=== PATIENT | male | born 1970 | race Caucasian/White ===

== ENCOUNTER 2016-09-02 09:01 | Outpatient (RCR) | payer OTHER | END 2016-09-03 | LOC: M PT 09:01 | PROVIDERS: ATTEND Internal Medicine | DX: Z51.89 Encounter for other specified aftercare (principal); M25.561 Pain in right knee; M25.562 Pain in left knee; M25.511 Pain in right shoulder; M25.512 Pain in left shoulder ==

== ENCOUNTER 2016-09-25 10:00 | Outpatient (RCR) | payer OTHER | END 2016-10-04 | LOC: M PT 10:00 | PROVIDERS: ATTEND Internal Medicine | DX: Z51.89 Encounter for other specified aftercare (principal); M25.561 Pain in right knee; M25.562 Pain in left knee; M25.511 Pain in right shoulder; M25.512 Pain in left shoulder ==

== ENCOUNTER 2017-04-10 10:58 | Inpatient (IN) | payer OTHER ==
[~2017-04-10] VITALS: Ht 177.8 cm; Wt 116.0 kg
[2017-04-10] MEDS ORDERED: GABA-282 PO (11:14)
[2017-04-10] MEDS ORDERED: TRAZ50TA11 PO (11:14)
[2017-04-10] MEDS ORDERED: FLUT1SPR2 (11:14)
[2017-04-10] MEDS ORDERED: LORA10TA2 PO (11:14)
[2017-04-10] MEDS ORDERED: MINI2CAP PO (11:14)
[2017-04-10 14:52] LABS: MEAN CORPUSCULAR HEMOGLOBIN 30.8 pg (27.0-33.0); MEAN CORPUSCULAR HGB CONC 33.9 g/dl (32.0-36.5); RED CELL DISTRIBUTION WIDTH 14.2 % (11.5-14.5); WHITE BLOOD COUNT 8.6 10^3/uL (4.0-10.0)
[2017-04-10 15:02] LABS: METHADONE URINE NEGATIVE (NEGATIVE)
[2017-04-10 15:10] LABS: ALBUMIN 3.4 GM/DL (3.2-5.2); ALBUMIN/GLOBULIN RATIO 0.87 (1.00-1.93); ALKALINE PHOSPHATASE 63 U/L (45-117); ALT/SGPT 66 U/L (12-78); ANION GAP 5 MEQ/L (8-16); AST/SGOT 26 U/L (15-37); BILIRUBIN,DIRECT 0.2 MG/DL (0.0-0.2); BILIRUBIN,TOTAL 0.5 MG/DL (0.2-1.0); BLOOD UREA NITROGEN 10 MG/DL (7-18); CALCIUM LEVEL 8.9 MG/DL (8.5-10.1); CARBON DIOXIDE LEVEL 29 MEQ/L (21-32); CHLORIDE LEVEL 108 MEQ/L (98-107); GLOMERULAR FILTRATION RATE > 60.0 (>60); GLUCOSE, FASTING 109 MG/DL (70-105); POTASSIUM SERUM 4.1 MEQ/L (3.5-5.1); SODIUM LEVEL 142 MEQ/L (136-145); TOTAL PROTEIN 7.3 GM/DL (6.4-8.2)
[2017-04-10] MEDS ORDERED: FISH1000 PO (17:53)
[2017-04-10] MEDS ORDERED: CHRO400T PO (17:53)
[2017-04-10] MEDS ORDERED: VITMTA PO (17:53)
[2017-04-10 20:19] VITALS: BP 148/88
[2017-04-10] MEDS ORDERED: MAALOX 30 ML SUSP *UDC PO PRN (21:30)
[2017-04-10] MEDS ORDERED: traZODone 50 MG TAB PO PRN (21:30)
[2017-04-10] MEDS ORDERED: MOM 30ML SUSPENSION UDC PO PRN (21:30)
[2017-04-10] MEDS ORDERED: LORATADINE 10 MG TAB PO PRN (21:30)
[2017-04-10] MEDS ORDERED: FLUTICASONE PROP 0.05% NASAL SPRAY 16 GM (FLONASE) PRN (21:30)
[2017-04-10] MEDS: GABAPENTIN 300 MG CAP PO SCH (22:11)
[2017-04-10] MEDS: ACETAMINOPHEN TAB 650MG DOSE (2X325MG) PO PRN (22:12)
[2017-04-11 06:28] VITALS: BP 134/83
--- NOTE | 2017-04-11 08:24 | ECGEPIP ---
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
[2017-04-11] MEDS: MULTIVITAMINS/MINERALS THERAP 1 TAB PO SCH (08:49)
[2017-04-11] MEDS: OMEGA-3 1050MG CAPSULE PO SCH (08:49)
[2017-04-11] MEDS: GABAPENTIN 300 MG CAP PO SCH ×3 (08:49→21:16)
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
[2017-04-11] MEDS: ACETAMINOPHEN TAB 650MG DOSE (2X325MG) PO PRN (15:34)
[2017-04-11 18:00] VITALS: BP 137/79
[2017-04-11] MEDS: PRAZOSIN 1 MG CAP PO SCH (21:17)
[2017-04-12 06:58] VITALS: BP 115/61
[2017-04-12] MEDS: OMEGA-3 1050MG CAPSULE PO SCH (08:24)
[2017-04-12] MEDS: MULTIVITAMINS/MINERALS THERAP 1 TAB PO SCH (08:24)
[2017-04-12] MEDS: GABAPENTIN 300 MG CAP PO SCH ×3 (08:24→20:24)
[2017-04-12] MEDS ORDERED: INFLUENZA QUADRIVALENT PF VACCINE 0.5ML SYRINGE (90686) IM ONE (09:00)
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
[2017-04-12] MEDS: PRAZOSIN 1 MG CAP PO SCH (20:24)
[2017-04-13 06:39] VITALS: BP 148/81
[2017-04-13] MEDS: MULTIVITAMINS/MINERALS THERAP 1 TAB PO SCH (08:19)
[2017-04-13] MEDS: GABAPENTIN 300 MG CAP PO SCH ×3 (08:19→20:59)
[2017-04-13] MEDS: OMEGA-3 1050MG CAPSULE PO SCH (08:19)
--- NOTE | 2017-04-13 14:10 | MHIPNPDOC ---
[facility] Progress Note Progress Note DATE OF SERVICE: 04/13/17 HISTORY: Patient is a 46-year-old male, with history of depressive disorder, anxiety disorder. Patient was admitted after having worsening symptoms of depression and increased anxiety at the point that he thought he was having a panic attack as he had palpitations and increased heart rate. Endorsed worsening depressed mood, anhedonia, low energy, and intrusive thoughts of hurting a it security engineer . Patient reported doing better, no depressed mood today, no ideas of self harm or harm to others. No side effects of medications. VITAL SIGNS: See below. NEW TEST RESULTS: CURRENT MEDICATIONS: See below. MENTAL STATUS EXAMINATION: General appearance: Patient is a 46 years old male that is obese and looks older than stated age, casually dressed with fair grooming and hygiene. Speech: . Fluent and coherent Thought processes: . Linear and goal directed Thought content: . No suicidal or homicidal ideas. No delusions elicited. No perceptual disturbances Abstract reasoning and computation: . Abstract thought processes Description of associations: . No abnormalities Description of abnormal or psychotic thoughts: . No psychosis Judgment: . Fair Insight: . Fair Orientation: . Oriented 3 Recent and remote memory: . Intact Attention span and concentration: . Average Fund of knowledge: . Average Mood: "Better." Affect: . Full range DIAGNOSES: 1. Depressive disorder n.o.s, PTSD MANAGEMENT PLAN: Continue current medications Discharge plan for earlier next week, patient will need intensive psychotherapy as outpatient. Continue supportive therapy and milieu therapy TIME SPENT: 25 minutes. Vital Signs Vital Signs Date Time Temp Pulse Resp B/P (MAP) Pulse Ox O2 Delivery O2 Flow Rate FiO2 04/13/17 06:39 97.8 95 18 148/81 (103) 04/11/17 06:28 Room Air 04/10/17 19:59 97 Current Medications Current Medications Acetaminophen (Tylenol Tab) 650 mg Q6HP PRN PO HEADACHE or DISCOMFORT Last administered on 04/11/17t 15:34; Start 04/10/17 at 21:30; Stop 05/10/17 at 21:29 Al Hydrox/Mg Hydrox/Simethicone (Mylanta) 30 ml Q4HP PRN PO HEARTBURN/ INDIGESTION; Start 04/10/17 at 21:30; Stop 05/10/17 at 21:29 Fish Oil ([place]-3 (1050mg)) 1 ea DAILY PO Last administered on 04/13/17 08:19 ; Start 04/11/17 at 09:00; Stop 05/11/17 at 08:59 Fluticasone Propionate (Flonase 0.05% Nasal [place]) 2 spray DAILY PRN NA allergies; Start 04/10/17 at 21:30; Stop 05/10/17 at 21:29 Gabapentin (Neurontin) 300 mg TID PO Last administered on 04/13/17 08:19; Start 04/10/17 at 21:00; Stop 05/10/17 at 20:59 Home Med (Med Rec Complete!) ASDIRECTED XX ; Start 04/10/17 at 18:00; Stop 04/10/17 at 18:00; Status DC Loratadine (Claritin) 10 mg DAILYPRN PRN PO allergies Last administered on 04/12 20:24; Start 04/10/17 at 21:30; Stop 05/10/17 at 21:29 Magnesium Hydroxide (Milk Of Magnesia) 30 ml DAILYPRN PRN PO CONSTIPATION; Start 04/10/17 at 21:30; Stop 05/10/17 at 21:29 Multivitamins (Theragram-M) 1 tab DAILY PO Last administered on 04/13/17 08:19 ; Start 04/11/17 at 09:00; Stop 05/11/17 at 08:59 Prazosin HCl (Minipress) 2 mg QHS PO Last administered on 04/12/17 20:24; Start 04/11/17 at 21:00; Stop 05/11/17 at 20:59 Trazodone HCl (Desyrel) 50 mg QHSP PRN PO INSOMNIA Last administered on 21:16; Start 04/10/17 at 21:30; Stop 05/10/17 at 21:29 Allergies Coded Allergies: No Known Allergies (Unverified , 04/10/17) JAHAIRA PIRES MD Apr 13, 2017 14:10
[2017-04-13 18:00] VITALS: BP 133/72
[2017-04-13 21:00] VITALS: BP 138/92
[2017-04-13] MEDS: PRAZOSIN 1 MG CAP PO SCH (21:00)
[2017-04-13] MEDS: ACETAMINOPHEN TAB 650MG DOSE (2X325MG) PO PRN (22:45)
[2017-04-14 07:07] VITALS: BP 153/82
[2017-04-14] MEDS: OMEGA-3 1050MG CAPSULE PO SCH (08:13)
[2017-04-14] MEDS: GABAPENTIN 300 MG CAP PO SCH (08:13)
[2017-04-14] MEDS: MULTIVITAMINS/MINERALS THERAP 1 TAB PO SCH (08:13)
[2017-04-14] MEDS: ACETAMINOPHEN TAB 650MG DOSE (2X325MG) PO PRN (08:15)
[2017-04-14] MEDS ORDERED: GABA-282 PO (09:02)
[2017-04-14] MEDS ORDERED: CLAR1TAB2 PO (09:02)
[2017-04-14] MEDS ORDERED: TRAZO50TA PO (09:02)
[2017-04-14] MEDS ORDERED: MINI1CAP PO (09:02)
--- NOTE | 2017-04-14 09:20 | MHDSPDOC ---
[facility] Discharge Summary Discharge Summary DATE OF ADMISSION: Apr 10, 2017 at 17:12 DATE OF DISCHARGE: 04/14/17 AT 11:00 DISCHARGE DIAGNOSES: 1. .DEPRESSIVE DISORDER N.O.S 2. .PTSD REASON FOR ADMISSION: WORSENING SYMPTOMS OF DEPRESSION, ANXIETY , IDEAS TO HARM A [employer] Patient is a 46-year-old male, with history of depressive disorder, anxiety disorder reported Medical history CEREBRAL palsy and obesity. Patient was admitted after having worsening symptoms of depression and increased anxiety at the point that he thought he was having a panic attack as he had palpitations and increased heart rate. Endorsed worsening depressed mood, anhedonia, low energy, and intrusive thoughts of hurting a security auditor that works or used to work at [employer] in [facility]. Patient doesn't know the name , address of the security auditor, he had a dispute with him in July 2015 before her daughter in the hospital suffering from leukemia. Patient denies any ideas of self-harm, denies any intentions or homicidal ideas towards this person that he doesn't know how to locate .Patient has been in treatment at [facility] having medication management and weekly psychotherapy. He denies history of self-harm behaviors reported drinking once or twice a most 1 drink, denied any substance use. No history of manic/hypomanic symptoms, no symptoms of psychosis.Patient lives with his girlfriend and his 16 year old son. CONSULTANTS INVOLVED: NONE TREATMENT AND PROGRESS ON THE UNIT : . Patient is a 46-year-old male, with history of depressive disorder, anxiety disorder. Patient was admitted after having worsening symptoms of depression and increased anxiety at the point that he thought he was having a panic attack as he had palpitations and increased heart rate. Endorsed worsening depressed mood, anhedonia, low energy, and intrusive thoughts of hurting a security auditor . Patient was re-started on home medications and he refused to be started on antidepressant medication as he had side effects to multiple ones before. Patient was participating in groups/supportive therapy . He reported doing better, no depressed mood , no ideas of self harm or harm to others. No side effects of medications. Patient will continue weekly psychotherapy and medication management at [facility]. HOSPITAL COURSE: Patient is a 46-year-old male, with history of depressive disorder, anxiety disorder reported Medical history CEREBRAL palsy and obesity. Patient was admitted after having worsening symptoms of depression and increased anxiety at the point that he thought he was having a panic attack as he had palpitations and increased heart rate. Endorsed worsening depressed mood, anhedonia, low energy, and intrusive thoughts of hurting a security auditor that works or used to work at [facility] [employer] [facility] in [facility]. Patient doesn't know the name , address of the security auditor, he had a dispute with him in July 2015 before her daughter in the hospital suffering from leukemia. Patient denies any ideas of self-harm, denies any intentions or homicidal ideas towards this person that he doesn't know how to locate .Patient has been in treatment at [facility] and will continue outpatient treatment there. Patient has obesity , and found to have elevated hemoglobin A1C in initial labs: 6.7. Patient is now considered diabetic and will need follow up in primary health clinics. DISCHARGE ASSESSMENT: Patient with improvement of depressive symptoms, no ideas of self harm or harm to others, will be discharged and have follow up as outpatient. MENTAL STATUS EXAMINATION ON DISCHARGE: General appearance: Patient is a 46 years old male that is obese and looks older than stated age, casually dressed with fair grooming and hygiene. Speech: . Fluent and coherent Thought processes: . Linear and goal directed Thought content: . No suicidal or homicidal ideas. No delusions elicited. No perceptual disturbances Abstract reasoning and computation: . Abstract thought processes Description of associations: . No abnormalities Description of abnormal or psychotic thoughts: . No psychosis Judgment: . Fair Insight: . Fair Orientation: . Oriented 3 Recent and remote memory: . Intact Attention span and concentration: . Average Fund of knowledge: . Average Mood: "Better." Affect: . Full range MEDICATIONS ON DISCHARGE: Acetaminophen (Tylenol Tab) 650 mg Q6HP PRN PO HEADACHE or DISCOMFORT Al Hydrox/Mg Hydrox/Simethicone (Mylanta) 30 ml Q4HP PRN PO HEARTBURN/ INDIGESTION; Fish Oil (Bellaire-3 (1050mg)) 1 ea DAILY PO Fluticasone Propionate (Flonase 0.05% Nasal Halsey) 2 spray DAILY PRN NA allergies Gabapentin (Neurontin) 300 mg TID PO Loratadine (Claritin) 10 mg DAILYPRN PRN PO Magnesium Hydroxide (Milk Of Magnesia) 30 ml DAILYPRN PRN PO CONSTIPATION; Multivitamins (Theragram-M) 1 tab DAILY PO Prazosin HCl (Minipress) 2 mg QHS PO FOR NIGHTMARES Trazodone HCl (Desyrel) 50 mg QHSP PRN PO INSOMNIA PLAN/FOLLOWUP ARRANGEMENTS: . [facility] The amount of time spent in the coordination of care for this patient was approximately 30 minutes. Vital Signs/I&Os Vital Signs Date Time Temp Pulse Resp B/P (MAP) Pulse Ox O2 Delivery O2 Flow Rate FiO2 04/14/17 07:07 97.0 95 18 153/82 (105) Room Air 04/10/17 19:59 97 Medications Scheduled Chromium Picolinate (Chromium Picolinate) 400 Mcg Tab, 400 MCG PO BID, (Reported ) Fish Oil (Fish Oil) 1,000 Mg Cap, 1,000 MG PO DAILY, (Reported) Gabapentin (Gabapentin) 300 Mg Cap, 300 MG PO TID, (Reported) Gabapentin (Gabapentin) 300 Mg Cap, 300 MG PO TID for ANXIETY, #40 Multivitamins *[facility] STOCKED* (Thera M Plus *[facility] STOCKED*) 1 Tab Tab, 1 TAB PO DAILY, (Reported) Prazosin HCl (Minipress) 2 Mg Cap, 2 MG PO QHS, (Reported) Prazosin HCl (Minipress) 1 Mg Cap, 2 MG PO QHS for NIGHTMARES, #14 Trazodone HCl (Trazodone HCl) 50 Mg Tab, 50 MG PO QHS, (Reported) Scheduled PRN Fluticasone Propionate (Fluticasone Propionate 0.05%) 120 Halsey/16 Gm Naspr, 2 SPRAYS NA DAILY PRN for ALLEGIES, (Reported) Loratadine (Loratadine) 10 Mg Tab, 10 MG PO DAILY PRN for ALLERGIES, (Reported) Loratadine (Claritin) 10 Mg Tab, 10 MG PO DAILYPRN PRN for allergies, #14 Trazodone HCl (Trazodone HCl) 50 Mg Tab, 50 MG PO QHSP PRN for INSOMNIA, #14 Allergies Coded Allergies: No Known Allergies (Unverified , 04/10/17) JAHAIRA PIRES MD Apr 14, 2017 09:03
== END 2017-04-14 11:30 | disposition home or self-care (01) | DRG 754 ==
LOC: M ED 10:58 → M ED INP 17:12 → M PSY 20:12
PROVIDERS: ADMIT Psychiatry & Neurology Psychiatry; ATTEND Psychiatry & Neurology Psychiatry
DX: F32.9 Major depressive disorder, single episode, unspecified (principal); E66.9 Obesity, unspecified; Z68.37 Body mass index [BMI] 37.0-37.9, adult; F43.10 Post-traumatic stress disorder, unspecified; G80.9 Cerebral palsy, unspecified; Z79.899 Other long term (current) drug therapy; G47.00 Insomnia, unspecified; R51 Headache; J30.9 Allergic rhinitis, unspecified; F41.9 Anxiety disorder, unspecified

== ENCOUNTER 2020-03-26 21:10 | Emergency (ER) | payer MEDICARE, OTHER ==
[~2020-03-26] VITALS: Ht 177.8 cm; Wt 120.7 kg
[~2020-03-26 21:10] MED LIST: CHRO400T PO; CLAR1TAB2 PO; FISH1000 PO; FLUT1SPR2; GABA-843 PO; LORA-243 PO; MINI1CAP PO; MINI2CAP PO; TRAZ-252 PO; TRAZ1TAB10 PO; VITMTA PO
[2020-03-26] MEDS ORDERED: OMEP-218 PO (21:24)
[2020-03-26] MEDS ORDERED: ATOR1TAB19 PO (21:24)
[2020-03-26] MEDS ORDERED: BUPR75TA5 PO (21:24)
[2020-03-26] MEDS ORDERED: METF500T13 PO (21:24)
--- NOTE | 2020-03-26 22:08 | REPVR ---
PROCEDURE INFORMATION: Exam: XR Right Foot Complete Exam date and time: 03/26/2020 9:57 PM Age: 49 years old Clinical indication: Pain; Foot; Right; Patient HX: Stubbed 5th toe yesterday; Additional info: Right lateral foot injury/pain TECHNIQUE: Imaging protocol: XR Right foot. Views: 3 or more views. COMPARISON: No relevant prior studies available. FINDINGS: Bones/joints: Normal. No fractures. Soft tissues: Mild soft tissue swelling of the distal foot. IMPRESSION: 1. Mild soft tissue swelling of the distal foot. 2. Otherwise negative right foot. No fractures . Electronically signed by: Thomas Sparrow On 03/26/2020 22:07:23 PM
[2020-03-26 22:29] VITALS: BP 141/75
[2020-05-17] MEDS ORDERED: DULE200A INH (12:24)
[2020-05-17] MEDS ORDERED: FISH1000 PO (12:24)
[2020-05-17] MEDS ORDERED: FLUTISP (12:24)
== END 2020-03-26 22:31 | disposition home or self-care (01) ==
LOC: M ED 21:10
DX: S90.31XA Contusion of right foot, initial encounter (principal); W22.09XA Striking against other stationary object, initial encounter; Y92.019 Unspecified place in single-family (private) house as the place of occurrence of the external cause; Y99.9 Unspecified external cause status; J45.909 Unspecified asthma, uncomplicated; E11.9 Type 2 diabetes mellitus without complications; K21.9 Gastro-esophageal reflux disease without esophagitis; F43.10 Post-traumatic stress disorder, unspecified; Z79.84 Long term (current) use of oral hypoglycemic drugs; Z79.899 Other long term (current) drug therapy

== ENCOUNTER → 2020-05-18 | Outpatient (CLI) | payer MEDICARE ==
[~2020-05-18] MED LIST changes: +ATOR1TAB19 PO; +BUPR75TA5 PO; +DULE200A INH; +FLUTISP; +METF500T13 PO; +OMEP-218 PO
== END ==
LOC: M LABSMTC 12:28
PROVIDERS: ATTEND Anesthesiology
DX: Z01.812 Encounter for preprocedural laboratory examination (principal); Z20.828 Contact with and (suspected) exposure to other viral communicable diseases

== ENCOUNTER → 2020-05-23 | Day surgery (SDC) | payer MEDICARE ==
[~2020-05-23] VITALS: Ht 177.8 cm; Wt 120.2 kg
[~2020-05-23] MED LIST changes: +LIDOCAINE 2% 100MG/5ML SDV (FOR ANES.) As Ordered ONE; +NS 1,000 ML IV ONE; +propofoL 200 MG/20 ML VIAL As Ordered ONE
[2020-05-23 07:34] VITALS: BP 136/94
== END | disposition home or self-care (01) ==
LOC: M OPP 07:11
PROVIDERS: ATTEND Internal Medicine Gastroenterology
DX: K62.5 Hemorrhage of anus and rectum (principal); Z80.0 Family history of malignant neoplasm of digestive organs; Z53.8 Procedure and treatment not carried out for other reasons

== ENCOUNTER 2020-06-22 20:56 | Emergency (ER) | payer MEDICARE ==
[~2020-06-22] VITALS: Ht 175.3 cm; Wt 121.9 kg
[~2020-06-22 20:56] MED LIST changes: -LIDOCAINE 2% 100MG/5ML SDV (FOR ANES.) As Ordered ONE; -NS 1,000 ML IV ONE; -propofoL 200 MG/20 ML VIAL As Ordered ONE
--- NOTE | 2020-06-22 22:20 | REPVR ---
PROCEDURE INFORMATION: Exam: XR Left Toe(s) Exam date and time: 06/22/20 (9:23pm) Age: 49 years old Clinical indication: Struck foot on a ladder TECHNIQUE: Imaging protocol: XR Left toes Views: Minimum 2 views COMPARISON: No relevant prior studies available FINDINGS: Bones/joints: Unremarkable. No acute fracture nor dislocation. Soft tissues: Unremarkable. IMPRESSION: No acute findings. The left toes appear intact. Electronically signed by: An Leiva On 06/22/2020 22:20:46 PM
[2020-06-22 22:44] VITALS: BP 137/82
== END 2020-06-22 23:00 | disposition home or self-care (01) ==
LOC: M ED 20:56
DX: S90.122A Contusion of left lesser toe(s) without damage to nail, initial encounter (principal); W22.8XXA Striking against or struck by other objects, initial encounter; E11.9 Type 2 diabetes mellitus without complications; J45.909 Unspecified asthma, uncomplicated; R56.9 Unspecified convulsions; Z79.899 Other long term (current) drug therapy; Z79.84 Long term (current) use of oral hypoglycemic drugs; Z88.8 Allergy status to other drugs, medicaments and biological substances

== ENCOUNTER → 2020-07-16 | Outpatient (CLI) | payer MEDICARE | LOC: M LABSMTC 09:34 | PROVIDERS: ATTEND Anesthesiology | DX: Z01.812 Encounter for preprocedural laboratory examination (principal); Z20.822 Contact with and (suspected) exposure to COVID-19 ==

== ENCOUNTER 2020-07-21 07:08 | Day surgery (SDC) | payer MEDICARE ==
[~2020-07-21] VITALS: Ht 177.8 cm; Wt 118.8 kg
[~2020-07-21 07:08] MED LIST changes: +GABA-282 PO; -GABA-843 PO; +NS 1,000 ML IV ONE
--- OUTSIDE RECORDS SUMMARY | 2020-07-21 07:11 | CCD | Continuity of Care Document ---
Author Author Subhash SALAS RPA-C Organization Unknown Address [address], [address] [place] [address] Phone [phone] Care Team Providers Care Mat Packer Name Role Phone Abner Deal AUTM [phone] Problems Active Problems Provider Date Allergic asthma without status asthmaticus TOÑA DietrichC Onset: 04/12/2020 Social History Type Date Description Comments Sex Unknown ETOH Use Denies alcohol use Tobacco Use Start: Unknown Non Smoker Allergies, Adverse Reactions, Alerts Active Allergies Reaction Severity Comments Date Dilantin 04/12/2020 Medications Active Medications SIG Qnty Indications Ordering Provide r Date Miralax 17GM/Scoop Powder use as instructed by doctor for bowel prep 510gm Z12.11 Nolan Lomax MD 06/22/2020 Miralax 17GM/Scoop Powder Take 17 grams by mouth twice daily. 1020gm K59.00 Nolan Lomax MD 04/12/[address] 1 by mouth every day Unknown Atorvastatin Calcium 10mg Tablets 1 by mouth every day Unknown Gabapentin 300mg Capsules Daily-can take 1 more prn for headache Unknown Loratadine 10mg Capsules 1 by mouth every day Unknown Chromium Picolinate 1000mcg Tablets Daily Unknown Vitamin D 50mcg (1999 Ut) Tablets Daily Unknown Beverly 3-6-9 Complex Capsules Daily Unknown Metformin HCL 500mg Tablets 1 by mouth twice a day Unknown Dulera 100-5mcg/Act Aerosol 2 puff twice a day Unknown Azelastine HCL (Nasal) 0.1% Soluti on 1 spray intranasal twice a day prn Unknown Ventolin HFA 108(90Base) mcg/Act A erosol 2 puffs qid/prn Unknown Mucinex 600mg Tablets ER 12HR 2 by mouth prn Unknown History Medications Nulytely With Flavor Packs 420gm Solution Rec take per doctor's instructions for bowel prep. 4000ml K62.5 Nolan Lomax MD 04/12/2020 - 06/20/[address] take 4 tabs by mouth prior to procedure per instructions. 4tabs K62.5 Nolan Lomax MD 04/12/2020 - 06/20/2020 Immunizations Description No Information Available Vital Signs Date Vital Result Comment 06/22/2020 8:34am BP Systolic 112 mmHg BP Diastolic 82 mmHg Height 69.5 inches 5'9.50" Weight 267.00 lb BMI (Body Mass Index) 38.9 kg/m2 [place] Body Weight 160 lb Weight 121.111 kg BSA (Body Surface Area) 2.35 m2 04/12/2020 9:44am BP Systolic 132 mmHg BP Diastolic 72 mmHg Heart Rate 82 /min Height 69.5 inches 5'9.50" Weight 264.00 lb BMI (Body Mass Index) 38.4 kg/m2 [place] Body Weight 160 lb Weight 119.750 kg BSA (Body Surface Area) 2.34 m2 Results Description No Information Available Procedures Description No Information Available Medical Devices Description No Information Available Encounters Description No Information Available Assessments Date Code Description Provider 06/22/2020 Z12.11 Encounter for screening for oracio gnant neoplasm of colon Tabby Storey MYRNA SalasC 06/22/2020 Z80.0 Family history of malignant neop lasm of digestive organs [facility]by Storey [facility] 06/22/2020 K59.00 Constipation, unspecified Meliss a [place] Mayra [facility] 04/12/2020 K62.5 Hemorrhage of anus and rectum Me lizandro [place] TOÑA SalasC 04/12/2020 K59.00 Constipation, unspecified Meliss a [place] TOÑA SalasC 04/12/2020 Z80.0 Family history of malignant neop lasm of digestive organs ISHMAEL Baptiste Plan of Treatment 06/22/2020 - ISHMAEL Baptiste* Z12.11 Encounter for screening for malignant neoplasm of colon * Z80.0 Family history of malignant neoplasm of digestive organs * K59.00 Constipation, unspecified * * New Medication:* Miralax 17 GM/Scoop * New Orders:* Colonoscopy, Ordered: 06/22/20 * Comments:* Will arrange for colonoscopy. Reviewed risks and benefits of the procedure, as well as other options, with the patient. Bowel prep procedure was discussed with patient, as well as risks and side effects associated with the bowel prep. Patient verbalized understanding of all of the above and is in agreement to proceed. Patient will seek medical attention for any acute changes. Will monitor. * Follow up:* As scheduled, sooner if needed. Functional Status Description No Information Available Mental Status Description No Information Available Referrals Description No Information Available
--- OUTSIDE RECORDS SUMMARY | 2020-07-21 07:11 | CCD | Continuity of Care Document ---
Author Author Subhash DEAL [facility] Organization Unknown Address [address] [place] [address] Phone [phone] Problems Active Problems Provider Date Epilepsy Onset: 04/15/2001 Allergic rhinitis Onset: 04/15/2001 Gastroesophageal reflux disease Susan Castellano [facility] Onset : 12/27/2003 Hyperlipidemia Abner Deal RPA Onset: 05/11/2007 Low back pain Abner Deal RPA Onset: 11/18/2013 Cerebral palsy Abner Deal RPA Onset: 10/02/2015 Moderate recurrent major depression Abner Deal RPA O nset: 11/13/2015 Anxiety state Abner Deal RPA Onset: 11/13/2015 Panic disorder with agoraphobia Abner Deal RPA Onset : 11/13/2015 Migraine without aura, not refractory Abner Deal RPA Onset: 01/03/2016 Osteoarthritis of multiple joints Abner Deal RPA Ons et: 04/02/2016 Polyarthropathy Abner Deal RPA Onset: 04/02/2016 Erectile dysfunction due to general medical condition Abner Deal RPA Onset: 04/03/2016 Elevated liver enzymes level Abner Deal RPA Onset: 1 Type 2 diabetes mellitus Abner Deal RPA Onset: 04/14 Note: New onset 04/10/17 [facility] Nocturia Abner Deal RPA Onset: 10/13/2017 Vitamin D deficiency Abner Deal RPA Onset: 8 Asthma without status asthmaticus Abner Deal RPA Ons et: 03/15/2019 Social History Type Date Description Comments Sex Unknown Tobacco Use Start: Unknown Never Smoked Cigarettes ETOH Use Denies alcohol use Recreational Drug Use Never Used Drugs Tobacco Use Start: Unknown Patient has never smoked Allergies, Adverse Reactions, Alerts Active Allergies Reaction Severity Comments Date Dilantin 04/15/2001 Xerontin 04/15/2001 Escitalopram ED, fatigue, burning lips Skelaxin Elevated b/p 10/16/2015 Medications Active Medications SIG Qnty Indications Ordering Provide r Date Azithromycin 250mg Tablets 2 by mouth stat followed by 1 by mouth every day x 4 days 6tabs Savage Grey D.O., [facility] 06/07/2020 Diclofenac Sodium 1% Gel apply topically four times a day to right knee 100gm [facility].O., [facility] 06/07/2020 Vitamin D 2000Unit Tablets 1 by mouth every day 90tabs Ag Grey D.O., [facility] Lancets 30G 30G Misc use with glucose meter daily and as needed dx. e11.9 200units Ag olivier D.O., [facility] 12/27/2019 Glucose Meter Test Strips Advanced Strips check blood glucose level once a day and as needed. e11.9 200uni ts Ag Grey D.O., [facility] 12/27/2019 Metformin HCL 500mg Tablets take one tablet by mouth twice a day 60tabs Shefali Green, [facility] 09/27/2019 Atorvastatin Calcium 10mg Tablets Take One Tablet By Mouth Every Day 90tabs Ag Grey D.O., [facility] 06/11/[address] Take One Capsule By Mouth Every Morning 30caps Ag Grey D.O., [facility] 03/15/2019 Ventolin HFA 108(90Base) mcg/Act A erosol Inhale Two Puffs By Mouth Every 4 To 6 Hours as Needed 18units Ag Grey D.O., [facility] 04/01/2018 Gabapentin 300mg Capsules take one capsule by mouth three times a day 90caps Ag Grey D.O. , [facility] 03/05/2017 Dulera 100-5mcg/Act Aerosol Inhale 2 Puffs By Mouth Two Times A Day 13units Ag Grey D.O., [facility] 10/11/2016 Loratadine 10mg Tablets Take One Tablet By Mouth Every Day 30tabs Ag Grey D.O., [facility] Flonase Allergy Relief 50mcg/Act Suspension 2 sprays each nostril once a day 19.8ml Ag Grey D.O., [facility] 11/08/2015 Fish Oil 1000mg Capsules 1 by mouth daily Unknown Chromium Picolinate 400mcg Tablets one tablet two times a day Unknown 0 History Medications Azithromycin 250mg Tablets 2 by mouth stat followed by 1 by mouth every day x 4 days 6tabs Savage Grey D.O., [facility] 04/04/2020 - 04/14/2020 Guaifenesin 100mg/5ML Solution give 10ml by mouth as needed 4 times a day 400ml Ag Grey D.O., [facility] 04/04/2020 - 04/14/2020 Invokana 100mg Tablets 1 by mouth every day 30tabs Ag Grey D.O., [facility] - 01/19/2020 Medications Administered in Office Medication SIG Qnty Indications Ordering Provider Date Injection (SC)/(Im) Injection Abner Deal, MYRNA 03/30/2020 Injection (SC)/(Im) Injection Abner Deal, RPA 06/10/2019 Injection Subcutaneous Or Intramuscular Injection [facility] 04/13 Immunizations CPT Code Status Date Vaccine Lot # [id number] Given 03/30/2020 Influenza Virus Vaccine, Quadrivalent, Slit Virus, Im Use 3Y & Up [id number] Given 06/10/2019 Pneumococcal Immunization S0 [id number] 23801 Given 06/10/2019 Influenza Virus Vaccine, Quadrivalent, Slit Virus, Im Use 3Y & Up [id number] [id number] Given 03/23/2012 Pneumococcal Immunization [id number] [id number] Given 03/23/2012 Influenza Virus Vac. Split Virus Individuals 3 Years And Above [id number] Given 04/13/2008 Influenza Virus Vac. Split Virus Individuals 3 Years And Above [id number] Given Unknown Influenza Virus Vaccine, Quadrivalent, Slit Virus, Im Use 3Y & Up Vital Signs Date Vital Result Comment 06/07/2020 3:07pm BP Systolic 110 mmHg BP Diastolic 86 mmHg Body Temperature 96.4 F Heart Rate 103 /min Respiratory Rate 16 /min Height 70 inches 5'10" Weight 267.00 lb [place] Body Weight 166 lb BMI (Body Mass Index) 38.3 kg/m2 O2 % BldC Oximetry 97 % 04/04/2020 3:20pm Body Temperature 97.6 F Heart Rate 86 /min Respiratory Rate 16 /min Height 70 inches 5'10" [place] Body Weight 166 lb O2 % BldC Oximetry 96 % Results Test Acquired Date Facility Test Result H/L Range Note CBC With Differential/Platelet 01/12/2020 [facility] N E WBC 9.3 x10E3/uL 3.4-10.8 RBC 5.38 x10E6/uL 4.14-5.80 Hemoglobin 16.2 g/dL 13.0-17.7 Hematocrit 49.3 % 37.5-51.0 MCV 92 fL 79-97 MCH 30.1 pg 26.6-33.0 MCHC 32.9 g/dL 31.5-35.7 RDW 13.1 % 11.6-15.4 Platelets 480 x10E3/uL High 150-450 Neutrophils 54 % Not Estab. Lymphs 30 % Not Estab. Monocytes 8 % Not Estab. Eos 7 % Not Estab. Basos 1 % Not Estab. Immature Cells TNP Neutrophils (Absolute) 5.0 x10E3/uL 1.4-7.0 Lymphs (Absolute) 2.8 x10E3/uL 0.7-3.1 Monocytes(Absolute) 0.8 x10E3/uL 0.1-0.9 Eos (Absolute) 0.6 x10E3/uL High 0.0-0.4 Baso (Absolute) 0.1 x10E3/uL 0.0-0.2 Immature Granulocytes 0 % Not Estab. Immature Grans (Abs) 0.0 x10E3/uL 0.0-0.1 NRBC TNP Hematology Comments: TNP Hemoglobin A1c 12/27/2019 [facility] [place] Hemoglobin A1c 7.3 % High 4.8-5.6 1 1 Prediabetes: 5.7 - 6.4 Diabetes: >6.4 Glycemic control for adults with diabetes: <7.0 Procedures Date Code Description Status 03/30/2020 64652 Injection (SC)/(Im) Completed Medical Devices Description No Information Available Encounters Type Date Location Provider Dx Diagnosis Office Visit 06/07/2020 3:00p [place] [facility] Abner Deal, RP A M25.561 Pain in right knee J01.90 Acute sinusitis, unspecified M54.5 Low back pain Office Visit 04/04/2020 4:00p [place] [facility] Abner Deal, RP A J01.90 Acute sinusitis, unspecified Office Visit 03/30/2020 9:30a [facility] Abner Deal, RP A Z00.01 Encounter for general adult medical exam w abnormal findings E11.9 Type 2 diabetes mellitus wit hout complications E78.5 Hyperlipidemia, unspecified J45.909 Unspecified asthma, uncompli cated G43.009 Migraine w/o aura, not intra ctable, w/o status migrainosus M13.0 Polyarthritis, unspecified G80.9 Cerebral palsy, unspecified J30.9 Allergic rhinitis, unspecifi ed F40.01 Agoraphobia with panic disor day F41.9 Anxiety disorder, unspecifie d F33.1 Major depressive disorder, r ecurrent, moderate M54.9 Dorsalgia, unspecified Office Visit 01/19/2020 2:40p [facility] Abner Deal, RP A E11.9 Type 2 diabetes mellitus without complications Office Visit 01/12/2020 1:00p [place] [facility] Dina Freed PA R19.5 Other fecal abnormalities Office Visit 12/27/2019 9:00a [facility] Abner Deal, RP A E11.9 Type 2 diabetes mellitus without complications J45.909 Unspecified asthma, uncompli cated G43.009 Migraine w/o aura, not intra ctable, w/o status migrainosus M13.0 Polyarthritis, unspecified G80.9 Cerebral palsy, unspecified J30.9 Allergic rhinitis, unspecifi ed F40.01 Agoraphobia with panic disor day F41.9 Anxiety disorder, unspecifie d F33.1 Major depressive disorder, r ecurrent, moderate M54.9 Dorsalgia, unspecified Assessments Date Code Description Provider 06/07/2020 M25.561 Pain in right knee Quan Deal, RPA 06/07/2020 J01.90 Acute sinusitis, unspecified Dimitriosn Abner herman, RPA 06/07/2020 M54.5 Low back pain Abner Deal, RPA 04/04/2020 J01.90 Acute sinusitis, unspecified Pasquale Rashid burciaga M.D. 04/04/2020 J01.90 Acute sinusitis, unspecified Abner Loya, RPA 03/30/2020 Z00.01 Encounter for genera l adult medical examination with abnormal findings gA Grey D.O., [facility] 03/30/2020 Z00.01 Encounter for genera l adult medical examination with abnormal findings Abner Deal, RPA 03/30/2020 E11.9 Type 2 diabetes mellitus without complications Ag Grey D.O., [facility] 03/30/2020 E11.9 Type 2 diabetes mellitus without complications Abner Deal, RPA 03/30/2020 E78.5 Hyperlipidemia, unspecified Kaleigh Mckeon.Makenna., [facility] 03/30/2020 E78.5 Hyperlipidemia, unspecified Abner Spencer, RPA 03/30/2020 J45.909 Unspecified asthma, uncomplicate d Ag Grey D.O., [facility] 03/30/2020 J45.909 Unspecified asthma, uncomplicate d Abner Deal, [facility] 03/30/2020 G43.009 Migraine without aura, not intra ctable, without status migra Abner Deal, RPA 03/30/2020 M13.0 Polyarthritis, unspecified Hinma Abner joya, RPA 03/30/2020 G80.9 Cerebral palsy, unspecified Abner Spencer, RPA 03/30/2020 J30.9 Allergic rhinitis, unspecified H Abner zambrano, RPA 03/30/2020 F40.01 Agoraphobia with panic disorder Abner Deal, RPA 03/30/2020 F41.9 Anxiety disorder, unspecified Abner Arita, RPA 03/30/2020 F33.1 Major depressive disorder, recur rent, moderate Abner Deal, RPA 03/30/2020 Z23 Encounter for immunization Elida Grey D.O., [facility] 03/30/2020 M54.9 Dorsalgia, unspecified Tomás Deal, RPA 01/19/2020 E11.9 Type 2 diabetes mellitus without complications Abner Deal, RPA 01/12/2020 R19.5 Hematochezia Rafita Freed, PA 12/27/2019 E11.9 Type 2 diabetes mellitus without complications Abner Deal, RPA 12/27/2019 J45.909 Unspecified asthma, uncomplicate d Abner Deal, RPA 12/27/2019 G43.009 Migraine without aura, not intra ctable, without status migra Abner Deal, RPA 12/27/2019 M13.0 Polyarthritis, unspecified Himaya nAbner, RPA 12/27/2019 G80.9 Cerebral palsy, unspecified Abner Spencer, RPA 12/27/2019 J30.9 Allergic rhinitis, unspecified H juan manuelAbner, RPA 12/27/2019 F40.01 Agoraphobia with panic disorder Abner Deal, RPA 12/27/2019 F41.9 Anxiety disorder, unspecified Hi Abner ernst, RPA 12/27/2019 F33.1 Major depressive disorder, recur rent, moderate Abner Deal, RPA 12/27/2019 M54.9 Dorsalgia, unspecified Tomás Deal, RPA Plan of Treatment No Information Available Functional Status Description No Information Available Mental Status Description No Information Available Referrals Refer to Reason for Referral Status Appt Date Nolan Lomax M.D. eval and treat for BRBPR x 2 days, hematest in office neg. previous colonoscopy 2008 for same issue was negative Sent 04/12/2020 [address] [id number] [phone]
--- OUTSIDE RECORDS SUMMARY | 2020-07-21 07:11 | CCD | Continuity of Care Document ---
Author Author Subhash DEAL [facility] Organization Unknown Address [address] [facility] [address] [place] [address] Phone [phone] Problems Active Problems Provider Date Epilepsy Onset: 04/15/2001 Allergic rhinitis Onset: 04/15/2001 Gastroesophageal reflux disease Susan Castellano [facility] Onset : 12/27/2003 Hyperlipidemia Abner [...] x 4 days 6tabs Savage Grey D.O., [facility] 06/07/2020 Diclofenac Sodium 1% Gel apply topically four times a day to right knee 100gm [facility] 06/07/2020 Vitamin D 2000Unit Tablets 1 by mouth every day 90tabs [facility] Lancets 30G 30G Misc use with glucose meter daily and as needed dx. e11.9 200units Ag olivier [facility].O., [facility] 12/27/2019 Glucose Meter Test Strips Advanced Strips check blood glucose level once a day and as needed. e11.9 200uni ts Ag [facility]., [facility] 12/27/2019 Metformin HCL 500mg Tablets take one tablet by mouth twice a day 60tabs Shefali Green, [facility] 09/27/2019 Atorvastatin Calcium 10mg Tablets Take One Tablet By Mouth Every Day 90tabs [facility] 06/11/[address] Take One Capsule By Mouth Every Morning 30caps Ag Grey D.O., [facility] 03/15/2019 Ventolin HFA 108(90Base) mcg/Act A erosol Inhale Two Puffs By Mouth Every 4 To 6 Hours as Needed 18units [facility] 04/01/2018 Gabapentin 300mg Capsules take one capsule by mouth three times a day 90caps Ag Grey D.O. , [facility] 03/05/2017 Dulera 100-5mcg/Act Aerosol Inhale 2 Puffs By Mouth Two Times A Day 13units Ag Grey D.O., [facility] 10/11/2016 Loratadine 10mg Tablets Take One Tablet By Mouth Every Day 30tabs Ag Grey D.O., [facility] Flonase Allergy Relief 50mcg/Act Suspension 2 sprays each nostril once a day 19.8ml [facility] 11/08/2015 Fish Oil 1000mg Capsules 1 by mouth daily Unknown Chromium Picolinate 400mcg Tablets one tablet two times a day Unknown 0 History Medications Azithromycin 250mg Tablets 2 by mouth stat followed by 1 by mouth every day x 4 days 6tabs Savage Grey D.O., [facility] 04/04/2020 - 04/14/2020 Guaifenesin 100mg/5ML Solution give 10ml by mouth as needed 4 times a day 400ml Ag Grey D.O., [facility] 04/04/2020 - 04/14/2020 Invokana 100mg Tablets 1 by mouth every day 30tabs Ag Grey D.O., [facility] - 01/19/2020 Medications Administered in Office Medication SIG Qnty Indications Ordering Provider Date Injection (SC)/(Im) Injection Abner Deal, MYRNA 03/30/2020 Injection (SC)/(Im) Injection Abner Deal, RPA 06/10/2019 Injection Subcutaneous Or Intramuscular [facility] Immunizations CPT Code Status Date Vaccine Lot # [id number] Given 03/30/2020 Influenza Virus Vaccine, Quadrivalent, Slit Virus, Im Use 3Y & Up [id number] 60183 Given 06/10/2019 Pneumococcal Immunization [id number] 07211 Given 06/10/2019 Influenza Virus Vaccine, Quadrivalent, Slit Virus, Im Use 3Y & Up [id number] 79949 Given 03/23/2012 Pneumococcal Immunization [id number] 43501 Given 03/23/2012 Influenza Virus Vac. Split Virus Individuals 3 Years And Above [id number] Given 04/13/2008 Influenza Virus Vac. Split Virus Individuals 3 Years And Above [id number] Given Unknown Influenza Virus Vaccine, Quadrivalent, Slit Virus, Im Use 3Y & Up Vital Signs Date Vital Result Comment 06/07/2020 3:07pm BP Systolic 110 mmHg BP Diastolic 86 mmHg Body Temperature 96.4 F Heart Rate 103 /min Respiratory Rate 16 /min Height 70 inches 5'10" Weight 267.00 lb [place] Body Weight 166 lb BMI (Body Mass Index) 38.3 kg/m2 O2 % BldC Oximetry 97 % 04/04/2020 3:20pm Body Temperature 97.6 F Heart Rate 86 /min Respiratory Rate 16 /min Height 70 inches 5'10" [place] Body Weight 166 lb O2 % BldC [...] <7.0 Procedures Date Code Description Status 03/30/2020 90248 Injection (SC)/(Im) Completed Medical Devices Description No Information Available Encounters Type Date Location Provider Dx Diagnosis Office Visit 06/07/2020 3:00p [place] [facility] Abner Deal, RP A M25.561 Pain in right knee J01.90 Acute sinusitis, unspecified M54.5 Low back pain Office Visit 04/04/2020 4:00p [place] [facility] Abner Deal, RP A J01.90 Acute sinusitis, unspecified Office Visit 03/30/2020 9:30a [facility] [place] Abner Deal, RP A Z00.01 Encounter for [...] M54.9 Dorsalgia, unspecified Office Visit 01/19/2020 2:40p [facility] Abner Deal, RP A E11.9 Type 2 diabetes mellitus without complications Office Visit 01/12/2020 1:00p [place] [facility] Dina Freed PA R19.5 Other fecal abnormalities Office Visit 12/27/2019 9:00a [facility] Abner Deal, RP A E11.9 Type 2 [...] l adult medical examination with abnormal findings Ag Grey D.O., [facility] 03/30/2020 Z00.01 Encounter for genera l adult medical examination with abnormal findings Abner Deal, RPA 03/30/2020 E11.9 Type 2 diabetes mellitus without complications Ag Grey D.O., [facility] 03/30/2020 E11.9 Type 2 diabetes mellitus without complications Abner Deal, RPA 03/30/2020 E78.5 Hyperlipidemia, unspecified Kaleigh Mckeon.Makenna., [facility] 03/30/2020 E78.5 Hyperlipidemia, unspecified Abner Spencer, RPA 03/30/2020 J45.909 Unspecified asthma, uncomplicate d Ag Grey D.O., [facility] 03/30/2020 J45.909 Unspecified asthma, uncomplicate d Abner Deal, [facility] 03/30/2020 G43.009 Migraine without aura, not intra [...] same issue was negative Sent 04/12/2020 [address] [id number] [phone]
--- OUTSIDE RECORDS SUMMARY | 2020-07-21 07:12 | CCD ---
Author Author [facility] Organization [facility] Address Unknown Phone Unavailable Care Team Providers Care Claims Analyst Name Role Phone Barraclough, La Nena PA Unavailable Unavailable Barraclough, La Nena PA Unavailable Unavailable Barraclough, La Nena PA Unavailable Unavailable Barraclough, La Nena PA Unavailable Unavailable Barraclough, La Nena PA Unavailable Unavailable Barraclough, La Nena PA Unavailable Unavailable YONIS DENTON MD Unavailable [phone] YONIS DENTON MD Unavailable [phone] YONIS DENTON MD Unavailable [phone] YONIS DENTON MD Unavailable [phone] YONIS DENTON MD Unavailable [phone] YONIS DENTON MD Unavailable [phone] YONIS DENTON MD Unavailable [phone] YONIS DENTON MD Unavailable [phone] YONIS DENTON MD Unavailable [phone] YONIS DENTON MD Unavailable [phone] YONIS DENTON MD Unavailable [phone] YONIS DENTON MD Unavailable [phone] BLACK, YONIS CHRISTOPHER MD Unavailable [phone] BLACK, YONIS PITTER MD Unavailable [phone] BLACK, YONIS HARTLEY MD Unavailable [phone] BLACK, YONIS PITTER MD Unavailable [phone] BLACK, YONIS COOPEROPHER MD Unavailable [phone] BLACK, YONIS PITTER MD Unavailable [phone] BLACK, YONIS HARTLEY MD Unavailable [phone] BLACK, YONIS HARTLEY MD Unavailable [phone] BLACK, YONIS HARTLEY MD Unavailable [phone] BLACK, YONIS HARTLEY MD Unavailable [phone] BLACK, YONIS HARTLEY MD Unavailable [phone] BLACK, YONIS HARTLEY MD Unavailable [phone] BLACK, YONIS HARTLEY MD Unavailable [phone] BLACK, YONIS HARTLEY MD Unavailable [phone] BLACK, YONIS HARTLEY MD Unavailable [phone] BLACK, YONIS HARTLEY MD Unavailable [phone] BLACK, YONIS HARTLEY MD Unavailable [phone] BLACK, YONIS HARTLEY MD Unavailable [phone] BLACK, YONIS HARTLEY MD Unavailable [phone] BLACK, YONIS HARTLEY MD Unavailable [phone] BLACK, YONIS HARTLEY MD Unavailable [phone] BLACK, YONIS HARTLEY MD Unavailable [phone] BLACK, YONIS HARTLEY MD Unavailable [phone] BLACK, YONIS HARTLEY MD Unavailable [phone] BLACK, YONIS HARTLEY MD Unavailable [phone] BLACK, YONIS HARTLEY MD Unavailable [phone] BLACK, YONIS HARTLEY MD Unavailable [phone] BLACK, YONIS HARTLEY MD Unavailable [phone] BLACK, YONIS HARTLEY MD Unavailable [phone] BLACK, YONIS HARTLEY MD Unavailable [phone] BLACK, YONIS HARTLEY MD Unavailable ([phone] BLACK, YONIS HARTLEY MD Unavailable ([phone] BLACK, YONIS HARTLEY MD Unavailable [phone] BLACK, YONIS HARTLEY MD Unavailable [phone] BLACK, YONIS HARTLEY MD Unavailable [phone] BLACK, YONIS HARTLEY MD Unavailable ([phone] BLACK, YONIS HARTLEY MD Unavailable ([phone] Say, D Abner PA Unavailable Unavailable Say, D Abner PA Unavailable Unavailable Say, D Abner PA Unavailable Unavailable Say, D Abner PA Unavailable Unavailable Say, D Abner PA Unavailable Unavailable Say, D Abner PA Unavailable Unavailable Say, D Abner PA Unavailable Unavailable Say, D Abner PA Unavailable Unavailable Say, D Abner PA Unavailable Unavailable Say, D Abner PA Unavailable Unavailable Say, D Abner PA Unavailable Unavailable Say, D Abner PA Unavailable Unavailable Say, D Abner PA Unavailable Unavailable Say, D Abner PA Unavailable Unavailable Say, D Abner PA Unavailable Unavailable Say, D Abner PA Unavailable Unavailable Say, D Abner PA Unavailable Unavailable Say, D Abner PA Unavailable Unavailable Say, D Abner PA Unavailable Unavailable Say, D Abner PA Unavailable Unavailable Say, D Abner PA Unavailable Unavailable Say, D Abner PA Unavailable Unavailable Say, D Abner PA Unavailable Unavailable Say, D Abner PA Unavailable Unavailable Say, D Abner PA Unavailable Unavailable Say, D Abner PA Unavailable Unavailable Say, D Abner PA Unavailable Unavailable Say, D Abner PA Unavailable Unavailable Say, D Abner PA Unavailable Unavailable Say, D Abner PA Unavailable Unavailable Say, D Abner PA Unavailable Unavailable Say, D Abner PA Unavailable Unavailable Say, D Abner PA Unavailable Unavailable Say, D Abner PA Unavailable Unavailable Say, D Abner PA Unavailable Unavailable Say, D Abner PA Unavailable Unavailable Say, D Abner PA Unavailable Unavailable Say, D Abner PA Unavailable Unavailable Say, D Abner PA Unavailable Unavailable Say, D Abner PA Unavailable Unavailable Say, D Abner PA Unavailable Unavailable Say, D Abner PA Unavailable Unavailable Say, D Abner PA Unavailable Unavailable Say, D Abner PA Unavailable Unavailable Say, D Abner PA Unavailable Unavailable Say, D Abner PA Unavailable Unavailable Say, D Abner PA Unavailable Unavailable Say, D Abner PA Unavailable Unavailable Say, D Abner PA Unavailable Unavailable Say, D Abner PA Unavailable Unavailable Say, D Abner PA Unavailable Unavailable Say, D Abner PA Unavailable Unavailable Say, D Abner PA Unavailable Unavailable Say, D Abner PA Unavailable Unavailable Say, D Abner PA Unavailable Unavailable Say, D Abner PA Unavailable Unavailable Say, D Abner PA Unavailable Unavailable Say, D Abner PA Unavailable Unavailable Say, D Abner PA Unavailable Unavailable Say, D Abner PA Unavailable Unavailable Say, D Abner PA Unavailable Unavailable Say, D Abner PA Unavailable Unavailable Say, D Abner PA Unavailable Unavailable Say, D Abner PA Unavailable Unavailable Say, D Abner PA Unavailable Unavailable Say, D Abner PA Unavailable Unavailable Say, D Abner PA Unavailable Unavailable Say, D Abner PA Unavailable Unavailable Say, D Abner PA Unavailable Unavailable Say, D Abner PA Unavailable Unavailable Say, D Abner PA Unavailable Unavailable Say, D Abner PA Unavailable Unavailable Say, D Abner PA Unavailable Unavailable Say, D Abner PA Unavailable Unavailable Say, D Abner PA Unavailable Unavailable Say, D Abner PA Unavailable Unavailable Say, D Abner PA Unavailable Unavailable Say, D Abner PA Unavailable Unavailable Say, D Abner PA Unavailable Unavailable Say, D Abner PA Unavailable Unavailable Say, D Abner PA Unavailable Unavailable Say, D Abner PA Unavailable Unavailable Say, D Abner PA Unavailable Unavailable Say, D Abner PA Unavailable Unavailable Say, D Abner PA Unavailable Unavailable Say, D Abner PA Unavailable Unavailable Say, D Abner PA Unavailable Unavailable Say, D Abner PA Unavailable Unavailable Say, D Abner PA Unavailable Unavailable Say, D Abner PA Unavailable Unavailable Say, D Abner PA Unavailable Unavailable Say, D Abner PA Unavailable Unavailable Say, D Abner PA Unavailable Unavailable Say, D Abner PA Unavailable Unavailable Say, D Abner PA Unavailable Unavailable Say, D Abner PA Unavailable Unavailable Say, D Abner PA Unavailable Unavailable Say, D Abner PA Unavailable Unavailable Say, D Abner PA Unavailable Unavailable Say, D Abner PA Unavailable Unavailable Say, D Abner PA Unavailable Unavailable Say, D Abner PA Unavailable Unavailable Say, D Abner PA Unavailable Unavailable Say, D Abner PA Unavailable Unavailable Say, D Abner PA Unavailable Unavailable Say, D Abner PA Unavailable Unavailable Say, D Abner PA Unavailable Unavailable Say, D Abner PA Unavailable Unavailable Say, D Abner PA Unavailable Unavailable Say, D Abner PA Unavailable Unavailable Say, D Abner PA Unavailable Unavailable Say, D Abner PA Unavailable Unavailable Say, D Abner PA Unavailable Unavailable Say, D Abner PA Unavailable Unavailable Say, D Abner PA Unavailable Unavailable Say, D Abner PA Unavailable Unavailable Say, D Abner PA Unavailable Unavailable Say, D Abner PA Unavailable Unavailable Say, D Abner PA Unavailable Unavailable Say, D Abner PA Unavailable Unavailable Say, D Abner PA Unavailable Unavailable Say, D Abner PA Unavailable Unavailable Say, D Abner PA Unavailable Unavailable Say, D Abner PA Unavailable Unavailable Say, D Abner PA Unavailable Unavailable Say, D Abner PA Unavailable Unavailable Re-disclosure Warning The records that you are about to access may contain information from federally-assisted alcohol or drug abuse programs. If such information is present, then the following federally mandated warning applies: This information has been disclosed to you from records protected by federal confidentiality rules (42 CFR part 2). The federal rules prohibit you from making any further disclosure of this information unless further disclosure is expressly permitted by the written consent of the person to whom it pertains or as otherwise permitted by 42 CFR part 2. A general authorization for the release of medical or other information is NOT sufficient for this purpose. The Federal rules restrict any use of the information to criminally investigate or prosecute any alcohol or drug abuse patient.The records that you are about to access may contain highly sensitive health information, the redisclosure of which is protected by Article 27-F of the [facility] Public Health law. If you continue you may have access to information: Regarding HIV / AIDS; Provided by facilities licensed or operated by the [facility] Office of Mental Health; or Provided by the [facility] Office for People With Developmental Disabilities. If such information is present, then the following [facility] mandated warning applies: This information has been disclosed to you from confidential records which are protected by state law. State law prohibits you from making any further disclosure of this information without the specific written consent of the person to whom it pertains, or as otherwise permitted by law. Any unauthorized further disclosure in violation of state law may result in a fine or nursing home sentence or both. A general authorization for the release of medical or other information is NOT sufficient authorization for further disc losure. Allergies and Adverse Reactions Type Description Substance Reaction Status Data Source(s ) [facility] Encounter Providers Location Date Indications Data Source(s ) Outpatient Attender: Abner MENDOZA [facility] 08/2019 02:00:00 PM EST [facility] Outpatient Attender: Abner MENDOZA [facility] 04:00:00 PM EDT [facility] Outpatient Attender: Anber MENDOZA [facility] 09:30:00 AM EDT [facility] ([facility] Outpatient Attender: Abner MENDOZA [facility] 02:40:00 PM EDT [facility] ([facility] Outpatient Attender: La Nena [facility]OZA [facility] 01/12/2020 01:00:00 PM EDT [facility] ([facility] Outpatient Attender: Abner MEDNOZA [facility] 09:00:00 AM EDT [facility] ([facility] Outpatient Attender: Abner MENDOZA [facility] 10:20:00 AM EDT [facility] ([facility] Outpatient Attender: Abner MENDOZA [facility] 11:00:00 AM EDT [facility] ([facility] Emergency Attender: ODILIA DENTON MDConsultant: Daniele MENDOZA 07/23/2019 07:26:00 PM EST - 07/23/2019 09:42:00 PM EST [facility] Patient discharged. Outpatient Attender: Abner MENDOZA [facility] 11/2018 10:00:00 AM EST [facility] ([facility] Immunizations Vaccine Date Status Description Data Source(s) New in 2012. IIV4 03/30/2020 09:25:00 AM EDT completed [facility] ([facility] New in 2012. IIV4 06/10/2019 10:38:00 AM EST completed [facility] ([facility] pneumococcal polysaccharide PPV23 06/10/2019 10:38:00 AM EST comple julia [facility] ([facility] Medications Medication Brand Name Start Date Product Form Dose Route Admi nistrative Instructions Pharmacy Instructions Status Indications Reaction Description Data Source(s) POLYETHYLENE GLYCOL 3350 142 MG/ML Oral Solution [Miralax] M iralax 06/22/2020 12:00:00 AM EST active M [facility] ([facility], ) Azithromycin 250 MG Oral Tablet Azithromycin 06/07/2020 12:00:[address] ORAL active [facility] ([facility] Diclofenac Sodium 0.01 MG/MG Topical Gel Diclofenac Sodium 06/07/2020 12:00:00 AM EST active [facility] ([facility] POLYETHYLENE GLYCOL 3350 105 MG/ML / Pot assium Chloride 0.26050 MEQ/ML / Sodium Bicarbonate 0.017 MEQ/ML / Sodium Chloride 0.0479 MEQ/ML Oral Solution [NuLytely] Nulytely With Flavor Packs 04/12/2020 12:00:00 AM EDT completed [facility] ([facility], ) Bisacodyl 5 MG Delayed Release Oral Tablet [Dulcolax] Dulcol ax 04/12/2020 12:00:00 AM EDT ORAL completed [facility] ([facility], ) POLYETHYLENE GLYCOL 3350 142 MG/ML Oral Solution [Miralax] M iralax 04/12/2020 12:00:00 AM EDT ORAL active M [facility] ([facility], ) Guaifenesin 20 MG/ML Oral Solution Guaifenesin 04/04/2020 12:00:00 AM EDT ORAL completed [facility] ([facility] Azithromycin 250 MG Oral Tablet Azithromycin 04/04/2020 12:00:00 AM E DT ORAL completed [facility] ([facility] Injection (SC)/(Im) 03/30/2020 12:00:00 AM EDT completed [facility] ([facility] Medication administered onsite Cholecalciferol 2000 UNT Oral Tablet Vitamin D 03/30/2020 12:00:00 A M EDT ORAL active [facility] ([facility] canagliflozin 100 MG Oral Tablet [Invokana] Invokana 12/06 12:00:00 AM EDT ORAL completed [facility] ([facility] Glucose Meter Test Strips Advanced 12/27/2019 12:00:00 AM EDT active [facility] ([facility] Lancets 30G 12/27/2019 12:00:00 AM EDT active [facility] ([facility] Azithromycin 250 MG Oral Tablet Azithromycin 09/27/2019 12:00:00 AM E DT ORAL completed [facility] ([facility] Metformin hydrochloride 500 MG Oral Tablet Metformin HCL 09/27/2019 12:00:00 AM EDT ORAL active [facility] ([facility] 1,250 mcg (50,000 unit) 09/21/2019 12:00:00 AM EDT capsule 4 TAKE 1 CAPSULE BY MOUTH ONCE WEEKLY ON THE SAME DAY EACH WEEK TAKE 1 CAPSULE BY MOUTH ONCE WEEKLY ON THE SAME DAY EACH WEEK SOLD: 2019 [facility] 500 mg 09/21/2019 12:00:00 AM EDT tablet 30 TAKE ONE TABLET BY MOUTH EVERY DAY WITH EVENING MEAL TAKE ONE TABLET BY MOUTH EVERY DAY WITH EVENING MEAL S OLD: 2019 [facility] 300 mg 09/21/2019 12:00:00 AM EDT capsule 90 TAKE ONE CAPSULE BY MOUTH THREE TIMES A DAY TAKE ONE CAPSULE BY MOUTH THREE TIMES A DAY SOLD: 2019 [facility] 300 mg 08/14/2019 12:00:00 AM EST capsule 90 TAKE ONE CAPSULE BY MOUTH THREE TIMES A DAY TAKE ONE CAPSULE BY MOUTH THREE TIMES A DAY SOLD: 08/21/2019 [facility] 75 mg 08/09/2019 12:00:00 AM EST tablet 60 TAKE TWO TABLETS BY MOUTH EVERY DAY TAKE TWO TABLETS BY MOUTH EVERY DAY SOLD: 09/18/2019 [facility] 75 mg 08/09/2019 12:00:00 AM EST tablet 60 TAKE TWO TABLETS BY MOUTH EVERY DAY TAKE TWO TABLETS BY MOUTH EVERY DAY SOLD: 08/12/2019 [facility] 250 mg 07/24/2019 12:00:00 AM EST tablet 4 TAKE ONE TABLET BY MOUTH EVERY DAY FOR 4 DAYS TAKE ONE TABLET BY MOUTH EVERY DAY FOR 4 DAYS SOLD: 07/24/2019 [facility] 20 mg 07/24/2019 12:00:00 AM EST tablet 15 TAKE THREE TABLETS BY MOUTH EVERY DAY FOR 5 DAYS TAKE THREE TABLETS BY MOUTH EVERY DAY FOR 5 DAYS SOLD: 07/24/2019 [facility] 300 mg 07/19/2019 12:00:00 AM EST capsule 90 TAKE ONE CAPSULE BY MOUTH THREE TIMES A DAY TAKE ONE CAPSULE BY MOUTH THREE TIMES A DAY SOLD: 07/23/2019 [facility] 75 mg 07/18/2019 12:00:00 AM EST tablet 60 TAKE TWO TABLETS BY MOUTH EVERY MORNING TAKE TWO TABLETS BY MOUTH EVERY MORNING SOLD: 07/23/2019 [facility] 1,250 mcg (50,000 unit) 07/18/2019 12:00:00 AM EST capsule 4 TAKE 1 CAPSULE BY MOUTH ONCE WEEKLY ON THE SAME DAY EACH WEEK TAKE 1 CAPSULE BY MOUTH ONCE WEEKLY ON THE SAME DAY EACH WEEK SOLD: 07/23/2019 [facility] 1,250 mcg (50,000 unit) 07/18/2019 12:00:00 AM EST capsule 4 TAKE 1 CAPSULE BY MOUTH ONCE WEEKLY ON THE SAME DAY EACH WEEK TAKE 1 CAPSULE BY MOUTH ONCE WEEKLY ON THE SAME DAY EACH WEEK SOLD: 08/21/2019 [facility] 20 mg 07/15/2019 12:00:00 AM EST capsule,delayed release (DR/EC) 30 TAKE ONE CAPSULE BY MOUTH EVERY MORNING TAKE ONE CAPSULE BY MOUTH EVERY MORNING SOLD: 09/18/2019 [facility] 20 mg 07/15/2019 12:00:00 AM EST capsule,delayed release (DR/EC) 30 TAKE ONE CAPSULE BY MOUTH EVERY MORNING TAKE ONE CAPSULE BY MOUTH EVERY MORNING SOLD: 08/21/2019 [facility] 20 mg 07/15/2019 12:00:00 AM EST capsule,delayed release (DR/EC) 30 TAKE ONE CAPSULE BY MOUTH EVERY MORNING TAKE ONE CAPSULE BY MOUTH EVERY MORNING SOLD: 07/18/2019 [facility] 10 mg 06/20/2019 12:00:00 AM EST tablet 30 TAKE ONE TABLET BY MOUTH EVERY DAY TAKE ONE TABLET BY MOUTH EVERY DAY SOLD: 09/18/2019 [facility] 10 mg 06/20/2019 12:00:00 AM EST tablet 30 TAKE ONE TABLET BY MOUTH EVERY DAY TAKE ONE TABLET BY MOUTH EVERY DAY SOLD: 07/23/2019 [facility] 300 mg 06/20/2019 12:00:00 AM EST capsule 90 TAKE ONE CAPSULE BY MOUTH THREE TIMES A DAY TAKE ONE CAPSULE BY MOUTH THREE TIMES A DAY SOLD: 06/22/2019 [facility] 10 mg 06/20/2019 12:00:00 AM EST tablet 30 TAKE ONE TABLET BY MOUTH EVERY DAY TAKE ONE TABLET BY MOUTH EVERY DAY SOLD: 06/22/2019 [facility] 10 mg 06/20/2019 12:00:00 AM EST tablet 30 TAKE ONE TABLET BY MOUTH EVERY DAY TAKE ONE TABLET BY MOUTH EVERY DAY SOLD: 08/21/2019 [facility] 10 mg 06/13/2019 12:00:00 AM EST tablet 30 TAKE ONE TABLET BY MOUTH EVERY DAY TAKE ONE TABLET BY MOUTH EVERY DAY SOLD: 09/18/2019 [facility] 10 mg 06/13/2019 12:00:00 AM EST tablet 30 TAKE ONE TABLET BY MOUTH EVERY DAY TAKE ONE TABLET BY MOUTH EVERY DAY SOLD: 06/15/2019 [facility] 10 mg 06/13/2019 12:00:00 AM EST tablet 30 TAKE ONE TABLET BY MOUTH EVERY DAY TAKE ONE TABLET BY MOUTH EVERY DAY SOLD: 08/21/2019 [facility] 10 mg 06/13/2019 12:00:00 AM EST tablet 30 TAKE ONE TABLET BY MOUTH EVERY DAY TAKE ONE TABLET BY MOUTH EVERY DAY SOLD: 07/18/2019 [facility] atorvastatin 10 MG Oral Tablet Atorvastatin Calcium 06/11/2019 1 2:00:00 AM EST active [facility] ( [facility] Injection (SC)/(Im) 06/10/2019 12:00:00 AM EST completed [facility] ([facility] Medication administered onsite Azithromycin 250 MG Oral Tablet Azithromycin 06/10/2019 12:00:[address] ORAL completed [facility] ([facility] 250 mg 06/10/2019 12:00:00 AM EST tablet 6 TAKE TWO TABLETS BY MOUTH AT ONCE ON THE FIRST DAY THEN TAKE ONE DAILY THEREAFTER TAKE TWO TABLETS BY MOUTH AT ONCE ON THE FIRST DAY THEN TAKE ONE DAILY THEREAFTER SOLD: 06/11/2019 [facility] 100-5 mcg/actuation 06/08/2019 12:00:00 AM EST HFA aerosol i nhaler 13 INHALE 2 PUFFS BY MOUTH TWO TIMES A DAY INHALE 2 PUFFS BY MOUTH TWO TIMES A DAY SOLD: 06/11/2019 [facility] 300 mg 05/25/2019 12:00:00 AM EST capsule 90 TAKE ONE CAPSULE BY MOUTH THREE TIMES A DAY TAKE ONE CAPSULE BY MOUTH THREE TIMES A DAY SOLD: 05/26/2019 [facility] 1,250 mcg (50,000 unit) 05/21/2019 12:00:00 AM EST capsule 4 TAKE 1 CAPSULE BY MOUTH ONCE WEEKLY ON THE SAME DAY EACH WEEK TAKE 1 CAPSULE BY MOUTH ONCE WEEKLY ON THE SAME DAY EACH WEEK SOLD: 06/22/2019 [facility] 50,000 unit 05/21/2019 12:00:00 AM EST capsule 4 TAKE 1 CAPSULE BY MOUTH ONCE WEEKLY ON THE SAME DAY EACH WEEK TAKE 1 CAPSULE BY MOUTH ONCE WEEKLY ON T HE SAME DAY EACH WEEK SOLD: 05/26/2019 [facility] 75 mg 04/16/2019 12:00:00 AM EDT tablet 60 TAKE TWO TABLETS BY MOUTH EVERY MORNING TAKE TWO TABLETS BY MOUTH EVERY MORNING SOLD: 05/26/2019 [facility] 75 mg 03/22/2019 12:00:00 AM EDT tablet 60 TAKE TWO TABLETS BY MOUTH EVERY MORNING TAKE TWO TABLETS BY MOUTH EVERY MORNING SOLD: 06/22/2019 [facility] 500 mg 02/27/2019 12:00:00 AM EDT tablet 30 TAKE ONE TABLET BY MOUTH EVERY DAY WITH EVENING MEAL TAKE ONE TABLET BY MOUTH EVERY DAY WITH EVENING MEAL S OLD: 07/23/2019 [facility] 500 mg 02/27/2019 12:00:00 AM EDT tablet 30 TAKE ONE TABLET BY MOUTH EVERY DAY WITH EVENING MEAL TAKE ONE TABLET BY MOUTH EVERY DAY WITH EVENING MEAL S OLD: 08/21/2019 [facility] 500 mg 02/27/2019 12:00:00 AM EDT tablet 30 TAKE ONE TABLET BY MOUTH EVERY DAY WITH EVENING MEAL TAKE ONE TABLET BY MOUTH EVERY DAY WITH EVENING MEAL S OLD: 06/24/2019 [facility] 10 mg 11/27/2018 12:00:00 AM EDT tablet 30 TAKE ONE TABLET BY MOUTH EVERY DAY TAKE ONE TABLET BY MOUTH EVERY DAY SOLD: 05/26/2019 [facility] Insurance Providers Payer name Policy type / Coverage type Policy ID Covered libertarian ID Covered libertarian's relationship to toussaint Policy Toussaint Plan Information [facility] [id number] SP [id number] [facility] [id number] SP [id number] [facility] O [id number] S [id number] MEDICARE COMPLETE [id number] SP [id number] [employer] [place] [id number] SP [id number] [place] [id number] 18 [id number] NOY MEDICAID [id number] Avani [id number] UN COMMUNITY PLAN MCDO [id number] SP [id number] UNHC AMERICHOICE XIX -O [id number] 18 [id number] [facility] COMMUNITY PLAN [place] UNK SP UNK MEDICAID M [id number] Self [id number] MEDICAID M [id number] Fthr [id number] [facility] I [id number] Self [id number] [facility] MEDICARE COMPLETE G [id number] Self [id number] EXCELLUS I [id number] Self [id number] [place] [id number] 18 [id number] MEDICAID REF AMBULAT W [id number] S [id number] BLUE CHOICE OPTION O [id number] S [id number] MEDICAID W [id number] BLUE CROSS BLUE SHIELD-PHYSICIAN [id number] BLUE CROSS BLUE SHIELD-O/P [id number] Problems, Conditions, and Diagnoses Code Display Name Description Problem Type Effective Dates Data Source(s) 14152447 Allergic asthma without status asthmatic us Allergic asthma without status asthmaticus Problem 04/12/2020 12:00:00 AM EDT [facility] ([facility], ) 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 [facility] (current) use of oral hypoglycemic drugs Diagnosis 07/23/2019 07:26:00 PM EST [facility] E119 Type 2 diabetes mellitus without complic ations Type 2 diabetes mellitus without complications Diagnosis 07/23/2019 07:26:00 PM EST [facility] J209 Acute bronchitis, unspecified Acute bronchitis, unspec ified Diagnosis 07/23/2019 07:26:00 PM [facility] R05 Cough Cough Diagnosis 07/23/2019 07:26:00 PM [facility] Surgeries/Procedures Procedure Description Date Indications Data Source(s) Injection (SC)/(Im) 03/30/2020 12:00:00 AM EDT [facility] ([facility] Injection (SC)/(Im) 06/10/2019 12:00:00 AM EST [facility] ([facility] Results ID Date Data Source [id number] 07/16/2020 10:00:00 AM EST [facility] Name Value Range Interpretation Code Description Data Trudy rce(s) Supporting Document(s) SARS coronavirus 2 RNA Not Detected [facility] This lab was ordered by [facility] and reported by [facility]. ID Date Data Source [id number] 05/18/2020 01:00:00 PM EST [facility] Name Value Range Interpretation Code Description Data Trudy rce(s) Supporting Document(s) SARS coronavirus 2 RNA [facility] This lab was ordered by [facility] and reported by [facility]. ID Date Data Source [id number] 01/12/2020 02:09:00 PM EDT [facility] ([facility] Name Value Range Interpretation Code Description Data Trudy rce(s) Supporting Document(s) Leukocytes [#/volume] in Blood by Automated count 9.3 x10E3/uL 3.4-10 .8 [facility] ([facility] Erythrocytes [#/volume] in Blood by Automated count 5.38 x10E6/uL 4.1 4-5.80 [facility] ([facility] [facility] Hemoglobin [Mass/volume] in Blood 16.2 g/dL 13.0-17.7 [facility] ([facility] Erythrocyte mean corpuscular hemoglobin [Entitic mass] by Automated count 30.1 pg 26.6-33.0 [facility] ([facility] Hematocrit [Volume Fraction] of Blood by Automated count 49.3 % 3 7.5-51.0 [facility] ([facility] Erythrocyte mean corpuscular volume [Entitic volume] by Auto mated count 92 fL 79-97 [facility] ([facility] Erythrocyte distribution width [Ratio] by Automated count 13.1 % 11.6-15.4 [facility] ([facility] Erythrocyte mean corpuscular hemoglobin concentration [Mass/volume] by Automated count 32.9 g/dL 31.5-35.7 [facility] ([facility] Platelets [#/volume] in Blood by Automated count 480 x10E3/uL 150-450 Above high normal [facility] ([facility] Neutrophils 54 % [facility] Lymphs 30 % [facility] Monocytes/100 leukocytes in Blood by Automated count 8 % [facility] ([facility] Eosinophils/100 leukocytes in Blood by Automated count 7 % [facility] ([facility] Immature cells [#/volume] in Blood Laboratory test result [facility] ([facility] Basophils/100 leukocytes in Blood by Automated count 1 % [facility] ([facility] Neutrophils [#/volume] in Blood by Automated count 5.0 x10E3/uL 1.4-7 .0 [facility] ([facility] Lymphocytes [#/volume] in Blood 2.8 x10E3/uL 0.7-3.1 [facility] ([facility] Eosinophils [#/volume] in Blood by Automated count 0.6 x10E3/uL 0.0-0.4 Above high normal [facility] ([facility] Monocytes [#/volume] in Blood 0.8 x10E3/uL 0.1-0.9 [facility] ([facility] Immature granulocytes/100 leukocytes in Blood by Automated count 0 % [facility] ([facility] Basophils [#/volume] in Blood by Automated count 0.1 x10E3/uL 0.0-0.2 [facility] ([facility] Nucleated erythrocytes/100 leukocytes [Ratio] in Blood by Automated count Laboratory test result [facility] Morphology [Interpretation] in Blood Narrative Laboratory test result [facility] ([facility] Immature granulocytes [#/volume] in Blood by Automated count 0.0 x10E3/uL 0.0-0.1 [facility] ID Date Data Source [id number] 12/27/2019 09:38:00 AM EDT [facility] ([facility] Name Value Range Interpretation Code Description Data Trudy rce(s) Supporting Document(s) Hemoglobin A1c/Hemoglobin.total in Blood 7.3 % 4.8-5.6 Above high normal [facility] ([facility] <content>Prediabetes: 5.7 - 6.4</content >
<content>Diabetes: >6.4</content>
<content>Glycemic control for adults with diabetes: <7.0</content>
<content></content> ID Date Data Source [id number] 2019 10:50:00 AM EDT [facility] ([facility] Name Value Range Interpretation Code Description Data Trudy rce(s) Supporting Document(s) Hemoglobin A1c/Hemoglobin.total in Blood 6.9 % 4.8-5.6 Above high normal [facility] ([facility] <content>Prediabetes: 5.7 - 6.4</content >
<content>Diabetes: >6.4</content>
<content>Glycemic control for adults with diabetes: <7.0</content>
<content></content> ID Date Data Source [id number] 2019 10:50:00 AM EDT [facility] Name Value Range Interpretation Code Description Data Trudy rce(s) Supporting Document(s) Triglyceride [Mass/volume] in Serum or Plasma 74 mg/dL 0-149 [facility] ([facility] Cholesterol [Mass/volume] in Serum or Plasma 140 mg/dL 100-199 [facility] ([facility] Cholesterol in HDL [Mass/volume] in Serum or Plasma 39 mg/dL Below low normal [facility] ([facility] Cholesterol in VLDL [Mass/volume] in Serum or Plasma by calc ulation 15 mg/dL 5-40 [facility] ([facility] Cholesterol in LDL [Mass/volume] in Serum or Plasma by calcu lation 86 mg/dL 0-99 [facility] ([facility] Comment: Laboratory test result [facility] ([facility] ID Date Data Source [id number] 2019 10:50:00 AM EDT [facility] ([facility] Name Value Range Interpretation Code Description Data Trudy rce(s) Supporting Document(s) BUN 12 mg/dL 6-24 [facility] ([facility] Glucose [Mass/volume] in Serum or Plasma 183 mg/dL 65-99 Above high normal [facility] ([facility] Creatinine [Mass/volume] in Serum or Plasma 0.99 mg/dL 0.76-1.27 [facility] ([facility] eGFR If Africn Am 105 mL/min/1.73 ME [facility] ([facility] eGFR If NonAfricn Am 91 mL/min/1.73 [facility] ([facility] Urea nitrogen/Creatinine [Mass Ratio] in Serum or Plasma 12 9 -20 [facility] Sodium [Moles/volume] in Serum or Plasma 139 mmol/L 134-144 [facility] Potassium [Moles/volume] in Serum or Plasma 4.7 mmol/L 3.5-5.2 [facility] Chloride [Moles/volume] in Serum or Plasma 104 mmol/L 96-106 [facility] Carbon dioxide, total [Moles/volume] in Serum or Plasma 22 mmol/L 20 -29 [facility] Protein [Mass/volume] in Serum or Plasma 7.1 g/dL 6.0-8.5 [facility] ([facility] Calcium [Mass/volume] in Serum or Plasma 9.8 mg/dL 8.7-10.2 [facility] ([facility] Albumin/Globulin [Mass Ratio] in Serum or Plasma 1.4 1.2-2.2 [facility] ([facility] Albumin [Mass/volume] in Serum or Plasma 4.1 g/dL 4.0-5.0 [facility] Globulin [Mass/volume] in Serum by calculation 3.0 g/dL 1.5-4.5 [facility] Aspartate aminotransferase [Enzymatic activity/volume] in Serum or Plasma 38 IU/L 0-40 [facility] Alkaline phosphatase [Enzymatic activity/volume] in Serum or Plasma 63 IU/L 39-117 [facility] Bilirubin.total [Mass/volume] in Serum or Plasma 0.4 mg/dL 0.0-1.2 [facility] Alanine aminotransferase [Enzymatic activity/volume] in Seru m or Plasma 73 IU/L 0-44 Above high normal [facility] ID Date Data Source [id number] 07/27/2019 08:15:00 AM [facility] [address] [place] [address] PHONE: [phone] FAX: [phone] Name ..............: VINAY Mendez Acct Number ...........................: [id number] ROOM. ............: TR-1B MR Number ............................: [id number] Stay type.........: E/R Discharge Date...............:07/23/19 Admit Date .....: 07/23/19 Admit Phys .............................: BLACK CHRI Date of ..: 1970 Family Phys ...........................: SAY MIC Phone..............: [phone] Age.................................:48 Film# ...............:[id number] Sex.................................:M Unsigned transcriptions are preliminary reports and do not represent a medical or legal document [facility] [id number] COMPLETE:07/24/19 00:46 V[place] [id number] Please See Scanned Results. Name Value Range Interpretation Code Description Data Rtudy rce(s) Supporting Document(s) ID Date Data Source [id number] 07/26/2019 10:06:00 AM EST [facility] [address] [place] [address] PHONE: [phone] FAX: [phone] Name .................. : VINAY Mendez Acct Number.................. : [id number] ROOM. ................. : TR-1B MR Number ................... : [id number] Stay type ............. : E/R Discharge Date......... ... : 07/23/19 Admit Date .... ..... : 07/23/19 Admit Phys .................... : BLACK CHRI Date of ....... : 1970 Family Phys ................... : SAY ZION Phone .................. : [phone] Age ................................ : 48 Film# .................. .:[id number] Sex ................................. : M Unsigned transcriptions are preliminary reports and do not represent a medical or legal document CHEST 2 VIEWS [id number] COMPLETE:07/23/19 20:37 ROSALIA [id number] Reason(s) : Congestion CHEST X-RAY: 2-VIEWS COMPARISON: 11/02/18 FINDINGS: The cardiac and mediastinal silhouettes appear normal and the lungs are clear. The bones and soft tissues are normal. The upper abdomen is unremarkable. IMPRESSION: No acute disease identifiable. Electronically Reviewed and Signed By Cari Nassar MD , 07/26/19 10:06, KGIwona Transcribe Initials: DONNA , Transcribe Date: 07/24/19 08:04, Dictation Date: Copy for: TARAS MEYER via fax Copy for: EMERGENCY DEPT via modem Copy for: 710 MED REC DISCHARGED Page 1 of 1 Name Value Range Interpretation Code Description Data Trudy rce(s) Supporting Document(s) ID Date Data Source [id number] 07/23/2019 07:26:00 PM EST [facility] 1 OrderSheet [facility] Emergency Department [address] [place] [address] Phone #: ext- [phone] 07/23/2019 19:18 Patient: LOUIE MCLEAN Sex: M : 1970 Age: 48yWEIGHT:113.3 kg HEIGHT:70 inches BMI:35.8ALLERGIES: No Known Drug AllergyCHIEF COMPLAINT: cough, runny nose, sinus pain, "hurts all over"DIAGNOSIS: BronchitisLAB ORDERSOrder Description Priority Entered Acknowledged InitialedRapid Strep Screen STAT 19:41 07/23/2019 19:41 Calin Layton Lynnette Lynnette R.N. R.N.; Verbal order per; Mario Baires PAInfluenza Nasal A B STAT 19:41 07/23/2019 19:41 Calin Layton Lynnette Lynnette R.N. R.N.; Verbal order per; Mario Baires PADIAGNOSTIC STUDY ORDERSOrder Description Priority Entered Acknowledged InitialedChest 2 View STAT 19:49 07/23/2019 20:06 Kendall(Oxygen?(No)) Mario Kramer RN PA; Reason for Study: Congestion, CoughMEDICATION/IV/DRIP/FLUID ORDERSOrder Description Priority Entered Acknowledged InitialedDuoNeb 3 mL X2 19:49 07/23/2019 20:10 PeterDoses: 6 mL (3 mL Mario Kramer RNX2 Doses) PA;predniSONE PO 55 19:49 07/23/2019 Cancelled: Physician Order 20:08 Teresita MENDOZA PA;predniSONE PO 60 20:08 07/23/2019 20:10 Tiffanie Kramer RN PA;Azithromycin PO 21:36 07/23/2019 21:38 [id number] mg Mario Kramer RN 2 OrderSheet [facility] Emergency Department [address] [place] [address] Phone #: ext- [phone] 07/23/2019 19:18 Patient: LOUIE MCLEAN Sex: M : 1970 Age: 48y PA;GENERAL ORDERSOrder Description Priority Entered Acknowledged InitialedEKG 19:41 07/23/2019 19:41 Calin Layton Lynnette Lynnette R.N. R.NGayle; Verbal order per; Mario MENDOZA[Electronically signed by Mario Baires (21:40 07/23/2019)][Electronically signed by Kendall Kramer RN (21:42 07/23/2019)][Electronically locked by Kendall Kramer RN (21:42 07/23/2019)] Name Value Range Interpretation Code Description Data Trudy rce(s) Supporting Document(s) ID Date Data Source [id number] 07/23/2019 07:26:00 PM EST [facility] 1 Medication Reconciliation Report [facility] Emergency Department [address] [place] [address] Phone #: ext- [phone] 07/23/2019 19:18 Patient: LOUIE MCLEAN Sex: M : 1970 Age: 48yWeight: 113.3 kgHeight/Length: 70 in.BMI: 35.8ALLERGIES: No Known Drug AllergyThe patient's Home Medications are listed below:CONTINUE TAKING THE FOLLOWING MEDICATIONS: Dulera Inhalation (100-5 mcg/act), 2x a day Fish Oil Oral Gabapentin Oral 300 mg, daily Loratadine Allergy Relief Oral (10 mg) 1 tablet, daily metFORMIN HCl ER (MOD) Oral Statin-unsure which Wellbutrin SR Oral (150 mg) 1 tablet, dailyThe source(s) of the original Home Medication information:patientThe following Medications were given to the patient in the Emergency Department:Duoneb [Neb Tx] Neb TX 2 unit dose, administered: 07/23/2019 8:10:00 PMPrednisone [PO] PO 60 mg, administered: 07/23/2019 8:10:00 PMAzithromycin [PO] PO 500 mg, administered: 07/23/2019 9:38:00 PMThe following Medications were prescribed to the patient:azithromycin 250 mg tablet -- Take one tablet daily for 4 days, total duration is 5 days. Dispense 4tablet. Refills: 0. Substitution permitted. Note to Pharmacy - first dose given in the ED. 2 Medication Reconciliation Report [facility] Emergency Department [address] [place] [address] Phone #: ext- [phone] 07/23/2019 19:18 Patient: LOUIE MCLEAN Sex: M : 1970 Age: 48yPharmacy - [facility] [place] [id number]. .prednisone 20 mg tablet Take 3 tablet once a day for 5 days -- Dispense 15 tablet. Refills: 0.Substitution permitted. Note to Pharmacy - pt is 19 and weighs 90 kg.Pharmacy - [facility] [phone]. . -- KELLY Walker Name Value Range Interpretation Code Description Data Trudy rce(s) Supporting Document(s) ID Date Data Source [id number] 07/23/2019 07:26:00 PM [facility] 1 Medication Administration Record [facility] Emergency Department [address] [place] [address] Phone #: ext- [phone] 07/23/2019 19:18 Patient: LOUIE MCLEAN Sex: M : 1970 Age: 48yWeight: 113.3 kgHeight/Length: 70 inBMI: 35.8ALLERGIES: No Known Drug Allergy Date/Time Medication Administered Medication OrderedGiven DUONEB [NEB TX] DuoNeb 3 mL X2 Doses: 6 mL (320:10 07/23/2019 Dose: 2 unit dose Nebulizer Neb TX mL X2 Doses)Kendall Kramer RNGiven PREDNISONE [PO] predniSONE PO 60 mg20:10 07/23/2019 Dose: 60 mg Tablets Carmelita Kramer RNGiven AZITHROMYCIN [PO] Azithromycin PO 500 mg21:38 07/23/2019 Dose: 500 mg Tablets Carmelita Kramer RN Name Value Range Interpretation Code Description Data Trudy rce(s) Supporting Document(s) ID Date Data Source [id number] 07/23/2019 07:26:00 PM [facility] 1 General Instructions [facility] Emergency Department [address] [place] [address] Phone #: ext- [phone] 07/23/2019 19:18 Patient: LOUIE MCLEAN Sex: M : 1970 Age: 48yAcute bacterial bronchitis.INSTRUCTIONSYour Current Medications: Your current home medications have been reviewed.CONTINUE TAKING THE FOLLOWING MEDICATIONS:Dulera Inhalation : Aerosol 100-5 mcg/act, 2x a day.Fish Oil Oral.Gabapentin Oral : 300 mg daily.Loratadine Allergy Relief Oral : Tablet Disintegrating 10 mg, 1 tablet daily.metFORMIN HCl ER (MOD) Oral.Statin-unsure which*.Wellbutrin SR Oral : Tablet Extended Release 12 Hour 150 mg, 1 tablet daily.Prescription Medications:azithromycin 250 mg tablet -- Take one tablet daily for 4 days, total duration is 5 days. Dispense 4tablet. Refills: 0. Substitution permitted. Note to Pharmacy - first dose given in the ED.[facility] - [facility] [address] [place] [address] ; [place], [place] [phone]. .prednisone 20 mg tablet Take 3 tablet once a day for 5 days -- Dispense 15 tablet. Refills: 0.Substitution permitted. Note to Pharmacy - pt is 19 and weighs 90 kg.[facility] - [address] [place] [address] ; [place], [place] [phone]. .Follow-up:Follow up with your doctor in three days if not better. Reason for referral: evaluation and treatment.Summary of care provided to patient.Understanding of the discharge instructions verbalized by patient. ADDITIONAL INFORMATIONBronchitis, Antibiotic Treatment (Adult) 2 General Instructions [facility] Emergency Department [address] [place] [address] Phone #: ext- [phone] 07/23/2019 19:18 Patient: LOUIE MCLEAN Sex: M : 1970 Age: 48yBronchitis is an infection of the air passages (bronchial tubes) in your lungs. It often occurs when youhave a cold. This illness is contagious during the first few days and is spread through the air bycoughing and sneezing, or by direct contact (touching the sick person and then touching your owneyes, nose, or mouth).Symptoms of bronchitis include cough with mucus (phlegm) and low-grade fever. Bronchitis usuallylasts 7 to 14 days. Mild cases can be treated with simple home remedies. More severe infection istreated with an antibiotic.Home careFollow these guidelines when caring for yourself at home: If your symptoms are severe, rest at home for the first 2 to 3 days. When you go back to your usual activities, don't let yourself get too tired. Don't smoke. Also stay away from secondhand smoke. You may use edta-ejd-pkszaxb medicines to control fever or pain, unless another medicine 3 General Instructions [facility] Emergen[facility] y Department [address] [place] [address] Phone #: ext- [phone] 07/23/2019 19:18 Patient: LOUIE MCLEAN Sex: M : 1970 Age: 48y was prescribed. If you have chronic liver or kidney disease or have ever had a stomach ulcer or gastrointestinal bleeding, talk with your healthcare provider before using these medicines. Also talk to your provider if you are taking medicine to prevent blood clots. Aspirin should never be given to anyone younger than 18 who is ill with a viral infection or fever. It may cause severe liver or brain damage. Your appetite may be low, so a light diet is fine. Stay well hydrated by drinking 6 to 8 glasses of fluids per day. This includes water, soft drinks, sports drinks, juices, tea, or soup. Extra fluids will help loosen mucus in your nose and lungs. Kqes-tcx-uzgdxkz cough, cold, and sore-throat medicines will not shorten the length of the illness, but they may be helpful to reduce your symptoms. Don't use decongestants if you have high blood pressure. Finish all antibiotic medicine. Do this even if you are feeling better after only a few days.Follow-up careFollow up with your healthcare provider, or as advised. If you had an X-ray or ECG(electrocardiogram), a specialist will review it. You will be told of any new test results that may affectyour care.If you are age 65 or older, if you smoke, or if you have a chronic lung disease or condition that affectsyour immune system, ask your healthcare provider about getting a pneumococcal vaccine and ayearly flu shot (influenza vaccine).When to seek medical adviceCall your healthcare provider right away if any of these occur: Fever of 100.4F (38C) or higher, or as directed by your healthcare provider Coughing up more sputum Weakness, drowsiness, headache, facial pain, ear pain, or a stiff neckCall 911Call 911 if any of these occur. Coughing up blood Weakness, drowsiness, headache, or stiff neck that get worse Trouble breathing, wheezing, or pain with breathing 4 General Instructions [facility] Emergency Department [address] [place] [address] Phone #: ext- [phone] 07/23/2019 19:18 Patient: LOUIE MCLEAN Sex: M : 1970 Age: 48y [id number] [employer]. [address] [place] [address]. All rights reserved. This information is not intended as asubstitute for professional medical care. Always follow your healthcare professional's instructions. You have been given the following additional information: Bronchitis, Antibiotic Treatment (Adult)(Electronically signed by KELLY Walker 07/23/2019 21:40) Name Value Range Interpretation Code Description Data Trudy rce(s) Supporting Document(s) ID Date Data Source [id number] 07/23/2019 07:26:00 PM EST [facility] 1 Clinical Report - Nurses [facility] Emergency Department [address] [place] [address] Phone #: ext- [phone] 07/23/2019 19:18 Patient: LOUIE MCLEAN Sex: M : 1970 Age: 48yTRIAGEArrived by private vehicle. Historian: patient.Triage time: 19:19 07/23/2019. Acuity: LEVEL 3.Chief Complaint: COUGH.Alert. No acute distress.( "a few days ago"). The patient has had chest congestion, chills, a headache, sinus pain and difficultybreathing. The patient has had chest pain.Treatment STAVE CUTTER:None. --19:24 07/23/19 Alisia Layton R.N.19:19 07/23/19. BP: 128/92. HR: 88. RR: 16. O2 saturation: 98%. Temp: 97.2 F. Pain level now 07/16.--19:24 07/23/19 Alisia Layton R.N.( pt unable to confirm medications and reports his s.o. sets his pills out and that he does take metforminand a statin but is unsure which one or dosing. pt reports hx of bronchitis.). --19:25 07/23/19 Alisia Layton R.N.Weight: 113.3 kg. Height/Length: 70 inches. BMI: 35.8. --19:18 07/23/19 Alisia Layton R.N.MedicationsmetFORMIN HCl ER (MOD) Oral. --19:24 07/23/19 Alisia Layton R.N. Dulera Inhalation (Aerosol 100-5 mcg/act), 2x a day. Gabapentin Oral 300 mg, daily. Loratadine Allergy Relief Oral (Tablet Disintegrating 10 mg) 1 tablet, daily. Wellbutrin SR Oral (Tablet Extended Release 12 Hour 150 mg) 1 tablet, daily. --19:38 07/23/19 Alisia Layton R.N. Statin-unsure which. --19:38 07/23/19 Alisia Layton R.N. Fish Oil Oral. --19:39 07/23/19 Alisia Layton R.N.AllergiesNo Known Drug Allergy. --19:21 07/23/19 Alisia Layton R.N.Medication/allergy information source: the patient. --19:24 07/23/19 Alisia Layton R.N.ADDITIONAL SURGERIES:Appendectomy. --19:21 07/23/19 Alisia Layton R.N.The following entry was struck by Alisia Layton R.N., 19:39 07/23/19 Reason - duplicate 2 Clinical Report - Nurses [facility] Emergency Department [address] [place] [address] Phone #: ext- [phone] 07/23/2019 19:18 Patient: LOUIE MCLEAN Sex: M : 1970 Age: 48y Hernia Repair. --19:21 07/23/19 Alisia Layton R.N.. History PAST MEDICAL HX: Diabetes mellitus. Immunizations: up-to-date. SOCIAL HX: Never smoker. No alcohol use or drug use. The patient was offered HIV testing but declined and hepatitis C testing but declined. The patient has not traveled outside the [place] Infectious disease exposure: No infectious disease exposure. SELF HARM ASSESSMENT: [place] - SUICIDE SEVERITY RATING SCREEN: (low severity) the patient answered "no" to the question(s) " Have you wished you were or wished you could go to sleep and not wake up? ", " Have you actually had any thoughts of killing yourself? " and " Have you ever done anything, started to do anything, or prepared to do anything to end your life?". The patient answered "no" to the question " Was it within the past three months?". ABUSE ASSESSMENT: Abuse assessment. Abuse denied. No suspicion of abuse. No report of abuse. NUTRITIONAL RISK ASSESSMENT: The nutritional risk assessment revealed no deficiencies. FUNCTIONAL ASSESSMENT: Functional assessment: no impairments noted. LEARNING NEEDS ASSESSMENT: The learning needs assessment revealed no barriers. FALL RISK ASSESSMENT: Fall risk assessment completed. No risk factors identified. SKIN INTEGRITY ASSESSMENT: Skin integrity risk assessment completed. No skin integrity risk identified. --19:24 07/23/19 Alisia Layton R.N.PHYSICAL BIBHVNDCAI18:30 07/23/19. Ambulatory to room.GENERAL / NEURO / PSYCH: Alert. Oriented X 4. Appears in distress.HEENT: Pupils equal, round and reactive to light. Mucous membranes are pink.RESPIRATORY: Respirations not labored. Wheezes right lung base anteriorly and mid-lung anteriorly;left lung base anteriorly and mid-lung anteriorly.CVS: Normal sinus rhythm noted. Capillary refill less than 2 seconds.SKIN: Skin is warm and dry. Normal skin turgor. --20:13 07/23/19 Kendall Kramer RN.NURSING PROGRESS NOTESMonitoring of patient in place. Head of bed elevated. Reassurance given. Call light placed in reach.Bed placed in lowest position. Brakes of bed on. Patient ready for evaluation. --19:24 07/23/19 Alisia Layton R.N. ( pt reports he does not check his BS at home ever and does not know his last A1C). --19:39 07/23/19 Alisia Layton R.N. 3 Clinical Report - Nurses [facility] Emergency Department [address] [place] [address] Phone #: ext- [phone] 07/23/2019 19:18 Patient: LOUIE MCLEAN Sex: M : 1970 Age: 48y 19:36 07/23/19. Patient ID band checked for patient name and birthdate: patient confirmed. Flu swab obtained by RN via nasal swab. Labeled in the presence of the patient. Patient ID band checked for patient name: patient confirmed. Throat swab obtained by nurse; labeled in the presence of the patient. --19:41 07/23/19 Alisia Layton R.N. EKG time: (19:33 07/23/2019). EKG was performed by a nurse and shown to the ED physician. --19:41 07/23/19 Alisia Layton R.N. 20:10 07/23/2019 Duonekathe Neb TX Nebulizer 2 unit dose given. Given by the nurse. Allergies verified and confirmed 5 rights. Information reviewed with patient including reason for taking this medication. Verbalizes understanding. --20:10 07/23/19 Kendall Kramer RN 20:10 07/23/2019 Prednisone PO Tablets 60 mg given. Allergies verified and confirmed 5 rights. Information reviewed with patient including reason for taking this medication. Verbalizes understanding. --20:10 07/23/19 Kendall Kramer RN 21:38 07/23/2019 Azithromycin PO Tablets 500 mg given. Allergies verified and confirmed 5 rights. Information reviewed with patient including reason for taking this medication. Verbalizes understanding. --21:38 07/23/19 Kendall Kramer RN.DISPOSITION / DISCHARGE Condition at departure: improved and stable. Discharge instructions provided and reviewed with the patient. R eviewed medication(s). Prescription(s) sent electronically to pharmacy. Patient verbalized understanding. Written instructions provided in Bermudian. The patient was discharged by the physician assistant plant controller. He was discharged home. He left ambulatory and via private vehicle. Patient driving. --21:42 07/23/19 Kendall Kramer RN 21:41 07/23/19. BP: 133/91. MAP: 105. HR: 85. RR: 16. O2 saturation: 98%. Pain level now: 0/10. --21:42 07/23/19 Kendall Kramer RN.Locked/Released at 07/23/2019 21:42 by Kendall Kramer RN Name Value Range Interpretation Code Description Data Trudy rce(s) Supporting Document(s) ID Date Data Source [id number] 07/23/2019 07:26:00 PM EST [facility] 1 Clinical Report - Physicians/Mid Levels [facility] Emergency Department [address] [place] [address] Phone #: ext- [phone] 07/23/2019 19:18 [id number] Sex[facility] M : 1970 Age: 48y Time Seen: 19:40 07/23/2019. Arrived- By private vehicle. Historian- patient.HISTORY OF PRESENT ILLNESS Chief Complaint: COUGH and RUNNY NOSE, "HURTS ALL OVER" and SINUS PAIN. This started 3 days ago and is still present. It was abrupt in onset and has been constant. No fever, muscle aches, skin rash, nasal discharge or sore throat. No chills, chest pain, nausea, vomiting or diarrhea. No loss of appetite. He has had sputum production, a cough, chest discomfort, difficulty breathing and sinus drainage. He has had nasal congestion and a headache. No known contact with a sick individual. (The patient has had chest congestion, chills, a headache, sinus pain and difficulty breathing. The patient has had chest pain.). Similar symptoms previously. Patient has had similar symptoms several times. Recent medical care: Not recently seen/assessed.REVIEW OF SYSTEMSThe patient has had fatigue. No weight loss, photophobia, sinus pain, toothache or weakness. Nodizziness, palpitations, calf pain, abdominal pain or bloody stools. No urinary incontinence, joint pain,enlarged lymph nodes, tick bite or back pain.PAST HISTORYProblems:Diabetes Mellitus. Additional Surgeries: Appendectomy. Medications: Fish Oil Oral. Statin-unsure which. Dulera Inhalation (Aerosol 100-5 mcg/act), 2x a day. Gabapentin Oral 300 mg, daily. Loratadine Allergy Relief Oral (Tablet Disintegrating 10 mg) 1 tablet, daily. Wellbutrin SR Oral (Tablet Extended Release 12 Hour 150 mg) 1 tablet, daily. metFORMIN HCl ER (MOD) Oral. Allergies: No Known Drug Allergy.SOCIAL HISTORY 2 Clinical Report - Physicians/Mid Levels [facility] Emergency Department [address] [place] [address] Phone #: ext- [phone] 07/23/2019 19:18 Patient: LOUIE MCLEAN Sex: M : 1970 Age: 48y Never smoker. Not exposed to second-hand smoke at home. No alcohol use or drug use.PHYSICAL EXAMVital Signs: 07/23/2019 19:19 BP: 128/92. MAP: 104. HR: 88. RR: 16. O2 saturation: 98%. Temp: 97.2 F.Have been reviewed as abnormal. Hypertensive. Oxygen saturation normal.Appearance: Alert. No acute distress.Eyes: Pupils equal, round and reactive to light. Eyes normal inspection.ENT: Ears normal. Nose normal. Pharynx normal. Uvula midline.Neck: Normal inspection.CVS: Normal heart rate and rhythm. Heart sounds normal.Respiratory: No respiratory distress. Decreased breath sounds. Wheezing present.Abdomen: Soft and nontender.Back: Normal inspection.Skin: Skin warm and dry. Normal skin color. No rash. Normal skin turgor.Extremities: Extremities exhibit normal ROM. No lower extremity edema.Neuro: Oriented X 3.LABS, X-RAYS, AND EKGChest X-ray: No acute disease. Views: PA and lateral. The X-rays were independently viewed by me.Interpretation time: 21:33 07/23/2019.Laboratory Tests: Laboratory tests have been ordered, with results reviewed and considered in themedical decision making process. Chest 2 View: (DOMENIC: 07/23/2019 19:49) ( [facility] 07/23/2019 20:37) In Progress CHEST 2 VIEWS Reason(s): Congestion TRANSPORTATION: WC IV? O2? Oxygen?(No) Room: ED Rapid Strep Screen: (DOMENIC: 07/23/2019 20:00) ( UtgRcvd 07/23/2019 21:31) Final results Test Result Flag Units (Reference) RAPID STREP NEGATIVE (NORMAL: NEGAT RAPID STREP REENTER NEGATIVE (NORMAL: NEGAT { PROCEDURAL CONTROL VALID ){ KIT LOT # [id number] ){ KIT EXP DATE 07.06.2020 )The Strep A 2 assay utilizes isothermal nucleic acid amplification technology fothe qualitative detection of Group A Strep bacterial nucleic acid in throat swabspecimens.All negative test results no longer need to be confirmed with a culture. Follow-up testing requiring a culture is necessary if clinical symptoms persist, or inthe event of an acute rheumatic fever outbreak. A culture will need to beordered by the Qualified Medical Provider.Negative results do not preclude infection with Group A Strep and should not beused as the sole basis for treatment. Influenza Nasal A B: (DOMENIC: 07/23/2019 20:00) ( MsgRcvd 07/23/2019 21:19) Final results Test Result Flag Units (Reference) INFLUENZA A NEGATIVE (NORMAL: NEGAT INFLUENZA B NEGATIVE (NORMAL: NEGAT INFLUENZA A REENTER NEGATIVE (NORMAL: NEGAT INFLUENZA B REENTER NEGATIVE (NORMAL: NEGAT PROCEDURAL CONTROL VALID KIT LOT # _[id number] 07/23/19.BLD. KIT EXP DATE _04.29.2020 07/23/19.BLD.The Influenza A utilizing an isothermal nucleic acid amplification technology for thequalitative detection of influenza A and B viral RNA.Negative results do not preclude influenza virus infection and should not beused as the sole basis for diagnosis, treatment or other patient managementdecisions. 3 Clinical Report - Physicians/Mid Levels [facility] Emergency Department [address] [place] [address] Phone #: ext- [phone] 07/23/2019 19:18 Patient: LOUIE MCLEAN Sex: M : 1970 Age: 48y.PROGRESS AND PROCEDURESCourse of Care: 21:Jul 23 2019. Evaluation after observation; results of tests back. (Discussed risks,benefits, options and pt is agreeable with dx and tx plan.). Patient counseled in person regarding the patient's stable condition, test results, diagnosis and need for follow-up. Patient agrees with plan of care. :Jul 23 2019. Disposition: Discharged home in good and improved condition (21:33 Jul 23 2019).CLINICAL IMPRESSION Acute bacterial bronchitis.INSTRUCTIONS Your Current Medications: Your current home medications have been reviewed. CONTINUE TAKING THE FOLLOWING MEDICATIONS: Dulera Inhalation : Aerosol 100-5 mcg/act, 2x a day. Fish Oil Oral. Gabapentin Oral : 300 mg daily. Loratadine Allergy Relief Oral : Tablet Disintegrating 10 mg, 1 tablet daily. metFORMIN HCl ER (MOD) Oral. Statin-unsure which*. Wellbutrin SR Oral : Tablet Extended Release 12 Hour 150 mg, 1 tablet daily. Prescription Medications: azithromycin 250 mg tablet -- Take one tablet daily for 4 days, total duration is 5 days. Dispense 4 tablet. Refills: 0. Substitution permitted. Note to Pharmacy - first dose given in the ED. Pharmacy - [facility] [phone]. . prednisone 20 mg tablet Take 3 tablet once a day for 5 days -- Dispense 15 tablet. Refills: 0. Substitution permitted. Note to Pharmacy - pt is 19 and weighs 90 kg. Pharmacy - [facility] ; [place], [place] [phone]. . Follow-up: Follow up with your doctor in three days if not better. Reason for referral: evaluation and treatment. Summary of care provided to patient. 4 Clinical Report - Physicians/Mid Levels [facility] Emergency Department [address] [place] [address] Phone #: ext- [phone] 07/23/2019 19:18 Patient: LOUIE MCLEAN Sex: M : 1970 Age: 48y Understanding of the discharge instructions verbalized by patient.(Electronically signed by KELLY Walker 07/23/2019 21:40) Name Value Range Interpretation Code Description Data Trudy e(s) Supporting Document(s) ID Date Data Source [id number] 07/23/2019 08:00:00 PM EST [facility] ([facility] Name Value Range Interpretation Code Description Data [facility] Rapid Strep [facility] Laboratory test result [facility] ([facility] { PROCEDURAL CONTROL VALID ) { KIT LOT # [id number] ) { KIT EXP DATE 07.06.2020 ) The Strep A 2 assay utilizes isothermal nucleic acid amplification technology fo the qualitative detection of Group A Strep bacterial nucleic acid in throat swab specimens. All negative test results no longer need to be confirmed with a culture. Follow- up testing requiring a culture is necessary if clinical symptoms persist, or in the event of an acute rheumatic fever outbreak. A culture will need to be ordered by the Qualified Medical Provider. Negative results do not preclude infection with Group A Strep and should not be used as the sole basis for treatment. Rapid Strep Laboratory test result M FANNIE ([facility] ID Date Data Source [id number] 07/23/2019 08:00:00 PM EST [facility] ([facility] Name Value Range Interpretation Code Description Data [facility](s) Supporting Document(s) Influenza B Laboratory test result M EDENT ([facility] Influenza A Reenter Laboratory test result [facility] ([facility] Influenza A Laboratory test result M FANNIE ([facility] Influenza B [facility] Laboratory test result [facility] ([facility] <content>PROCEDURAL CONTROL VALID</con tent>
<content>KIT LOT # _[id number] 07/23/19.BLD.</content>
<content>KIT EXP DATE _04.29.2020 07/23/19.BLD.</content>
<content>The Influenza A & B assay is a rapid molecular in vitro diagnostic test</content>
<content>utilizing an isothermal nucleic acid amplification technology for the</content>
<content>qualitative detection of influenza A and B viral RNA.</content>
<content>Negative results do not preclude influenza virus infection and should not be</content>
<content>used as the sole basis for diagnosis, treatment or other patient management</content>
<content>decisions.</content>
<content></content> ID Date Data Source [id number] 07/23/2019 09:21:00 PM [facility] Name Value Range Interpretation Code Description Data Trudy rce(s) Supporting Document(s) RAPID STREP NEGATIVE NORMAL: NEGATIVE [facility] RAPID STREP REENTER NEGATIVE NORMAL: NEGATIVE [facility] { PROCEDURAL CONTROL VALID ){ KIT LOT # [id number] ){ KIT EXP DATE 07.06.2020 )The Strep A 2 assay utilizes isothermal nucleic acid amplification technology fothe qualitative detection of Group A Strep bacterial nucleic acid in throat swabspecimens.All negative test results no longer need to be confirmed with a culture. Follow-up testing requiring a culture is necessary if clinical symptoms persist, or inthe event of an acute rheumatic fever outbreak. A culture will need to beordered by the Qualified Medical Provider.Negative results do not preclude infection with Group A Strep and should not beused as the sole basis for treatment. ID Date Data Source [id number] 07/23/2019 09:19:00 PM [facility] Name Value Range Interpretation Code Description Data Trudy rce(s) Supporting Document(s) Influenza virus A Ag [Presence] in Nasopharynx by Immunoassa y NEGATIVE NORMAL: NEGATIVE [facility] Influenza virus B Ag [Presence] in Nasopharynx by Immunoassa y NEGATIVE NORMAL: NEGATIVE [facility] NEGATIVENEGATIVE PROCEDURAL CO NTROL VALID KIT LOT # _[id number] 07/23/19.BLD. KIT EXP DATE _04.29.2020 07/23/19.BLD.The Influenza A & B assay is a rapid molecular in vitro diagnostic testutilizing an isothermal nucleic acid amplification technology for thequalitative detection of influenza A and B viral RNA.Negative results do not preclude influenza virus infection and should not beused as the sole basis for diagnosis, treatment or other patient managementdecisions. ID Date Data Source [id number] 06/10/2019 11:34:00 AM EST [facility] ([facility] Name Value Range Interpretation Code Description Data Trudy rce(s) Supporting Document(s) Hemoglobin A1c/Hemoglobin.total in Blood 6.3 % 4.8-5.6 Above high normal [facility] ([facility] <content>Prediabetes: 5.7 - 6.4</content >
<content>Diabetes: >6.4</content>
<content>Glycemic control for adults with diabetes: <7.0</content>
<content></content> ID Date Data Source [id number] 06/10/2019 11:34:00 AM EST [facility] Name Value Range Interpretation Code Description Data Trudy rce(s) Supporting Document(s) Cholesterol [Mass/volume] in Serum or Plasma 210 mg/dL 100 -199 Above high normal [facility] ([facility] ) Cholesterol in HDL [Mass/volume] in Serum or Plasma 42 mg/dL [facility] ([facility] Triglyceride [Mass/volume] in Serum or Plasma 105 mg/dL 0-149 [facility] ([facility] Cholesterol in LDL [Mass/volume] in Serum or Plasma by calcu lation 147 mg/dL 0-99 Above high normal [facility] Comment: TNP [facility] Cholesterol in VLDL [Mass/volume] in Serum or Plasma by calc ulation 21 mg/dL 5-40 [facility] ID Date Data Source [id number] 06/10/2019 11:34:00 AM EST [facility] Name Value Range Interpretation Code Description Data Trudy rce(s) Supporting Document(s) Glucose [Mass/volume] in Serum or Plasma 136 mg/dL 65-99 Above high normal [facility] ([facility] Creatinine [Mass/volume] in Serum or Plasma 1.00 mg/dL 0.76-1.27 [facility] ([facility] BUN 12 mg/dL 6-24 [facility] eGFR If NonAfricn Am 90 mL/min/1.73 [facility] ([facility] eGFR If Africn Am 104 mL/min/1.73 ME DENT ([facility] Urea nitrogen/Creatinine [Mass Ratio] in Serum or Plasma 12 9 -20 [facility] ([facility] Potassium [Moles/volume] in Serum or Plasma 4.7 mmol/L 3.5-5.2 [facility] ([facility] Sodium [Moles/volume] in Serum or Plasma 141 mmol/L 134-144 [facility] ([facility] Chloride [Moles/volume] in Serum or Plasma 103 mmol/L 96-106 [facility] ([facility] Calcium [Mass/volume] in Serum or Plasma 9.7 mg/dL 8.7-10.2 [facility] ([facility] Carbon dioxide, total [Moles/volume] in Serum or Plasma 20 mmol/L 20 -29 [facility] ([facility] Protein [Mass/volume] in Serum or Plasma 7.7 g/dL 6.0-8.5 [facility] ([facility] Albumin [Mass/volume] in Serum or Plasma 4.4 g/dL 3.5-5.5 [facility] ([facility] Albumin/Globulin [Mass Ratio] in Serum or Plasma 1.3 1.2-2.2 [facility] ([facility] Globulin [Mass/volume] in Serum by calculation 3.3 g/dL 1.5-4.5 [facility] ([facility] Alkaline phosphatase [Enzymatic activity/volume] in Serum or Plasma 62 IU/L 39-117 [facility] Bilirubin.total [Mass/volume] in Serum or Plasma 0.5 mg/dL 0.0-1.2 [facility] ([facility] Aspartate aminotransferase [Enzymatic activity/volume] in Serum or Plasma 40 IU/L 0-40 [facility] ([facility] Alanine aminotransferase [Enzymatic activity/volume] in Seru m or Plasma 80 IU/L 0-44 Above high normal [facility] ([facility] Procedure Vital Signs ID Date Data Source UNK Name Value Range Interpretation Code Description Data Source(s) Body surface area Derived from formula 2.35 m2 2.35 m2 [facility] Body weight 121.111 kg 121.111 kg [facility] ([facility]) [place] body weight 160 [lb_av] 160 [lb_av] [facility] ([facility]) Body mass index (BMI) [Ratio] 38.9 kg/m2 38.9 k g/m2 [facility] ([facility]) Body weight 267.00 [lb_av] 267.00 [lb_av] [facility] ([facility]) Body height 69.5 [in_i] 69.5 [in_i] [facility] ([facility]) 5'9.50" Diastolic blood pressure 82 mm[Hg] 82 mm[Hg] [facility] ([facility]) Systolic blood pressure 112 mm[Hg] 112 mm[Hg] M [facility] Oxygen saturation in Arterial blood by Pulse oximetry 97 % 97 % [facility] ([facility] Body mass index (BMI) [Ratio] 38.3 kg/m2 38.3 k g/m2 [facility] ([facility] [place] body weight 166 [lb_av] 166 [lb_av] [facility] ([facility] Body weight 267.00 [lb_av] 267.00 [lb_av] [facility] ([facility] Body height 70 [in_i] 70 [in_i] [facility] ([facility] 5'10" Respiratory rate 16 /min 16 /min [facility] ( [facility] Heart rate 103 /min 103 /min [facility] ([facility] Body temperature 96.4 [degF] 96.4 [degF] [facility] ([facility] Diastolic blood pressure 86 mm[Hg] 86 mm[Hg] [facility] ([facility] Systolic blood pressure 110 mm[Hg] 110 mm[Hg] M [facility] ([facility] Body surface area Derived from formula 2.34 m2 2.34 m2 [facility] Body weight 119.750 kg 119.750 kg [facility] ([facility]) [place] body weight 160 [lb_av] 160 [lb_av] [facility] ([facility]) Body mass index (BMI) [Ratio] 38.4 kg/m2 38.4 k g/m2 [facility] ([facility]) Body weight 264.00 [lb_av] 264.00 [lb_av] [facility] ([facility]) Body height 69.5 [in_i] 69.5 [in_i] [facility] ([facility]) 5'9.50" Heart rate 82 /min 82 /min [facility] ([facility]) Diastolic blood pressure 72 mm[Hg] 72 mm[Hg] [facility] ([facility]) Systolic blood pressure 132 mm[Hg] 132 mm[Hg] M [facility]) Oxygen saturation in Arterial blood by Pulse oximetry 96 % 96 % [facility] [place] body weight 166 [lb_av] 166 [lb_av] [facility] ([facility] Body height 70 [in_i] 70 [in_i] [facility] ([facility] 5'10" Respiratory rate 16 /min 16 /min [facility] ( [facility] Heart rate 86 /min 86 /min [facility] ([facility] Body temperature 97.6 [degF] 97.6 [degF] [facility] ([facility] Oxygen saturation in Arterial blood by Pulse oximetry 97 % 97 % [facility] ([facility] Body mass index (BMI) [Ratio] 37.6 kg/m2 37.6 k g/m2 [facility] ([facility] [place] body weight 166 [lb_av] 166 [lb_av] [facility] ([facility] Body weight 262.00 [lb_av] 262.00 [lb_av] [facility] ([facility] Body height 70 [in_i] 70 [in_i] [facility] ([facility] 5'10" Respiratory rate 16 /min 16 /min [facility] ( [facility] Heart rate 93 /min 93 /min [facility] ([facility] Body temperature 97.2 [degF] 97.2 [degF] [facility] ([facility] Diastolic blood pressure 78 mm[Hg] 78 mm[Hg] [facility] ([facility] Systolic blood pressure 102 mm[Hg] 102 mm[Hg] M [facility] ([facility] Oxygen saturation in Arterial blood by Pulse oximetry 97 % 97 % [facility] ([facility] Body mass index (BMI) [Ratio] 37.0 kg/m2 37.0 k g/m2 [facility] ([facility] [place] body weight 166 [lb_av] 166 [lb_av] [facility] ([facility] Body weight 258.00 [lb_av] 258.00 [lb_av] [facility] ([facility] Body height 70 [in_i] 70 [in_i] [facility] ([facility] 5'10" Respiratory rate 16 /min 16 /min [facility] ( [facility] Heart rate 97 /min 97 /min [facility] ([facility] Body temperature 97.7 [degF] 97.7 [degF] [facility] ([facility] Diastolic blood pressure 88 mm[Hg] 88 mm[Hg] [facility] ([facility] Systolic blood pressure 118 mm[Hg] 118 mm[Hg] M [facility] ([facility] Oxygen saturation in Arterial blood by Pulse oximetry 98 % 98 % [facility] ([facility] Body mass index (BMI) [Ratio] 37.3 kg/m2 37.3 k g/m2 [facility] ([facility] Body weight 260.00 [lb_av] 260.00 [lb_av] [facility] ([facility] Body height 70 [in_i] 70 [in_i] [facility] ([facility] 5'10" Respiratory rate 18 /min 18 /min [facility] ( [facility] Heart rate 98 /min 98 /min [facility] ([facility] Body temperature 97.5 [degF] 97.5 [degF] [facility] ([facility] Diastolic blood pressure 76 mm[Hg] 76 mm[Hg] [facility] ([facility] Systolic blood pressure 124 mm[Hg] 124 mm[Hg] M [facility] ([facility] Oxygen saturation in Arterial blood by Pulse oximetry 97 % 97 % [facility] ([facility] Body mass index (BMI) [Ratio] 37.3 kg/m2 37.3 k g/m2 [facility] ([facility] Body weight 260.00 [lb_av] 260.00 [lb_av] [facility] ([facility] Body height 70 [in_i] 70 [in_i] [facility] ([facility] 5'10" Respiratory rate 16 /min 16 /min [facility] ( [facility] Heart rate 93 /min 93 /min [facility] ([facility] Body temperature 98.9 [degF] 98.9 [degF] [facility] ([facility] Diastolic blood pressure 72 mm[Hg] 72 mm[Hg] [facility] ([facility] Systolic blood pressure 112 mm[Hg] 112 mm[Hg] M [facility] ([facility] Oxygen saturation in Arterial blood by Pulse oximetry 98 % 98 % [facility] ([facility] Body mass index (BMI) [Ratio] 37.3 kg/m2 37.3 k g/m2 [facility] ([facility] Body weight 260.00 [lb_av] 260.00 [lb_av] [facility] T ([facility] Body height 70 [in_i] 70 [in_i] [facility] ([facility] 5'10" Respiratory rate 16 /min 16 /min [facility] ( [facility] Heart rate 81 /min 81 /min [facility] ([facility] Body temperature 99.3 [degF] 99.3 [degF] [facility] ([facility] Diastolic blood pressure 86 mm[Hg] 86 mm[Hg] [facility] ([facility] Systolic blood pressure 116 mm[Hg] 116 mm[Hg] M [facility] ([facility] Oxygen saturation in Arterial blood by Pulse oximetry 97 % 97 % [facility] ([facility] Body height 70 [in_i] 70 [in_i] [facility] ([facility] [facility] 5'10" Respiratory rate 16 /min 16 /min MEDENT ( [facility] Heart rate 80 /min 80 /min [facility] ([facility] Body temperature 98.5 [degF] 98.5 [degF] MEDENT ([facility] Diastolic blood pressure 80 mm[Hg] 80 mm[Hg] MEDENT ([facility] Systolic blood pressure 110 mm[Hg] 110 mm[Hg] M EDENT ([facility] Oxygen saturation in Arterial blood by Pulse oximetry 96 % 96 % MEDENT ([facility] Body mass index (BMI) [Ratio] 37.2 kg/m2 37.2 k g/m2 MEDENT ([facility] Body weight 259.00 [lb_av] 259.00 [lb_av] MEDEN T ([facility] Body height 70 [in_i] 70 [in_i] [facility] ([facility] 5'10" Respiratory rate 16 /min 16 /min MEDENT ( [facility] Heart rate 90 /min 90 /min MEDENT ([facility] Body temperature 98.1 [degF] 98.1 [degF] SAADENT ([facility] Diastolic blood pressure 84 mm[Hg] 84 mm[Hg] JERAD ([facility] Systolic blood pressure 120 mm[Hg] 120 mm[Hg] Tomás GRECO ([facility]
[2020-07-21] MEDS ORDERED: propofoL 200 MG/20 ML VIAL As Ordered ONE (08:50)
[2020-07-21] MEDS ORDERED: LIDOCAINE 2% 100MG/5ML SDV (FOR ANES.) As Ordered ONE (08:50)
[2020-07-21 09:00] VITALS: BP 111/87
--- NOTE | 2020-07-21 09:00 | ROOR ---
Patient Name: Subhash Farrell Procedure Date: 07/21/2020 8:14 AM Date of : 1970 Age: 49 Room: [facility] Gender: Male Note Status: Finalized Procedure: Colonoscopy Indications: Screening for colon cancer: Family history of colorectal cancer in distant relative(s), High risk colon cancer surveillance: Personal history of colonic polyps Providers: Mihir Nguyen MD Referring MD: KELLY PLAZA Requesting Provider: Medicines: Monitored Anesthesia Care Complications: No immediate complications. Procedure: Pre-Anesthesia Assessment: - Prior to the procedure, a History and Physical was performed, and patient medications and allergies were reviewed. The patient is competent. The risks and benefits of the procedure and the sedation options and risks were discussed with the patient. All questions were answered and informed consent was obtained. Patient identification and proposed procedure were verified by the physician, the nurse and the anesthesiologist in the procedure room. Mental Status Examination: alert and oriented. Airway Examination: normal oropharyngeal airway and neck mobility. Respiratory Examination: clear to auscultation. CV Examination: normal. Prophylactic Antibiotics: The patient does not require prophylactic antibiotics. Prior Anticoagulants: The patient has taken no previous anticoagulant or antiplatelet agents. ASA Grade Assessment: II - A patient with mild systemic disease. After reviewing the risks and benefits, the patient was deemed in satisfactory condition to undergo the procedure. The anesthesia plan was to use monitored anesthesia care (MAC). Immediately prior to administration of medications, the patient was re-assessed for adequacy to receive sedatives. The heart rate, respiratory rate, oxygen saturations, blood pressure, adequacy of pulmonary ventilation, and response to care were monitored throughout the procedure. The physical status of the patient was re-assessed after the procedure. The Colonoscope was introduced through the anus and advanced to the terminal ileum, with identification of the appendiceal orifice and IC valve. The colonoscopy was performed without difficulty. The patient tolerated the procedure well. The quality of the bowel preparation was adequate to identify polyps 6 mm and larger in size and fair. The terminal ileum, ileocecal valve, appendiceal orifice, and rectum were photographed. Scope insertion time was 3 minutes. Scope withdrawal time was 9 minutes. The total duration of the procedure was 15 minutes. Findings: The perianal and digital rectal examinations were normal. The terminal ileum appeared normal. Six sessile polyps were found in the sigmoid colon, transverse colon and ascending colon. The polyps were 4 to 8 mm in size. These polyps were removed with a cold snare. Resection and retrieval were complete. Verification of patient identification for the specimen was done by the physician and nurse using the patient's name, date and medical record number. Estimated blood loss was minimal. A few small-mouthed diverticula were found in the sigmoid colon. Non-bleeding external and internal hemorrhoids were found during retroflexion. The hemorrhoids were medium-sized. Impression: - Preparation of the colon was fair. - The examined portion of the ileum was normal. - Six 4 to 8 mm polyps in the sigmoid colon, in the transverse colon and in the ascending colon, removed with a cold snare. Resected and retrieved. - Diverticulosis in the sigmoid colon. - Non-bleeding external and internal hemorrhoids. Recommendation: - Patient has a contact number available for emergencies. The signs and symptoms of potential delayed complications were discussed with the patient. Return to normal activities tomorrow. Written discharge instructions were provided to the patient. - High fiber diet. - Continue present medications. - Await pathology results. - Repeat colonoscopy in 3 years for surveillance based on pathology results. - Telephone GI clinic for pathology results in 2 weeks. - Return to primary care physician. Procedure Code(s): --- Professional --- 41275, Colonoscopy, flexible; with removal of tumor(s), polyp(s), or other lesion(s) by snare technique Diagnosis Code(s): --- Professional --- Z12.11, Encounter for screening for malignant neoplasm of colon Z80.0, Family history of malignant neoplasm of digestive organs Z86.010, Personal history of colonic polyps K64.8, Other hemorrhoids K63.5, Polyp of colon K57.30, Diverticulosis of large intestine without perforation or abscess without bleeding CPT copyright 2019 [employer]. All rights reserved. The codes documented in this report are preliminary and upon gauntlet pairer review may be revised to meet current compliance requirements. Mihir Nguyen MD Mihir Nguyen MD 07/21/2020 9:00:16 AM Electronically signed by Mihir Nguyen MD Number of Addenda: 0 Note Initiated On: 07/21/2020 8:14 AM Estimated Blood Loss: Estimated blood loss was minimal.
== END 2020-07-21 09:18 | disposition home or self-care (01) ==
LOC: M OPP 07:08
PROVIDERS: ATTEND Internal Medicine Gastroenterology
DX: Z12.11 Encounter for screening for malignant neoplasm of colon (principal); Z86.010 Personal history of colon polyps; Z80.0 Family history of malignant neoplasm of digestive organs; K63.5 Polyp of colon; K57.30 Diverticulosis of large intestine without perforation or abscess without bleeding; K64.8 Other hemorrhoids; E78.5 Hyperlipidemia, unspecified; E11.9 Type 2 diabetes mellitus without complications; R12 Heartburn; K21.9 Gastro-esophageal reflux disease without esophagitis; G80.9 Cerebral palsy, unspecified; M41.9 Scoliosis, unspecified; F41.9 Anxiety disorder, unspecified; F32.9 Major depressive disorder, single episode, unspecified; G43.909 Migraine, unspecified, not intractable, without status migrainosus; J45.909 Unspecified asthma, uncomplicated; G47.30 Sleep apnea, unspecified; Z88.8 Allergy status to other drugs, medicaments and biological substances; Z79.84 Long term (current) use of oral hypoglycemic drugs; Z79.899 Other long term (current) drug therapy; Z83.3 Family history of diabetes mellitus; Z83.6 Family history of other diseases of the respiratory system; Z80.6 Family history of leukemia; Z82.49 Family history of ischemic heart disease and other diseases of the circulatory system

== ENCOUNTER 2021-03-25 08:16 | Emergency (ER) | payer MEDICARE ==
[~2021-03-25] VITALS: Ht 177.8 cm; Wt 109.5 kg
[~2021-03-25 08:16] MED LIST changes: -NS 1,000 ML IV ONE; +OMEP-173 PO; -OMEP-218 PO
[2021-03-25 11:06] VITALS: BP 145/92
[2021-05-23] MEDS ORDERED: RISP-68 (10:14)
== END 2021-03-25 11:10 | disposition home or self-care (01) ==
LOC: M ED 08:16
DX: R07.9 Chest pain, unspecified (principal); E11.9 Type 2 diabetes mellitus without complications; F41.9 Anxiety disorder, unspecified; F32.9 Major depressive disorder, single episode, unspecified; Z79.4 Long term (current) use of insulin; Z88.8 Allergy status to other drugs, medicaments and biological substances

== ENCOUNTER → 2021-04-06 | Outpatient (CLI) | payer MEDICARE, MEDICAID ==
[~2021-04-06] MED LIST changes: -OMEP-173 PO; +OMEP-218 PO
== END ==
LOC: M LABSMTC 11:05
PROVIDERS: ATTEND Pediatrics
DX: Z20.828 Contact with and (suspected) exposure to other viral communicable diseases (principal); Z11.52 Encounter for screening for COVID-19

== ENCOUNTER 2021-05-23 10:06 | Emergency (ER) | payer MEDICARE, MEDICAID ==
[~2021-05-23] VITALS: Ht 177.8 cm; Wt 113.5 kg
[2021-05-23] MEDS ORDERED: [UNRECOGNIZED DRUG - CODE] (10:14)
[2021-05-23] MEDS ORDERED: DULO1CAP5 (10:14)
--- OUTSIDE RECORDS SUMMARY | 2021-05-23 10:15 | CCD ---
Author Author Subhash Sousa Organization [facility] Address Unknown Phone Unavailable Care Team Providers Care Companion Caregiver Name Role Phone Alina Sousa PCP Unavailable Allergies, Adverse Reactions, Alerts Allergy Substance Code C odeSystem Reaction Severity Critic ality Status Start Date Xerontin unspecified Moderate Active Escitalopram unspecified Moderate Active Dilantin unspecified Moderate Active Medications Medication Medication Code Medication CodeSystem Start Date Stop Date Route Dose Status Fill Instructions Cymbalta [id number] RxNo 2021-01-05 2021-02-08 oral 60 mg capsule,delayed release(DR/EC) completed for 30 day(s) Rexulti [id number] Rx[facility] 2018-12-04 2019-01-03 oral 0.5 mg tablet completed for 30 day(s) [facility] [id number] [facility] 2017-04-04 2017-04-23 oral 2 mg capsule completed for 30 day(s) bupropion HCl [id number] [facility] 2017-10-08 2018-03-24 or al 75 mg tablet completed for 30 day(s) bupropion HCl [id number] [facility] 2019-08-06 2019-12-27 or al 75 mg tablet completed for 30 day(s) Prozac [id number] [facility] 2016-06-08 2016-06-21 oral 10 mg capsule completed for 30 day(s) olanzapine [id number] [facility] 2016-06-21 2016-07-21 oral 2.5 mg tablet completed for 30 day(s) clonidine HCl [id number] [facility] 2017-05-21 2017-06-20 or al 0.1 mg tablet completed for 30 day(s) Lamictal [id number] [facility] 2016-06-08 2016-07-08 oral 25 mg 1 tablet once a day completed Take 1 tablet by mouth once a day for 30 day(s) buspirone 512171 [facility] 2017-09-30 2017-10-08 oral 5 mg tablet completed for 30 day(s) [facility]il[facility] [id number] [facility] 2018-03-24 2018-04-23 oral 5 mg tablet completed for 30 day(s) [facility] 788696 [facility] 2019-01-28 2019-06-15 or al 75 mg tablet completed for 30 day(s) clonidine HCl 857441 [facility] 2017-09-30 2017-11-25 or al 0.2 mg tablet completed bupropion HCl [id number] Rx [facility] 2018-03-24 2018-05-21 or al 75 mg tablet completed for 30 day(s) [facility]ropion [facility] 807747 [facility] 2020-01-17 2020-04-19 or al 75 mg tablet completed for 30 day(s) [facility]oloft 197166 [facility] 2019-11-25 2019-12-25 oral 25 mg tablet completed for 30 day(s) bupropion HCl 099494 [facility] 2017-05-21 2017-08-28 or al 100 mg tablet completed for 30 day(s) Abilify 018554 [facility] 2017-12-23 2018-02-03 oral 2 mg tablet completed for 30 day(s) bupropion HCl 607613 [facility] 2018-10-01 2018-11-30 or al 75 mg tablet completed for 30 day(s) bupropion HCl [id number] Rx or 2020-04-19 2020-06-18 or al 75 mg tablet completed for 30 day(s) bupropion HCl 143561 [facility] 2019-06-25 2019-07-19 or al 75 mg tablet completed for 30 day(s) Seroquel 084646 [facility] 2017-04-04 2017-04-08 oral 50 mg tablet completed for 30 day(s) [facility]i 0305010 [facility] 2019-01-28 2019-05-09 oral 0.5 mg tablet completed for 30 day(s) bupropion HCl [id number] Rx or 2018-05-21 2018-09-28 or al 75 mg tablet completed for 30 day(s) [facility] 0589263 [facility] 2019-09-30 2019-10-28 oral 0.25 mg tablet completed for 30 day(s) Wellbutrin SR 762038 [facility] 2017-08-28 2017-09-04 or al 150 mg tablet extended release 12 hr completed Rexulti 3626239 [facility] 2019-10-28 2019-12-27 oral 0.5 mg tablet completed for 60 day(s) Effexor XR 734495 [facility] 2017-02-04 2017-02-04 oral 37.5 mg capsule,extended release 24hr completed venlafaxine 429591 [facility] 2017-02-04 2017-03-04 oral 37.5 mg tablet completed bupropion HCl 736207 [facility] 2017-04-23 2017-05-21 or al 75 mg tablet completed for 30 day(s) clonidine HCl 950505 [facility] 2017-07-16 2017-09-30 or al 0.1 mg tablet completed bupropion HCl 455625 [facility] 2017-09-04 2017-10-08 or al 75 mg tablet completed for 30 day(s) trazodone 558466 [facility] 2017-04-08 2017-04-23 oral 50 mg tablet completed for 30 day(s) Cymbalta 654439 [facility] 2021-02-08 2021-04-09 oral 20 mg capsule,delayed release(DR/EC) active for 30 day(s) venlafaxine 626598 [facility] 2017-02-04 2017-04-04 oral 75 mg 1 tablet at bedtime completed Take 1 tablet by mouth at bedtime for 30 day(s) Minipress 275620 [facility] 2017-03-11 2017-04-04 oral 1 mg capsule completed for 30 day(s) Cymbalta 240275 [facility] 2021-02-08 2021-04-09 oral 60 mg capsule,delayed release(DR/EC) active for 30 day(s) Remeron 753363 [facility] 2017-11-04 2017-12-23 oral 15 mg tablet completed Cymbalta 093223 [facility] 2021-01-17 2021-02-08 oral 20 mg capsule,delayed release(DR/EC) completed for 30 day(s) Abilify 135212 [facility] 2018-02-03 2018-03-24 oral 5 mg tablet completed Problems Problem Name Code CodeSy stem Alternate Code Alternate CodeSystem Start Date End Date Status Narrative Alcohol dependence, uncomplicated 7 [id number] SNOMED-CT 2016-01-31 Completed Recurrent depressive disorder, current episode severe without psychotic symptoms [id number] SNOMED-CT 2016-01-31 Active Generalized anxiety disorder [id number] SNOMED-CT 2016-01-31 Active Adjustment disorder with mixed anxiety and depressed mood [id number] SNOMED-CT 2016-03-02 Completed Relevant diagnostic tests/laboratory data Narrative No Information Procedures Procedure Name Code Code System Target Site Date of Procedure Status Service Delivery Location Device Cod e Device Name Device UID Psychotherapy, 45 minutes with patient [id number] SNOMED-CT () 2016-01-31 completed [facility] [address] [place], [place], [id number] [id number] Psychotherapy, 45 minutes with patient [id number] SNOMED-CT () 2016-02-07 completed [address] [place], [place], [id number] [id number] Psychotherapy, 45 minutes with patient [id number] SNOMED-CT () 2016-02-21 completed [facility] [address] [place], [place], [id number] [id number] Psychotherapy, 45 minutes with patient [id number] SNOMED-CT () 2016-02-28 completed [facility] [address] [place], [place], [id number] [id number] Psychotherapy, 45 minutes with patient [id number] SNOMED-CT () 2016-03-06 completed [address] [place], [place], [id number] [id number] Psychotherapy, 45 minutes with patient [id number] SNOMED-CT () 2016-03-21 completed [facility] [address] [place], [place], [id number] [id number] Psychotherapy, 45 minutes with patient [id number] SNOMED-CT () 2021-01-01 completed [facility] [address] [place], [place], [id number] [id number] Psychotherapy, 45 minutes with patient [id number] SNOMED-CT () 2021-01-17 completed [facility] [address] [place], [place], [id number] [id number] Psychotherapy, 45 minutes with patient [id number] SNOMED-CT () 2021-02-07 completed [facility] [address] [place], [place], 258520339 [id number] Psychotherapy, 45 minutes with patient [id number] SNOMED-CT () 2021-02-21 completed [facility] [address] [place], [place], 40[address] [id number] Psychotherapy, 45 minutes with patient [id number] SNOMED-CT () 2020-10-02 completed [facility] [address] [place], [place], [id number] Psychotherapy, 45 minutes with patient [id number] SNOMED-CT () 2020-10-16 completed [facility] [address] [place], [place], 074276984 [id number] Psychotherapy, 45 minutes with patient [id number] SNOMED-CT () 2020-11-02 completed [facility] [address] [place], [place], 934944065 [id number] Psychotherapy, 45 minutes with patient [id number] SNOMED-CT () 2020-11-29 completed [facility] [address] [place], [place], 783197565 [id number] Psychotherapy, 45 minutes with patient [id number] SNOMED-CT () 2020-12-13 completed [facility] [address] [place], [place], [id number] Psychotherapy, 45 minutes with patient [id number] SNOMED-CT () 2020-12-27 completed [facility] [address] [place], [place], 078[address]36[address] [id number] Psychotherapy, 45 minutes with patient [id number] SNOMED-CT () 2019-12-21 completed [facility] [address] [place], [place], 8980[address] [id number] Psychotherapy, 45 minutes with patient [id number] SNOMED-CT () 2020-02-16 completed [facility] [address] [place], [place], [id number] [id number] Psychotherapy, 45 minutes with patient [id number] SNOMED-CT () 2020-03-08 completed [facility] [address] [place], [place], 971662732 [id number] Psychotherapy, 45 minutes with patient [id number] SNOMED-CT () 2020-04-05 completed [facility] [address] [place], [place], 882402521 [id number] Psychotherapy, 45 minutes with patient [id number] SNOMED-CT () 2020-06-05 completed [facility] [address] [place], [place], 448585697 [id number] Psychotherapy, 45 minutes with patient [id number] SNOMED-CT () 2020-09-07 completed [facility] [address] [place], [place], 101130405 [id number] Psychotherapy, 45 minutes with patient [id number] SNOMED-CT () 2019-07-22 completed [facility] [address] [place], [place], 584263375 [id number] Psychotherapy, 45 minutes with patient [id number] SNOMED-CT () 2019-08-05 completed [facility] [address] [place], [place], 979581453 [id number] Psychotherapy, 45 minutes with patient [id number] SNOMED-CT () 2019-08-19 completed [facility] [address] [place], [place], 317401417 [id number] Psychotherapy, 45 minutes with patient [id number] SNOMED-CT () 2019-09-16 completed [facility] [address] [place], [place], 606130241 [id number] Psychotherapy, 45 minutes with patient [id number] SNOMED-CT () 2019-09-30 completed [facility] [address] [place], [place], [id number] [id number] Psychotherapy, 45 minutes with patient [id number] SNOMED-CT () 2019-11-12 completed [facility] [address] [place], [place], [id number] Psychotherapy, 45 minutes with patient [id number] SNOMED-CT () 2019-04-01 completed [facility] [address] [place], [place], 789685615 [id number] Psychotherapy, 45 minutes with patient [id number] SNOMED-CT () 2019-04-16 completed [facility] [address] [place], [place], 094087477 [id number] Psychotherapy, 45 minutes with patient [id number] SNOMED-CT () 2019-04-22 completed [facility] [address] [place], [place], 135231187 [id number] Psychotherapy, 45 minutes with patient [id number] SNOMED-CT () 2019-05-20 completed [facility] [address] [place], [place], [id number] [id number] Psychotherapy, 45 minutes with patient [id number] SNOMED-CT () 2019-06-02 completed [facility] [address] [place], [place], [id number] [id number] Psychotherapy, 45 minutes with patient [id number] SNOMED-CT () 2019-07-01 completed [facility] [address] [place], [place], 737724272 [id number] Psychotherapy, 45 minutes with patient [id number] SNOMED-CT () 2019-02-11 completed [facility] [address] [place], [place], 029566724 [id number] Psychotherapy, 45 minutes with patient [id number] SNOMED-CT () 2019-02-18 completed [facility] [address] [place], [place], 487772580 [id number] Psychotherapy, 45 minutes with patient [id number] SNOMED-CT () 2019-02-25 completed [facility] [address] [place], [place], 062907825 [id number] Psychotherapy, 45 minutes with patient [id number] SNOMED-CT () 2019-03-04 completed [facility] [address] [place], [place], 794539554 [id number] Psychotherapy, 45 minutes with patient [id number] SNOMED-CT () 2019-03-11 completed [facility] [address] [place], [place], 397325148 [id number] Psychotherapy, 45 minutes with patient [id number] SNOMED-CT () 2019-03-25 completed [facility] [address] [place], [place], 554684272 [id number] Psychotherapy, 45 minutes with patient [id number] SNOMED-CT () 2018-12-08 completed [facility] [address] [place], [place], 414484099 [id number] Psychotherapy, 45 minutes with patient [id number] SNOMED-CT () 2018-12-15 completed [facility] [address] [place], [place], 283604480 [id number] Psychotherapy, 45 minutes with patient [id number] SNOMED-CT () 2018-12-24 completed [facility] [address] [place], [place], 234411027 [id number] Psychotherapy, 45 minutes with patient [id number] SNOMED-CT () 2019-01-14 completed [facility] [address] [place], [place], 091551449 [id number] Psychotherapy, 45 minutes with patient [id number] SNOMED-CT () 2019-01-21 completed [facility] [address] [place], [place], 852943899 [id number] Psychotherapy, 45 minutes with patient [id number] SNOMED-CT () 2019-01-28 completed [facility] [address] [place], [place], 710812106 [id number] Psychotherapy, 45 minutes with patient [id number] SNOMED-CT () 2018-10-01 completed [facility] [address] [place], [place], 388479583 [id number] Psychotherapy, 45 minutes with patient [id number] SNOMED-CT () 2018-10-16 completed [facility] [address] [place], [place], 552756041 [id number] Psychotherapy, 45 minutes with patient [id number] SNOMED-CT () 2018-10-22 completed [facility] [address] [place], [place], 053049351 [id number] Psychotherapy, 45 minutes with patient [id number] SNOMED-CT () 2018-11-26 completed [facility] [address] [place], [place], 761685860 [id number] Psychotherapy, 45 minutes with patient [id number] SNOMED-CT () 2018-11-19 completed [facility] [address] [place], [place], 253922212 [id number] Psychotherapy, 45 minutes with patient [id number] SNOMED-CT () 2018-12-03 completed [facility] [address] [place], [place], 641929914 [id number] Psychotherapy, 45 minutes with patient [id number] SNOMED-CT () 2018-06-16 completed [facility] [address] [place], [place], 595266212 [id number] Psychotherapy, 45 minutes with patient [id number] SNOMED-CT () 2018-06-25 completed [facility] [address] [place], [place], [id number] Psychotherapy, 45 minutes with patient [id number] SNOMED-CT () 2018-07-10 completed [facility] [address] [place], [place], [id number] Psychotherapy, 45 minutes with patient [id number] SNOMED-CT () 2018-07-23 completed [facility] [address] [place], [place], 398259827 [id number] Psychotherapy, 45 minutes with patient [id number] SNOMED-CT () 2018-07-30 completed [facility] [address] [place], [place], 913435498 [id number] Psychotherapy, 45 minutes with patient [id number] SNOMED-CT () 2018-08-20 completed [facility] [address] [place], [place], [id number] [id number] Psychotherapy, 45 minutes with patient [id number] SNOMED-CT () 2018-01-16 completed [facility] [address] [place], [place], 827939888 [id number] Psychotherapy, 45 minutes with patient [id number] SNOMED-CT () 2018-02-13 completed [facility] [address] [place], [place], 712680470 [id number] Psychotherapy, 45 minutes with patient [id number] SNOMED-CT () 2018-03-13 completed [facility] [address] [place], [place], 741869517 [id number] Psychotherapy, 45 minutes with patient [id number] SNOMED-CT () 2018-03-24 completed [facility] [address] [place], [place], 871683990 [id number] Psychotherapy, 45 minutes with patient [id number] SNOMED-CT () 2018-04-17 completed [facility] [address] [place], [place], 650762498 [id number] Psychotherapy, 45 minutes with patient [id number] SNOMED-CT () 2018-05-13 completed [facility] [address] [place], [place], 298088384 [id number] Psychotherapy, 45 minutes with patient [id number] SNOMED-CT () 2017-09-15 completed [facility] [address] [place], [place], 706818448 [id number] Psychotherapy, 45 minutes with patient [id number] SNOMED-CT () 2017-11-28 completed [facility] [address] [place], [place], 849872476 [id number] Psychotherapy, 45 minutes with patient [id number] SNOMED-CT () 2017-12-02 completed [facility] [address] [place], [place], 036060431 [id number] Psychotherapy, 45 minutes with patient [id number] SNOMED-CT () 2017-12-08 completed [facility] [address] [place], [place], 055771792 [id number] Psychotherapy, 45 minutes with patient [id number] SNOMED-CT () 2017-12-15 completed [facility] [address] [place], [place], 285915306 [id number] Psychotherapy, 45 minutes with patient [id number] SNOMED-CT () 2017-12-24 completed [facility] [address] [place], [place], 934677085 [id number] Psychotherapy, 45 minutes with patient [id number] SNOMED-CT () 2017-06-16 completed [facility] [address] [place], [place], 965386024 [id number] Psychotherapy, 45 minutes with patient [id number] SNOMED-CT () 2017-07-17 completed [facility] [address] [place], [place], 350827638 [id number] Psychotherapy, 45 minutes with patient [id number] SNOMED-CT () 2017-07-21 completed [facility] [address] [place], [place], 942224540 [id number] Psychotherapy, 45 minutes with patient [id number] SNOMED-CT () 2017-07-28 completed [facility] [address] [place], [place], 555491576 [id number] Psychotherapy, 45 minutes with patient [id number] SNOMED-CT () 2017-08-26 completed [facility] [address] [place], [place], 868686850 [id number] Psychotherapy, 45 minutes with patient [id number] SNOMED-CT () 2017-09-04 completed [facility] [address] [place], [place], 939478076 [id number] Psychotherapy, 45 minutes with patient [id number] SNOMED-CT () 2017-05-02 completed [facility] [address] [place], [place], 370316922 [id number] Psychotherapy, 45 minutes with patient [id number] SNOMED-CT () 2017-05-14 completed [facility] [address] [place], [place], 636740751 [id number] Psychotherapy, 45 minutes with patient [id number] SNOMED-CT () 2017-05-20 completed [facility] [address] [place], [place], 706571604 [id number] Psychotherapy, 45 minutes with patient [id number] SNOMED-CT () 2017-05-30 completed [facility] [address] [place], [place], 168855920 [id number] Psychotherapy, 45 minutes with patient [id number] SNOMED-CT () 2017-06-02 completed [facility] [address] [place], [place], [id number] Psychotherapy, 45 minutes with patient [id number] SNOMED-CT () 2017-06-09 completed [facility] [address] [place], [place], 729559989 [id number] Psychotherapy, 45 minutes with patient [id number] SNOMED-CT () 2017-01-08 completed [facility] [address] [place], [place], 220479684 [id number] Psychotherapy, 45 minutes with patient [id number] SNOMED-CT () 2017-01-27 completed [facility] [address] [place], [place], 289633591 [id number] Psychotherapy, 45 minutes with patient [id number] SNOMED-CT () 2017-02-21 completed [facility] [address] [place], [place], 034969280 [id number] Psychotherapy, 45 minutes with patient [id number] SNOMED-CT () 2017-03-11 completed [facility] [address] [place], [place], 375143224 [id number] Psychotherapy, 45 minutes with patient [id number] SNOMED-CT () 2017-03-27 completed [facility] [address] [place], [place], 264928405 [id number] Psychotherapy, 45 minutes with patient [id number] SNOMED-CT () 2017-04-18 completed [facility] [address] [place], [place], 857858362 [id number] Psychotherapy, 45 minutes with patient [id number] SNOMED-CT () 2016-07-29 completed [facility] [address] [place], [place], 725779244 [id number] Psychotherapy, 45 minutes with patient [id number] SNOMED-CT () 2016-08-05 completed [facility] [address] [place], [place], 392262984 [id number] Psychotherapy, 45 minutes with patient [id number] SNOMED-CT () 2016-08-13 completed [facility] [address] [place], [place], 154757151 [id number] Psychotherapy, 45 minutes with patient [id number] SNOMED-CT () 2016-08-26 completed [facility] [address] [place], [place], 764321400 [id number] Psychotherapy, 45 minutes with patient [id number] SNOMED-CT () 2016-09-03 completed [facility] [address] [place], [place], 843706033 [id number] Psychotherapy, 45 minutes with patient [id number] SNOMED-CT () 2016-10-07 completed [facility] [address] [place], [place], [id number] [id number] Psychotherapy, 45 minutes with patient [id number] SNOMED-CT () 2016-05-21 completed [facility] [address] [place], [place], 083137658 [id number] Psychotherapy, 45 minutes with patient [id number] SNOMED-CT () 2016-05-28 completed [facility] [address] [place], [place], 259787025 [id number] Psychotherapy, 45 minutes with patient [id number] SNOMED-CT () 2016-06-18 completed [facility] [address] [place], [place], 056205568 [id number] Psychotherapy, 45 minutes with patient [id number] SNOMED-CT () 2016-06-25 completed [facility] [address] [place], [place], 267776832 [id number] Psychotherapy, 45 minutes with patient [id number] SNOMED-CT () 2016-07-02 completed [facility] [address] [place], [place], 482313438 [id number] Psychotherapy, 45 minutes with patient [id number] SNOMED-CT () 2016-07-22 completed [facility] [address] [place], [place], 734372651 [id number] Psychotherapy, 45 minutes with patient [id number] SNOMED-CT () 2016-04-04 completed [facility] [address] [place], [place], 495574052 [id number] Psychotherapy, 45 minutes with patient [id number] SNOMED-CT () 2016-04-12 completed [address] [place], [place], 064435007 [id number] Psychotherapy, 45 minutes with patient [id number] SNOMED-CT () 2016-04-17 completed [facility] [address] [place], [place], 815364818 [id number] Psychotherapy, 45 minutes with patient [id number] SNOMED-CT () 2016-04-22 completed [facility] [address] [place], [place], 310823941 [id number] Psychotherapy, 45 minutes with patient [id number] SNOMED-CT () 2016-04-30 completed [address] [place], [place], 012221157 [id number] Psychotherapy, 45 minutes with patient [id number] SNOMED-CT () 2016-05-14 completed [facility] [address] [place], [place], [id number] Initial Psychiatric Evaluation [id number] SNOMED-CT () 2016-03-02 completed [facility] [address] [place], [place], [id number] [id number] Psychotherapy - Family&Client 1 hr 1 [id number] SNOMED-CT () 2018-01-30 completed [facility] [address] [place], [place], 549559906 [id number] Health Monitoring / Risk Reduction Counseling - [facility] [id number] SNOMED-CT () 2016-02-28 completed [facility] [address] [place], [place], 677907203 [phone] Est. Patient - E&M Intermediate [id number] SNOMED-CT () 2016-10-01 completed [facility] [address] [place], [place], [id number] [id number] Est. Patient - E&M Intermediate [id number] SNOMED-CT () 2017-02-04 completed [facility] [address] [place], [place], [id number] [id number] Est. Patient - E&M Intermediate [id number] SNOMED-CT () 2017-05-21 completed [facility] [address] [place], [place], [id number] [phone] Est. Patient - E&M Intermediate [id number] SNOMED-CT () 2017-06-[address], [id number] [id number] Est. Patient - E&M Intermediate [id number] SNOMED-CT () 2017-07-[address], [id number] [id number] Est. Patient - E&M Intermediate [id number] SNOMED-CT () 2017-08-[address], [id number] Est. Patient - E&M Intermediate [id number] SNOMED-CT () 2018-10-[address], [id number] [id number] Est. Patient - E&M Intermediate [id number] SNOMED-CT () 2019-06-[address], [id number] [id number] Est. Patient - E&M Intermediate [id number] SNOMED-CT () 2019-08-[address], [id number] [id number] Est. Patient - E&M Intermediate [id number] SNOMED-CT () 2019-09-[address], [id number] [id number] Est. Patient - E&M Intermediate [id number] SNOMED-CT () 2020-01-[address], [id number] [phone] Est. Patient - E&M Intermediate [id number] SNOMED-CT () 2018-02-[address], [id number] [phone] Est. Patient - E&M Intermediate [id number] SNOMED-CT () 2018-02-[address], [id number] [id number] Est. Patient - E&M Intermediate [id number] SNOMED-CT () 2018-03-[address], [id number] [id number] Est. Patient - E&M Intermediate [id number] SNOMED-CT () 2018-04-[address], [id number] [id number] Est. Patient - E&M Intermediate [id number] SNOMED-CT () 2018-05-[address], [id number] [id number] Est. Patient - E&M Intermediate [id number] SNOMED-CT () 2018-07-[address], [id number] [id number] Est. Patient - E&M Intermediate [id number] SNOMED-CT () 2017-09-[address], [id number] [id number] Est. Patient - E&M Intermediate [id number] SNOMED-CT () 2017-10-[address], [id number] [id number] Est. Patient - E&M Intermediate [id number] SNOMED-CT () 2017-11-[address], 580207784 [phone] Est. Patient - E&M Intermediate [id number] SNOMED-CT () 2017-11-[address], [id number] [phone] Est. Patient - E&M Intermediate [id number] SNOMED-CT () 2017-12-[address], [id number] [id number] Est. Patient - E&M Intermediate [id number] SNOMED-CT () 2018-01-[address], 377796945 [phone] Est. Patient - E&M Brief [id number] SNOMED-CT () 2016-04-[address], [id number] [phone] Est. Patient - E&M Brief [id number] SNOMED-CT () 2016-06-[address], 687865074 [phone] Est. Patient - E&M Brief [id number] SNOMED-CT () 2016-08-[address], [id number] [phone] Est. Patient - E&M Brief [id number] SNOMED-CT () 2018-06-[address], [id number] [id number] Est. Patient - E&M Brief [id number] SNOMED-CT () 2018-12-[address], [id number] [id number] Est. Patient - E&M Brief [id number] SNOMED-CT () 2018-12-[address], [id number] [phone] Est. Patient - E&M Brief [id number] SNOMED-CT () 2019-12-[address], [id number] [id number] Est. Patient - E&M Brief [id number] SNOMED-CT () 2019-12-[address], [id number] [phone] Est. Patient - E&M Brief [id number] SNOMED-CT () 2020-02-[address], [id number] [phone] Est. Patient - E&M Brief [id number] SNOMED-CT () 2020-04-[address], [id number] [id number] Est. Patient - E&M Brief [id number] SNOMED-CT () 2020-05-[address], [id number] Est. Patient - E&M Brief [id number] SNOMED-CT () 2019-01-[address], [id number] Est. Patient - E&M Brief [id number] SNOMED-CT () 2019-03-[address], [id number] Est. Patient - E&M Brief [id number] SNOMED-CT () 2019-04-[address], [id number] Est. Patient - E&M Brief [id number] SNOMED-CT () 2019-05-[address], [id number] Est. Patient - E&M Brief [id number] SNOMED-CT () 2019-10-[address], [id number] Est. Patient - E&M Brief [id number] SNOMED-CT () 2019-11-[address], [id number] Est. Patient - E&M Expanded [id number] SNOMED-CT () 2017-03-[address], [id number] Est. Patient - E&M Expanded [id number] SNOMED-CT () 2017-03-[address], [id number] Est. Patient - E&M Expanded [id number] SNOMED-CT () 2017-04-[address], [id number] Est. Patient - E&M Expanded [id number] SNOMED-CT () 2017-04-[address], [id number] Est. Patient - E&M Expanded [id number] SNOMED-CT () 2017-10-[address], [id number] Est. Patient - E&M Expanded [id number] SNOMED-CT () 2020-09-[address], [id number] Est. Patient - E&M Expanded [id number] SNOMED-CT () 2020-12-[address], [id number] Est. Patient - E&M Expanded [id number] SNOMED-CT () 2021-01-[address], [id number] Est. Patient - E&M Expanded [id number] SNOMED-CT () 2021-02-[address], [id number] Individual Psychotherapy [id number] SNOMED-CT () 2016-02-[address], [id number] Individual Psychotherapy [id number] SNOMED-CT () 2016-05-[address], [id number] Individual Psychotherapy [id number] SNOMED-CT () 2016-06-[address], [id number] Individual Psychotherapy [id number] SNOMED-CT () 2016-12-[address], [id number] Individual Psychotherapy [id number] SNOMED-CT () 2016-12-[address], [id number] Individual Psychotherapy [id number] SNOMED-CT () 2017-01-[address], [id number] Individual Psychotherapy [id number] SNOMED-CT () 2020-11-[address], [id number] Individual Psychotherapy [id number] SNOMED-CT () 2020-01-[address], [id number] Individual Psychotherapy [id number] SNOMED-CT () 2020-02-[address], [id number] Individual Psychotherapy [id number] SNOMED-CT () 2020-04-[address], [id number] [phone] Individual Psychotherapy [id number] SNOMED-CT () 2020-07-[address], [id number] Individual Psychotherapy [id number] SNOMED-CT () 2020-08-[address], [id number] Individual Psychotherapy [id number] SNOMED-CT () 2020-09-[address], [id number] Individual Psychotherapy [id number] SNOMED-CT () 2018-11-[address], [id number] Individual Psychotherapy [id number] SNOMED-CT () 2018-12-[address], [id number] Individual Psychotherapy [id number] SNOMED-CT () 2019-10-[address], [id number] Individual Psychotherapy [id number] SNOMED-CT () 2019-10-[address], [id number] Individual Psychotherapy [id number] SNOMED-CT () 2019-12-[address], [id number] Individual Psychotherapy [id number] SNOMED-CT () 2020-01-[address], [id number] Individual Psychotherapy [id number] SNOMED-CT () 2018-04-[address], [id number] Individual Psychotherapy [id number] SNOMED-CT () 2018-04-[address], [id number] Individual Psychotherapy [id number] SNOMED-CT () 2018-04-[address], [id number] [id number] Individual Psychotherapy [id number] SNOMED-CT () 2018-05-[address], [id number] [phone] Individual Psychotherapy [id number] SNOMED-CT () 2018-05-[address], [id number] Individual Psychotherapy [id number] SNOMED-CT () 2018-10-[address], [id number] Individual Psychotherapy [id number] SNOMED-CT () 2017-02-[address], [id number] [id number] Individual Psychotherapy [id number] SNOMED-CT () 2017-08-[address], [id number] [phone] Individual Psychotherapy [id number] SNOMED-CT () 2017-09-[address], [id number] Individual Psychotherapy [id number] SNOMED-CT () 2017-10-[address], [id number] [id number] Individual Psychotherapy [id number] SNOMED-CT () 2017-10-[address], [id number] Individual Psychotherapy [id number] SNOMED-CT () 2017-11-[address], [id number] [phone] Individual Psychotherapy [id number] SNOMED-CT () 2016-01-[address], [id number] Individual Psychotherapy [id number] SNOMED-CT () 2016-02-[address], [id number] Individual Psychotherapy [id number] SNOMED-CT () 2016-02-[address], [id number] [phone] Individual Psychotherapy [id number] SNOMED-CT () 2016-02-[address], [id number] Individual Psychotherapy [id number] SNOMED-CT () 2016-03-[address], [id number] Individual Psychotherapy [id number] SNOMED-CT () 2016-03-[address], [id number] Individual Psychotherapy [id number] SNOMED-CT () 2021-01-[address], [id number] Individual Psychotherapy [id number] SNOMED-CT () 2021-01-[address], [id number] Individual Psychotherapy [id number] SNOMED-CT () 2021-02-[address], [id number] Individual Psychotherapy [id number] SNOMED-CT () 2021-02-[address], [id number] Individual Psychotherapy [id number] SNOMED-CT () 2020-10-[address], [id number] [id number] Individual Psychotherapy [id number] SNOMED-CT () 2020-10-[address], [id number] [id number] Individual Psychotherapy [id number] SNOMED-CT () 2020-11-[address], [id number] Individual Psychotherapy [id number] SNOMED-CT () 2020-11-[address], [id number] Individual Psychotherapy [id number] SNOMED-CT () 2020-12-[address], [id number] Individual Psychotherapy [id number] SNOMED-CT () 2020-12-[address], [id number] Individual Psychotherapy [id number] SNOMED-CT () 2019-12-[address], [id number] Individual Psychotherapy [id number] SNOMED-CT () 2020-02-[address], [id number] Individual Psychotherapy [id number] SNOMED-CT () 2020-03-[address], [id number] Individual Psychotherapy [id number] SNOMED-CT () 2020-04-[address], [id number] Individual Psychotherapy [id number] SNOMED-CT () 2020-06-[address], [id number] Individual Psychotherapy [id number] SNOMED-CT () 2020-09-[address], [id number] Individual Psychotherapy [id number] SNOMED-CT () 2019-07-[address], [id number] Individual Psychotherapy [id number] SNOMED-CT () 2019-08-[address], [id number] Individual Psychotherapy [id number] SNOMED-CT () 2019-08-[address], [id number] Individual Psychotherapy [id number] SNOMED-CT () 2019-09-[address], [id number] Individual Psychotherapy [id number] SNOMED-CT () 2019-09-[address], [id number] Individual Psychotherapy [id number] SNOMED-CT () 2019-11-[address], [id number] [id number] Individual Psychotherapy 39984172 SNOMED-CT () 2019-04-[address], [id number] Individual Psychotherapy [id number] SNOMED-CT () 2019-04-[address], [id number] Individual Psychotherapy [id number] SNOMED-CT () 2019-04-[address], [id number] [phone] Individual Psychotherapy [id number] SNOMED-CT () 2019-05-[address], [id number] [phone] Individual Psychotherapy [id number] SNOMED-CT () 2019-06-[address], [id number] Individual Psychotherapy [id number] SNOMED-CT () 2019-07-[address], [id number] Individual Psychotherapy [id number] SNOMED-CT () 2019-02-[address], [id number] Individual Psychotherapy [id number] SNOMED-CT () 2019-02-[address], [id number] [id number] Individual Psychotherapy [id number] SNOMED-CT () 2019-02-[address], [id number] Individual Psychotherapy [id number] SNOMED-CT () 2019-03-[address], [id number] Individual Psychotherapy [id number] SNOMED-CT () 2019-03-[address], [id number] Individual Psychotherapy [id number] SNOMED-CT () 2019-03-[address], [id number] Individual Psychotherapy [id number] SNOMED-CT () 2018-12-[address], [id number] Individual Psychotherapy [id number] SNOMED-CT () 2018-12-[address], [id number] Individual Psychotherapy [id number] SNOMED-CT () 2018-12-[address], [id number] Individual Psychotherapy [id number] SNOMED-CT () 2019-01-[address], [id number] Individual Psychotherapy [id number] SNOMED-CT () 2019-01-[address], [id number] Individual Psychotherapy [id number] SNOMED-CT () 2019-01-[address], [id number] Individual Psychotherapy [id number] SNOMED-CT () 2018-10-[address], [id number] [id number] Individual Psychotherapy [id number] SNOMED-CT () 2018-10-[address], [id number] Individual Psychotherapy [id number] SNOMED-CT () 2018-10-[address], [id number] [id number] Individual Psychotherapy [id number] SNOMED-CT () 2018-11-[address], [id number] [phone] Individual Psychotherapy [id number] SNOMED-CT () 2018-11-[address], [id number] Individual Psychotherapy [id number] SNOMED-CT () 2018-12-[address], [id number] Individual Psychotherapy [id number] SNOMED-CT () 2018-06-[address], [id number] Individual Psychotherapy [id number] SNOMED-CT () 2018-06-[address], [id number] Individual Psychotherapy [id number] SNOMED-CT () 2018-07-[address], [id number] Individual Psychotherapy 53294161 SNOMED-CT () 2018-07-[address], [id number] Individual Psychotherapy [id number] SNOMED-CT () 2018-07-[address], [id number] Individual Psychotherapy [id number] SNOMED-CT () 2018-08-[address], [id number] Individual Psychotherapy [id number] SNOMED-CT () 2018-01-[address], [id number] Individual Psychotherapy 94138421 SNOMED-CT () 2018-02-[address], [id number] Individual Psychotherapy [id number] SNOMED-CT () 2018-03-[address], [id number] [id number] Individual Psychotherapy [id number] SNOMED-CT () 2018-03-[address], [id number] Individual Psychotherapy [id number] SNOMED-CT () 2018-04-[address], [id number] [id number] Individual Psychotherapy [id number] SNOMED-CT () 2018-05-[address], [id number] Individual Psychotherapy [id number] SNOMED-CT () 2017-09-[address], [id number] Individual Psychotherapy [id number] SNOMED-CT () 2017-11-[address], [id number] Individual Psychotherapy [id number] SNOMED-CT () 2017-12-[address], [id number] [id number] Individual Psychotherapy [id number] SNOMED-CT () 2017-12-[address], [id number] Individual Psychotherapy 55675935 SNOMED-CT () 2017-12-[address], [id number] Individual Psychotherapy [id number] SNOMED-CT () 2017-12-[address], [id number] Individual Psychotherapy [id number] SNOMED-CT () 2017-06-[address], [id number] Individual Psychotherapy [id number] SNOMED-CT () 2017-07-[address], [id number] Individual Psychotherapy [id number] SNOMED-CT () 2017-07-[address], [id number] Individual Psychotherapy [id number] SNOMED-CT () 2017-07-[address], [id number] Individual Psychotherapy [id number] SNOMED-CT () 2017-08-[address], [id number] Individual Psychotherapy [id number] SNOMED-CT () 2017-09-[address], [id number] Individual Psychotherapy [id number] SNOMED-CT () 2017-05-[address], [id number] Individual Psychotherapy 99808991 SNOMED-CT () 2017-05-[address], [id number] [id number] Individual Psychotherapy [id number] SNOMED-CT () 2017-05-[address], [id number] Individual Psychotherapy [id number] SNOMED-CT () 2017-05-[address], [id number] Individual Psychotherapy [id number] SNOMED-CT () 2017-06-[address], [id number] Individual Psychotherapy [id number] SNOMED-CT () 2017-06-[address], [id number] Individual Psychotherapy [id number] SNOMED-CT () 2017-01-[address], [id number] Individual Psychotherapy 13453674 SNOMED-CT () 2017-01-[address], [id number] Individual Psychotherapy [id number] SNOMED-CT () 2017-02-[address], [id number] Individual Psychotherapy [id number] SNOMED-CT () 2017-03-[address], [id number] Individual Psychotherapy [id number] SNOMED-CT () 2017-03-[address], [id number] Individual Psychotherapy [id number] SNOMED-CT () 2017-04-[address], [id number] Individual Psychotherapy [id number] SNOMED-CT () 2016-07-[address], [id number] Individual Psychotherapy [id number] SNOMED-CT () 2016-08-[address], [id number] Individual Psychotherapy 65077134 SNOMED-CT () 2016-08-[address], [id number] Individual Psychotherapy [id number] SNOMED-CT () 2016-08-[address], [id number] Individual Psychotherapy 97367371 SNOMED-CT () 2016-09-[address], [id number] Individual Psychotherapy [id number] SNOMED-CT () 2016-10-[address], [id number] Individual Psychotherapy [id number] SNOMED-CT () 2016-05-[address], [id number] Individual Psychotherapy [id number] SNOMED-CT () 2016-05-[address], [id number] Individual Psychotherapy [id number] SNOMED-CT () 2016-06-[address], [id number] Individual Psychotherapy [id number] SNOMED-CT () 2016-06-[address], [id number] Individual Psychotherapy [id number] SNOMED-CT () 2016-07-[address], [id number] Individual Psychotherapy [id number] SNOMED-CT () 2016-07-[address], [id number] Individual Psychotherapy [id number] SNOMED-CT () 2016-04-[address], [id number] [id number] Individual Psychotherapy [id number] SNOMED-CT () 2016-04-[address], [id number] Individual Psychotherapy [id number] SNOMED-CT () 2016-04-[address], [id number] Individual Psychotherapy [id number] SNOMED-CT () 2016-04-[address], [id number] Individual Psychotherapy 63544998 SNOMED-CT () 2016-04-[address], [id number] Individual Psychotherapy [id number] SNOMED-CT () 2016-05-[address], [id number] Psychiatric Diagnostic Evaluation without medical serv ices [id number] SNOMED-CT () 2016-01-[address], [id number] Psychiatric Diagnostic Evaluation without medical serv ices [id number] SNOMED-CT () 2016-01-[address], [id number] SNOMED-CT () 2020-12-[address], [id number] SNOMED-CT () 2020-10-[address], [id number] SNOMED-CT () 2020-09-[address], [id number] SNOMED-CT () 2020-11-[address], [id number] SNOMED-CT () 2020-09-[address], [id number] SNOMED-CT () 2020-07-[address], [id number] SNOMED-CT () 2020-12-[address], [id number] SNOMED-CT () 2020-11-[address], [id number] SNOMED-CT () 2020-08-[address], [id number] SNOMED-CT () 2020-11-[address], [id number] SNOMED-CT () 2020-10-[address], [id number] SNOMED-CT () 2016-07-[address], [id number] Encounters/Encounter Diagnoses Encounter Name Encounter Code Diagnosis Code Diagnosis Name Diagnosis CodeSystem Date of Diagnosis Service Delivery L ocation Pyschotherapy 30 Minute with Patient [id number] Recurrent depressive disorder, current e pisode severe without psychotic symptoms SNOMED-CT 2021-02-21 [facility] [address] [place] [address], [id number] Vital Signs Code CodeSystem Vitals Date Value 8462-4 [facility] Blood Press ure-Diastolic 2019-09-16 130 mm[HG] 35694-8 [facility] Weight 2019-09-16 259 [lb_av] 8302-2 [facility] Height 2019-09-16 70.5 [in_i] 8480-6 [facility] Blood Press ure-Systolic 2019-09-16 90 mm[HG] 8867-4 [facility] Heart Rate 2019-09-16 75 /min 20229-7 [facility] BMI 2019-09-16 36.63 (lb/in2) Social History Element Description Description Start Date End Date Code CodeSystem AdditionalInfo SexAssignedAtBirth Male 1970 M AdministrativeGender Hospital Discharge Instructions * Reason For Referral Medical Equipment * FDA Assessments * Goals Section Goals Planned DateTime Subhash's mood will be stable. 2016-02 Subhash will increase health awareness and make healthy lifestyle choices. 2017-08-19
--- OUTSIDE RECORDS SUMMARY | 2021-05-23 10:15 | CCD | Continuity of Care Document ---
Author Author Subhash DEAL [facility] Organization Unknown Address [address] [facility] [address] [place] [address] Phone [phone] Problems Active Problems Provider Date Epilepsy Onset: 04/15/2001 Allergic rhinitis Onset: 04/15/2001 Gastroesophageal reflux disease Susan Castellano, [facility] Onset : 12/27/2003 Hyperlipidemia Abner Deal RPA [...] smoked Allergies, Adverse Reactions, Alerts Active Allergies Criticality Reaction | Severity Comments Date Dilantin Unable to assess criticality 04/15/2001 Xerontin Unable to assess criticality 04/15/2001 Escitalopram Unable to assess criticality ED, fatigue, burning lips 10/16/2015 Skelaxin Unable to assess criticality Elevated b/p 10/16/2015 Medications Active Medications SIG Qnty Indications Ordering Provide r Date Omeprazole 40mg Capsules DR take one capsule by mouth every morning 30caps Ag Grey D.O., FAAFP 11/08/[address] Dulox[address] HCL 30mg Caps DR Part 1 by mouth every day 30caps Ag Grey D.O., FAAFP 11/2020 Moderna Covid-19 Vaccine 100mcg/0.5ML Suspension 09/01/20 & 09/29/20 Ag Grey D.O., FAAFP 10/02/2020 Diclofenac Sodium 1% Gel apply topically four times a day to right knee 100gm Ag Grey D.O., FAAFP 06/07/2020 Vitamin D 2000Unit Tablets 1 by mouth every day 90tabs Ag Grey D.O., FAAFP Lancets 30G 30G Misc use with glucose meter daily and as needed dx. e11.9 200units Ag olivier D.O., FAAFP 12/27/2019 Glucose Meter Test Strips Advanced Strips check blood glucose level four times a day and as needed. e11.9 360units Ag Grey D.O., FAAFP 12/27/2019 Metformin HCL 500mg Tablets take one tablet by mouth qd (change 03/01/21 due to weight loss) 30tabs Ag Grey D.O., FAAFP 09/27/2019 Atorvastatin Calcium 10mg Tablets Take One Tablet By Mouth Every Day 90tabs Ag Grey D.O., FAAFP 06/11/2019 Gabapentin 300mg Capsules Take One Capsule By Mouth Three Times A Day 90caps Ag Grey D.O. , FAAFP 03/05/2017 Flonase Allergy Relief 50mcg/Act Suspension 2 sprays each nostril once a day 19.8ml Ag Grey D.O., [facility] 11/08/2015 Fish Oil 1000mg Capsules 1 by mouth daily Unknown Chromium Picolinate 400mcg Tablets one tablet two times a day Unknown 00000 0 History Medications Azithromycin 250mg Tablets 2 by mouth stat followed by 1 by mouth every day x 4 days 6tabs Savage Grey D.O., [facility] 10/19/2020 - 10/28/2020 Medications Administered in Office Medication SIG Qnty Indications Ordering Provider Date Injection (SC)/(Im) Injection Abner Deal, RPA 03/30/2020 Injection (SC)/(Im) Injection Abner Deal, RPA 06/10/2019 Injection Subcutaneous Or Intramuscular Injection Susan Castellano FNP- 04/13 Immunizations CPT Code Status Date Vaccine Lot # [id number] Given 03/30/2020 Influenza Virus Vaccine, Quadrivalent, Slit Virus, Im Use 3Y & Up [id number] Given 06/10/2019 Pneumococcal Immunization S0 [id number] 51372 Given 06/10/2019 Influenza Virus Vaccine, Quadrivalent, Slit Virus, Im Use 3Y & Up [id number] 65818 Given 03/23/2012 Pneumococcal Immunization [id number] Given 03/23/2012 Influenza Virus Vac. Split Virus Individuals 3 Years And Above [id number] Given 04/13/2008 Influenza Virus Vac. Split Virus Individuals 3 Years And Above [id number] Given Unknown Influenza Virus Vaccine, Quadrivalent, Slit Virus, Im Use 3Y & Up Vital Signs Date Vital Result Comment 03/01/2021 9:15am BP Systolic 106 mmHg BP Diastolic 86 mmHg Body Temperature 97.2 F Heart Rate 90 /min Respiratory Rate 16 /min Height 70 inches 5'10" Weight 243.00 lb Silver [place] Body Weight 166 lb BMI (Body Mass Index) 34.9 kg/m2 O2 % BldC Oximetry 98 % 01/09/2021 9:14am BP Systolic 122 mmHg BP Diastolic 90 mmHg Body Temperature 97.4 F Heart Rate 82 /min Respiratory Rate 16 /min Height 70 inches 5'10" Weight 251.00 lb [place] Body Weight 166 lb BMI (Body Mass Index) 36.0 kg/m2 O2 % BldC Oximetry 96 % Results Test Acquired Date Facility Test Result H/L Range Note Hemoglobin A1c 01/09/2021 [facility] [place] Hemoglobin A1c 6.5 % High 4.8-5.6 1 CBC With Differential/Platelet 10/02/2020 [facility] [place] WBC 9.0 x10E3/uL 3.4-10.8 RBC 5.39 x10E6/uL 4.14-5.80 Hemoglobin 16.4 g/dL 13.0-17.7 Hematocrit 48.6 % 37.5-51.0 MCV 90 fL 79-97 MCH 30.4 pg 26.6-33.0 MCHC 33.7 g/dL 31.5-35.7 RDW 13.0 % 11.6-15.4 Platelets 414 x10E3/uL 150-450 Neutrophils 56 % Not Estab. Lymphs 26 % Not Estab. Monocytes 9 % Not Estab. Eos 8 % Not Estab. Basos 1 % Not Estab. Immature Cells TNP Neutrophils (Absolute) 5.0 x10E3/uL 1.4-7.0 Lymphs (Absolute) 2.4 x10E3/uL 0.7-3.1 Monocytes(Absolute) 0.8 x10E3/uL 0.1-0.9 Eos (Absolute) 0.7 x10E3/uL High 0.0-0.4 Baso (Absolute) 0.1 x10E3/uL 0.0-0.2 Immature Granulocytes 0 % Not Estab. Immature Grans (Abs) 0.0 x10E3/uL 0.0-0.1 NRBC TNP Hematology Comments: TNP Metabolic Panel (14), Comprehensive 10/02/2020 [facility] [place] Glucose 98 mg/dL 65-99 BUN 13 mg/dL 6-24 Creatinine 0.83 mg/dL 0.76-1.27 eGFR If NonAfricn Am 104 mL/min/1.73 >59 eGFR If Africn Am 120 mL/min/1.73 >59 BUN/Creatinine Ratio 16 9-20 Sodium 138 mmol/L 134-144 Potassium 4.2 mmol/L 3.5-5.2 Chloride 104 mmol/L 96-106 Carbon Dioxide, Total 21 mmol/L 20-29 Calcium 9.6 mg/dL 8.7-10.2 Protein, Total 7.3 g/dL 6.0-8.5 Albumin 4.2 g/dL 4.0-5.0 Globulin, Total 3.1 g/dL 1.5-4.5 A/G Ratio 1.4 1.2-2.2 Bilirubin, Total 0.5 mg/dL 0.0-1.2 Alkaline Phosphatase 58 IU/L 39-117 Ast (Sgot) 51 IU/L High 0-40 Alt (SGPT) 91 IU/L High 0-44 Lipid Panel 10/02/2020 [facility] [place] Cholesterol, Total 155 mg/dL 100-199 Triglycerides 99 mg/dL 0-149 HDL Cholesterol 35 mg/dL Low >39 VLDL Cholesterol Miguel 18 mg/dL 5-40 LDL Chol Calc (Nih) 102 mg/dL High 0-99 Comment: TNP Laboratory test finding 10/02/2020 [facility] [place] TSH 1.250 uIU/mL 0.450-4.500 Hemoglobin A1c 10/02/2020 [facility] Hemoglobin A1c 7.1 % High 4.8-5.6 2 1 Prediabetes: 5.7 - 6.4 Diabetes: >6.4 Glycemic control for adults with diabetes: <7.0 2 Prediabetes: 5.7 - 6.4 Diabetes: >6.4 Glycemic control for adults with diabetes: <7.0 Procedures Date Code Description Status 03/01/2021 16470 Office/Outpatient Established Lo w MDM 20-29 Min Completed 01/09/2021 57316 Office/Outpatient Established Mo d MDM 30-39 Min Completed 11/22/2020 94686 Office/Outpatient Established Lo w MDM 20-29 Min Completed 11/08/2020 14834 Office/Outpatient Established Lo w MDM 20-29 Min Completed 10/19/2020 63325 Office/Outpatient Established Lo w MDM 20-29 Min Completed 10/02/2020 00035 Office/Outpatient Established Lo w MDM 20-29 Min Completed Medical Devices Description No Information Available Encounters Type Date Location Provider Dx Diagnosis Office Visit 03/01/2021 9:15a [facility] Abner Deal, [place] A E11.9 Type 2 diabetes mellitus without complications Office Visit 01/09/2021 9:00a [facility] Abner Deal, RP A E11.9 Type 2 diabetes mellitus without complications E78.5 Hyperlipidemia, unspecified J45.909 Unspecified asthma, uncompli cated Office Visit 11/22/2020 2:20p [facility] Abner Deal, RP A K21.9 Gastro-esophageal reflux disease without esophagitis F33.1 Major depressive disorder, r ecurrent, moderate Office Visit 11/08/2020 2:40p [facility] Abner Deal, RP A K21.9 Gastro-esophageal reflux disease without esophagitis F33.1 Major depressive disorder, r ecurrent, moderate Office Visit 10/19/2020 4:00p [facility] Abner Deal, RP A J01.90 Acute sinusitis, unspecified Office Visit 10/02/2020 11:00a [facility] Abner Deal, RP A E11.9 Type 2 diabetes mellitus without complications E78.5 Hyperlipidemia, unspecified Assessments Date Code Description Provider 03/01/2021 E11.9 Type 2 diabetes mellitus without complications Abner Deal, RPA 01/09/2021 E11.9 Type 2 diabetes mellitus without complications Abner Deal, RPA 01/09/2021 E78.5 Hyperlipidemia, unspecified Abner Spencer, RPA 01/09/2021 J45.909 Unspecified asthma, uncomplicate d Abner Deal, RPA 11/22/2020 K21.9 Gastro-esophageal reflux disease without esophagitis Abner Deal, RPA 11/22/2020 F33.1 Major depressive disorder, recur rent, moderate Abner Deal, RPA 11/08/2020 K21.9 Gastro-esophageal reflux disease without esophagitis Abner Deal, RPA 11/08/2020 F33.1 Major depressive disorder, recur rent, moderate Abner Deal, RPA 10/19/2020 J01.90 Acute sinusitis, unspecified Abner Loya, RPA 10/02/2020 E11.9 Type 2 diabetes mellitus without complications Abner Deal, RPA 10/02/2020 E78.5 Hyperlipidemia, unspecified Abner Spencer, RPA Plan of Treatment No Information Available Functional Status Description No Information Available Mental Status Description No Information Available Referrals Description No Information Available
--- OUTSIDE RECORDS SUMMARY | 2021-05-23 10:15 | CCD ---
Author Author Subhash Sousa Organization [facility] Address Unknown Phone Unavailable Care Team Providers Care [employer]stile Collector Name Role Phone Alina Sousa PCP Unavailable Allergies, Adverse Reactions, Alerts Allergy Substance Code C odeSystem Reaction Severity Critic ality Status Start Date Escitalopram unspecified Moderate Active Xerontin unspecified Moderate Active Dilantin unspecified Moderate Active Medications Medication Medication Code Medication CodeSystem Start Date Stop Date Route Dose Status Fill Instructions buspirone [id number] [facility] 2017-09-30 2017-10-08 oral 5 mg tablet completed for 30 day(s) Minipress [id number] [facility] 2017-03-11 2017-04-04 oral 1 mg capsule completed for 30 day(s) bupropion HCl [id number] [facility] 2019-01-28 2019-06-15 or al 75 mg tablet completed for 30 day(s) Rexulti [id number] [facility] 2019-10-28 2019-12-27 oral 0.5 mg tablet completed for 60 day(s) Cymbalta [id number] [facility] 2021-02-08 2021-04-09 oral 60 mg capsule,delayed release(DR/EC) active for 30 day(s) bupropion HCl [id number] [facility] 2018-03-24 2018-05-21 or al 75 mg tablet completed for 30 day(s) [id number] 2017-04-04 oral 75 mg 1 tablet at bedtime completed Take 1 tablet by mouth at bedtime for 30 day(s) Rexulti [id number] [facility] 2019-01-28 2019-05-09 oral 0.5 mg tablet completed for 30 day(s) clonidine HCl [id number] [facility] 2017-05-21 2017-06-20 or al 0.1 mg tablet completed for 30 day(s) Cymbalta [id number] [facility] 2021-02-08 2021-04-09 oral 20 mg capsule,delayed release(DR/EC) active for 30 day(s) bupropion HCl [id number] [facility] 2017-05-21 2017-08-28 or al 100 mg tablet completed for 30 day(s) bupropion HCl [id number] Rx or 2017-09-04 2017-10-08 or al 75 mg tablet completed for 30 day(s) [id number] 2016-06-21 2016-07-21 oral 2.5 mg tablet completed for 30 day(s) [facility] [id number] [facility] 2017-12-23 2018-02-03 oral 2 mg tablet completed for 30 day(s) bupropion HCl [id number] [facility] 2017-10-08 2018-03-24 or al 75 mg tablet completed for 30 day(s) bupropion HCl [id number] [facility] 2020-04-19 2020-06-18 or al 75 mg tablet completed for 30 day(s) [facility] [id number] [facility] 2017-04-04 2017-04-23 oral 2 mg capsule completed for 30 day(s) bupropion HCl [id number] [facility] 2017-04-23 2017-05-21 or al 75 mg tablet completed for 30 day(s) [facility] 994182 [facility] 2017-04-08 2017-04-23 oral 50 mg tablet completed for 30 day(s) bupropion HCl 854820 [facility] 2019-08-06 2019-12-27 or al 75 mg tablet completed for 30 day(s) [facility] [id number] [facility] 2018-02-03 2018-03-24 oral 5 mg tablet completed Prozac [id number] [facility] 2016-06-08 2016-06-21 oral 10 mg capsule completed for 30 day(s) [facility] [id number] [facility] 2021-01-05 2021-02-08 oral 60 mg capsule,delayed release(DR/EC) completed for 30 day(s) Zoloft [id number] [facility] 2019-11-25 2019-12-25 oral 25 mg tablet completed for 30 day(s) Rexulti [id number] [facility] 2019-09-30 2019-10-28 oral 0.25 mg tablet completed for 30 day(s) bupropion HCl 163859 [facility] 2018-05-21 2018-09-28 or al 75 mg tablet completed for 30 day(s) clonidine HCl 442020 [facility] 2017-09-30 2017-11-25 or al 0.2 mg tablet completed Cymbalta [id number] [facility] 2021-01-17 2021-02-08 oral 20 mg capsule,delayed release(DR/EC) completed for 30 day(s) Wellbutrin SR 777940 [facility] 2017-08-28 2017-09-04 or al 150 mg tablet extended release 12 hr completed Rexulti [id number] [facility] 2018-12-04 2019-01-03 oral 0.5 mg tablet completed for 30 day(s) Abilify 671715 [facility] 2018-03-24 2018-04-23 oral 5 mg tablet completed for 30 day(s) Seroquel [id number] [facility] 2017-04-04 2017-04-08 oral 50 mg tablet completed for 30 day(s) Lamictal 959893 [facility] 2016-06-08 2016-07-08 oral 25 mg 1 tablet once a day completed Take 1 tablet by mouth once a day for 30 day(s) venlafaxine 766771 [facility] 2017-02-04 2017-03-04 oral 37.5 mg tablet completed bupropion HCl 851110 [facility] 2019-06-25 2019-07-19 or al 75 mg tablet completed for 30 day(s) clonidine HCl 423217 [facility] 2017-07-16 2017-09-30 or al 0.1 mg tablet completed bupropion HCl 422510 [facility] 2020-01-17 2020-04-19 or al 75 mg tablet completed for 30 day(s) bupropion HCl 569515 [facility] 2018-10-01 2018-11-30 or al 75 mg tablet completed for 30 day(s) Effexor XR 077529 [facility] 2017-02-04 2017-02-04 oral 37.5 mg capsule,extended release 24hr completed Remeron [id number] [facility] 2017-11-04 2017-12-23 oral 15 mg tablet completed Problems Problem Name Code CodeSy stem Alternate Code Alternate CodeSystem Start Date End Date Status Narrative Adjustment disorder with mixed anxiety and depressed mood [id number] SNOMED-CT 2016-03-02 Completed Generalized anxiety disorder [id number] SNOMED-CT 2016-01-31 Active Alcohol dependence, uncomplicated 7 [id number] SNOMED-CT 2016-01-31 Completed Recurrent depressive disorder, current episode severe without psychotic symptoms [id number] SNOMED-CT 2016-01-31 Active Relevant diagnostic tests/laboratory data Narrative No Information Procedures Procedure Name Code Code System Target Site Date of Procedure Status Service Delivery Location Device Cod e Device Name Device UID Psychotherapy, 45 minutes with patient [id number] SNOMED-CT () 2016-01-31 completed [facility] [address], [place], [id number] [id number] Psychotherapy, 45 minutes with patient [id number] SNOMED-CT () 2016-02-07 completed [facility] [address], [place], [id number] [phone] Psychotherapy, 45 minutes with patient [id number] SNOMED-CT () 2016-02-21 completed [facility] [address], [place], [id number] [id number] Psychotherapy, 45 minutes with patient [id number] SNOMED-CT () 2016-02-28 completed [facility] [address], [place], [id number] [id number] Psychotherapy, 45 minutes with patient [id number] SNOMED-CT () 2016-03-06 completed [address], [place], [id number] [id number] Psychotherapy, 45 minutes with patient [id number] SNOMED-CT () 2016-03-21 completed [facility] [address], [place], [id number] [id number] Psychotherapy, 45 minutes with patient [id number] SNOMED-CT () 2021-01-01 completed [facility] [address], [place], [id number] [id number] Psychotherapy, 45 minutes with patient [id number] SNOMED-CT () 2021-01-17 completed [address], [place], [id number] [id number] Psychotherapy, 45 minutes with patient [id number] SNOMED-CT () 2021-02-07 completed [facility] [address], [place], [id number] [id number] Psychotherapy, 45 minutes with patient [id number] SNOMED-CT () 2021-02-21 completed [facility] [address], [place], [id number] [id number] Psychotherapy, 45 minutes with patient [id number] SNOMED-CT () 2021-03-05 completed [facility] [address], [place], [id number] [phone] Psychotherapy, 45 minutes with patient [id number] SNOMED-CT () 2020-10-02 completed [facility] [address], [place], 771507076 [id number] Psychotherapy, 45 minutes with patient [id number] SNOMED-CT () 2020-10-16 completed [facility] [address], [place], [id number] [id number] Psychotherapy, 45 minutes with patient [id number] SNOMED-CT () 2020-11-02 completed [facility] [address], [place], [id number] [phone] Psychotherapy, 45 minutes with patient [id number] SNOMED-CT () 2020-11-29 completed [facility] [address], [place], [id number] [id number] Psychotherapy, 45 minutes with patient [id number] SNOMED-CT () 2020-12-13 completed [facility] [address], [place], [id number] [phone] Psychotherapy, 45 minutes with patient [id number] SNOMED-CT () 2020-12-27 completed [facility] [address], [place], [id number] Psychotherapy, 45 minutes with patient [id number] SNOMED-CT () 2019-12-21 completed [facility] [address], [place], [id number] [id number] Psychotherapy, 45 minutes with patient [id number] SNOMED-CT () 2020-02-16 completed [facility] [address], [place], [id number] [id number] Psychotherapy, 45 minutes with patient [id number] SNOMED-CT () 2020-03-08 completed [facility] [address], [place], [id number] [id number] Psychotherapy, 45 minutes with patient [id number] SNOMED-CT () 2020-04-05 completed [facility] [address], [place], [id number] Psychotherapy, 45 minutes with patient [id number] SNOMED-CT () 2020-06-05 completed [facility] [address], [place], 551856940 [id number] Psychotherapy, 45 minutes with patient [id number] SNOMED-CT () 2020-09-07 completed [facility] [address], [place], [id number] [id number] Psychotherapy, 45 minutes with patient [id number] SNOMED-CT () 2019-07-22 completed [facility] [address], [place], [id number] Psychotherapy, 45 minutes with patient [id number] SNOMED-CT () 2019-08-05 completed [facility] [address], [place], 293403075 [id number] Psychotherapy, 45 minutes with patient [id number] SNOMED-CT () 2019-08-19 completed [facility] [address], [place], 844710061 [id number] Psychotherapy, 45 minutes with patient [id number] SNOMED-CT () 2019-09-16 completed [facility] [address], [place], [id number] [id number] Psychotherapy, 45 minutes with patient [id number] SNOMED-CT () 2019-09-30 completed [facility] [address], [place], 463796068 [id number] Psychotherapy, 45 minutes with patient [id number] SNOMED-CT () 2019-11-12 completed [facility] [address], [place], 973673912 [id number] Psychotherapy, 45 minutes with patient [id number] SNOMED-CT () 2019-04-01 completed [facility] [address], [place], [id number] [id number] Psychotherapy, 45 minutes with patient [id number] SNOMED-CT () 2019-04-16 completed [facility] [address], [place], [id number] [phone] Psychotherapy, 45 minutes with patient [id number] SNOMED-CT () 2019-04-22 completed [facility] [address], [place], [id number] [id number] Psychotherapy, 45 minutes with patient [id number] SNOMED-CT () 2019-05-20 completed [facility] [address], [place], 607117234 [id number] Psychotherapy, 45 minutes with patient [id number] SNOMED-CT () 2019-06-02 completed [facility] [address], [place], [id number] [phone] Psychotherapy, 45 minutes with patient [id number] SNOMED-CT () 2019-07-01 completed [facility] [address], [place], [id number] [id number] Psychotherapy, 45 minutes with patient [id number] SNOMED-CT () 2019-02-11 completed [facility] [address], [place], 262185076 [id number] Psychotherapy, 45 minutes with patient [id number] SNOMED-CT () 2019-02-18 completed [facility] [address], [place], 691791498 [id number] Psychotherapy, 45 minutes with patient [id number] SNOMED-CT () 2019-02-25 completed [facility] [address], [place], [id number] [id number] Psychotherapy, 45 minutes with patient [id number] SNOMED-CT () 2019-03-04 completed [facility] [address], [place], 807017945 [id number] Psychotherapy, 45 minutes with patient [id number] SNOMED-CT () 2019-03-11 completed [facility] [address], [place], 845404534 [id number] Psychotherapy, 45 minutes with patient [id number] SNOMED-CT () 2019-03-25 completed [facility] [address], [place], [id number] [id number] Psychotherapy, 45 minutes with patient [id number] SNOMED-CT () 2018-12-08 completed [facility] [address], [place], 258186807 [id number] Psychotherapy, 45 minutes with patient [id number] SNOMED-CT () 2018-12-15 completed [facility] [address], [place], [id number] Psychotherapy, 45 minutes with patient [id number] SNOMED-CT () 2018-12-24 completed [facility] [address], [place], 784967424 [id number] Psychotherapy, 45 minutes with patient [id number] SNOMED-CT () 2019-01-14 completed [facility] [address], [place], 839760789 [id number] Psychotherapy, 45 minutes with patient [id number] SNOMED-CT () 2019-01-21 completed [facility] [address], [place], 922855044 [phone] Psychotherapy, 45 minutes with patient [id number] SNOMED-CT () 2019-01-28 completed [facility] [address], [place], 200808556 [id number] Psychotherapy, 45 minutes with patient [id number] SNOMED-CT () 2018-10-01 completed [facility] [address], [place], 277570752 [id number] Psychotherapy, 45 minutes with patient [id number] SNOMED-CT () 2018-10-16 completed [facility] [address], [place], [id number] [id number] Psychotherapy, 45 minutes with patient [id number] SNOMED-CT () 2018-10-22 completed [facility] [address], [place], [id number] [id number] Psychotherapy, 45 minutes with patient [id number] SNOMED-CT () 2018-11-26 completed [facility] [address], [place], 310270182 [id number] Psychotherapy, 45 minutes with patient [id number] SNOMED-CT () 2018-11-19 completed [facility] [address], [place], [id number] Psychotherapy, 45 minutes with patient [id number] SNOMED-CT () 2018-12-03 completed [facility] [address], [place], [id number] [id number] Psychotherapy, 45 minutes with patient [id number] SNOMED-CT () 2018-06-16 completed [facility] [address], [place], [id number] [id number] Psychotherapy, 45 minutes with patient [id number] SNOMED-CT () 2018-06-25 completed [facility] [address], [place], 658173272 [id number] Psychotherapy, 45 minutes with patient [id number] SNOMED-CT () 2018-07-10 completed [facility] [address], [place], [id number] Psychotherapy, 45 minutes with patient [id number] SNOMED-CT () 2018-07-23 completed [facility] [address], [place], [id number] Psychotherapy, 45 minutes with patient [id number] SNOMED-CT () 2018-07-30 completed [facility] [address], [place], 535643677 [id number] Psychotherapy, 45 minutes with patient [id number] SNOMED-CT () 2018-08-20 completed [facility] [address], [place], [id number] Psychotherapy, 45 minutes with patient [id number] SNOMED-CT () 2018-01-16 completed [facility] [address], [place], [id number] Psychotherapy, 45 minutes with patient [id number] SNOMED-CT () 2018-02-13 completed [facility] [address], [place], 955040276 [id number] Psychotherapy, 45 minutes with patient [id number] SNOMED-CT () 2018-03-13 completed [facility] [address], [place], 594571186 [id number] Psychotherapy, 45 minutes with patient [id number] SNOMED-CT () 2018-03-24 completed [facility] [address], [place], [id number] [id number] Psychotherapy, 45 minutes with patient [id number] SNOMED-CT () 2018-04-17 completed [facility] [address], [place], 706287570 [id number] Psychotherapy, 45 minutes with patient [id number] SNOMED-CT () 2018-05-13 completed [facility] [address], [place], [id number] Psychotherapy, 45 minutes with patient [id number] SNOMED-CT () 2017-09-15 completed [facility] [address], [place], 353491701 [id number] Psychotherapy, 45 minutes with patient [id number] SNOMED-CT () 2017-11-28 completed [facility] [address], [place], [id number] Psychotherapy, 45 minutes with patient [id number] SNOMED-CT () 2017-12-02 completed [facility] [address], [place], [id number] [id number] Psychotherapy, 45 minutes with patient [id number] SNOMED-CT () 2017-12-08 completed [facility] [address], [place], [id number] Psychotherapy, 45 minutes with patient [id number] SNOMED-CT () 2017-12-15 completed [facility] [address], [place], 599947114 [id number] Psychotherapy, 45 minutes with patient [id number] SNOMED-CT () 2017-12-24 completed [facility] [address], [place], 794379483 [id number] Psychotherapy, 45 minutes with patient [id number] SNOMED-CT () 2017-06-16 completed [facility] [address], [place], 318073116 [phone] Psychotherapy, 45 minutes with patient [id number] SNOMED-CT () 2017-07-17 completed [facility] [address], [place], 769463432 [id number] Psychotherapy, 45 minutes with patient [id number] SNOMED-CT () 2017-07-21 completed [facility] [address], [place], 771142825 [id number] Psychotherapy, 45 minutes with patient [id number] SNOMED-CT () 2017-07-28 completed [facility] [address], [place], [id number] Psychotherapy, 45 minutes with patient [id number] SNOMED-CT () 2017-08-26 completed [facility] [address], [place], 933072078 [id number] Psychotherapy, 45 minutes with patient [id number] SNOMED-CT () 2017-09-04 completed [facility] [address], [place], 457942931 [id number] Psychotherapy, 45 minutes with patient [id number] SNOMED-CT () 2017-05-02 completed [facility] [address], [place], [id number] [id number] Psychotherapy, 45 minutes with patient [id number] SNOMED-CT () 2017-05-14 completed [facility] [address], [place], [id number] [id number] Psychotherapy, 45 minutes with patient [id number] SNOMED-CT () 2017-05-20 completed [facility] [address], [place], 584481686 [id number] Psychotherapy, 45 minutes with patient [id number] SNOMED-CT () 2017-05-30 completed [facility] [address], [place], 128443804 [id number] Psychotherapy, 45 minutes with patient [id number] SNOMED-CT () 2017-06-02 completed [facility] [address], [place], [id number] Psychotherapy, 45 minutes with patient [id number] SNOMED-CT () 2017-06-09 completed [facility] [address], [place], [id number] Psychotherapy, 45 minutes with patient [id number] SNOMED-CT () 2017-01-08 completed [facility] [address], [place], 370079586 [id number] Psychotherapy, 45 minutes with patient [id number] SNOMED-CT () 2017-01-27 completed [facility] [address], [place], 544297609 [id number] Psychotherapy, 45 minutes with patient [id number] SNOMED-CT () 2017-02-21 completed [facility] [address], [place], 866525589 [id number] Psychotherapy, 45 minutes with patient [id number] SNOMED-CT () 2017-03-11 completed [facility] [address], [place], 454544555 [id number] Psychotherapy, 45 minutes with patient [id number] SNOMED-CT () 2017-03-27 completed [facility] [address], [place], [id number] Psychotherapy, 45 minutes with patient [id number] SNOMED-CT () 2017-04-18 completed [facility] [address], [place], 134596814 [id number] Psychotherapy, 45 minutes with patient [id number] SNOMED-CT () 2016-07-29 completed [facility] [address], [place], 648872814 [id number] Psychotherapy, 45 minutes with patient [id number] SNOMED-CT () 2016-08-05 completed [facility] [address], [place], 876365239 [id number] Psychotherapy, 45 minutes with patient [id number] SNOMED-CT () 2016-08-13 completed [facility] [address], [place], 775974232 [id number] Psychotherapy, 45 minutes with patient [id number] SNOMED-CT () 2016-08-26 completed [facility] [address], [place], 561017519 [id number] Psychotherapy, 45 minutes with patient [id number] SNOMED-CT () 2016-09-03 completed [facility] [address], [place], 107610174 [id number] Psychotherapy, 45 minutes with patient [id number] SNOMED-CT () 2016-10-07 completed [facility] [address], [place], 408638525 [id number] Psychotherapy, 45 minutes with patient [id number] SNOMED-CT () 2016-05-21 completed [facility] [address], [place], 596628437 [id number] Psychotherapy, 45 minutes with patient [id number] SNOMED-CT () 2016-05-28 completed [facility] [address], [place], 337201353 [id number] Psychotherapy, 45 minutes with patient [id number] SNOMED-CT () 2016-06-18 completed [facility] [address], [place], [id number] Psychotherapy, 45 minutes with patient [id number] SNOMED-CT () 2016-06-25 completed [facility] [address], [place], [id number] [id number] Psychotherapy, 45 minutes with patient [id number] SNOMED-CT () 2016-07-02 completed [facility] [address], [place], 840705808 [id number] Psychotherapy, 45 minutes with patient [id number] SNOMED-CT () 2016-07-22 completed [facility] [address], [place], 858907898 [id number] Psychotherapy, 45 minutes with patient [id number] SNOMED-CT () 2016-04-04 completed [facility] [address], [place], 786300218 [id number] Psychotherapy, 45 minutes with patient [id number] SNOMED-CT () 2016-04-12 completed [facility] [address], [place], 898957835 [id number] Psychotherapy, 45 minutes with patient [id number] SNOMED-CT () 2016-04-17 completed [facility] [address], [place], 750566323 [id number] Psychotherapy, 45 minutes with patient [id number] SNOMED-CT () 2016-04-22 completed [facility] [address], [place], 473986146 [id number] Psychotherapy, 45 minutes with patient [id number] SNOMED-CT () 2016-04-30 completed [address], [place], 026173085 [id number] Psychotherapy, 45 minutes with patient [id number] SNOMED-CT () 2016-05-14 completed [facility] [address], [place], [id number] [id number] Initial Psychiatric Evaluation [id number] SNOMED-CT () 2016-03-02 completed [facility] [address], [place], [id number] [phone] Psychotherapy - Family&Client 1 hr 1 [id number] SNOMED-CT () 2018-01-30 completed [facility] [address], [place], [id number] [phone] Health Monitoring / Risk Reduction Counseling - [facility] [id number] SNOMED-CT () 2016-02-28 completed [facility] [address], [place], [id number] [id number] Est. Patient - E&M Intermediate [id number] SNOMED-CT () 2016-10-01 completed [facility] [address], [place], [id number] [phone] Est. Patient - E&M Intermediate [id number] SNOMED-CT () 2017-02-04 completed [facility] [address], [place], [id number] [phone] Est. Patient - E&M Intermediate [id number] SNOMED-CT () 2017-05-[address], [id number] [phone] Est. Patient - E&M Intermediate [id number] SNOMED-CT () 2017-06-[address], [id number] [id number] Est. Patient - E&M Intermediate [id number] SNOMED-CT () 2017-07-[address], [id number] [phone] Est. Patient - E&M Intermediate [id number] SNOMED-CT () 2017-08-[address], [id number] [id number] Est. Patient - E&M Intermediate [id number] SNOMED-CT () 2018-10-[address], [id number] [id number] Est. Patient - E&M Intermediate [id number] SNOMED-CT () 2019-06-[address], [id number] [id number] Est. Patient - E&M Intermediate [id number] SNOMED-CT () 2019-08-[address], [id number] [phone] Est. Patient - E&M Intermediate [id number] SNOMED-CT () 2019-09-[address], [id number] [id number] Est. Patient - E&M Intermediate [id number] SNOMED-CT () 2020-01-[address], [id number] [id number] Est. Patient - E&M Intermediate [id number] SNOMED-CT () 2018-02-[address], [id number] [phone] Est. Patient - E&M Intermediate [id number] SNOMED-CT () 2018-02-[address], [id number] [phone] Est. Patient - E&M Intermediate [id number] SNOMED-CT () 2018-03-[address], [id number] [phone] Est. Patient - E&M Intermediate [id number] SNOMED-CT () 2018-04-[address], [id number] [phone] Est. Patient - E&M Intermediate [id number] SNOMED-CT () 2018-05-[address], [id number] [id number] Est. Patient - E&M Intermediate [id number] SNOMED-CT () 2018-07-[address], [id number] [id number] Est. Patient - E&M Intermediate [id number] SNOMED-CT () 2017-09-[address], [id number] [id number] Est. Patient - E&M Intermediate [id number] SNOMED-CT () 2017-10-[address], [id number] [phone] Est. Patient - E&M Intermediate [id number] SNOMED-CT () 2017-11-[address], 964257772 [phone] Est. Patient - E&M Intermediate [id number] SNOMED-CT () 2017-11-[address], [id number] [phone] Est. Patient - E&M Intermediate [id number] SNOMED-CT () 2017-12-[address], [id number] [phone] Est. Patient - E&M Intermediate [id number] SNOMED-CT () 2018-01-[address], [id number] [id number] Est. Patient - E&M Brief [id number] SNOMED-CT () 2016-04-[address], [id number] [phone] Est. Patient - E&M Brief [id number] SNOMED-CT () 2016-06-[address], [id number] [phone] Est. Patient - E&M Brief [id number] SNOMED-CT () 2016-08-[address], [id number] [phone] Est. Patient - E&M Brief [id number] SNOMED-CT () 2018-06-[address], [id number] [id number] Est. Patient - E&M Brief [id number] SNOMED-CT () 2018-12-[address], [id number] [phone] Est. Patient - E&M Brief [id number] SNOMED-CT () 2018-12-[address], [id number] [phone] Est. Patient - E&M Brief [id number] SNOMED-CT () 2019-12-[address], [id number] [id number] Est. Patient - E&M Brief [id number] SNOMED-CT () 2019-12-[address], [id number] [phone] Est. Patient - E&M Brief [id number] SNOMED-CT () 2020-02-[address], [id number] [id number] Est. Patient - E&M Brief [id number] SNOMED-CT () 2020-04-[address], [id number] [id number] Est. Patient - E&M Brief [id number] SNOMED-CT () 2020-05-[address], [id number] [phone] Est. Patient - E&M Brief [id number] SNOMED-CT () 2019-01-[address], [id number] [phone] Est. Patient - E&M Brief [id number] SNOMED-CT () 2019-03-[address], 776402988 [phone] Est. Patient - E&M Brief [id number] SNOMED-CT () 2019-04-16 completed [address], [id number] Est. Patient - E&M Brief [id number] SNOMED-CT () 2019-05-[address], [id number] Est. Patient - E&M Brief [id number] SNOMED-CT () 2019-10-[address], [id number] Est. Patient - E&M Brief [id number] SNOMED-CT () 2019-11-[address], [id number] Est. Patient - E&M Expanded [id number] SNOMED-CT () 2017-03-[address], [id number] [id number] Est. Patient - E&M Expanded [id number] SNOMED-CT () 2017-03-[address], [id number] Est. Patient - E&M Expanded [id number] SNOMED-CT () 2017-04-[address], [id number] Est. Patient - E&M Expanded [id number] SNOMED-CT () 2017-04-[address], [id number] Est. Patient - E&M Expanded [id number] SNOMED-CT () 2017-10-[address], [id number] Est. Patient - E&M Expanded [id number] SNOMED-CT () 2020-09-[address], [id number] Est. Patient - E&M Expanded [id number] SNOMED-CT () 2020-12-[address], [id number] Est. Patient - E&M Expanded [id number] SNOMED-CT () 2021-01-[address], [id number] [phone] Est. Patient - E&M Expanded [id number] SNOMED-CT () 2021-02-[address], [id number] [id number] Est. Patient - E&M Expanded [id number] SNOMED-CT () 2021-03-[address], [id number] Individual Psychotherapy [id number] SNOMED-CT () 2016-02-[address], [id number] [id number] Individual Psychotherapy [id number] SNOMED-CT () 2016-05-[address], [id number] Individual Psychotherapy [id number] SNOMED-CT () 2016-06-[address], 877986002 [id number] Individual Psychotherapy [id number] SNOMED-CT () 2016-12-[address], 882417413 [id number] Individual Psychotherapy [id number] SNOMED-CT () 2016-12-[address], [id number] [id number] Individual Psychotherapy [id number] SNOMED-CT () 2017-01-[address], [id number] Individual Psychotherapy [id number] SNOMED-CT () 2020-11-[address], [id number] [id number] Individual Psychotherapy [id number] SNOMED-CT () 2020-01-[address], [id number] [phone] Individual Psychotherapy [id number] SNOMED-CT () 2020-02-[address], [id number] [id number] Individual Psychotherapy [id number] SNOMED-CT () 2020-04-[address], 732941396 [id number] Individual Psychotherapy [id number] SNOMED-CT () 2020-07-[address], [id number] [phone] Individual Psychotherapy [id number] SNOMED-CT () 2020-08-[address], [id number] Individual Psychotherapy [id number] SNOMED-CT () 2020-09-[address], [id number] Individual Psychotherapy [id number] SNOMED-CT () 2018-11-[address], [id number] Individual Psychotherapy [id number] SNOMED-CT () 2018-12-[address], [id number] Individual Psychotherapy [id number] SNOMED-CT () 2019-10-[address], 328242324 [id number] Individual Psychotherapy [id number] SNOMED-CT () 2019-10-[address], 992571901 [id number] Individual Psychotherapy [id number] SNOMED-CT () 2019-12-[address], 253192896 [id number] Individual Psychotherapy [id number] SNOMED-CT () 2020-01-[address], 660169284 [id number] Individual Psychotherapy [id number] SNOMED-CT () 2018-04-[address], [id number] [id number] Individual Psychotherapy [id number] SNOMED-CT () 2018-04-[address], 439006711 [id number] Individual Psychotherapy [id number] SNOMED-CT () 2018-04-[address], [id number] Individual Psychotherapy [id number] SNOMED-CT () 2018-05-[address], [id number] Individual Psychotherapy [id number] SNOMED-CT () 2018-05-[address], [id number] [id number] Individual Psychotherapy [id number] SNOMED-CT () 2018-10-[address], 460778694 [id number] Individual Psychotherapy [id number] SNOMED-CT () 2017-02-[address], 650492209 [id number] Individual Psychotherapy [id number] SNOMED-CT () 2017-08-[address], [id number] Individual Psychotherapy [id number] SNOMED-CT () 2017-09-[address], 969093757 [id number] Individual Psychotherapy [id number] SNOMED-CT () 2017-10-[address], [id number] [id number] Individual Psychotherapy [id number] SNOMED-CT () 2017-10-[address], [id number] Individual Psychotherapy [id number] SNOMED-CT () 2017-11-[address], [id number] Individual Psychotherapy [id number] SNOMED-CT () 2016-01-[address], [id number] Individual Psychotherapy [id number] SNOMED-CT () 2016-02-[address], [id number] [id number] Individual Psychotherapy [id number] SNOMED-CT () 2016-02-[address], 416890342 [id number] Individual Psychotherapy [id number] SNOMED-CT () 2016-02-[address], 962284802 [id number] Individual Psychotherapy [id number] SNOMED-CT () 2016-03-[address], 968487638 [id number] Individual Psychotherapy [id number] SNOMED-CT () 2016-03-[address], 539282650 [id number] Individual Psychotherapy [id number] SNOMED-CT () 2021-01-[address], 895043867 [id number] Individual Psychotherapy [id number] SNOMED-CT () 2021-01-[address], 900255664 [phone] Individual Psychotherapy [id number] SNOMED-CT () 2021-02-[address], [id number] [phone] Individual Psychotherapy [id number] SNOMED-CT () 2021-02-[address], [id number] Individual Psychotherapy [id number] SNOMED-CT () 2021-03-[address], 589257464 [id number] Individual Psychotherapy [id number] SNOMED-CT () 2020-10-[address], [id number] [id number] Individual Psychotherapy [id number] SNOMED-CT () 2020-10-[address], [id number] [id number] Individual Psychotherapy [id number] SNOMED-CT () 2020-11-[address], [id number] Individual Psychotherapy [id number] SNOMED-CT () 2020-11-[address], [id number] [id number] Individual Psychotherapy [id number] SNOMED-CT () 2020-12-[address], 922924932 [id number] Individual Psychotherapy [id number] SNOMED-CT () 2020-12-[address], 522082073 [id number] Individual Psychotherapy [id number] SNOMED-CT () 2019-12-[address], 897086604 [id number] Individual Psychotherapy [id number] SNOMED-CT () 2020-02-[address], 495627705 [id number] Individual Psychotherapy [id number] SNOMED-CT () 2020-03-[address], 963380405 [id number] Individual Psychotherapy [id number] SNOMED-CT () 2020-04-[address], 586147370 [id number] Individual Psychotherapy [id number] SNOMED-CT () 2020-06-[address], [id number] Individual Psychotherapy [id number] SNOMED-CT () 2020-09-[address], [id number] [id number] Individual Psychotherapy [id number] SNOMED-CT () 2019-07-[address], [id number] Individual Psychotherapy [id number] SNOMED-CT () 2019-08-[address], [id number] Individual Psychotherapy [id number] SNOMED-CT () 2019-08-[address], 973934079 [id number] Individual Psychotherapy [id number] SNOMED-CT () 2019-09-[address], 377021742 [id number] Individual Psychotherapy [id number] SNOMED-CT () 2019-09-[address], [id number] [id number] Individual Psychotherapy [id number] SNOMED-CT () 2019-11-[address], [id number] Individual Psychotherapy [id number] SNOMED-CT () 2019-04-[address], 113534231 [id number] Individual Psychotherapy [id number] SNOMED-CT () 2019-04-[address], [id number] Individual Psychotherapy [id number] SNOMED-CT () 2019-04-[address], 055173704 [id number] Individual Psychotherapy [id number] SNOMED-CT () 2019-05-[address], 997921319 [id number] Individual Psychotherapy [id number] SNOMED-CT () 2019-06-[address], 097920942 [id number] Individual Psychotherapy [id number] SNOMED-CT () 2019-07-[address], 056757042 [id number] Individual Psychotherapy [id number] SNOMED-CT () 2019-02-[address], [id number] [id number] Individual Psychotherapy [id number] SNOMED-CT () 2019-02-[address], [id number] [id number] Individual Psychotherapy [id number] SNOMED-CT () 2019-02-[address], 436961770 [id number] Individual Psychotherapy [id number] SNOMED-CT () 2019-03-[address], [id number] [id number] Individual Psychotherapy [id number] SNOMED-CT () 2019-03-[address], 113796891 [id number] Individual Psychotherapy [id number] SNOMED-CT () 2019-03-[address], 823105286 [id number] Individual Psychotherapy [id number] SNOMED-CT () 2018-12-[address], [id number] [id number] Individual Psychotherapy [id number] SNOMED-CT () 2018-12-[address], 583526454 [id number] Individual Psychotherapy [id number] SNOMED-CT () 2018-12-[address], 166209665 [id number] Individual Psychotherapy [id number] SNOMED-CT () 2019-01-[address], 668288034 [id number] Individual Psychotherapy [id number] SNOMED-CT () 2019-01-[address], 588257032 [id number] Individual Psychotherapy [id number] SNOMED-CT () 2019-01-[address], 988262674 [id number] Individual Psychotherapy [id number] SNOMED-CT () 2018-10-[address], [id number] [id number] Individual Psychotherapy [id number] SNOMED-CT () 2018-10-[address], 238639926 [id number] Individual Psychotherapy [id number] SNOMED-CT () 2018-10-[address], [id number] [id number] Individual Psychotherapy [id number] SNOMED-CT () 2018-11-[address], 287889154 [id number] Individual Psychotherapy [id number] SNOMED-CT () 2018-11-[address], 470040090 [id number] Individual Psychotherapy [id number] SNOMED-CT () 2018-12-[address], [id number] Individual Psychotherapy [id number] SNOMED-CT () 2018-06-[address], 715088090 [id number] Individual Psychotherapy [id number] SNOMED-CT () 2018-06-[address], [id number] [id number] Individual Psychotherapy [id number] SNOMED-CT () 2018-07-[address], 351802086 [id number] Individual Psychotherapy [id number] SNOMED-CT () 2018-07-[address], 692179770 [id number] Individual Psychotherapy [id number] SNOMED-CT () 2018-07-[address], 893094788 [id number] Individual Psychotherapy [id number] SNOMED-CT () 2018-08-[address], [id number] [phone] Individual Psychotherapy [id number] SNOMED-CT () 2018-01-[address], 672250783 [id number] Individual Psychotherapy [id number] SNOMED-CT () 2018-02-[address], [id number] [id number] Individual Psychotherapy [id number] SNOMED-CT () 2018-03-[address], 197322119 [id number] Individual Psychotherapy [id number] SNOMED-CT () 2018-03-[address], 995883876 [id number] Individual Psychotherapy [id number] SNOMED-CT () 2018-04-[address], 864770903 [id number] Individual Psychotherapy [id number] SNOMED-CT () 2018-05-[address], 295628454 [phone] Individual Psychotherapy [id number] SNOMED-CT () 2017-09-[address], 801990658 [id number] Individual Psychotherapy [id number] SNOMED-CT () 2017-11-[address], 224207778 [id number] Individual Psychotherapy [id number] SNOMED-CT () 2017-12-[address], [id number] [id number] Individual Psychotherapy [id number] SNOMED-CT () 2017-12-[address], 815337259 [phone] Individual Psychotherapy [id number] SNOMED-CT () 2017-12-[address], 471708829 [phone] Individual Psychotherapy [id number] SNOMED-CT () 2017-12-[address], 473980103 [phone] Individual Psychotherapy [id number] SNOMED-CT () 2017-06-[address], 224062734 [id number] Individual Psychotherapy 92158395 SNOMED-CT () 2017-07-[address], 376366394 [id number] Individual Psychotherapy [id number] SNOMED-CT () 2017-07-[address], 463537255 [id number] Individual Psychotherapy 85771545 SNOMED-CT () 2017-07-[address], 644336340 [phone] Individual Psychotherapy 85485072 SNOMED-CT () 2017-08-[address], 922174603 [id number] Individual Psychotherapy [id number] SNOMED-CT () 2017-09-[address], 333533065 [id number] Individual Psychotherapy [id number] SNOMED-CT () 2017-05-[address], [id number] Individual Psychotherapy [id number] SNOMED-CT () 2017-05-[address], 901195245 [id number] Individual Psychotherapy [id number] SNOMED-CT () 2017-05-[address], 484153619 [id number] Individual Psychotherapy [id number] SNOMED-CT () 2017-05-[address], 132036635 [id number] Individual Psychotherapy [id number] SNOMED-CT () 2017-06-[address], 512210668 [id number] Individual Psychotherapy [id number] SNOMED-CT () 2017-06-[address], 798688757 [id number] Individual Psychotherapy [id number] SNOMED-CT () 2017-01-[address], 279394283 [id number] Individual Psychotherapy [id number] SNOMED-CT () 2017-01-[address], 482715685 [id number] Individual Psychotherapy [id number] SNOMED-CT () 2017-02-[address], 984969841 [id number] Individual Psychotherapy [id number] SNOMED-CT () 2017-03-[address], 398277685 [id number] Individual Psychotherapy [id number] SNOMED-CT () 2017-03-[address], 917491527 [id number] Individual Psychotherapy [id number] SNOMED-CT () 2017-04-[address], 178131564 [id number] Individual Psychotherapy [id number] SNOMED-CT () 2016-07-[address], 358607706 [id number] Individual Psychotherapy [id number] SNOMED-CT () 2016-08-[address], 001628860 [id number] Individual Psychotherapy [id number] SNOMED-CT () 2016-08-[address], 275701690 [id number] Individual Psychotherapy [id number] SNOMED-CT () 2016-08-[address], 517304685 [id number] Individual Psychotherapy [id number] SNOMED-CT () 2016-09-[address], 407058535 [id number] Individual Psychotherapy [id number] SNOMED-CT () 2016-10-[address], 670248885 [id number] Individual Psychotherapy [id number] SNOMED-CT () 2016-05-[address], 589014936 [id number] Individual Psychotherapy [id number] SNOMED-CT () 2016-05-[address], 239903296 [id number] Individual Psychotherapy [id number] SNOMED-CT () 2016-06-[address], 324298561 [id number] Individual Psychotherapy 52385305 SNOMED-CT () 2016-06-[address], 575638081 [id number] Individual Psychotherapy [id number] SNOMED-CT () 2016-07-[address], 043395963 [id number] Individual Psychotherapy [id number] SNOMED-CT () 2016-07-[address], 746514189 [id number] Individual Psychotherapy [id number] SNOMED-CT () 2016-04-[address], 020558553 [id number] Individual Psychotherapy [id number] SNOMED-CT () 2016-04-[address], 503935557 [id number] Individual Psychotherapy [id number] SNOMED-CT () 2016-04-[address], [id number] [id number] Individual Psychotherapy [id number] SNOMED-CT () 2016-04-[address], 229973158 [phone] Individual Psychotherapy [id number] SNOMED-CT () 2016-04-[address], 667189831 [id number] Individual Psychotherapy [id number] SNOMED-CT () 2016-05-14 completed [facility] [id number] [place], [place], [id number] [phone] Psychiatric Diagnostic Evaluation without medical serv ices [id number] SNOMED-CT () 2016-01-17 completed [facility] [address] [place], [id number] [id number] Psychiatric Diagnostic Evaluation without medical serv ices [id number] SNOMED-CT () 2016-01-[address], 546723741 [id number] SNOMED-CT () 2020-12-27 completed [facility] [address] [place], [address] [id number] SNOMED-CT () 2020-10-[address], 917067772 [id number] SNOMED-CT () 2020-09-[address], 506157813 [id number] SNOMED-CT () 2020-11-[address], 771407035 [id number] SNOMED-CT () 2020-09-[address], 369197596 [id number] SNOMED-CT () 2020-07-[address], 326352756 [id number] SNOMED-CT () 2020-12-[address], 559613112 [id number] SNOMED-CT () 2020-11-[address], 796251524 [id number] SNOMED-CT () 2020-08-[address], 734444953 [id number] SNOMED-CT () 2020-11-15 completed [facility] [address] [place], [id number] [id number] SNOMED-CT () 2020-10-[address], 465972120 [id number] SNOMED-CT () 2016-07-15 completed [facility] [address] [place] [address], [id number] Encounters/Encounter Diagnoses Encounter Name Encounter Code Diagnosis Code Diagnosis Name Diagnosis CodeSystem Date of Diagnosis Service Delivery L ocation Telehealth Medication Therapy- High Complexity [id number] Recurrent depressive disord er, current episode severe without psychotic symptoms SNOMED-CT 2021-03-22 [facility] [address] [place] [address], [id number] Vital Signs Code CodeSystem Vitals Date Value 8462-4 [facility] Blood Press ure-Diastolic 2019-09-16 130 mm[HG] 8480-6 [facility] ure-Systolic 2019-09-16 90 mm[HG] 8302-2 [facility] Height 2019-09-16 70.5 [in_i] 8867-4 [facility] Heart Rate 2019-09-16 75 /min 47800-3 [facility] BMI 2019-09-16 36.63 (lb/in2) 95804-8 [facility] Weight 2019-09-16 259 [lb_av] Social History Element Description Description Start Date End Date Code CodeSystem AdditionalInfo SexAssignedAtBirth Male 1970 M AdministrativeGender Hospital Discharge Instructions * Reason For Referral Medical Equipment * FDA Assessments * Goals Section Goals Planned DateTime Marcoss mood will be stable. 2016-02 Subhash will increase health awareness and make healthy lifestyle choices. 2017-08-19
--- OUTSIDE RECORDS SUMMARY | 2021-05-23 10:15 | CCD ---
Author Author Subhash Sousa Organization [facility] Address Unknown Phone Unavailable Care Team Providers Care Physical Therapy Instructor Name Role Phone Alina Sousa PCP Unavailable Allergies, Adverse Reactions, Alerts Allergy Substance Code C odeSystem Reaction Severity Critic ality Status Start Date Escitalopram unspecified Moderate Active Dilantin unspecified Moderate Active Xerontin unspecified Moderate Active Medications Medication Medication Code Medication CodeSystem Start Date Stop Date Route Dose Status Fill Instructions clonidine HCl [id number] Rx or 2017-07-16 2017-09-30 or al 0.1 mg tablet completed [facility] [id number] [facility] 2021-02-08 2021-04-09 oral 60 mg capsule,delayed release(DR/EC) active for 30 day(s) bupropion HCl [id number] Rx or 2018-10-01 2018-11-30 or al 75 mg tablet completed for 30 day(s) Rexulti [id number] RxNorm 2019-01-28 2019-05-09 oral 0.5 mg tablet completed for 30 day(s) Abielofy [id number] RxNorm 2018-03-24 2018-04-23 oral 5 mg tablet completed for 30 day(s) bupropion HCl [id number] RxN or 2017-09-04 2017-10-08 or al 75 mg tablet completed for 30 day(s) bupropion HCl [id number] RxN or 2017-10-08 2018-03-24 or al 75 mg tablet completed for 30 day(s) Cymbalta [id number] RxNorm 2021-02-08 2021-04-09 oral 20 mg capsule,delayed release(DR/EC) active for 30 day(s) clonidine HCl [id number] Rx or 2017-09-30 2017-11-25 or al 0.2 mg tablet completed bupropion HCl [id number] RxN or 2018-03-24 2018-05-21 or al 75 mg tablet completed for 30 day(s) bupropion HCl [id number] RxN or 2020-04-19 2020-06-18 or al 75 mg tablet completed for 30 day(s) [facility]ac [id number] [facility] 2016-06-08 2016-06-21 oral 10 mg capsule completed for 30 day(s) bupropion HCl [id number] Rx or 2019-08-06 2019-12-27 or al 75 mg tablet completed for 30 day(s) bupropion HCl [id number] Rx or 2017-05-21 2017-08-28 or al 100 mg tablet completed for 30 day(s) trazodone 215484 [facility] 2017-04-08 2017-04-23 oral 50 mg tablet completed for 30 day(s) Rexulti [id number] [facility] 2019-10-28 2019-12-27 oral 0.5 mg tablet completed for 60 day(s) Zoloft [id number] [facility] 2019-11-25 2019-12-25 oral 25 mg tablet completed for 30 day(s) Minipress 687099 [facility] 2017-03-11 2017-04-04 oral 1 mg capsule completed for 30 day(s) venlafaxine 099204 [facility] 2017-02-04 2017-04-04 oral 75 mg 1 tablet at bedtime completed Take 1 tablet by mouth at bedtime for 30 day(s) Wellbutrin SR [id number] Rx or 2017-08-28 2017-09-04 or al 150 mg tablet extended release 12 hr completed Cymbalta [id number] [facility] 2021-01-05 2021-02-08 oral 60 mg capsule,delayed release(DR/EC) completed for 30 day(s) Abilify [id number] RxNo 2017-12-23 2018-02-03 oral 2 mg tablet completed for 30 day(s) Minipress 415274 [facility] 2017-04-04 2017-04-23 oral 2 mg capsule completed for 30 day(s) Lamictal [id number] RxNo 2016-06-08 2016-07-08 oral 25 mg 1 tablet once a day completed Take 1 tablet by mouth once a day for 30 day(s) Cymbalta [id number] [facility] 2021-01-17 2021-02-08 oral 20 mg capsule,delayed release(DR/EC) completed for 30 day(s) Abilify 325105 [facility] 2018-02-03 2018-03-24 oral 5 mg tablet completed bupropion HCl [id number] [facility] 2017-04-23 2017-05-21 or al 75 mg tablet completed for 30 day(s) Effexor XR 275351 [facility] 2017-02-04 2017-02-04 oral 37.5 mg capsule,extended release 24hr completed Seroquel 761053 [facility] 2017-04-04 2017-04-08 oral 50 mg tablet completed for 30 day(s) olanzapine 671808 [facility] 2016-06-21 2016-07-21 oral 2.5 mg tablet completed for 30 day(s) venlafaxine 778412 [facility] 2017-02-04 2017-03-04 oral 37.5 mg tablet completed Rexulti [id number] [facility] 2018-12-04 2019-01-03 oral 0.5 mg tablet completed for 30 day(s) bupropion HCl 848354 [facility] 2019-06-25 2019-07-19 or al 75 mg tablet completed for 30 day(s) Rexulti 5481782 [facility] 2019-09-30 2019-10-28 oral 0.25 mg tablet completed for 30 day(s) bupropion HCl 824614 [facility] 2020-01-17 2020-04-19 or al 75 mg tablet completed for 30 day(s) bupropion HCl 239556 [facility] 2018-05-21 2018-09-28 or al 75 mg tablet completed for 30 day(s) bupropion HCl 974450 [facility] 2019-01-28 2019-06-15 or al 75 mg tablet completed for 30 day(s) Remeron 201360 [facility] 2017-11-04 2017-12-23 oral 15 mg tablet completed clonidine HCl [id number] [facility] 2017-05-21 2017-06-20 or al 0.1 mg tablet completed for 30 day(s) buspirone 160150 [facility] 2017-09-30 2017-10-08 oral 5 mg tablet completed for 30 day(s) Problems Problem Name Code CodeSy stem Alternate Code Alternate CodeSystem Start Date End Date Status Narrative Recurrent depressive disorder, current episode severe without psychotic symptoms [id number] SNOMED-CT 2016-01-31 Active Generalized anxiety disorder [id number] SNOMED-CT 2016-01-31 Active Adjustment disorder with mixed anxiety and depressed mood [id number] SNOMED-CT 2016-03-02 Completed Alcohol dependence, uncomplicated 7 [id number] SNOMED-CT 2016-01-31 Completed Relevant diagnostic tests/laboratory data Narrative No Information Procedures Procedure Name Code Code System Target Site Date of Procedure Status Service Delivery Location Device Cod e Device Name Device UID Psychotherapy, 45 minutes with patient [id number] SNOMED-CT () 2016-01-31 completed [facility] [address], [place], [id number] [id number] Psychotherapy, 45 minutes with patient [id number] SNOMED-CT () 2016-02-07 completed [facility] [address], [place], [id number] [id number] Psychotherapy, 45 minutes with patient [id number] SNOMED-CT () 2016-02-21 completed [facility] [address], [place], [id number] [phone] Psychotherapy, 45 minutes with patient [id number] SNOMED-CT () 2016-02-28 completed [facility] [address], [place], [id number] Psychotherapy, 45 minutes with patient [id number] SNOMED-CT () 2016-03-06 completed [address], [place], [id number] [phone] Psychotherapy, 45 minutes with patient [id number] SNOMED-CT () 2016-03-21 completed [facility] [address], [place], [id number] Psychotherapy, 45 minutes with patient [id number] SNOMED-CT () 2021-01-01 completed [facility] [address], [place], [id number] [id number] Psychotherapy, 45 minutes with patient [id number] SNOMED-CT () 2021-01-17 completed [address], [place], [id number] [id number] Psychotherapy, 45 minutes with patient [id number] SNOMED-CT () 2021-02-07 completed [facility] [address], [place], [id number] Psychotherapy, 45 minutes with patient [id number] SNOMED-CT () 2021-02-21 completed [facility] [address], [place], [id number] [phone] Psychotherapy, 45 minutes with patient [id number] SNOMED-CT () 2021-03-05 completed [facility] [address], [place], [id number] Psychotherapy, 45 minutes with patient [id number] SNOMED-CT () 2020-10-02 completed [facility] [address], [place], [id number] [id number] Psychotherapy, 45 minutes with patient [id number] SNOMED-CT () 2020-10-16 completed [facility] [address], [place], [id number] [phone] Psychotherapy, 45 minutes with patient [id number] SNOMED-CT () 2020-11-02 completed [facility] [address], [place], [id number] [id number] Psychotherapy, 45 minutes with patient [id number] SNOMED-CT () 2020-11-29 completed [facility] [address], [place], [id number] [id number] Psychotherapy, 45 minutes with patient [id number] SNOMED-CT () 2020-12-13 completed [facility] [address], [place], [id number] Psychotherapy, 45 minutes with patient [id number] SNOMED-CT () 2020-12-27 completed [facility] [address], [place], [id number] Psychotherapy, 45 minutes with patient [id number] SNOMED-CT () 2019-12-21 completed [facility] [address], [place], [id number] [id number] Psychotherapy, 45 minutes with patient [id number] SNOMED-CT () 2020-02-16 completed [facility] [address], [place], [id number] Psychotherapy, 45 minutes with patient [id number] SNOMED-CT () 2020-03-08 completed [facility] [address], [place], [id number] Psychotherapy, 45 minutes with patient [id number] SNOMED-CT () 2020-04-05 completed [facility] [address], [place], 426763653 [id number] Psychotherapy, 45 minutes with patient [id number] SNOMED-CT () 2020-06-05 completed [facility] [address], [place], [id number] Psychotherapy, 45 minutes with patient [id number] SNOMED-CT () 2020-09-07 completed [facility] [address], [place], [id number] Psychotherapy, 45 minutes with patient [id number] SNOMED-CT () 2019-07-22 completed [facility] [address], [place], 688773680 [phone] Psychotherapy, 45 minutes with patient [id number] SNOMED-CT () 2019-08-05 completed [facility] [address], [place], [id number] [id number] Psychotherapy, 45 minutes with patient [id number] SNOMED-CT () 2019-08-19 completed [facility] [address], [place], [id number] Psychotherapy, 45 minutes with patient [id number] SNOMED-CT () 2019-09-16 completed [facility] [address], [place], 573246001 [id number] Psychotherapy, 45 minutes with patient [id number] SNOMED-CT () 2019-09-30 completed [facility] [address], [place], [id number] [id number] Psychotherapy, 45 minutes with patient [id number] SNOMED-CT () 2019-11-12 completed [facility] [address], [place], [id number] Psychotherapy, 45 minutes with patient [id number] SNOMED-CT () 2019-04-01 completed [facility] [address], [place], [id number] [id number] Psychotherapy, 45 minutes with patient [id number] SNOMED-CT () 2019-04-16 completed [facility] [address], [place], [id number] Psychotherapy, 45 minutes with patient [id number] SNOMED-CT () 2019-04-22 completed [facility] [address], [place], [id number] Psychotherapy, 45 minutes with patient [id number] SNOMED-CT () 2019-05-20 completed [facility] [address], [place], [id number] Psychotherapy, 45 minutes with patient [id number] SNOMED-CT () 2019-06-02 completed [facility] [address], [place], 754875048 [id number] Psychotherapy, 45 minutes with patient [id number] SNOMED-CT () 2019-07-01 completed [facility] [address], [place], [id number] Psychotherapy, 45 minutes with patient [id number] SNOMED-CT () 2019-02-11 completed [facility] [address], [place], [id number] Psychotherapy, 45 minutes with patient [id number] SNOMED-CT () 2019-02-18 completed [facility] [address], [place], [id number] Psychotherapy, 45 minutes with patient [id number] SNOMED-CT () 2019-02-25 completed [facility] [address], [place], [id number] [id number] Psychotherapy, 45 minutes with patient [id number] SNOMED-CT () 2019-03-04 completed [facility] [address], [place], [id number] [id number] Psychotherapy, 45 minutes with patient [id number] SNOMED-CT () 2019-03-11 completed [facility] [address], [place], 088037513 [id number] Psychotherapy, 45 minutes with patient [id number] SNOMED-CT () 2019-03-25 completed [facility] [address], [place], 579534538 [id number] Psychotherapy, 45 minutes with patient [id number] SNOMED-CT () 2018-12-08 completed [facility] [address], [place], [id number] [id number] Psychotherapy, 45 minutes with patient [id number] SNOMED-CT () 2018-12-15 completed [facility] [address], [place], 770846892 [id number] Psychotherapy, 45 minutes with patient [id number] SNOMED-CT () 2018-12-24 completed [facility] [address], [place], 728199005 [id number] Psychotherapy, 45 minutes with patient [id number] SNOMED-CT () 2019-01-14 completed [facility] [address], [place], [id number] [id number] Psychotherapy, 45 minutes with patient [id number] SNOMED-CT () 2019-01-21 completed [facility] [address], [place], 727322631 [id number] Psychotherapy, 45 minutes with patient [id number] SNOMED-CT () 2019-01-28 completed [facility] [address], [place], 484414995 [id number] Psychotherapy, 45 minutes with patient [id number] SNOMED-CT () 2018-10-01 completed [facility] [address], [place], [id number] [id number] Psychotherapy, 45 minutes with patient [id number] SNOMED-CT () 2018-10-16 completed [facility] [address], [place], 814601385 [id number] Psychotherapy, 45 minutes with patient [id number] SNOMED-CT () 2018-10-22 completed [facility] [address], [place], 420738289 [id number] Psychotherapy, 45 minutes with patient [id number] SNOMED-CT () 2018-11-26 completed [facility] [address], [place], 853644480 [id number] Psychotherapy, 45 minutes with patient [id number] SNOMED-CT () 2018-11-19 completed [facility] [address], [place], [id number] Psychotherapy, 45 minutes with patient [id number] SNOMED-CT () 2018-12-03 completed [facility] [address], [place], 903663424 [id number] Psychotherapy, 45 minutes with patient [id number] SNOMED-CT () 2018-06-16 completed [facility] [address], [place], 541409934 [id number] Psychotherapy, 45 minutes with patient [id number] SNOMED-CT () 2018-06-25 completed [facility] [address], [place], 456156043 [id number] Psychotherapy, 45 minutes with patient [id number] SNOMED-CT () 2018-07-10 completed [facility] [address], [place], [id number] Psychotherapy, 45 minutes with patient [id number] SNOMED-CT () 2018-07-23 completed [facility] [address], [place], 839855118 [id number] Psychotherapy, 45 minutes with patient [id number] SNOMED-CT () 2018-07-30 completed [facility] [address], [place], 944563267 [id number] Psychotherapy, 45 minutes with patient [id number] SNOMED-CT () 2018-08-20 completed [facility] [address], [place], 530754696 [id number] Psychotherapy, 45 minutes with patient [id number] SNOMED-CT () 2018-01-16 completed [facility] [address], [place], 755215370 [id number] Psychotherapy, 45 minutes with patient [id number] SNOMED-CT () 2018-02-13 completed [facility] [address], [place], [id number] Psychotherapy, 45 minutes with patient [id number] SNOMED-CT () 2018-03-13 completed [facility] [address], [place], [id number] [id number] Psychotherapy, 45 minutes with patient [id number] SNOMED-CT () 2018-03-24 completed [facility] [address], [place], [id number] Psychotherapy, 45 minutes with patient [id number] SNOMED-CT () 2018-04-17 completed [facility] [address], [place], [id number] Psychotherapy, 45 minutes with patient [id number] SNOMED-CT () 2018-05-13 completed [facility] [address], [place], [id number] Psychotherapy, 45 minutes with patient [id number] SNOMED-CT () 2017-09-15 completed [facility] [address], [place], 633937190 [id number] Psychotherapy, 45 minutes with patient [id number] SNOMED-CT () 2017-11-28 completed [facility] [address], [place], [id number] Psychotherapy, 45 minutes with patient [id number] SNOMED-CT () 2017-12-02 completed [facility] [address], [place], [id number] [id number] Psychotherapy, 45 minutes with patient [id number] SNOMED-CT () 2017-12-08 completed [facility] [address], [place], 976366530 [id number] Psychotherapy, 45 minutes with patient [id number] SNOMED-CT () 2017-12-15 completed [facility] [address], [place], 935939753 [id number] Psychotherapy, 45 minutes with patient [id number] SNOMED-CT () 2017-12-24 completed [facility] [address], [place], 663390301 [id number] Psychotherapy, 45 minutes with patient [id number] SNOMED-CT () 2017-06-16 completed [facility] [address], [place], 240132137 [id number] Psychotherapy, 45 minutes with patient [id number] SNOMED-CT () 2017-07-17 completed [facility] [address], [place], [id number] [id number] Psychotherapy, 45 minutes with patient [id number] SNOMED-CT () 2017-07-21 completed [facility] [address], [place], 815379152 [id number] Psychotherapy, 45 minutes with patient [id number] SNOMED-CT () 2017-07-28 completed [facility] [address], [place], 593106847 [id number] Psychotherapy, 45 minutes with patient [id number] SNOMED-CT () 2017-08-26 completed [facility] [address], [place], 998155429 [id number] Psychotherapy, 45 minutes with patient [id number] SNOMED-CT () 2017-09-04 completed [facility] [address], [place], [id number] [id number] Psychotherapy, 45 minutes with patient [id number] SNOMED-CT () 2017-05-02 completed [facility] [address], [place], 185247750 [id number] Psychotherapy, 45 minutes with patient [id number] SNOMED-CT () 2017-05-14 completed [facility] [address], [place], 485530878 [id number] Psychotherapy, 45 minutes with patient [id number] SNOMED-CT () 2017-05-20 completed [facility] [address], [place], 385537713 [id number] Psychotherapy, 45 minutes with patient [id number] SNOMED-CT () 2017-05-30 completed [facility] [address], [place], 588636982 [id number] Psychotherapy, 45 minutes with patient [id number] SNOMED-CT () 2017-06-02 completed [facility] [address], [place], 406334179 [id number] Psychotherapy, 45 minutes with patient [id number] SNOMED-CT () 2017-06-09 completed [facility] [address], [place], 704190643 [id number] Psychotherapy, 45 minutes with patient [id number] SNOMED-CT () 2017-01-08 completed [facility] [address], [place], [id number] Psychotherapy, 45 minutes with patient [id number] SNOMED-CT () 2017-01-27 completed [facility] [address], [place], 152757558 [id number] Psychotherapy, 45 minutes with patient [id number] SNOMED-CT () 2017-02-21 completed [facility] [address], [place], [id number] [id number] Psychotherapy, 45 minutes with patient [id number] SNOMED-CT () 2017-03-11 completed [facility] [address], [place], [id number] Psychotherapy, 45 minutes with patient [id number] SNOMED-CT () 2017-03-27 completed [facility] [address], [place], 207776651 [id number] Psychotherapy, 45 minutes with patient [id number] SNOMED-CT () 2017-04-18 completed [facility] [address], [place], 740212548 [id number] Psychotherapy, 45 minutes with patient [id number] SNOMED-CT () 2016-07-29 completed [facility] [address], [place], [id number] [id number] Psychotherapy, 45 minutes with patient [id number] SNOMED-CT () 2016-08-05 completed [facility] [address], [place], 235014616 [id number] Psychotherapy, 45 minutes with patient [id number] SNOMED-CT () 2016-08-13 completed [facility] [address], [place], 644885875 [id number] Psychotherapy, 45 minutes with patient [id number] SNOMED-CT () 2016-08-26 completed [facility] [address], [place], 063862247 [id number] Psychotherapy, 45 minutes with patient [id number] SNOMED-CT () 2016-09-03 completed [facility] [address], [place], 966137836 [id number] Psychotherapy, 45 minutes with patient [id number] SNOMED-CT () 2016-10-07 completed [facility] [address], [place], 976746728 [id number] Psychotherapy, 45 minutes with patient [id number] SNOMED-CT () 2016-05-21 completed [facility] [address], [place], 649479882 [id number] Psychotherapy, 45 minutes with patient [id number] SNOMED-CT () 2016-05-28 completed [facility] [address], [place], 750231583 [id number] Psychotherapy, 45 minutes with patient [id number] SNOMED-CT () 2016-06-18 completed [facility] [address], [place], 435703057 [id number] Psychotherapy, 45 minutes with patient [id number] SNOMED-CT () 2016-06-25 completed [facility] [address], [place], 248997506 [id number] Psychotherapy, 45 minutes with patient [id number] SNOMED-CT () 2016-07-02 completed [facility] [address], [place], 208595632 [id number] Psychotherapy, 45 minutes with patient [id number] SNOMED-CT () 2016-07-22 completed [facility] [address], [place], 929366217 [id number] Psychotherapy, 45 minutes with patient [id number] SNOMED-CT () 2016-04-04 completed [facility] [address], [place], 682890520 [id number] Psychotherapy, 45 minutes with patient [id number] SNOMED-CT () 2016-04-12 completed [facility] [address], [place], 403107034 [id number] Psychotherapy, 45 minutes with patient [id number] SNOMED-CT () 2016-04-17 completed [facility] [address], [place], 076612838 [id number] Psychotherapy, 45 minutes with patient [id number] SNOMED-CT () 2016-04-22 completed [facility] [address], [place], 154441271 [id number] Psychotherapy, 45 minutes with patient [id number] SNOMED-CT () 2016-04-30 completed [address], [place], 934376043 [id number] Psychotherapy, 45 minutes with patient [id number] SNOMED-CT () 2016-05-14 completed [facility] [address], [place], [id number] [phone] Initial Psychiatric Evaluation [id number] SNOMED-CT () 2016-03-02 completed [facility] [address], [place], 448652925 [phone] Psychotherapy - Family&Client 1 hr 1 [id number] SNOMED-CT () 2018-01-30 completed [facility] [address] [place], [place], [id number] [phone] Health Monitoring / Risk Reduction Counseling - [facility] [id number] SNOMED-CT () 2016-02-28 completed [facility] [address], [place], 727792158 [id number] Est. Patient - E&M Intermediate [id number] SNOMED-CT () 2016-10-01 completed [facility] [address], [place], [id number] [phone] Est. Patient - E&M Intermediate [id number] SNOMED-CT () 2017-02-04 completed [facility] [address] [place], [place], [id number] [id number] Est. Patient - E&M Intermediate [id number] SNOMED-CT () 2017-05-[address] [facility], [id number] [phone] Est. Patient - E&M Intermediate [id number] SNOMED-CT () 2017-06-[address], [id number] [phone] Est. Patient - E&M Intermediate [id number] SNOMED-CT () 2017-07-[address], [id number] [phone] Est. Patient - E&M Intermediate [id number] SNOMED-CT () 2017-08-[address], [id number] [phone] Est. Patient - E&M Intermediate [id number] SNOMED-CT () 2018-10-[address], [id number] [phone] Est. Patient - E&M Intermediate [id number] SNOMED-CT () 2019-06-[address], [id number] [phone] Est. Patient - E&M Intermediate [id number] SNOMED-CT () 2019-08-[address], [id number] [phone] Est. Patient - E&M Intermediate [id number] SNOMED-CT () 2019-09-[address], [id number] [phone] Est. Patient - E&M Intermediate [id number] SNOMED-CT () 2020-01-[address], [id number] [phone] Est. Patient - E&M Intermediate [id number] SNOMED-CT () 2018-02-[address], [id number] [phone] Est. Patient - E&M Intermediate [id number] SNOMED-CT () 2018-02-[address], [id number] [phone] Est. Patient - E&M Intermediate [id number] SNOMED-CT () 2018-03-[address], [id number] [id number] Est. Patient - E&M Intermediate [id number] SNOMED-CT () 2018-04-[address], [id number] [phone] Est. Patient - E&M Intermediate [id number] SNOMED-CT () 2018-05-[address], [id number] [id number] Est. Patient - E&M Intermediate [id number] SNOMED-CT () 2018-07-[address], [id number] [phone] Est. Patient - E&M Intermediate [id number] SNOMED-CT () 2017-09-[address], [id number] [phone] Est. Patient - E&M Intermediate [id number] SNOMED-CT () 2017-10-[address], [id number] [id number] Est. Patient - E&M Intermediate [id number] SNOMED-CT () 2017-11-[address], [id number] [id number] Est. Patient - E&M Intermediate [id number] SNOMED-CT () 2017-11-[address], [phone] Est. Patient - E&M Intermediate [id number] SNOMED-CT () 2017-12-[address], [id number] [phone] Est. Patient - E&M Intermediate [id number] SNOMED-CT () 2018-01-[address], [id number] [phone] Est. Patient - E&M Brief [id number] SNOMED-CT () 2016-04-[address], [id number] [id number] Est. Patient - E&M Brief [id number] SNOMED-CT () 2016-06-[address], [id number] [phone] Est. Patient - E&M Brief [id number] SNOMED-CT () 2016-08-[address], [id number] [phone] Est. Patient - E&M Brief [id number] SNOMED-CT () 2018-06-[address], [id number] [phone] Est. Patient - E&M Brief [id number] SNOMED-CT () 2018-12-[address], [id number] [phone] Est. Patient - E&M Brief [id number] SNOMED-CT () 2018-12-[address], [id number] [phone] Est. Patient - E&M Brief [id number] SNOMED-CT () 2019-12-[address], [id number] [phone] Est. Patient - E&M Brief [id number] SNOMED-CT () 2019-12-23 completed [address] [address], [id number] Est. Patient - E&M Brief [id number] SNOMED-CT () 2020-02-[address], [id number] Est. Patient - E&M Brief [id number] SNOMED-CT () 2020-04-[address], [id number] Est. Patient - E&M Brief [id number] SNOMED-CT () 2020-05-[address], [id number] [id number] Est. Patient - E&M Brief [id number] SNOMED-CT () 2019-01-[address], [id number] Est. Patient - E&M Brief [id number] SNOMED-CT () 2019-03-[address], [id number] Est. Patient - E&M Brief [id number] SNOMED-CT () 2019-04-[address], [id number] Est. Patient - E&M Brief [id number] SNOMED-CT () 2019-05-[address], [id number] Est. Patient - E&M Brief [id number] SNOMED-CT () 2019-10-[address], [id number] Est. Patient - E&M Brief [id number] SNOMED-CT () 2019-11-[address], [id number] Est. Patient - E&M Expanded [id number] SNOMED-CT () 2017-03-[address], [id number] Est. Patient - E&M Expanded [id number] SNOMED-CT () 2017-03-[address], [id number] [id number] Est. Patient - E&M Expanded [id number] SNOMED-CT () 2017-04-[address], [id number] [id number] Est. Patient - E&M Expanded [id number] SNOMED-CT () 2017-04-[address], [id number] Est. Patient - E&M Expanded [id number] SNOMED-CT () 2017-10-[address], [id number] [id number] Est. Patient - E&M Expanded [id number] SNOMED-CT () 2020-09-[address], [id number] Est. Patient - E&M Expanded [id number] SNOMED-CT () 2020-12-[address], [id number] [id number] Est. Patient - E&M Expanded [id number] SNOMED-CT () 2021-01-[address], [id number] [phone] Est. Patient - E&M Expanded [id number] SNOMED-CT () 2021-02-[address], [id number] [id number] Individual Psychotherapy [id number] SNOMED-CT () 2016-02-[address], [id number] [id number] Individual Psychotherapy [id number] SNOMED-CT () 2016-05-[address], [id number] [id number] Individual Psychotherapy [id number] SNOMED-CT () 2016-06-[address], [id number] Individual Psychotherapy [id number] SNOMED-CT () 2016-12-[address], [id number] Individual Psychotherapy [id number] SNOMED-CT () 2016-12-[address], [id number] [id number] Individual Psychotherapy [id number] SNOMED-CT () 2017-01-[address], [id number] Individual Psychotherapy [id number] SNOMED-CT () 2020-11-[address], [id number] [id number] Individual Psychotherapy [id number] SNOMED-CT () 2020-01-[address], [id number] [id number] Individual Psychotherapy [id number] SNOMED-CT () 2020-02-[address], [id number] Individual Psychotherapy [id number] SNOMED-CT () 2020-04-[address], [id number] [id number] Individual Psychotherapy [id number] SNOMED-CT () 2020-07-[address], [id number] Individual Psychotherapy [id number] SNOMED-CT () 2020-08-[address], [id number] [id number] Individual Psychotherapy [id number] SNOMED-CT () 2020-09-[address], [id number] [id number] Individual Psychotherapy [id number] SNOMED-CT () 2018-11-[address], [id number] [phone] Individual Psychotherapy [id number] SNOMED-CT () 2018-12-[address], [id number] Individual Psychotherapy [id number] SNOMED-CT () 2019-10-[address], [id number] [id number] Individual Psychotherapy [id number] SNOMED-CT () 2019-10-[address], [id number] [id number] Individual Psychotherapy [id number] SNOMED-CT () 2019-12-[address], [id number] [id number] Individual Psychotherapy [id number] SNOMED-CT () 2020-01-[address], [id number] Individual Psychotherapy [id number] SNOMED-CT () 2018-04-[address], [id number] [phone] Individual Psychotherapy [id number] SNOMED-CT () 2018-04-[address], [id number] [id number] Individual Psychotherapy [id number] SNOMED-CT () 2018-04-[address], [id number] [id number] Individual Psychotherapy [id number] SNOMED-CT () 2018-05-[address], [id number] [phone] Individual Psychotherapy [id number] SNOMED-CT () 2018-05-[address], [id number] Individual Psychotherapy [id number] SNOMED-CT () 2018-10-[address], [id number] [id number] Individual Psychotherapy [id number] SNOMED-CT () 2017-02-[address], [id number] [id number] Individual Psychotherapy [id number] SNOMED-CT () 2017-08-[address], [id number] [phone] Individual Psychotherapy [id number] SNOMED-CT () 2017-09-[address], [id number] [id number] Individual Psychotherapy [id number] SNOMED-CT () 2017-10-[address], [id number] Individual Psychotherapy [id number] SNOMED-CT () 2017-10-[address], [id number] [id number] Individual Psychotherapy [id number] SNOMED-CT () 2017-11-[address], [id number] [phone] Individual Psychotherapy [id number] SNOMED-CT () 2016-01-[address], [id number] [id number] Individual Psychotherapy [id number] SNOMED-CT () 2016-02-[address], 535673658 [id number] Individual Psychotherapy [id number] SNOMED-CT () 2016-02-[address], [id number] Individual Psychotherapy [id number] SNOMED-CT () 2016-02-[address], [id number] [phone] Individual Psychotherapy [id number] SNOMED-CT () 2016-03-06 completed [address], [id number] Individual Psychotherapy [id number] SNOMED-CT () 2016-03-[address], [id number] [id number] Individual Psychotherapy [id number] SNOMED-CT () 2021-01-[address], [id number] [phone] Individual Psychotherapy [id number] SNOMED-CT () 2021-01-[address], [id number] [id number] Individual Psychotherapy [id number] SNOMED-CT () 2021-02-[address], [id number] [id number] Individual Psychotherapy [id number] SNOMED-CT () 2021-02-[address], [id number] [id number] Individual Psychotherapy [id number] SNOMED-CT () 2021-03-[address], [id number] [id number] Individual Psychotherapy [id number] SNOMED-CT () 2020-10-[address], [id number] [id number] Individual Psychotherapy [id number] SNOMED-CT () 2020-10-[address], [id number] [id number] Individual Psychotherapy [id number] SNOMED-CT () 2020-11-[address], [id number] [id number] Individual Psychotherapy [id number] SNOMED-CT () 2020-11-[address], [id number] Individual Psychotherapy [id number] SNOMED-CT () 2020-12-[address], [id number] [phone] Individual Psychotherapy [id number] SNOMED-CT () 2020-12-[address], [id number] [id number] Individual Psychotherapy [id number] SNOMED-CT () 2019-12-[address] [place], [id number] [phone] Individual Psychotherapy [id number] SNOMED-CT () 2020-02-[address], [id number] Individual Psychotherapy [id number] SNOMED-CT () 2020-03-[address], 827736389 [phone] Individual Psychotherapy [id number] SNOMED-CT () 2020-04-[address], [id number] [id number] Individual Psychotherapy [id number] SNOMED-CT () 2020-06-[address], [id number] [phone] Individual Psychotherapy [id number] SNOMED-CT () 2020-09-[address], [phone] Individual Psychotherapy [id number] SNOMED-CT () 2019-07-[address], [id number] [phone] Individual Psychotherapy [id number] SNOMED-CT () 2019-08-[address], [id number] [id number] Individual Psychotherapy [id number] SNOMED-CT () 2019-08-[address], [id number] Individual Psychotherapy [id number] SNOMED-CT () 2019-09-[address], [id number] [id number] Individual Psychotherapy [id number] SNOMED-CT () 2019-09-[address], [id number] [id number] Individual Psychotherapy [id number] SNOMED-CT () 2019-11-[address], [id number] Individual Psychotherapy [id number] SNOMED-CT () 2019-04-[address], [id number] [id number] Individual Psychotherapy [id number] SNOMED-CT () 2019-04-[address], [id number] [phone] Individual Psychotherapy [id number] SNOMED-CT () 2019-04-[address], [id number] [id number] Individual Psychotherapy [id number] SNOMED-CT () 2019-05-[address], [id number] [phone] Individual Psychotherapy [id number] SNOMED-CT () 2019-06-[address], [id number] [phone] Individual Psychotherapy [id number] SNOMED-CT () 2019-07-[address], [id number] [phone] Individual Psychotherapy [id number] SNOMED-CT () 2019-02-[address], [id number] Individual Psychotherapy [id number] SNOMED-CT () 2019-02-[address], [id number] [id number] Individual Psychotherapy [id number] SNOMED-CT () 2019-02-[address], [id number] [phone] Individual Psychotherapy [id number] SNOMED-CT () 2019-03-[address] completed [address], [id number] [id number] Individual Psychotherapy [id number] SNOMED-CT () 2019-03-[address], [id number] [id number] Individual Psychotherapy [id number] SNOMED-CT () 2019-03-[address], [id number] Individual Psychotherapy [id number] SNOMED-CT () 2018-12-[address], [id number] [id number] Individual Psychotherapy [id number] SNOMED-CT () 2018-12-[address], [id number] [id number] Individual Psychotherapy [id number] SNOMED-CT () 2018-12-[address], [id number] [phone] Individual Psychotherapy [id number] SNOMED-CT () 2019-01-[address], [id number] [id number] Individual Psychotherapy [id number] SNOMED-CT () 2019-01-[address], [id number] [id number] Individual Psychotherapy [id number] SNOMED-CT () 2019-01-[address], [id number] Individual Psychotherapy [id number] SNOMED-CT () 2018-10-[address], [id number] [id number] Individual Psychotherapy [id number] SNOMED-CT () 2018-10-[address], [id number] [id number] Individual Psychotherapy [id number] SNOMED-CT () 2018-10-[address], [id number] Individual Psychotherapy [id number] SNOMED-CT () 2018-11-[address], [id number] [id number] Individual Psychotherapy [id number] SNOMED-CT () 2018-11-[address], [id number] [id number] Individual Psychotherapy [id number] SNOMED-CT () 2018-12-[address] completed [address], [id number] [id number] Individual Psychotherapy [id number] SNOMED-CT () 2018-06-[address], [id number] Individual Psychotherapy [id number] SNOMED-CT () 2018-06-[address], [id number] Individual Psychotherapy [id number] SNOMED-CT () 2018-07-[address], 534791669 [id number] Individual Psychotherapy [id number] SNOMED-CT () 2018-07-[address], [id number] [id number] Individual Psychotherapy [id number] SNOMED-CT () 2018-07-[address], [id number] [id number] Individual Psychotherapy [id number] SNOMED-CT () 2018-08-[address], [id number] Individual Psychotherapy [id number] SNOMED-CT () 2018-01-[address], [phone] Individual Psychotherapy [id number] SNOMED-CT () 2018-02-[address], [id number] Individual Psychotherapy [id number] SNOMED-CT () 2018-03-[address], [id number] Individual Psychotherapy [id number] SNOMED-CT () 2018-03-[address], [id number] Individual Psychotherapy [id number] SNOMED-CT () 2018-04-[address], [id number] Individual Psychotherapy [id number] SNOMED-CT () 2018-05-[address], [id number] Individual Psychotherapy [id number] SNOMED-CT () 2017-09-[address], [id number] [id number] Individual Psychotherapy [id number] SNOMED-CT () 2017-11-[address], [id number] Individual Psychotherapy [id number] SNOMED-CT () 2017-12-[address], [id number] Individual Psychotherapy [id number] SNOMED-CT () 2017-12-[address], [id number] Individual Psychotherapy [id number] SNOMED-CT () 2017-12-[address], [id number] Individual Psychotherapy [id number] SNOMED-CT () 2017-12-[address], [id number] [id number] Individual Psychotherapy [id number] SNOMED-CT () 2017-06-[address], [id number] [id number] Individual Psychotherapy [id number] SNOMED-CT () 2017-07-[address], [id number] [id number] Individual Psychotherapy [id number] SNOMED-CT () 2017-07-[address], [id number] [phone] Individual Psychotherapy [id number] SNOMED-CT () 2017-07-[address], [id number] [phone] Individual Psychotherapy [id number] SNOMED-CT () 2017-08-[address], [id number] Individual Psychotherapy [id number] SNOMED-CT () 2017-09-[address], [id number] [id number] Individual Psychotherapy [id number] SNOMED-CT () 2017-05-[address], [id number] [id number] Individual Psychotherapy [id number] SNOMED-CT () 2017-05-[address], [id number] [phone] Individual Psychotherapy [id number] SNOMED-CT () 2017-05-[address], [id number] [phone] Individual Psychotherapy [id number] SNOMED-CT () 2017-05-[address], [id number] [id number] Individual Psychotherapy [id number] SNOMED-CT () 2017-06-[address], [id number] [id number] Individual Psychotherapy [id number] SNOMED-CT () 2017-06-[address], [id number] Individual Psychotherapy [id number] SNOMED-CT () 2017-01-[address], [id number] Individual Psychotherapy [id number] SNOMED-CT () 2017-01-[address], [id number] Individual Psychotherapy [id number] SNOMED-CT () 2017-02-[address], [id number] [id number] Individual Psychotherapy [id number] SNOMED-CT () 2017-03-[address], [id number] Individual Psychotherapy [id number] SNOMED-CT () 2017-03-[address], [id number] Individual Psychotherapy [id number] SNOMED-CT () 2017-04-[address], [id number] Individual Psychotherapy [id number] SNOMED-CT () 2016-07-[address], [id number] [id number] Individual Psychotherapy [id number] SNOMED-CT () 2016-08-[address], [id number] Individual Psychotherapy [id number] SNOMED-CT () 2016-08-[address], [id number] Individual Psychotherapy [id number] SNOMED-CT () 2016-08-[address], [id number] [id number] Individual Psychotherapy [id number] SNOMED-CT () 2016-09-[address], [id number] [id number] Individual Psychotherapy [id number] SNOMED-CT () 2016-10-[address], [id number] [id number] Individual Psychotherapy [id number] SNOMED-CT () 2016-05-[address], [id number] Individual Psychotherapy [id number] SNOMED-CT () 2016-05-[address], [id number] [id number] Individual Psychotherapy [id number] SNOMED-CT () 2016-06-[address], [id number] [id number] Individual Psychotherapy [id number] SNOMED-CT () 2016-06-[address], [id number] [id number] Individual Psychotherapy [id number] SNOMED-CT () 2016-07-[address], [id number] [id number] Individual Psychotherapy [id number] SNOMED-CT () 2016-07-[address], [id number] [id number] Individual Psychotherapy [id number] SNOMED-CT () 2016-04-[address], [id number] [id number] Individual Psychotherapy [id number] SNOMED-CT () 2016-04-[address], [id number] Individual Psychotherapy [id number] SNOMED-CT () 2016-04-[address], [id number] [id number] Individual Psychotherapy [id number] SNOMED-CT () 2016-04-[address], 405588063 [id number] Individual Psychotherapy [id number] SNOMED-CT () 2016-04-[address], 840811284 [id number] Individual Psychotherapy [id number] SNOMED-CT () 2016-05-[address], [id number] [id number] Psychiatric Diagnostic Evaluation without medical serv ices [id number] SNOMED-CT () 2016-01-[address], [id number] Psychiatric Diagnostic Evaluation without medical serv ices [id number] SNOMED-CT () 2016-01-[address], [id number] SNOMED-CT () 2020-12-[address], [id number] SNOMED-CT () 2020-10-[address], [id number] [id number] SNOMED-CT () 2020-09-[address], [id number] SNOMED-CT () 2020-11-[address], [id number] SNOMED-CT () 2020-09-[address], 483032226 [id number] SNOMED-CT () 2020-07-[address], [id number] SNOMED-CT () 2020-12-[address], [id number] SNOMED-CT () 2020-11-[address], [id number] [id number] SNOMED-CT () 2020-08-[address], [id number] SNOMED-CT () 2020-11-[address], [id number] SNOMED-CT () 2020-10-[address], [id number] [id number] SNOMED-CT () 2016-07-[address], [id number] [phone] Encounters/Encounter Diagnoses Encounter Name Encounter Code Diagnosis Code Diagnosis Name Diagnosis CodeSystem Date of Diagnosis Service Delivery L ocation Pyschotherapy [address] [place] with Patient [address] [id number] Recurrent depressive disorder, current e pisode severe without psychotic symptoms SNOMED-CT 2021-03-05 [facility] [address] [place], [place], [id number] Vital Signs Code CodeSystem Vitals Date Value 8480-6 [facility] Blood Press ure-Systolic 2019-09-16 90 mm[HG] 77084-5 [facility] BMI 2019-09-16 36.63 (lb/in2) 8462-4 [facility] Blood Press ure-Diastolic 2019-09-16 130 mm[HG] 8302-2 [facility] Height 2019-09-16 70.5 [in_i] 8867-4 [facility] Heart Rate 2019-09-16 75 /min 77007-4 [facility] Weight 2019-09-16 259 [lb_av] Social History Element Description Description Start Date End Date Code CodeSystem AdditionalInfo SexAssignedAtBirth Male 1970 M AdministrativeGender Hospital Discharge Instructions * Reason For Referral Medical Equipment * FDA Assessments * Goals Section Goals Planned DateTime Subhash's mood will be stable. 2016-02 Subhash will increase health awareness and make healthy lifestyle choices. 2017-08-19
--- OUTSIDE RECORDS SUMMARY | 2021-05-23 10:15 | CCD | Continuity of Care Document ---
Author Author Subhash [facility] Organization Unknown Address [address] [place] [address] Phone [phone] Problems Active Problems Provider Date Epilepsy Onset: 04/15/2001 Allergic rhinitis Onset: 04/15/2001 Gastroesophageal reflux disease Susan Castellano, [facility] Onset : 12/27/2003 Hyperlipidemia Abner Deal [...] once a day 19.8ml Ag Grey D.O., [facility] 11/08/2015 Fish Oil 1000mg Capsules 1 by mouth daily Unknown Chromium Picolinate 400mcg Tablets one tablet two times a day Unknown 00000 0 History Medications Azithromycin 250mg Tablets 2 by mouth stat followed by 1 by mouth every day x 4 days 6tabs Savage Grey D.O., [facility] 10/19/2020 - 10/28/2020 Medications Administered in Office Medication SIG Qnty Indications Ordering Provider Date Injection (SC)/(Im) Injection Abner Deal, RPA 03/30/2020 Injection (SC)/(Im) Injection Abner Deal, RPA 06/10/2019 Injection Subcutaneous Or Intramuscular Injection Susan Castellano FNP- 04/13 Immunizations CPT Code Status Date Vaccine Lot # [id number] Given 03/30/2020 Influenza Virus Vaccine, Quadrivalent, Slit Virus, Im Use 3Y & Up [id number] 89705 Given 06/10/2019 Pneumococcal Immunization S0 [id number] 79376 Given 06/10/2019 Influenza Virus Vaccine, Quadrivalent, Slit Virus, Im Use 3Y & Up [id number] 76895 Given 03/23/2012 Pneumococcal Immunization [id number] 26011 Given 03/23/2012 Influenza Virus Vac. Split Virus Individuals 3 Years And Above [id number] 99012 Given 04/13/2008 Influenza Virus Vac. Split Virus Individuals 3 Years And Above [id number] 51405 Given Unknown Influenza Virus Vaccine, Quadrivalent, Slit Virus, Im Use 3Y & Up Vital Signs Date Vital Result Comment 03/01/2021 9:15am BP Systolic 106 mmHg BP Diastolic 86 mmHg Body Temperature 97.2 F Heart Rate 90 /min Respiratory Rate 16 /min Height 70 inches 5'10" Weight 243.00 lb [place] Body Weight 166 lb BMI (Body Mass Index) 34.9 kg/m2 O2 % BldC Oximetry 98 % 01/09/2021 9:14am BP Systolic 122 mmHg BP Diastolic 90 mmHg Body Temperature 97.4 F Heart Rate 82 /min Respiratory Rate 16 /min Height 70 inches 5'10" Weight 251.00 lb [place] Body Weight 166 lb BMI (Body Mass [...] <7.0 Procedures Date Code Description Status 03/01/2021 75684 Office/Outpatient Established Lo w MDM 20-29 Min Completed 01/09/2021 77716 Office/Outpatient Established Mo d MDM 30-39 Min Completed 11/22/2020 39396 Office/Outpatient Established Lo w MDM 20-29 Min Completed 11/08/2020 02025 Office/Outpatient Established Lo w MDM 20-29 Min Completed 10/19/2020 63398 Office/Outpatient Established Lo w MDM 20-29 Min Completed 10/02/2020 75840 Office/Outpatient Established Lo w MDM 20-29 Min Completed Medical Devices Description No Information Available Encounters Type Date Location Provider Dx Diagnosis Office Visit 03/01/2021 9:15a [place] [facility] Abner Deal, [place] A E11.9 Type 2 diabetes mellitus without complications Office Visit 01/09/2021 9:00a [place] [facility] Abner Deal, RP A E11.9 Type 2 diabetes mellitus without complications E78.5 Hyperlipidemia, unspecified J45.909 Unspecified asthma, uncompli cated Office Visit 11/22/2020 2:20p [place] [facility] Abner Deal, RP A K21.9 Gastro-esophageal reflux disease without esophagitis F33.1 Major depressive disorder, r ecurrent, moderate Office Visit 11/08/2020 2:40p [place] [facility] Abner Deal, RP A K21.9 Gastro-esophageal reflux disease without esophagitis F33.1 Major depressive disorder, r ecurrent, moderate Office Visit 10/19/2020 4:00p [place] [facility] Abner Deal, RP A J01.90 Acute sinusitis, unspecified Office Visit 10/02/2020 11:00a [place] [facility] Abner Deal, RP A E11.9 Type [...]
--- OUTSIDE RECORDS SUMMARY | 2021-05-23 10:15 | CCD ---
Author Author Subhash Sousa Organization [facility] Address Unknown Phone Unavailable Care Team Providers Care Ec Teacher Name Role Phone Alina Sousa PCP Unavailable Allergies, Adverse Reactions, Alerts Allergy Substance Code C odeSystem Reaction Severity Critic ality Status Start Date Escitalopram unspecified Moderate Active Xerontin unspecified Moderate Active Dilantin unspecified Moderate Active Medications Medication Medication Code Medication CodeSystem Start Date Stop Date Route Dose Status Fill Instructions bupropion HCl 547741 Rx or 2020-01-17 2020-04-19 or al 75 mg tablet completed for 30 day(s) clonidine HCl [id number] Rx or 2017-05-21 2017-06-20 or al 0.1 mg tablet completed for 30 day(s) [facility] 2016-07-08 oral 25 mg 1 tablet once a day completed Take 1 tablet by mouth once a day for 30 day(s) bupropion HCl [id number] Rx or 2017-04-23 2017-05-21 or al 75 mg tablet completed for 30 day(s) Zoloft 320252 RxNorm 2019-11-25 2019-12-25 oral 25 mg tablet completed for 30 day(s) bupropion HCl [id number] Rx or 2019-08-06 2019-12-27 or al 75 mg tablet completed for 30 day(s) [facility] 707262 [facility] 2016-06-21 oral 10 mg capsule completed for 30 day(s) bupropion HCl [id number] Rx or 2018-05-21 2018-09-28 or al 75 mg tablet completed for 30 day(s) bupropion HCl [id number] Rx or 2018-03-24 2018-05-21 or al 75 mg tablet completed for 30 day(s) Minipress [id number] [facility] 2017-03-11 2017-04-04 oral 1 mg capsule completed for 30 day(s) bupropion HCl 267479 [facility] 2017-10-08 2018-03-24 or al 75 mg tablet completed for 30 day(s) buspirone 140222 [facility] 2017-09-30 2017-10-08 oral 5 mg tablet completed for 30 day(s) bupropion HCl 167039 [facility] 2018-10-01 2018-11-30 or al 75 mg tablet completed for 30 day(s) Remeron 633618 [facility] 2017-11-04 2017-12-23 oral 15 mg tablet completed bupropion HCl [id number] [facility] 2020-04-19 2020-06-18 or al 75 mg tablet completed for 30 day(s) Effexor XR 298780 [facility] 2017-02-04 2017-02-04 oral 37.5 mg capsule,extended release 24hr completed Cymbalta [id number] [facility] 2021-01-17 2021-02-08 oral 20 mg capsule,delayed release(DR/EC) completed for 30 day(s) Wellbutrin SR 779291 [facility] 2017-08-28 2017-09-04 or al 150 mg tablet extended release 12 hr completed clonidine HCl 381550 [facility] 2017-07-16 2017-09-30 or al 0.1 mg tablet completed Seroquel 644167 [facility] 2017-04-04 2017-04-08 oral 50 mg tablet completed for 30 day(s) Rexulti [id number] [facility] 2019-09-30 2019-10-28 oral 0.25 mg tablet completed for 30 day(s) bupropion HCl 170032 [facility] 2019-01-28 2019-06-15 or al 75 mg tablet completed for 30 day(s) Cymbalta 343859 [facility] 2021-02-08 2021-04-09 oral 60 mg capsule,delayed release(DR/EC) active for 30 day(s) Cymbalta 369728 [facility] 2021-01-05 2021-02-08 oral 60 mg capsule,delayed release(DR/EC) completed for 30 day(s) [facility] 2017-04[facility] 2017-04-23 oral 50 mg tablet completed for 30 day(s) Abilify 705561 RxNo 2018-03-24 2018-04-23 oral 5 mg tablet completed for 30 day(s) bupropion HCl 802680 RxN or 2017-05-21 2017-08-28 or al 100 mg tablet completed for 30 day(s) clonidine HCl 976511 RxN or 2017-09-30 2017-11-25 or al 0.2 mg tablet [facility]4029 [facility] 2018-[facility]-03 2018-03-24 oral 5 mg tablet completed bupropion HCl [id number] Rx or 2017-09-04 2017-10-08 or al 75 mg tablet completed for 30 day(s) [facility]ipress 418459 [facility] 2017-04-04 2017-04-23 oral 2 mg capsule completed for 30 day(s) Rexulti 8744706 [facility] 2019-01-28 2019-05-09 oral 0.5 mg tablet completed for 30 day(s) [facility] 290187 [facility] 2016-06-21 2016-07-21 oral 2.5 mg tablet completed for 30 day(s) [facility] 2019-07-19 or al 75 mg tablet completed for 30 day(s) Rexulti 2382298 [facility] 2019-10-28 2019-12-27 oral 0.5 mg tablet completed for 60 day(s) Cymbalta 247583 [facility] 2021-02-08 2021-04-09 oral 20 mg capsule,delayed release(DR/EC) active for 30 day(s) [facility]lafaxine 594934 [facility] 2017-02-04 2017-04-04 oral 75 mg 1 tablet at bedtime completed Take 1 tablet by mouth at bedtime for 30 day(s) Rexulti 4542655 [facility] 2018-12-04 2019-01-03 oral 0.5 mg tablet completed for 30 day(s) venlafaxine 227497 RxNo 2017-02-04 2017-03-04 oral 37.5 mg tablet completed Abiliy 493185 [facility] 2017-12-23 2018-02-03 oral 2 mg tablet completed for 30 day(s) Problems Problem Name Code CodeSy stem Alternate Code Alternate CodeSystem Start Date End Date Status Narrative Generalized anxiety disorder 92995667 SNOMED-CT 2016-01-31 Active Adjustment disorder with mixed anxiety and depressed mood [id number] SNOMED-CT 2016-03-02 Completed Alcohol dependence, uncomplicated 7 [id number] SNOMED-CT 2016-01-31 Completed Recurrent depressive disorder, current episode severe without psychotic symptoms [id number] SNOMED-CT 2016-01-31 Active Relevant diagnostic tests/laboratory data Narrative No Information Procedures Procedure Name Code Code System Target Site Date of Procedure Status Service Delivery Location Device Cod e Device Name Device UID Psychotherapy, 45 minutes with patient [id number] SNOMED-CT () 2016-01-31 completed [facility] [address], [place], [id number] [id number] Psychotherapy, 45 minutes with patient [id number] SNOMED-CT () 2016-02-07 completed [facility] [address], [place], [id number] [id number] Psychotherapy, 45 minutes with patient [id number] SNOMED-CT () 2016-02-21 completed [facility] [address], [place], [id number] [id number] Psychotherapy, 45 minutes with patient [id number] SNOMED-CT () 2016-02-28 completed [facility] [address], [place], [address]6523[address] [id number] Psychotherapy, 45 minutes with patient [id number] SNOMED-CT () 2016-03-06 completed [facility] [address], [place], [id number] [id number] Psychotherapy, 45 minutes with patient [id number] SNOMED-CT () 2016-03-21 completed [facility] [address], [place], [id number] [id number] Psychotherapy, 45 minutes with patient [id number] SNOMED-CT () 2021-04-09 completed [facility] [address], [place], [id number] [id number] Psychotherapy, 45 minutes with patient [id number] SNOMED-CT () 2021-04-16 completed [facility] [address], [place], [id number] [id number] Psychotherapy, 45 minutes with patient [id number] SNOMED-CT () 2021-01-01 completed [facility] [address], [place], [id number] [id number] Psychotherapy, 45 minutes with patient [id number] SNOMED-CT () 2021-01-17 completed [facility] [address], [place], [id number] [id number] Psychotherapy, 45 minutes with patient [id number] SNOMED-CT () 2021-02-07 completed [facility] [address], [place], [id number] [id number] Psychotherapy, 45 minutes with patient [id number] SNOMED-CT () 2021-02-21 completed [facility] [address], [place], 2418[address] [id number] Psychotherapy, 45 minutes with patient [id number] SNOMED-CT () 2021-03-05 completed [facility] [address], [place], [id number] [id number] Psychotherapy, 45 minutes with patient [id number] SNOMED-CT () 2021-04-05 completed [facility] [address], [place], [id number] [id number] Psychotherapy, 45 minutes with patient [id number] SNOMED-CT () 2020-10-02 completed [facility] [address], [place], [id number] [phone] Psychotherapy, 45 minutes with patient [id number] SNOMED-CT () 2020-10-16 completed [facility] [address], [place], 859151157 [id number] Psychotherapy, 45 minutes with patient [id number] SNOMED-CT () 2020-11-02 completed [facility] [address], [place], 083267[address] [id number] Psychotherapy, 45 minutes with patient [id number] SNOMED-CT () 2020-11-29 completed [facility] [address], [place], [id number] [id number] Psychotherapy, 45 minutes with patient [id number] SNOMED-CT () 2020-12-13 completed [facility] [address], [place], 296424645 [id number] Psychotherapy, 45 minutes with patient [id number] SNOMED-CT () 2020-12-27 completed [facility] [address], [place], 979059884 [id number] Psychotherapy, 45 minutes with patient [id number] SNOMED-CT () 2019-12-21 completed [facility] [address], [place], 696784995 [id number] Psychotherapy, 45 minutes with patient [id number] SNOMED-CT () 2020-02-16 completed [facility] [address], [place], 215833844 [id number] Psychotherapy, 45 minutes with patient [id number] SNOMED-CT () 2020-03-08 completed [facility] [address], [place], [id number] [id number] Psychotherapy, 45 minutes with patient [id number] SNOMED-CT () 2020-04-05 completed [facility] [address], [place], 436[address]0127 [id number] Psychotherapy, 45 minutes with patient [id number] SNOMED-CT () 2020-06-05 completed [facility] [address], [place], 395239164 [phone] Psychotherapy, 45 minutes with patient [id number] SNOMED-CT () 2020-09-07 completed [facility] [address], [place], 748524583 [id number] Psychotherapy, 45 minutes with patient [id number] SNOMED-CT () 2019-07-22 completed [facility] [address], [place], 280791770 [id number] Psychotherapy, 45 minutes with patient [id number] SNOMED-CT () 2019-08-05 completed [facility] [address], [place], [id number] [phone] Psychotherapy, 45 minutes with patient [id number] SNOMED-CT () 2019-08-19 completed [facility] [address], [place], [id number] [id number] Psychotherapy, 45 minutes with patient [id number] SNOMED-CT () 2019-09-16 completed [facility] [address], [place], 583518940 [phone] Psychotherapy, 45 minutes with patient [id number] SNOMED-CT () 2019-09-30 completed [facility] [address], [place], [id number] Psychotherapy, 45 minutes with patient [id number] SNOMED-CT () 2019-11-12 completed [facility] [address], [place], 397789864 [phone] Psychotherapy, 45 minutes with patient [id number] SNOMED-CT () 2019-04-01 completed [facility] [address], [place], [id number] [id number] Psychotherapy, 45 minutes with patient [id number] SNOMED-CT () 2019-04-16 completed [facility] [address], [place], 465204910 [id number] Psychotherapy, 45 minutes with patient [id number] SNOMED-CT () 2019-04-22 completed [facility] [address], [place], 426947046 [id number] Psychotherapy, 45 minutes with patient [id number] SNOMED-CT () 2019-05-20 completed [facility] [address], [place], [id number] [id number] Psychotherapy, 45 minutes with patient [id number] SNOMED-CT () 2019-06-02 completed [facility] [address], [place], [id number] Psychotherapy, 45 minutes with patient [id number] SNOMED-CT () 2019-07-01 completed [facility] [address], [place], 392240860 [id number] Psychotherapy, 45 minutes with patient [id number] SNOMED-CT () 2019-02-11 completed [facility] [address], [place], 522031617 [id number] Psychotherapy, 45 minutes with patient [id number] SNOMED-CT () 2019-02-18 completed [facility] [address], [place], [id number] [id number] Psychotherapy, 45 minutes with patient [id number] SNOMED-CT () 2019-02-25 completed [facility] [address], [place], 727930993 [id number] Psychotherapy, 45 minutes with patient [id number] SNOMED-CT () 2019-03-04 completed [facility] [address], [place], [id number] [id number] Psychotherapy, 45 minutes with patient [id number] SNOMED-CT () 2019-03-11 completed [facility] [address], [place], 268797327 [id number] Psychotherapy, 45 minutes with patient [id number] SNOMED-CT () 2019-03-25 completed [facility] [address], [place], [id number] [id number] Psychotherapy, 45 minutes with patient [id number] SNOMED-CT () 2018-12-08 completed [facility] [address], [place], 602078371 [id number] Psychotherapy, 45 minutes with patient [id number] SNOMED-CT () 2018-12-15 completed [facility] [address], [place], 603595268 [id number] Psychotherapy, 45 minutes with patient [id number] SNOMED-CT () 2018-12-24 completed [facility] [address], [place], 500411649 [id number] Psychotherapy, 45 minutes with patient [id number] SNOMED-CT () 2019-01-14 completed [facility] [address], [place], 450504189 [id number] Psychotherapy, 45 minutes with patient [id number] SNOMED-CT () 2019-01-21 completed [facility] [address], [place], [id number] [id number] Psychotherapy, 45 minutes with patient [id number] SNOMED-CT () 2019-01-28 completed [facility] [address], [place], 218395641 [id number] Psychotherapy, 45 minutes with patient [id number] SNOMED-CT () 2018-10-01 completed [facility] [address], [place], 568596840 [id number] Psychotherapy, 45 minutes with patient [id number] SNOMED-CT () 2018-10-16 completed [facility] [address], [place], 259935081 [id number] Psychotherapy, 45 minutes with patient [id number] SNOMED-CT () 2018-10-22 completed [facility] [address], [place], 506545281 [id number] Psychotherapy, 45 minutes with patient [id number] SNOMED-CT () 2018-11-26 completed [facility] [address], [place], [id number] Psychotherapy, 45 minutes with patient [id number] SNOMED-CT () 2018-11-19 completed [facility] [address], [place], [id number] [id number] Psychotherapy, 45 minutes with patient [id number] SNOMED-CT () 2018-12-03 completed [facility] [address], [place], 853212566 [id number] Psychotherapy, 45 minutes with patient [id number] SNOMED-CT () 2018-06-16 completed [facility] [address], [place], [id number] [id number] Psychotherapy, 45 minutes with patient [id number] SNOMED-CT () 2018-06-25 completed [facility] [address], [place], 412118913 [id number] Psychotherapy, 45 minutes with patient [id number] SNOMED-CT () 2018-07-10 completed [facility] [address], [place], 595278703 [id number] Psychotherapy, 45 minutes with patient [id number] SNOMED-CT () 2018-07-23 completed [facility] [address], [place], [id number] [id number] Psychotherapy, 45 minutes with patient [id number] SNOMED-CT () 2018-07-30 completed [facility] [address], [place], 384642602 [id number] Psychotherapy, 45 minutes with patient [id number] SNOMED-CT () 2018-08-20 completed [facility] [address], [place], [id number] [id number] Psychotherapy, 45 minutes with patient [id number] SNOMED-CT () 2018-01-16 completed [facility] [address], [place], 531698115 [id number] Psychotherapy, 45 minutes with patient [id number] SNOMED-CT () 2018-02-13 completed [facility] [address], [place], [id number] [id number] Psychotherapy, 45 minutes with patient [id number] SNOMED-CT () 2018-03-13 completed [facility] [address], [place], [id number] [id number] Psychotherapy, 45 minutes with patient [id number] SNOMED-CT () 2018-03-24 completed [facility] [address], [place], 753021776 [id number] Psychotherapy, 45 minutes with patient [id number] SNOMED-CT () 2018-04-17 completed [facility] [address], [place], 402426916 [id number] Psychotherapy, 45 minutes with patient [id number] SNOMED-CT () 2018-05-13 completed [facility] [address], [place], 036855240 [id number] Psychotherapy, 45 minutes with patient [id number] SNOMED-CT () 2017-09-15 completed [facility] [address], [place], [id number] Psychotherapy, 45 minutes with patient [id number] SNOMED-CT () 2017-11-28 completed [facility] [address], [place], 567815825 [id number] Psychotherapy, 45 minutes with patient [id number] SNOMED-CT () 2017-12-02 completed [facility] [address], [place], 518892566 [id number] Psychotherapy, 45 minutes with patient [id number] SNOMED-CT () 2017-12-08 completed [facility] [address], [place], 529323652 [id number] Psychotherapy, 45 minutes with patient [id number] SNOMED-CT () 2017-12-15 completed [facility] [address], [place], 896565862 [id number] Psychotherapy, 45 minutes with patient [id number] SNOMED-CT () 2017-12-24 completed [facility] [address], [place], 179992935 [id number] Psychotherapy, 45 minutes with patient [id number] SNOMED-CT () 2017-06-16 completed [facility] [address], [place], 288904057 [id number] Psychotherapy, 45 minutes with patient [id number] SNOMED-CT () 2017-07-17 completed [facility] [address], [place], 519155248 [id number] Psychotherapy, 45 minutes with patient [id number] SNOMED-CT () 2017-07-21 completed [facility] [address], [place], 663650304 [id number] Psychotherapy, 45 minutes with patient [id number] SNOMED-CT () 2017-07-28 completed [facility] [address], [place], [id number] Psychotherapy, 45 minutes with patient [id number] SNOMED-CT () 2017-08-26 completed [facility] [address], [place], 950652460 [id number] Psychotherapy, 45 minutes with patient [id number] SNOMED-CT () 2017-09-04 completed [facility] [address], [place], 909051331 [id number] Psychotherapy, 45 minutes with patient [id number] SNOMED-CT () 2017-05-02 completed [facility] [address], [place], 790205354 [id number] Psychotherapy, 45 minutes with patient [id number] SNOMED-CT () 2017-05-14 completed [facility] [address], [place], 929015986 [id number] Psychotherapy, 45 minutes with patient [id number] SNOMED-CT () 2017-05-20 completed [facility] [address], [place], 096144293 [id number] Psychotherapy, 45 minutes with patient [id number] SNOMED-CT () 2017-05-30 completed [facility] [address], [place], [id number] Psychotherapy, 45 minutes with patient [id number] SNOMED-CT () 2017-06-02 completed [facility] [address], [place], 256262274 [id number] Psychotherapy, 45 minutes with patient [id number] SNOMED-CT () 2017-06-09 completed [facility] [address], [place], [id number] [phone] Psychotherapy, 45 minutes with patient [id number] SNOMED-CT () 2017-01-08 completed [facility] [address], [place], 052947238 [id number] Psychotherapy, 45 minutes with patient [id number] SNOMED-CT () 2017-01-27 completed [facility] [address], [place], [id number] [phone] Psychotherapy, 45 minutes with patient [id number] SNOMED-CT () 2017-02-21 completed [facility] [address], [place], 684686593 [id number] Psychotherapy, 45 minutes with patient [id number] SNOMED-CT () 2017-03-11 completed [facility] [address], [place], 644095148 [id number] Psychotherapy, 45 minutes with patient [id number] SNOMED-CT () 2017-03-27 completed [facility] [address], [place], 161005703 [phone] Psychotherapy, 45 minutes with patient [id number] SNOMED-CT () 2017-04-18 completed [facility] [address], [place], 931092605 [phone] Psychotherapy, 45 minutes with patient [id number] SNOMED-CT () 2016-07-29 completed [facility] [address], [place], 094826137 [id number] Psychotherapy, 45 minutes with patient [id number] SNOMED-CT () 2016-08-05 completed [facility] [address], [place], 352296638 [id number] Psychotherapy, 45 minutes with patient [id number] SNOMED-CT () 2016-08-13 completed [facility] [address], [place], 248506768 [id number] Psychotherapy, 45 minutes with patient [id number] SNOMED-CT () 2016-08-26 completed [facility] [address], [place], 050939628 [id number] Psychotherapy, 45 minutes with patient [id number] SNOMED-CT () 2016-09-03 completed [facility] [address], [place], 587605952 [id number] Psychotherapy, 45 minutes with patient [id number] SNOMED-CT () 2016-10-07 completed [facility] [address], [place], 869962309 [id number] Psychotherapy, 45 minutes with patient [id number] SNOMED-CT () 2016-05-21 completed [facility] [address], [place], 461011123 [id number] Psychotherapy, 45 minutes with patient [id number] SNOMED-CT () 2016-05-28 completed [facility] [address], [place], 142788969 [id number] Psychotherapy, 45 minutes with patient [id number] SNOMED-CT () 2016-06-18 completed [facility] [address], [place], 967186766 [id number] Psychotherapy, 45 minutes with patient [id number] SNOMED-CT () 2016-06-25 completed [facility] [address], [place], 612876917 [id number] Psychotherapy, 45 minutes with patient [id number] SNOMED-CT () 2016-07-02 completed [facility] [address], [place], 567851788 [id number] Psychotherapy, 45 minutes with patient [id number] SNOMED-CT () 2016-07-22 completed [facility] [address], [place], 807840053 [id number] Psychotherapy, 45 minutes with patient [id number] SNOMED-CT () 2016-04-04 completed [facility] [address], [place], 287948183 [id number] Psychotherapy, 45 minutes with patient [id number] SNOMED-CT () 2016-04-12 completed [facility] [address], [place], 042285549 [id number] Psychotherapy, 45 minutes with patient [id number] SNOMED-CT () 2016-04-17 completed [facility] [address], [place], 858885394 [id number] Psychotherapy, 45 minutes with patient [id number] SNOMED-CT () 2016-04-22 [facility] [address], [place], 343635904 [phone] Psychotherapy, 45 minutes with patient [id number] SNOMED-CT () 2016-04-30 completed [facility] [address], [place], 510589006 [id number] Psychotherapy, 45 minutes with patient [id number] SNOMED-CT () 2016-05-14 completed [facility] [address], [place], [id number] [phone] Initial Psychiatric Evaluation [id number] SNOMED-CT () 2016-03-02 completed [facility] [address], [place], [id number] [id number] Psychotherapy - Family&Client 1 hr 1 [id number] SNOMED-CT () 2018-01-30 completed [facility] [address], [place], [id number] [phone] Health Monitoring / Risk Reduction Counseling - [facility] ediate [id number] SNOMED-CT () 2016-02-28 completed [facility] [address] [place], [place], [id number] [phone] Est. Patient - E&M Intermediate [id number] SNOMED-CT () 2016-10-[address], [id number] [id number] Est. Patient - E&M Intermediate [id number] SNOMED-CT () 2017-02-[address], [id number] [phone] Est. Patient - E&M Intermediate [id number] SNOMED-CT () 2017-05-[address], [id number] [id number] Est. Patient - E&M Intermediate [id number] SNOMED-CT () 2017-06-[address], [id number] [phone] Est. Patient - E&M Intermediate [id number] SNOMED-CT () 2017-07-[address], [id number] [id number] Est. Patient - E&M Intermediate [id number] SNOMED-CT () 2017-08-[address], [id number] [phone] Est. Patient - E&M Intermediate [id number] SNOMED-CT () 2018-10-[address], [id number] [id number] Est. Patient - E&M Intermediate [id number] SNOMED-CT () 2019-06-[address], [id number] [id number] Est. Patient - E&M Intermediate [id number] SNOMED-CT () 2019-08-[address], [id number] [phone] Est. Patient - E&M Intermediate [id number] SNOMED-CT () 2019-09-[address], [id number] [phone] Est. Patient - E&M Intermediate [id number] SNOMED-CT () 2020-01-[address], [id number] [phone] Est. Patient - E&M Intermediate [id number] SNOMED-CT () 2018-02-[address], [id number] [phone] Est. Patient - E&M Intermediate [id number] SNOMED-CT () 2018-02-[address], [id number] [id number] Est. Patient - E&M Intermediate [id number] SNOMED-CT () 2018-03-[address], [id number] [phone] Est. Patient - E&M Intermediate [id number] SNOMED-CT () 2018-04-[address], [id number] [phone] Est. Patient - E&M Intermediate [id number] SNOMED-CT () 2018-05-[address], [id number] [phone] Est. Patient - E&M Intermediate [id number] SNOMED-CT () 2018-07-[address], [id number] [phone] Est. Patient - E&M Intermediate [id number] SNOMED-CT () 2017-09-[address], [id number] [phone] Est. Patient - E&M Intermediate [id number] SNOMED-CT () 2017-10-[address], [id number] [phone] Est. Patient - E&M Intermediate [id number] SNOMED-CT () 2017-11-[address], [id number] [id number] Est. Patient - E&M Intermediate [id number] SNOMED-CT () 2017-11-[address], [id number] [phone] Est. Patient - E&M Intermediate [id number] SNOMED-CT () 2017-12-[address], [id number] [phone] Est. Patient - E&M Intermediate [id number] SNOMED-CT () 2018-01-[address], [id number] [id number] Est. Patient - E&M Brief [id number] SNOMED-CT () 2016-04-[address], [id number] [id number] Est. Patient - E&M Brief [id number] SNOMED-CT () 2016-06-[address], [id number] [phone] Est. Patient - E&M Brief [id number] SNOMED-CT () 2016-08-[address], [id number] [id number] Est. Patient - E&M Brief [id number] SNOMED-CT () 2018-06-[address], [id number] [id number] Est. Patient - E&M Brief [id number] SNOMED-CT () 2018-12-[address], [id number] [id number] Est. Patient - E&M Brief [id number] SNOMED-CT () 2018-12-[address], [id number] [phone] Est. Patient - E&M Brief [id number] SNOMED-CT () 2019-12-09 completed [address] [address], [id number] Est. Patient - E&M Brief [id number] SNOMED-CT () 2019-12-[address], [id number] Est. Patient - E&M Brief [id number] SNOMED-CT () 2020-02-[address], [id number] Est. Patient - E&M Brief [id number] SNOMED-CT () 2020-04-[address], [id number] Est. Patient - E&M Brief [id number] SNOMED-CT () 2020-05-[address], [id number] Est. Patient - E&M Brief [id number] SNOMED-CT () 2019-01-[address], [id number] Est. Patient - E&M Brief [id number] SNOMED-CT () 2019-03-[address], [id number] Est. Patient - E&M Brief [id number] SNOMED-CT () 2019-04-[address], [id number] Est. Patient - E&M Brief [id number] SNOMED-CT () 2019-05-[address], [id number] Est. Patient - E&M Brief [id number] SNOMED-CT () 2019-10-[address], [id number] Est. Patient - E&M Brief [id number] SNOMED-CT () 2019-11-[address], [id number] Est. Patient - E&M Expanded [id number] SNOMED-CT () 2017-03-[address], [id number] [phone] Est. Patient - E&M Expanded [id number] SNOMED-CT () 2017-03-[address], [id number] Est. Patient - E&M Expanded [id number] SNOMED-CT () 2017-04-[address], [id number] Est. Patient - E&M Expanded [id number] SNOMED-CT () 2017-04-[address], [id number] Est. Patient - E&M Expanded [id number] SNOMED-CT () 2017-10-[address], [id number] [id number] Est. Patient - E&M Expanded [id number] SNOMED-CT () 2020-09-[address], [id number] Est. Patient - E&M Expanded [id number] SNOMED-CT () 2020-12-[address], [id number] [id number] Est. Patient - E&M Expanded [id number] SNOMED-CT () 2021-01-[address], [id number] [phone] Est. Patient - E&M Expanded [id number] SNOMED-CT () 2021-02-[address], [id number] [id number] Est. Patient - E&M Expanded [id number] SNOMED-CT () 2021-03-[address], [id number] [id number] Est. Patient - E&M Expanded [id number] SNOMED-CT () 2021-04-[address], [id number] Individual Psychotherapy [id number] SNOMED-CT () 2016-02-[address], [id number] Individual Psychotherapy [id number] SNOMED-CT () 2016-05-[address], [id number] Individual Psychotherapy [id number] SNOMED-CT () 2016-06-[address], [id number] Individual Psychotherapy [id number] SNOMED-CT () 2016-12-[address], [id number] [phone] Individual Psychotherapy [id number] SNOMED-CT () 2016-12-[address], [id number] Individual Psychotherapy [id number] SNOMED-CT () 2017-01-[address], [id number] Individual Psychotherapy [id number] SNOMED-CT () 2020-11-[address], [id number] Individual Psychotherapy [id number] SNOMED-CT () 2020-01-[address], [id number] [phone] Individual Psychotherapy [id number] SNOMED-CT () 2020-02-[address], [id number] Individual Psychotherapy [id number] SNOMED-CT () 2020-04-[address], [id number] [id number] Individual Psychotherapy [id number] SNOMED-CT () 2020-07-[address], [id number] [id number] Individual Psychotherapy [id number] SNOMED-CT () 2020-08-[address], [id number] Individual Psychotherapy [id number] SNOMED-CT () 2020-09-[address], [id number] [phone] Individual Psychotherapy [id number] SNOMED-CT () 2018-11-[address], [id number] [id number] Individual Psychotherapy [id number] SNOMED-CT () 2018-12-[address], [id number] [phone] Individual Psychotherapy [id number] SNOMED-CT () 2019-10-[address], [id number] Individual Psychotherapy [id number] SNOMED-CT () 2019-10-[address], [id number] [phone] Individual Psychotherapy [id number] SNOMED-CT () 2019-12-[address], [id number] Individual Psychotherapy [id number] SNOMED-CT () 2020-01-[address], [id number] Individual Psychotherapy [id number] SNOMED-CT () 2018-04-[address], [id number] Individual Psychotherapy [id number] SNOMED-CT () 2018-04-[address], [id number] [phone] Individual Psychotherapy [id number] SNOMED-CT () 2018-04-[address], [id number] Individual Psychotherapy [id number] SNOMED-CT () 2018-05-[address], [id number] [id number] Individual Psychotherapy [id number] SNOMED-CT () 2018-05-[address], [id number] Individual Psychotherapy [id number] SNOMED-CT () 2018-10-[address], [id number] Individual Psychotherapy [id number] SNOMED-CT () 2017-02-[address], [id number] [phone] Individual Psychotherapy [id number] SNOMED-CT () 2017-08-[address], [id number] Individual Psychotherapy [id number] SNOMED-CT () 2017-09-[address], [id number] [phone] Individual Psychotherapy [id number] SNOMED-CT () 2017-10-[address], [id number] Individual Psychotherapy [id number] SNOMED-CT () 2017-10-[address], [id number] [phone] Individual Psychotherapy [id number] SNOMED-CT () 2017-11-[address], [id number] [phone] Individual Psychotherapy [id number] SNOMED-CT () 2016-01-[address], [id number] [id number] Individual Psychotherapy [id number] SNOMED-CT () 2016-02-[address], [id number] Individual Psychotherapy [id number] SNOMED-CT () 2016-02-[address], [id number] Individual Psychotherapy [id number] SNOMED-CT () 2016-02-[address], [id number] Individual Psychotherapy [id number] SNOMED-CT () 2016-03-[address], [id number] Individual Psychotherapy [id number] SNOMED-CT () 2016-03-[address], [id number] [id number] Individual Psychotherapy [id number] SNOMED-CT () 2021-04-[address], [id number] [id number] Individual Psychotherapy [id number] SNOMED-CT () 2021-04-[address], [id number] [id number] Individual Psychotherapy [id number] SNOMED-CT () 2021-01-[address], [id number] [id number] Individual Psychotherapy [id number] SNOMED-CT () 2021-01-[address], [id number] [phone] Individual Psychotherapy [id number] SNOMED-CT () 2021-02-[address], [id number] Individual Psychotherapy [id number] SNOMED-CT () 2021-02-[address], [id number] Individual Psychotherapy [id number] SNOMED-CT () 2021-03-[address], [id number] Individual Psychotherapy [id number] SNOMED-CT () 2021-04-[address], [phone] Individual Psychotherapy [id number] SNOMED-CT () 2020-10-[address], [id number] Individual Psychotherapy [id number] SNOMED-CT () 2020-10-[address], [id number] [phone] Individual Psychotherapy [id number] SNOMED-CT () 2020-11-[address], [id number] [phone] Individual Psychotherapy [id number] SNOMED-CT () 2020-11-[address], [id number] Individual Psychotherapy [id number] SNOMED-CT () 2020-12-[address], [id number] Individual Psychotherapy [id number] SNOMED-CT () 2020-12-[address], [id number] Individual Psychotherapy [id number] SNOMED-CT () 2019-12-[address], [id number] Individual Psychotherapy [id number] SNOMED-CT () 2020-02-[address], [id number] Individual Psychotherapy [id number] SNOMED-CT () 2020-03-[address], [id number] [phone] Individual Psychotherapy [id number] SNOMED-CT () 2020-04-[address], [id number] Individual Psychotherapy [id number] SNOMED-CT () 2020-06-[address] [place], [id number] [id number] Individual Psychotherapy [id number] SNOMED-CT () 2020-09-[address], [id number] Individual Psychotherapy [id number] SNOMED-CT () 2019-07-[address], [id number] Individual Psychotherapy [id number] SNOMED-CT () 2019-08-[address], [id number] Individual Psychotherapy [id number] SNOMED-CT () 2019-08-[address], [id number] Individual Psychotherapy [id number] SNOMED-CT () 2019-09-[address], [id number] [id number] Individual Psychotherapy [id number] SNOMED-CT () 2019-09-[address], [id number] [id number] Individual Psychotherapy [id number] SNOMED-CT () 2019-11-[address], [id number] Individual Psychotherapy [id number] SNOMED-CT () 2019-04-[address], [id number] Individual Psychotherapy [id number] SNOMED-CT () 2019-04-[address], [id number] Individual Psychotherapy [id number] SNOMED-CT () 2019-04-[address], [id number] Individual Psychotherapy [id number] SNOMED-CT () 2019-05-[address], [id number] Individual Psychotherapy [id number] SNOMED-CT () 2019-06-[address], [id number] [id number] Individual Psychotherapy [id number] SNOMED-CT () 2019-07-[address], [id number] Individual Psychotherapy [id number] SNOMED-CT () 2019-02-[address], [id number] Individual Psychotherapy [id number] SNOMED-CT () 2019-02-[address], [id number] Individual Psychotherapy [id number] SNOMED-CT () 2019-02-[address], [id number] Individual Psychotherapy [id number] SNOMED-CT () 2019-03-[address], [id number] Individual Psychotherapy [id number] SNOMED-CT () 2019-03-[address], [id number] [id number] Individual Psychotherapy [id number] SNOMED-CT () 2019-03-[address], [id number] [id number] Individual Psychotherapy [id number] SNOMED-CT () 2018-12-[address], [id number] Individual Psychotherapy [id number] SNOMED-CT () 2018-12-[address], [id number] Individual Psychotherapy [id number] SNOMED-CT () 2018-12-[address], [id number] Individual Psychotherapy [id number] SNOMED-CT () 2019-01-[address], [id number] Individual Psychotherapy [id number] SNOMED-CT () 2019-01-[address], [id number] [id number] Individual Psychotherapy [id number] SNOMED-CT () 2019-01-[address], [id number] Individual Psychotherapy [id number] SNOMED-CT () 2018-10-[address], [id number] Individual Psychotherapy [id number] SNOMED-CT () 2018-10-[address], [id number] [id number] Individual Psychotherapy [id number] SNOMED-CT () 2018-10-[address], [id number] Individual Psychotherapy [id number] SNOMED-CT () 2018-11-[address], [id number] Individual Psychotherapy [id number] SNOMED-CT () 2018-11-[address], [id number] [id number] Individual Psychotherapy [id number] SNOMED-CT () 2018-12-[address], [id number] [id number] Individual Psychotherapy [id number] SNOMED-CT () 2018-06-[address], [id number] [id number] Individual Psychotherapy [id number] SNOMED-CT () 2018-06-[address], [id number] Individual Psychotherapy [id number] SNOMED-CT () 2018-07-[address], [id number] Individual Psychotherapy [id number] SNOMED-CT () 2018-07-[address], [id number] Individual Psychotherapy [id number] SNOMED-CT () 2018-07-[address], [id number] [id number] Individual Psychotherapy [id number] SNOMED-CT () 2018-08-[address], [id number] Individual Psychotherapy [id number] SNOMED-CT () 2018-01-[address], [id number] Individual Psychotherapy [id number] SNOMED-CT () 2018-02-[address], [id number] Individual Psychotherapy [id number] SNOMED-CT () 2018-03-[address], [id number] [id number] Individual Psychotherapy [id number] SNOMED-CT () 2018-03-[address], [id number] Individual Psychotherapy [id number] SNOMED-CT () 2018-04-[address], [id number] Individual Psychotherapy [id number] SNOMED-CT () 2018-05-[address], [id number] Individual Psychotherapy [id number] SNOMED-CT () 2017-09-[address], [id number] Individual Psychotherapy [id number] SNOMED-CT () 2017-11-[address], [id number] Individual Psychotherapy [id number] SNOMED-CT () 2017-12-[address], [id number] [id number] Individual Psychotherapy [id number] SNOMED-CT () 2017-12-[address], [id number] Individual Psychotherapy [id number] SNOMED-CT () 2017-12-[address], [id number] Individual Psychotherapy [id number] SNOMED-CT () 2017-12-[address], [id number] Individual Psychotherapy [id number] SNOMED-CT () 2017-06-[address], [id number] Individual Psychotherapy [id number] SNOMED-CT () 2017-07-[address], [id number] [id number] Individual Psychotherapy [id number] SNOMED-CT () 2017-07-[address], [id number] Individual Psychotherapy [id number] SNOMED-CT () 2017-07-[address], [id number] Individual Psychotherapy [id number] SNOMED-CT () 2017-08-[address], [id number] Individual Psychotherapy [id number] SNOMED-CT () 2017-09-[address], [id number] Individual Psychotherapy [id number] SNOMED-CT () 2017-05-[address], [id number] Individual Psychotherapy [id number] SNOMED-CT () 2017-05-[address], [id number] Individual Psychotherapy [id number] SNOMED-CT () 2017-05-[address], [id number] Individual Psychotherapy [id number] SNOMED-CT () 2017-05-[address], [id number] Individual Psychotherapy [id number] SNOMED-CT () 2017-06-[address], [id number] Individual Psychotherapy [id number] SNOMED-CT () 2017-06-[address], [id number] [id number] Individual Psychotherapy [id number] SNOMED-CT () 2017-01-[address], [id number] Individual Psychotherapy [id number] SNOMED-CT () 2017-01-[address], [id number] Individual Psychotherapy [id number] SNOMED-CT () 2017-02-[address], [id number] [id number] Individual Psychotherapy [id number] SNOMED-CT () 2017-03-[address], [id number] Individual Psychotherapy [id number] SNOMED-CT () 2017-03-[address], [id number] Individual Psychotherapy [id number] SNOMED-CT () 2017-04-[address], [id number] Individual Psychotherapy [id number] SNOMED-CT () 2016-07-[address], [id number] Individual Psychotherapy [id number] SNOMED-CT () 2016-08-[address], [id number] Individual Psychotherapy [id number] SNOMED-CT () 2016-08-[address], [id number] [id number] Individual Psychotherapy [id number] SNOMED-CT () 2016-08-[address], [id number] Individual Psychotherapy [id number] SNOMED-CT () 2016-09-[address], [id number] Individual Psychotherapy [id number] SNOMED-CT () 2016-10-[address], [id number] Individual Psychotherapy 84805104 SNOMED-CT () 2016-05-[address], [id number] Individual Psychotherapy [id number] SNOMED-CT () 2016-05-[address], [id number] [phone] Individual Psychotherapy [id number] SNOMED-CT () 2016-06-[address], [id number] Individual Psychotherapy 51884154 SNOMED-CT () 2016-06-[address], [id number] Individual Psychotherapy [id number] SNOMED-CT () 2016-07-[address], [id number] Individual Psychotherapy [id number] SNOMED-CT () 2016-07-[address], [id number] Individual Psychotherapy [id number] SNOMED-CT () 2016-04-[address], [id number] Individual Psychotherapy [id number] SNOMED-CT () 2016-04-[address], [id number] Individual Psychotherapy [id number] SNOMED-CT () 2016-04-[address], [id number] Individual Psychotherapy [id number] SNOMED-CT () 2016-04-[address], [id number] [id number] Individual Psychotherapy [id number] SNOMED-CT () 2016-04-[address], [id number] [id number] Individual Psychotherapy [id number] SNOMED-CT () 2016-05-[address], [id number] [id number] Psychiatric Diagnostic Evaluation without medical serv ices [id number] SNOMED-CT () 2016-01-[address], [id number] [id number] Psychiatric Diagnostic Evaluation without medical serv ices [id number] SNOMED-CT () 2016-01-[address], [id number] SNOMED-CT () 2020-12-[address], [id number] SNOMED-CT () 2020-10-[address], [id number] SNOMED-CT () 2020-09-[address], [id number] SNOMED-CT () 2020-11-[address], [id number] SNOMED-CT () 2020-09-[address], [id number] SNOMED-CT () 2020-07-[address], [id number] SNOMED-CT () 2020-12-[address], [id number] SNOMED-CT () 2020-11-[address], [id number] SNOMED-CT () 2020-08-[address], [id number] SNOMED-CT () 2020-11-[address], [id number] SNOMED-CT () 2020-10-[address], [id number] SNOMED-CT () 2016-07-[address], [id number] Encounters/Encounter Diagnoses Encounter Name Encounter Code Diagnosis Code Diagnosis Name Diagnosis CodeSystem Date of Diagnosis Service Delivery ocation Telehealth Physchotherapy 30 Minutes with Patient 08725 [id number] Recurrent depressive disord er, current episode severe without psychotic symptoms SNOMED-CT 2021-04-16 [facility] [address] [place] [address], [id number] Vital Signs Code CodeSystem Vitals Date Value 16520-1 LOINC BMI 2019-09-16 36.63 (lb/in2) 8867-4 LOINC Heart Rate 2019-09-16 75 /min 8302-2 LOINC Height 2019-09-16 70.5 [in_i] 71749-5 LOINC Weight 2019-09-16 259 [lb_av] 8462-4 [employer] Blood Press ure-Diastolic 2019-09-16 130 mm[HG] 8480-6 [employer] Blood Press ure-Systolic 2019-09-16 90 mm[HG] Social History Element Description Description Start Date End Date Code CodeSystem AdditionalInfo SexAssignedAtBirth Male 1970 M AdministrativeGender Hospital Discharge Instructions * Reason For Referral Medical Equipment * FDA Assessments * Goals Section Goals Planned DateTime Subhash's mood will be stable. 2016-02 Subhash will increase health awareness and make healthy lifestyle choices. 2017-08-19
--- OUTSIDE RECORDS SUMMARY | 2021-05-23 10:16 | CCD ---
Author Author Subhash Sousa Organization [facility] Address Unknown Phone Unavailable Care Team Providers Care Movement Education Specialist Name Role Phone Alina Sousa PCP Unavailable Allergies, Adverse Reactions, Alerts Allergy Substance Code C odeSystem Reaction Severity Critic ality Status Start Date Xerontin unspecified Moderate Active Dilantin unspecified Moderate Active Escitalopram unspecified Moderate Active Medications Medication Medication Code Medication CodeSystem Start Date Stop Date Route Dose Status Fill Instructions [facility] [id number] [facility] [place] [facility] 2019-06-15 or al 75 mg tablet completed for 30 day(s) Abilify [id number] RxNorm 2017-12-23 2018-02-03 oral 2 mg tablet completed for 30 day(s) Cymbalta [id number] RxNorm 2021-01-05 2021-03-06 oral 60 mg capsule,delayed release(DR/EC) active for 30 day(s) clonidine HCl [id number] Rx or 2017-07-16 2017-09-30 or al 0.1 mg tablet completed Rexulti [id number] RxNorm 2018-12-04 2019-01-03 oral 0.5 mg tablet completed for 30 day(s) trazodone 592104 RxNorm 2017-04-08 2017-04-23 oral 50 mg tablet completed for 30 day(s) Effexor XR 164479 RxNorm 2017-02-04 2017-02-04 oral 37.5 mg capsule,extended release 24hr completed Minipress [id number] RxNorm 2017-03-11 2017-04-04 oral 1 mg capsule completed for 30 day(s) Rexulti [id number] RxNorm 2019-09-30 2019-10-28 oral 0.25 mg tablet completed for 30 day(s) Lamictal 042545 [facility] 2016-06-08 2016-07-08 oral 25 mg 1 tablet once a day completed Take 1 tablet by mouth once a day for 30 day(s) bupropion HCl [id number] [facility] 2020-04-19 2020-06-18 or al 75 mg tablet completed for 30 day(s) [facility] 782597 [facility] [place] 2019-08[facility]06 2019-12-27 or al 75 mg tablet completed for 30 day(s) Seroquel 522519 [facility] 2017-04-04 2017-04-08 oral 50 mg tablet completed for 30 day(s) Cymbalta 171134 [facility] 2021-01-17 2021-03-18 oral 20 mg capsule,delayed release(DR/EC) active for 30 day(s) clonidine HCl 767386 [facility] 2017-05-21 2017-06-20 or al 0.1 mg tablet completed for 30 day(s) bupropion HCl 739776 [facility] 2017-09-04 2017-10-08 or al 75 mg tablet completed for 30 day(s) bupropion HCl 848040 [facility] 2018-05-21 2018-09-28 or al 75 mg tablet completed for 30 day(s) Abilify 948374 [facility] 2018-03-24 2018-04-23 oral 5 mg tablet completed for 30 day(s) venlafaxine 741997 [facility] 2017-02-04 2017-03-04 oral 37.5 mg tablet completed venlafaxine 503617 [facility] 2017-02-04 2017-04-04 oral 75 mg 1 tablet at bedtime completed Take 1 tablet by mouth at bedtime for 30 day(s) bupropion HCl 731476 [facility] 2019-06-25 2019-07-19 or al 75 mg tablet completed for 30 day(s) Minipress 590532 [facility] 2017-04-04 2017-04-23 oral 2 mg capsule completed for 30 day(s) olanzapine 727137 [facility] 2016-06-21 2016-07-21 oral 2.5 mg tablet completed for 30 day(s) Abilify 768139 [facility] 2018-02-03 2018-03-24 oral 5 mg tablet completed bupropion HCl 971235 [facility] 2017-04-23 2017-05-21 or al 75 mg tablet completed for 30 day(s) Rexulti 2374969 RxNo 2019-10-28 2019-12-27 oral 0.5 mg tablet completed for 60 day(s) [facility] 2016-06-21 oral 10 mg capsule completed for 30 day(s) bupropion HCl 523076 Rx or 2017-10-08 2018-03-24 or al 75 mg tablet completed for 30 day(s) Remeron 534259 RxNo 2017-11-04 2017-12-23 oral 15 mg tablet completed bupropion HCl 854614 Rx or 2018-10-01 2018-11-30 or al 75 mg tablet completed for 30 day(s) bupropion HCl 470283 Rx or 2020-01-17 2020-04-19 or al 75 mg tablet completed for 30 day(s) [id number] [facility] 2019-01-28 2019-05-09 oral 0.5 mg tablet completed for 30 day(s) [facility] 576052 [facility] [place] 2017-05-21 2017-08-28 or al 100 mg tablet completed for 30 day(s) clonidine HCl [id number] Rx or 2017-09-30 2017-11-25 or al 0.2 mg tablet completed Wellbutrin SR [id number] Rx or 2017-08-28 2017-09-04 or al 150 mg tablet extended release 12 hr completed [facility] 751697 [facility] 2019-11-25 2019-12-25 oral 25 mg tablet completed for 30 day(s) bupropion HCl 566617 [facility] 2018-03-24 2018-05-21 or al 75 mg tablet completed for 30 day(s) buspirone 143239 RxNo 2017-09-30 2017-10-08 oral 5 mg tablet completed for 30 day(s) Problems Problem Name Code CodeSy stem Alternate Code Alternate CodeSystem Start Date End Date Status Narrative Alcohol dependence, uncomplicated 7 [id number] SNOMED-CT 2016-01-31 Completed Recurrent depressive disorder, current episode severe without psychotic symptoms [id number] SNOMED-CT 2016-01-31 Active Adjustment disorder with mixed anxiety and depressed mood [id number] SNOMED-CT 2016-03-02 Completed Generalized anxiety disorder [id number] SNOMED-CT 2016-01-31 Active Relevant diagnostic tests/laboratory data Narrative No Information Procedures Procedure Name Code Code System Target Site Date of Procedure Status Service Delivery Location Device Cod e Device Name Device UID Psychotherapy, 45 minutes with patient [id number] SNOMED-CT () 2016-01-31 completed [facility] [address], [place], [id number] Psychotherapy, 45 minutes with patient [id number] SNOMED-CT () 2016-02-07 completed [facility] [address], [place], [id number] [id number] Psychotherapy, 45 minutes with patient [id number] SNOMED-CT () 2016-02-21 completed [facility] [address], [place], [id number] Psychotherapy, 45 minutes with patient [id number] SNOMED-CT () 2016-02-28 completed [facility] [address], [place], [id number] Psychotherapy, 45 minutes with patient [id number] SNOMED-CT () 2016-03-06 completed [facility] [address], [place], [id number] Psychotherapy, 45 minutes with patient [id number] SNOMED-CT () 2016-03-21 completed [facility] [address], [place], [id number] Psychotherapy, 45 minutes with patient [id number] SNOMED-CT () 2021-01-01 completed [facility] [address], [place], [id number] Psychotherapy, 45 minutes with patient [id number] SNOMED-CT () 2021-01-17 completed [facility] [address], [place], [id number] [id number] Psychotherapy, 45 minutes with patient [id number] SNOMED-CT () 2021-02-07 completed [facility] [address], [place], [id number] Psychotherapy, 45 minutes with patient [id number] SNOMED-CT () 2020-10-02 completed [facility] [address], [place], [id number] [id number] Psychotherapy, 45 minutes with patient [id number] SNOMED-CT () 2020-10-16 completed [facility] [address], [place], [id number] Psychotherapy, 45 minutes with patient [id number] SNOMED-CT () 2020-11-02 completed [facility] [address], [place], [id number] [id number] Psychotherapy, 45 minutes with patient [id number] SNOMED-CT () 2020-11-29 completed [facility] [address], [place], [id number] Psychotherapy, 45 minutes with patient [id number] SNOMED-CT () 2020-12-13 completed [facility] [address], [place], [id number] Psychotherapy, 45 minutes with patient [id number] SNOMED-CT () 2020-12-27 completed [facility] [address], [place], [id number] Psychotherapy, 45 minutes with patient [id number] SNOMED-CT () 2019-12-21 completed [facility] [address], [place], [id number] Psychotherapy, 45 minutes with patient [id number] SNOMED-CT () 2020-02-16 completed [facility] [address], [place], [id number] [id number] Psychotherapy, 45 minutes with patient [id number] SNOMED-CT () 2020-03-08 completed [facility] [address], [place], [id number] [id number] Psychotherapy, 45 minutes with patient [id number] SNOMED-CT () 2020-04-05 completed [facility] [address], [place], [id number] [id number] Psychotherapy, 45 minutes with patient [id number] SNOMED-CT () 2020-06-05 completed [facility] [address], [place], [id number] Psychotherapy, 45 minutes with patient [id number] SNOMED-CT () 2020-09-07 completed [facility] [address], [place], [id number] Psychotherapy, 45 minutes with patient [id number] SNOMED-CT () 2019-07-22 completed [facility] [address], [place], [id number] Psychotherapy, 45 minutes with patient [id number] SNOMED-CT () 2019-08-05 completed [facility] [address], [place], [id number] [id number] Psychotherapy, 45 minutes with patient [id number] SNOMED-CT () 2019-08-19 completed [facility] [address], [place], [id number] Psychotherapy, 45 minutes with patient [id number] SNOMED-CT () 2019-09-16 completed [facility] [address], [place], [id number] Psychotherapy, 45 minutes with patient [id number] SNOMED-CT () 2019-09-30 completed [facility] [address], [place], 599012469 [id number] Psychotherapy, 45 minutes with patient [id number] SNOMED-CT () 2019-11-12 completed [facility] [address], [place], [id number] Psychotherapy, 45 minutes with patient [id number] SNOMED-CT () 2019-04-01 completed [facility] [address], [place], [id number] Psychotherapy, 45 minutes with patient [id number] SNOMED-CT () 2019-04-16 completed [facility] [address], [place], [id number] Psychotherapy, 45 minutes with patient [id number] SNOMED-CT () 2019-04-22 completed [facility] [address], [place], [id number] [id number] Psychotherapy, 45 minutes with patient [id number] SNOMED-CT () 2019-05-20 completed [facility] [address], [place], [id number] Psychotherapy, 45 minutes with patient [id number] SNOMED-CT () 2019-06-02 completed [facility] [address], [place], [id number] Psychotherapy, 45 minutes with patient [id number] SNOMED-CT () 2019-07-01 completed [facility] [address], [place], [id number] [id number] Psychotherapy, 45 minutes with patient [id number] SNOMED-CT () 2019-02-11 completed [facility] [address], [place], [id number] Psychotherapy, 45 minutes with patient [id number] SNOMED-CT () 2019-02-18 completed [facility] [address], [place], 664557379 [id number] Psychotherapy, 45 minutes with patient [id number] SNOMED-CT () 2019-02-25 completed [facility] [address], [place], 608164571 [id number] Psychotherapy, 45 minutes with patient [id number] SNOMED-CT () 2019-03-04 completed [facility] [address], [place], 895993763 [id number] Psychotherapy, 45 minutes with patient [id number] SNOMED-CT () 2019-03-11 completed [facility] [address], [place], 477391551 [id number] Psychotherapy, 45 minutes with patient [id number] SNOMED-CT () 2019-03-25 completed [facility] [address], [place], 773949086 [id number] Psychotherapy, 45 minutes with patient [id number] SNOMED-CT () 2018-12-08 completed [facility] [address], [place], [id number] Psychotherapy, 45 minutes with patient [id number] SNOMED-CT () 2018-12-15 completed [facility] [address], [place], 588648863 [id number] Psychotherapy, 45 minutes with patient [id number] SNOMED-CT () 2018-12-24 completed [facility] [address], [place], 514175909 [id number] Psychotherapy, 45 minutes with patient [id number] SNOMED-CT () 2019-01-14 completed [facility] [address], [place], 679745836 [id number] Psychotherapy, 45 minutes with patient [id number] SNOMED-CT () 2019-01-21 completed [facility] [address], [place], 949572980 [id number] Psychotherapy, 45 minutes with patient [id number] SNOMED-CT () 2019-01-28 completed [facility] [address], [place], 351200630 [id number] Psychotherapy, 45 minutes with patient [id number] SNOMED-CT () 2018-10-01 completed [facility] [address], [place], [id number] Psychotherapy, 45 minutes with patient [id number] SNOMED-CT () 2018-10-16 completed [facility] [address], [place], 962557176 [id number] Psychotherapy, 45 minutes with patient [id number] SNOMED-CT () 2018-10-22 completed [facility] [address], [place], 775052221 [id number] Psychotherapy, 45 minutes with patient [id number] SNOMED-CT () 2018-11-26 completed [facility] [address], [place], 291780136 [id number] Psychotherapy, 45 minutes with patient [id number] SNOMED-CT () 2018-11-19 completed [facility] [address], [place], [id number] [id number] Psychotherapy, 45 minutes with patient [id number] SNOMED-CT () 2018-12-03 completed [facility] [address], [place], [id number] Psychotherapy, 45 minutes with patient [id number] SNOMED-CT () 2018-06-16 completed [facility] [address], [place], [id number] Psychotherapy, 45 minutes with patient [id number] SNOMED-CT () 2018-06-25 completed [facility] [address], [place], [id number] Psychotherapy, 45 minutes with patient [id number] SNOMED-CT () 2018-07-10 completed [facility] [address], [place], [id number] [id number] Psychotherapy, 45 minutes with patient [id number] SNOMED-CT () 2018-07-23 completed [facility] [address], [place], 762420158 [id number] Psychotherapy, 45 minutes with patient [id number] SNOMED-CT () 2018-07-30 completed [facility] [address], [place], 230840072 [id number] Psychotherapy, 45 minutes with patient [id number] SNOMED-CT () 2018-08-20 completed [facility] [address], [place], [id number] [id number] Psychotherapy, 45 minutes with patient [id number] SNOMED-CT () 2018-01-16 completed [facility] [address], [place], 467375581 [id number] Psychotherapy, 45 minutes with patient [id number] SNOMED-CT () 2018-02-13 completed [facility] [address], [place], [id number] Psychotherapy, 45 minutes with patient [id number] SNOMED-CT () 2018-03-13 completed [facility] [address], [place], [id number] Psychotherapy, 45 minutes with patient [id number] SNOMED-CT () 2018-03-24 completed [facility] [address], [place], [id number] [id number] Psychotherapy, 45 minutes with patient [id number] SNOMED-CT () 2018-04-17 completed [facility] [address], [place], 073347284 [id number] Psychotherapy, 45 minutes with patient [id number] SNOMED-CT () 2018-05-13 completed [facility] [address], [place], [id number] Psychotherapy, 45 minutes with patient [id number] SNOMED-CT () 2017-09-15 completed [facility] [address], [place], [id number] Psychotherapy, 45 minutes with patient [id number] SNOMED-CT () 2017-11-28 completed [facility] [address], [place], 137831539 [id number] Psychotherapy, 45 minutes with patient [id number] SNOMED-CT () 2017-12-02 completed [facility] [address], [place], [id number] Psychotherapy, 45 minutes with patient [id number] SNOMED-CT () 2017-12-08 completed [facility] [address], [place], [id number] Psychotherapy, 45 minutes with patient [id number] SNOMED-CT () 2017-12-15 completed [facility] [address], [place], [id number] Psychotherapy, 45 minutes with patient [id number] SNOMED-CT () 2017-12-24 completed [facility] [address], [place], 868931262 [id number] Psychotherapy, 45 minutes with patient [id number] SNOMED-CT () 2017-06-16 completed [facility] [address], [place], [id number] Psychotherapy, 45 minutes with patient [id number] SNOMED-CT () 2017-07-17 completed [facility] [address], [place], [id number] [id number] Psychotherapy, 45 minutes with patient [id number] SNOMED-CT () 2017-07-21 completed [facility] [address], [place], [id number] [id number] Psychotherapy, 45 minutes with patient [id number] SNOMED-CT () 2017-07-28 completed [facility] [address], [place], 429595083 [id number] Psychotherapy, 45 minutes with patient [id number] SNOMED-CT () 2017-08-26 completed [facility] [address], [place], 770288916 [id number] Psychotherapy, 45 minutes with patient [id number] SNOMED-CT () 2017-09-04 completed [facility] [address], [place], [id number] [id number] Psychotherapy, 45 minutes with patient [id number] SNOMED-CT () 2017-05-02 completed [facility] [address], [place], [id number] [id number] Psychotherapy, 45 minutes with patient [id number] SNOMED-CT () 2017-05-14 completed [facility] [address], [place], [id number] [id number] Psychotherapy, 45 minutes with patient [id number] SNOMED-CT () 2017-05-20 completed [facility] [address], [place], [id number] Psychotherapy, 45 minutes with patient [id number] SNOMED-CT () 2017-05-30 completed [facility] [address], [place], [id number] Psychotherapy, 45 minutes with patient [id number] SNOMED-CT () 2017-06-02 completed [facility] [address], [place], [id number] Psychotherapy, 45 minutes with patient [id number] SNOMED-CT () 2017-06-09 completed [facility] [address], [place], [id number] [id number] Psychotherapy, 45 minutes with patient [id number] SNOMED-CT () 2017-01-08 completed [facility] [address], [place], 614143489 [id number] Psychotherapy, 45 minutes with patient [id number] SNOMED-CT () 2017-01-27 completed [facility] [address], [place], 950578270 [id number] Psychotherapy, 45 minutes with patient [id number] SNOMED-CT () 2017-02-21 completed [facility] [address], [place], [id number] Psychotherapy, 45 minutes with patient [id number] SNOMED-CT () 2017-03-11 completed [facility] [address], [place], [id number] Psychotherapy, 45 minutes with patient [id number] SNOMED-CT () 2017-03-27 completed [facility] [address], [place], [id number] [id number] Psychotherapy, 45 minutes with patient [id number] SNOMED-CT () 2017-04-18 completed [facility] [address], [place], 759011638 [id number] Psychotherapy, 45 minutes with patient [id number] SNOMED-CT () 2016-07-29 [facility] [address], [place], [id number] Psychotherapy, 45 minutes with patient [id number] SNOMED-CT () 2016-08-05 completed [facility] [address], [place], 839627765 [id number] Psychotherapy, 45 minutes with patient [id number] SNOMED-CT () 2016-08-13 completed [facility] [address], [place], [id number] [id number] Psychotherapy, 45 minutes with patient [id number] SNOMED-CT () 2016-08-26 completed [facility] [address], [place], 324013451 [id number] Psychotherapy, 45 minutes with patient [id number] SNOMED-CT () 2016-09-03 completed [facility] [address], [place], [id number] [id number] Psychotherapy, 45 minutes with patient [id number] SNOMED-CT () 2016-10-07 completed [facility] [address], [place], [id number] [id number] Psychotherapy, 45 minutes with patient [id number] SNOMED-CT () 2016-05-21 completed [facility] [address], [place], 467233157 [id number] Psychotherapy, 45 minutes with patient [id number] SNOMED-CT () 2016-05-28 completed [facility] [address], [place], 444661569 [id number] Psychotherapy, 45 minutes with patient [id number] SNOMED-CT () 2016-06-18 completed [facility] [address], [place], 624369954 [id number] Psychotherapy, 45 minutes with patient [id number] SNOMED-CT () 2016-06-25 completed [facility] [address], [place], 164167710 [id number] Psychotherapy, 45 minutes with patient [id number] SNOMED-CT () 2016-07-02 completed [facility] [address], [place], 480641212 [id number] Psychotherapy, 45 minutes with patient [id number] SNOMED-CT () 2016-07-22 completed [facility] [address], [place], 621303524 [id number] Psychotherapy, 45 minutes with patient [id number] SNOMED-CT () 2016-04-04 completed [facility] [address], [place], [id number] [id number] Psychotherapy, 45 minutes with patient [id number] SNOMED-CT () 2016-04-12 completed [facility] [address], [place], 978605397 [id number] Psychotherapy, 45 minutes with patient [id number] SNOMED-CT () 2016-04-17 completed [facility] [address], [place], 385662920 [id number] Psychotherapy, 45 minutes with patient [id number] SNOMED-CT () 2016-04-22 completed [facility] [address], [place], 526551643 [id number] Psychotherapy, 45 minutes with patient [id number] SNOMED-CT () 2016-04-30 completed [facility] [address] [place], [place], [id number] [id number] Psychotherapy, 45 minutes with patient [id number] SNOMED-CT () 2016-05-14 completed [facility] [address] [place], [place], [id number] [id number] Initial Psychiatric Evaluation [id number] SNOMED-CT () 2016-03-02 completed [facility] [address] [place], [place], 237760734 [id number] Psychotherapy - Family&Client 1 hr 1 [id number] SNOMED-CT () 2018-01-[address], [id number] [id number] Health Monitoring / Risk Reduction Counseling - [facility] [id number] SNOMED-CT () 2016-02-28 completed [facility] [address] [place], [place], [id number] [id number] Est. Patient - E&M Intermediate [id number] SNOMED-CT () 2016-10-01 completed [facility] [address] [place], [place], [id number] [id number] Est. Patient - E&M Intermediate [id number] SNOMED-CT () 2017-02-04 completed [facility] [address] [place], [place], 545266099 [phone] Est. Patient - E&M Intermediate [id number] SNOMED-CT () 2017-05-[address], [id number] [id number] Est. Patient - E&M Intermediate [id number] SNOMED-CT () 2017-06-18 completed [facility] [address] [place], [place], 385892362 [phone] Est. Patient - E&M Intermediate [id number] SNOMED-CT () 2017-07-16 completed [facility] [address] [place], [place], 705164883 [phone] Est. Patient - E&M Intermediate [id number] SNOMED-CT () 2017-08-[address], [id number] [id number] Est. Patient - E&M Intermediate [id number] SNOMED-CT () 2018-10-[address], [id number] [id number] Est. Patient - E&M Intermediate [id number] SNOMED-CT () 2019-06-[address], [id number] [id number] Est. Patient - E&M Intermediate [id number] SNOMED-CT () 2019-08-[address], [id number] [id number] Est. Patient - E&M Intermediate [id number] SNOMED-CT () 2019-09-[address], [id number] [id number] Est. Patient - E&M Intermediate [id number] SNOMED-CT () 2020-01-[address], [id number] [id number] Est. Patient - E&M Intermediate [id number] SNOMED-CT () 2018-02-[address], [id number] [id number] Est. Patient - E&M Intermediate [id number] SNOMED-CT () 2018-02-[address], [id number] [id number] Est. Patient - E&M Intermediate [id number] SNOMED-CT () 2018-03-[address], [id number] [id number] Est. Patient - E&M Intermediate [id number] SNOMED-CT () 2018-04-[address], [id number] [id number] Est. Patient - E&M Intermediate [id number] SNOMED-CT () 2018-05-[address], [id number] [id number] Est. Patient - E&M Intermediate [id number] SNOMED-CT () 2018-07-[address], [id number] [id number] Est. Patient - E&M Intermediate [id number] SNOMED-CT () 2017-09-[address], [id number] [phone] Est. Patient - E&M Intermediate [id number] SNOMED-CT () 2017-10-[address], [id number] [id number] Est. Patient - E&M Intermediate [id number] SNOMED-CT () 2017-11-[address], [id number] [id number] Est. Patient - E&M Intermediate [id number] SNOMED-CT () 2017-11-[address], [id number] Est. Patient - E&M Intermediate [id number] SNOMED-CT () 2017-12-[address], [id number] [phone] Est. Patient - E&M Intermediate [id number] SNOMED-CT () 2018-01-[address], [id number] [id number] Est. Patient - E&M Brief [id number] SNOMED-CT () 2016-04-[address], [id number] [phone] Est. Patient - E&M Brief [id number] SNOMED-CT () 2016-06-[address], [id number] [id number] Est. Patient - E&M Brief [id number] SNOMED-CT () 2016-08-[address], [id number] Est. Patient - E&M Brief [id number] SNOMED-CT () 2018-06-[address], [id number] [id number] Est. Patient - E&M Brief [id number] SNOMED-CT () 2018-12-[address], [id number] [id number] Est. Patient - E&M Brief [id number] SNOMED-CT () 2018-12-[address] [place], [id number] [phone] Est. Patient - E&M Brief [id number] SNOMED-CT () 2019-12-[address], [id number] [phone] Est. Patient - E&M Brief [id number] SNOMED-CT () 2019-12-[address], [id number] [id number] Est. Patient - E&M Brief [id number] SNOMED-CT () 2020-02-[address], [id number] [id number] Est. Patient - E&M Brief [id number] SNOMED-CT () 2020-04-[address], [id number] [id number] Est. Patient - E&M Brief [id number] SNOMED-CT () 2020-05-[address], [id number] [id number] Est. Patient - E&M Brief [id number] SNOMED-CT () 2019-01-[address], [id number] [id number] Est. Patient - E&M Brief [id number] SNOMED-CT () 2019-03-[address], [id number] [phone] Est. Patient - E&M Brief [id number] SNOMED-CT () 2019-04-[address], [id number] [id number] Est. Patient - E&M Brief [id number] SNOMED-CT () 2019-05-[address], [id number] [id number] Est. Patient - E&M Brief [id number] SNOMED-CT () 2019-10-[address], [id number] Est. Patient - E&M Brief [id number] SNOMED-CT () 2019-11-[address], [id number] [id number] Est. Patient - E&M Expanded [id number] SNOMED-CT () 2017-03-[address], [id number] [phone] Est. Patient - E&M Expanded [id number] SNOMED-CT () 2017-03-[address], [id number] Est. Patient - E&M Expanded [id number] SNOMED-CT () 2017-04-[address], [id number] Est. Patient - E&M Expanded [id number] SNOMED-CT () 2017-04-[address], [id number] Est. Patient - E&M Expanded [id number] SNOMED-CT () 2017-10-[address], [id number] Est. Patient - E&M Expanded [id number] SNOMED-CT () 2020-09-[address], [id number] Est. Patient - E&M Expanded [id number] SNOMED-CT () 2020-12-[address], [id number] Est. Patient - E&M Expanded [id number] SNOMED-CT () 2021-01-[address], [id number] Est. Patient - E&M Expanded [id number] SNOMED-CT () 2021-02-[address], [id number] Individual Psychotherapy [id number] SNOMED-CT () 2016-02-[address], [id number] Individual Psychotherapy [id number] SNOMED-CT () 2016-05-[address], [id number] Individual Psychotherapy [id number] SNOMED-CT () 2016-06-[address], [id number] Individual Psychotherapy [id number] SNOMED-CT () 2016-12-[address], [id number] Individual Psychotherapy [id number] SNOMED-CT () 2016-12-[address], [id number] Individual Psychotherapy [id number] SNOMED-CT () 2017-01-[address], [id number] Individual Psychotherapy [id number] SNOMED-CT () 2020-11-[address], [id number] Individual Psychotherapy [id number] SNOMED-CT () 2020-01-[address], [id number] Individual Psychotherapy [id number] SNOMED-CT () 2020-02-[address], [id number] Individual Psychotherapy [id number] SNOMED-CT () 2020-04-[address], [id number] Individual Psychotherapy [id number] SNOMED-CT () 2020-07-[address], [id number] Individual Psychotherapy [id number] SNOMED-CT () 2020-08-[address], [id number] Individual Psychotherapy [id number] SNOMED-CT () 2020-09-[address], [id number] Individual Psychotherapy [id number] SNOMED-CT () 2018-11-[address], [id number] Individual Psychotherapy [id number] SNOMED-CT () 2018-12-[address], [id number] Individual Psychotherapy [id number] SNOMED-CT () 2019-10-[address], [id number] Individual Psychotherapy [id number] SNOMED-CT () 2019-10-[address], [id number] Individual Psychotherapy [id number] SNOMED-CT () 2019-12-[address], [id number] Individual Psychotherapy [id number] SNOMED-CT () 2020-01-[address], [id number] Individual Psychotherapy [id number] SNOMED-CT () 2018-04-[address], [id number] Individual Psychotherapy [id number] SNOMED-CT () 2018-04-[address], [id number] Individual Psychotherapy [id number] SNOMED-CT () 2018-04-[address], [id number] Individual Psychotherapy [id number] SNOMED-CT () 2018-05-[address], [id number] Individual Psychotherapy [id number] SNOMED-CT () 2018-05-[address], [id number] Individual Psychotherapy [id number] SNOMED-CT () 2018-10-[address], [id number] Individual Psychotherapy [id number] SNOMED-CT () 2017-02-[address], [id number] Individual Psychotherapy [id number] SNOMED-CT () 2017-08-[address], [id number] Individual Psychotherapy [id number] SNOMED-CT () 2017-09-[address] [place], [id number] Individual Psychotherapy [id number] SNOMED-CT () 2017-10-[address], [id number] Individual Psychotherapy [id number] SNOMED-CT () 2017-10-[address], [id number] Individual Psychotherapy [id number] SNOMED-CT () 2017-11-[address], [id number] Individual Psychotherapy [id number] SNOMED-CT () 2016-01-[address], [id number] Individual Psychotherapy [id number] SNOMED-CT () 2016-02-[address], [id number] Individual Psychotherapy [id number] SNOMED-CT () 2016-02-[address], [id number] Individual Psychotherapy [id number] SNOMED-CT () 2016-02-[address], [id number] Individual Psychotherapy [id number] SNOMED-CT () 2016-03-[address], [id number] Individual Psychotherapy [id number] SNOMED-CT () 2016-03-[address], [id number] Individual Psychotherapy [id number] SNOMED-CT () 2021-01-[address], [id number] Individual Psychotherapy [id number] SNOMED-CT () 2021-01-[address], [id number] Individual Psychotherapy [id number] SNOMED-CT () 2021-02-[address], [id number] Individual Psychotherapy [id number] SNOMED-CT () 2020-10-[address], [id number] [phone] Individual Psychotherapy [id number] SNOMED-CT () 2020-10-[address], [id number] Individual Psychotherapy [id number] SNOMED-CT () 2020-11-[address], [id number] Individual Psychotherapy [id number] SNOMED-CT () 2020-11-[address], [id number] Individual Psychotherapy [id number] SNOMED-CT () 2020-12-[address], [id number] Individual Psychotherapy [id number] SNOMED-CT () 2020-12-[address], [id number] Individual Psychotherapy [id number] SNOMED-CT () 2019-12-[address], [id number] Individual Psychotherapy [id number] SNOMED-CT () 2020-02-[address], [id number] Individual Psychotherapy [id number] SNOMED-CT () 2020-03-[address], [id number] Individual Psychotherapy [id number] SNOMED-CT () 2020-04-[address], [id number] Individual Psychotherapy [id number] SNOMED-CT () 2020-06-[address], [id number] Individual Psychotherapy [id number] SNOMED-CT () 2020-09-[address], [id number] Individual Psychotherapy [id number] SNOMED-CT () 2019-07-[address], [id number] Individual Psychotherapy [id number] SNOMED-CT () 2019-08-[address], [id number] Individual Psychotherapy [id number] SNOMED-CT () 2019-08-[address], [id number] Individual Psychotherapy [id number] SNOMED-CT () 2019-09-[address], [id number] Individual Psychotherapy [id number] SNOMED-CT () 2019-09-[address], [id number] Individual Psychotherapy [id number] SNOMED-CT () 2019-11-[address], [id number] Individual Psychotherapy [id number] SNOMED-CT () 2019-04-[address], [id number] Individual Psychotherapy [id number] SNOMED-CT () 2019-04-[address], [id number] [id number] Individual Psychotherapy [id number] SNOMED-CT () 2019-04-[address], [id number] Individual Psychotherapy [id number] SNOMED-CT () 2019-05-[address], [id number] Individual Psychotherapy [id number] SNOMED-CT () 2019-06-[address], [id number] Individual Psychotherapy [id number] SNOMED-CT () 2019-07-[address], [id number] Individual Psychotherapy [id number] SNOMED-CT () 2019-02-[address], [id number] Individual Psychotherapy [id number] SNOMED-CT () 2019-02-[address], [id number] Individual Psychotherapy [id number] SNOMED-CT () 2019-02-[address], [id number] Individual Psychotherapy [id number] SNOMED-CT () 2019-03-[address], [id number] Individual Psychotherapy [id number] SNOMED-CT () 2019-03-[address], [id number] Individual Psychotherapy [id number] SNOMED-CT () 2019-03-[address], [id number] Individual Psychotherapy [id number] SNOMED-CT () 2018-12-[address], [id number] Individual Psychotherapy [id number] SNOMED-CT () 2018-12-[address], [id number] Individual Psychotherapy [id number] SNOMED-CT () 2018-12-[address], [id number] Individual Psychotherapy [id number] SNOMED-CT () 2019-01-[address], [id number] Individual Psychotherapy [id number] SNOMED-CT () 2019-01-[address], [id number] Individual Psychotherapy [id number] SNOMED-CT () 2019-01-[address], [id number] Individual Psychotherapy [id number] SNOMED-CT () 2018-10-[address], [id number] Individual Psychotherapy [id number] SNOMED-CT () 2018-10-[address], [id number] Individual Psychotherapy [id number] SNOMED-CT () 2018-10-[address], [id number] Individual Psychotherapy [id number] SNOMED-CT () 2018-11-[address], [id number] Individual Psychotherapy [id number] SNOMED-CT () 2018-11-[address], [id number] Individual Psychotherapy [id number] SNOMED-CT () 2018-12-[address], [id number] Individual Psychotherapy [id number] SNOMED-CT () 2018-06-[address], [id number] Individual Psychotherapy [id number] SNOMED-CT () 2018-06-[address], [id number] Individual Psychotherapy [id number] SNOMED-CT () 2018-07-[address], [id number] Individual Psychotherapy [id number] SNOMED-CT () 2018-07-[address], [id number] Individual Psychotherapy [id number] SNOMED-CT () 2018-07-[address], [id number] Individual Psychotherapy [id number] SNOMED-CT () 2018-08-[address], [id number] Individual Psychotherapy [id number] SNOMED-CT () 2018-01-[address], [id number] Individual Psychotherapy [id number] SNOMED-CT () 2018-02-[address], [id number] Individual Psychotherapy [id number] SNOMED-CT () 2018-03-[address], [id number] Individual Psychotherapy [id number] SNOMED-CT () 2018-03-[address], [id number] Individual Psychotherapy [id number] SNOMED-CT () 2018-04-[address], [id number] Individual Psychotherapy [id number] SNOMED-CT () 2018-05-[address], [id number] Individual Psychotherapy [id number] SNOMED-CT () 2017-09-[address], [id number] Individual Psychotherapy [id number] SNOMED-CT () 2017-11-[address], [id number] Individual Psychotherapy [id number] SNOMED-CT () 2017-12-[address], [id number] Individual Psychotherapy [id number] SNOMED-CT () 2017-12-[address], [id number] Individual Psychotherapy [id number] SNOMED-CT () 2017-12-[address], [id number] Individual Psychotherapy [id number] SNOMED-CT () 2017-12-[address], [id number] [id number] Individual Psychotherapy [id number] SNOMED-CT () 2017-06-[address], [id number] Individual Psychotherapy [id number] SNOMED-CT () 2017-07-[address], [id number] Individual Psychotherapy [id number] SNOMED-CT () 2017-07-[address], [id number] Individual Psychotherapy [id number] SNOMED-CT () 2017-07-[address], [id number] Individual Psychotherapy [id number] SNOMED-CT () 2017-08-[address], [id number] Individual Psychotherapy [id number] SNOMED-CT () 2017-09-[address], [id number] Individual Psychotherapy [id number] SNOMED-CT () 2017-05-[address], [id number] [id number] Individual Psychotherapy [id number] SNOMED-CT () 2017-05-[address], [id number] Individual Psychotherapy [id number] SNOMED-CT () 2017-05-[address], [id number] Individual Psychotherapy [id number] SNOMED-CT () 2017-05-[address], [id number] Individual Psychotherapy [id number] SNOMED-CT () 2017-06-[address], [id number] Individual Psychotherapy [id number] SNOMED-CT () 2017-06-[address], [id number] [id number] Individual Psychotherapy [id number] SNOMED-CT () 2017-01-[address], [id number] Individual Psychotherapy [id number] SNOMED-CT () 2017-01-[address], [id number] Individual Psychotherapy [id number] SNOMED-CT () 2017-02-[address], [id number] Individual Psychotherapy [id number] SNOMED-CT () 2017-03-[address], [id number] Individual Psychotherapy [id number] SNOMED-CT () 2017-03-[address], [id number] Individual Psychotherapy [id number] SNOMED-CT () 2017-04-[address], [id number] Individual Psychotherapy [id number] SNOMED-CT () 2016-07-[address], [id number] Individual Psychotherapy [id number] SNOMED-CT () 2016-08-[address], [id number] Individual Psychotherapy [id number] SNOMED-CT () 2016-08-[address], [id number] [id number] Individual Psychotherapy [id number] SNOMED-CT () 2016-08-[address], [id number] [id number] Individual Psychotherapy 39040694 SNOMED-CT () 2016-09-[address], 384307073 [id number] Individual Psychotherapy [id number] SNOMED-CT () 2016-10-[address], [id number] Individual Psychotherapy [id number] SNOMED-CT () 2016-05-[address], [id number] Individual Psychotherapy [id number] SNOMED-CT () 2016-05-[address], [id number] Individual Psychotherapy [id number] SNOMED-CT () 2016-06-[address], [id number] [id number] Individual Psychotherapy [id number] SNOMED-CT () 2016-06-[address], [id number] Individual Psychotherapy [id number] SNOMED-CT () 2016-07-[address], [id number] Individual Psychotherapy [id number] SNOMED-CT () 2016-07-[address], [id number] Individual Psychotherapy [id number] SNOMED-CT () 2016-04-[address], [id number] Individual Psychotherapy [id number] SNOMED-CT () 2016-04-[address], [id number] Individual Psychotherapy [id number] SNOMED-CT () 2016-04-[address], [id number] Individual Psychotherapy [id number] SNOMED-CT () 2016-04-[address], [id number] Individual Psychotherapy [id number] SNOMED-CT () 2016-04-[address], [id number] Individual Psychotherapy [id number] SNOMED-CT () 2016-05-[address], [id number] Psychiatric Diagnostic Evaluation without medical serv ices [id number] SNOMED-CT () 2016-01-[address], [id number] Psychiatric Diagnostic Evaluation without medical serv ices [id number] SNOMED-CT () 2016-01-[address], [id number] SNOMED-CT () 2020-12-[address], [id number] [id number] SNOMED-CT () 2020-10-[address], [id number] SNOMED-CT () 2020-09-[address], [id number] SNOMED-CT () 2020-11-[address], [id number] [id number] SNOMED-CT () 2020-09-[address], [id number] SNOMED-CT () 2020-07-[address], [id number] SNOMED-CT () 2020-12-[address], [id number] SNOMED-CT () 2020-11-[address], [id number] SNOMED-CT () 2020-08-[address], [id number] [id number] SNOMED-CT () 2020-11-[address], [id number] [id number] SNOMED-CT () 2020-10-[address], [id number] SNOMED-CT () 2016-07-[address], [id number] Encounters/Encounter Diagnoses Encounter Name Encounter Code Diagnosis Code Diagnosis Name Diagnosis CodeSystem Date of Diagnosis Service Delivery L ocation Medication Therapy- High Complexity [id number] Recurrent depressive disorder, current e pisode severe without psychotic symptoms SNOMED-CT 2021-02-08 [facility] [address] [place] [address], [id number] Vital Signs Code CodeSystem Vitals Date Value 8480-6 [facility] Blood Press ure-Systolic 2019-09-16 90 mm[HG] 8462-4 [facility] Blood Press ure-Diastolic 2019-09-16 130 mm[HG] 8867-4 [facility] Heart Rate 2019-09-16 75 /min 8302-2 [facility] Height 2019-09-16 70.5 [in_i] 36483-4 [facility] Weight 2019-09-16 259 [lb_av] 50623-4 [facility] BMI 2019-09-16 36.63 (lb/in2) Social History [...]
--- OUTSIDE RECORDS SUMMARY | 2021-05-23 10:17 | CCD ---
Author Author [facility] Organization [facility] Address Unknown Phone Unavailable Care Team Providers Care Insemination Worker Name Role Phone Say D Abner PA Unavailable Unavailable Say, D [...] D Abner PA Unavailable Unavailable Say, D Abenr PA Unavailable Unavailable Say, D Abner PA [...] is protected by Article 27-F of the [facility] Public Health law. If you continue you may have access to information: Regarding HIV / AIDS; Provided by facilities licensed or operated by the [facility] Office of Mental Health; or Provided by the [facility] Office for People With Developmental Disabilities. If such information is present, then the following [facility] mandated warning applies: This information has been [...] law may result in a fine or usp sentence or both. A general authorization for the release of medical or other information is NOT sufficient authorization for further disc losure. Encounters Encounter Providers Location Date Indications Data Source(s ) Telehealth Physchotherapy [facility] with [facility] 04/16/2021 12:00:00 AM EDT [facility] ([facility]) [facility] 03/22/2021 12:00:00 AM EDT [facility] ([facility]) Pyschotherapy 30 Minute with [facility] 03/05/2021 12:00:00 AM EDT [facility]) Outpatient Attender: Abner MENDOZA [facility] 09:15:00 AM EDT [facility] ([facility] Pyschotherapy [facility] Minute [facility] 02/21/2021 12:00:00 AM EDT [facility] ([facility]) [facility] 02/08/2021 12:00:00 AM EDT [facility] ([facility]) Telehealth Physchotherapy 30 Minutes with [facility] 01/17/2021 12:00:00 AM EDT [facility] ([facility]) Outpatient Attender: Abner MENDOZA [facility] 12/2020 09:00:00 AM EDT [facility] ([facility] Pyschotherapy 30 Minute with [facility] 01/01/2021 12:00:00 AM EDT [facility] ([facility]) Pyschotherapy 30 Minute with [facility] 01/01/2021 12:00:00 AM EDT [facility] ([facility]) Pyschotherapy 30 Minute with [facility] 12/13/2020 12:00:00 AM EDT [facility] ([facility]) Outpatient Attender: Abner MENDOZA [facility] 02:20:00 PM EDT [facility] ([facility] Telehealth Physchotherapy [facility] with [facility] 11/15/2020 12:00:00 AM EDT [facility] ([facility]) Outpatient Attender: Abner MENDOZA [facility] 11/2020 02:40:00 PM EDT [facility] ([facility] Pyschotherapy 30 Minute with [facility] 11/02/2020 12:00:00 AM EDT [facility] ([facility]) Outpatient Attender: Abner MENDOZA [facility] 04:00:00 PM EDT [facility] ([facility] Outpatient Attender: Abner MENDOZA [facility] 11:00:00 AM EDT [facility] ([facility] Outpatient Attender: Abner MENDOZA [facility] 12:30:00 PM EST [facility] ([facility] Outpatient Attender: Abner MENDOZA [facility] 08/2019 02:00:00 PM EST [facility] ([facility] Outpatient Attender: Abner MENDOZA [facility] 04:00:00 PM EDT [facility] ([facility] Outpatient Attender: Abner MENDOZA [facility] 09:30:00 AM EDT [facility] ([facility] Immunizations Vaccine Date Status Description Data Source(s) COVID-19 VACCINE Moderna 09/29/2020 12:00:00 AM EDT completed [facility] Vaccine Series Complete: YESThis Data wa s Submitted to [facility] Via [employer]. COVID-19 VACCINE Moderna 09/01/2020 12:00:00 AM EST completed [facility] Vaccine Series Complete: NOThis Data was Submitted to [facility] Via [employer]. New in 2012. IIV4 03/30/2020 09:25:00 AM EDT completed [facility] ([facility] Medications Medication Brand Name Start Date Product Form Dose Route Admi nistrative Instructions Pharmacy Instructions Status Indications Reaction Description Data Source(s) duloxetine 60 MG Delayed Release Oral Capsule [Cymbalta] C[facility] laurita 02/08/2021 12:00:00 AM EDT 60 mg oral active Cymbalta [facility] ([facility]) duloxetine 60 MG Delayed Release Oral Capsule [Cymbalta] Cym laurita 02/08/2021 12:00:00 AM EDT 60 mg oral active Cymbalta [facility] ([facility]) duloxetine 20 MG Delayed Release Oral Capsule [Cymbalta] Cym laurita 02/08/2021 12:00:00 AM EDT 20 mg oral active Cymbalta [facility] ([facility]) duloxetine 20 MG Delayed Release Oral Capsule [Cymbalta] Cym laurita 02/08/2021 12:00:00 AM EDT 20 mg oral active Cymbalta [facility] ([facility]) duloxetine 60 MG Delayed Release Oral Capsule [Cymbalta] Cym laurita 02/08/2021 12:00:00 AM EDT 60 mg oral active Cymbalta [facility] ([facility]) duloxetine 20 MG Delayed Release Oral Capsule [Cymbalta] Cym laurita 02/08/2021 12:00:00 AM EDT 20 mg oral active Cymbalta [facility] ([facility]) duloxetine 20 MG Delayed Release Oral Capsule [Cymbalta] Cym laurita 02/08/2021 12:00:00 AM EDT 20 mg oral active Cymbalta [facility] ([facility]) duloxetine 60 MG Delayed Release Oral Capsule [Cymbalta] Cym laurita 02/08/2021 12:00:00 AM EDT 60 mg oral active Cymbalta [facility] ([facility]) duloxetine 20 MG Delayed Release Oral Capsule [Cymbalta] Cym laurita 01/17/2021 12:00:00 AM EDT 20 mg oral completed Cymba lta [facility] ([facility]) duloxetine 20 MG Delayed Release Oral Capsule [Cymbalta] Cym laurita 01/17/2021 12:00:00 AM EDT 20 mg oral completed Cymba lta [facility] ([facility]) duloxetine 20 MG Delayed Release Oral Capsule [Cymbalta] Cym laurita 01/17/2021 12:00:00 AM EDT 20 mg oral completed Cymba lta [facility] ([facility]) duloxetine 20 MG Delayed Release Oral Capsule [Cymbalta] Cym laurita 01/17/2021 12:00:00 AM EDT 20 mg oral completed Cymba lta [facility] ([facility]) duloxetine 20 MG Delayed Release Oral Capsule [Cymbalta] Cym laurita 01/17/2021 12:00:00 AM EDT 20 mg oral active Cymbalta [facility] ([facility]) duloxetine 60 MG Delayed Release Oral Capsule [Cymbalta] Cym laurita 01/05/2021 12:00:00 AM EDT 60 mg oral completed Cymba lta [facility] ([facility]) duloxetine 60 MG Delayed Release Oral Capsule [Cymbalta] Cym laurita 01/05/2021 12:00:00 AM EDT 60 mg oral active Cymbalta [facility] ([facility]) duloxetine 60 MG Delayed Release Oral Capsule [Cymbalta] Cym laurita 01/05/2021 12:00:00 AM EDT 60 mg oral active Cymbalta [facility] ([facility]) duloxetine 60 MG Delayed Release Oral Capsule [Cymbalta] Cym laurita 01/05/2021 12:00:00 AM EDT 60 mg oral completed Cymba lta [facility] ([facility]) duloxetine 60 MG Delayed Release Oral Capsule [Cymbalta] Cym laurita 01/05/2021 12:00:00 AM EDT 60 mg oral completed Cymba lta [facility] ([facility]) duloxetine 60 MG Delayed Release Oral Capsule [Cymbalta] Cym laurita 01/05/2021 12:00:00 AM EDT 60 mg oral completed Cymba lta [facility] ([facility]) duloxetine 30 MG Delayed Release Oral Capsule Duloxetine HCL 11/08/2020 12:00:00 AM EDT ORAL active [facility] ([facility] Omeprazole 40 MG Delayed Release Oral Capsule Omeprazole 11/08/2020 12:00:00 AM EDT ORAL active [facility] ([facility] Azithromycin 250 MG Oral Tablet Azithromycin 10/19/2020 12:00:00 AM E DT ORAL completed [facility] ([facility] Moderna Covid-19 Vaccine Moderna Covid-19 Vaccine 10/02/2020 12:00: 00 AM EDT active [facility] ([facility] Azithromycin 250 MG Oral Tablet Azithromycin 07/20/2020 12:00:[address] ORAL completed [facility] ([facility] POLYETHYLENE GLYCOL 3350 142 MG/ML Oral Solution [Miralax] M iralax 06/22/2020 12:00:00 AM EST active M [facility]ENT ([facility], ) Azithromycin 250 MG Oral Tablet Azithromycin 06/07/2020 12:00:[address] ORAL completed [facility] ([facility] Diclofenac Sodium 0.01 MG/MG Topical Gel Diclofenac Sodium 06/07/2020 12:00:00 AM EST active [facility] ([facility] Bupropion Hydrochloride 75 MG Oral Tablet bupropion HCl 04/19/2020 12:00:00 AM EDT 75 mg oral completed bupropion HCl [facility] ([facility]) Bupropion Hydrochloride 75 MG Oral Tablet bupropion HCl 04/19/2020 12:00:00 AM EDT 75 mg [facility] Bupropion Hydrochloride 75 MG Oral Tablet bupropion HCl 04/19/2020 12:00:00 AM EDT 75 mg oral completed [facility] Bupropion Hydrochloride 75 MG Oral Tablet bupropion HCl 04/19/2020 12:00:00 AM EDT 75 mg oral completed [facility] Bupropion Hydrochloride 75 MG Oral Tablet bupropion HCl 04/19/2020 12:00:00 AM EDT 75 mg oral completed [facility] Bupropion Hydrochloride 75 MG Oral Tablet bupropion HCl 04/19/2020 12:00:00 AM EDT 75 mg oral completed bupropion HCl [facility] ([facility]) Bupropion Hydrochloride 75 MG Oral Tablet bupropion HCl 04/19/2020 12:00:00 AM EDT 75 mg oral completed bupropion HCl [facility] ([facility]) Bupropion Hydrochloride 75 MG Oral Tablet bupropion HCl 04/19/2020 12:00:00 AM EDT 75 mg oral completed bupropion HCl [facility] ([facility]) Bupropion Hydrochloride 75 MG Oral Tablet bupropion HCl 04/19/2020 12:00:00 AM EDT 75 mg oral completed bupropion HCl [facility] ([facility]) POLYETHYLENE GLYCOL 3350 105 MG/ML / Pot assium Chloride 0.63004 MEQ/ML / Sodium Bicarbonate 0.017 MEQ/ML / Sodium Chloride 0.0479 MEQ/ML Oral Solution [NuLytely] Nulytely With Flavor Packs 04/12/2020 12:00:00 AM EDT completed [facility] ([facility], ) Bisacodyl 5 MG Delayed Release Oral Tablet [Dulcolax] Dulcol ax 04/12/2020 12:00:00 AM EDT ORAL completed [facility] ([facility], ) POLYETHYLENE GLYCOL 3350 142 MG/ML Oral Solution [Miralax] M iralax 04/12/2020 12:00:00 AM EDT ORAL active M [facility] ([facility], ) Azithromycin 250 MG Oral Tablet Azithromycin 04/04/2020 12:00:00 AM E DT ORAL completed [facility] ([facility] Guaifenesin 20 MG/ML Oral Solution Guaifenesin 04/04/2020 12:00:00 AM EDT ORAL completed [facility] ([facility] Injection (SC)/(Im) 03/30/2020 12:00:00 AM EDT completed [facility] ([facility] Medication administered onsite Cholecalciferol 2000 UNT Oral Tablet Vitamin D 03/30/2020 12:00:00 A M EDT ORAL active [facility] ([facility] Bupropion Hydrochloride 75 MG Oral Tablet bupropion HCl 01/17/2020 12:00:00 AM EDT 75 mg oral [facility]) Bupropion Hydrochloride 75 MG Oral Tablet bupropion HCl 01/17/2020 12:00:00 AM EDT 75 mg [facility] Bupropion Hydrochloride 75 MG Oral Tablet bupropion HCl 01/17/2020 12:00:00 AM EDT 75 mg oral completed [facility]) Bupropion Hydrochloride 75 MG Oral Tablet bupropion HCl 01/17/2020 12:00:00 AM EDT 75 mg oral [facility] Bupropion Hydrochloride 75 MG Oral Tablet bupropion HCl 01/17/2020 12:00:00 AM EDT 75 mg oral completed bupropion HCl [facility] ([facility]) Bupropion Hydrochloride 75 MG Oral Tablet bupropion HCl 01/17/2020 12:00:00 AM EDT 75 mg oral completed bupropion HCl [facility] ([facility]) Bupropion Hydrochloride 75 MG Oral Tablet bupropion HCl 01/17/2020 12:00:00 AM EDT 75 mg oral completed bupropion HCl [facility] ([facility]) Bupropion Hydrochloride 75 MG Oral Tablet bupropion HCl 01/17/2020 12:00:00 AM EDT 75 mg oral completed bupropion HCl [facility] ([facility]) Bupropion Hydrochloride 75 MG Oral Tablet bupropion HCl 01/17/2020 12:00:00 AM EDT 75 mg oral [facility] Insurance Providers Payer name Policy type / Coverage type Policy ID Covered republican ID Covered republican's relationship to coombs Policy [place] Plan Information EXCELLUS I [id number] Self [id number] MEDICAID M [id number] Fthr [id number] [employer] MEDICARE COMPLETE G [id number] Self [id number] [facility] I [id number] Self [id number] MEDICAID M [id number] Self [id number] [facility] COMMUNITY PLAN [facility] [id number] SP [id number] MEDICARE COMPLETE [id number] SP [id number] [facility] COMMUNITY [facility] [id number] SP [id number] [facility] [id number] SP [id number] NOY MEDICAID [id number] Avani 7 [id number] [employer]-PHYSICIAN [id number] 18 [id number] [employer]-O/P [id number] 18 [id number] [facility] MEDICAID [id number] SP [id number] R [id number] [facility] [id number] SP [id number] [facility] O [id number] S [id number] [place] [facility] [place] - [id number] 18 [id number] UN AMERICHOICE XIX -O [id number] 18 [id number] [facility] COMMUNITY PLAN [facility] UNK SP UNK [place]-XIX O [id number] 18 [id number] MEDICAID REF AMBULAT W [id number] BLUE CHOICE OPTION O [id number] S [id number] MEDICAID W [id number] Problems, Conditions, and Diagnoses Code Display Name Description Problem Type Effective Dates Data Source(s) 37747618 Allergic asthma without status asthmatic us Allergic asthma without status asthmaticus Problem 04/12/2020 12:00:00 AM EDT [facility] ([facility], ) Surgeries/Procedures Procedure Description Date Indications Data Source(s) Individual psychotherapy (regime/therapy) 04/16/2021 1 2:00:00 AM EDT [facility] ([facility]) Individual psychotherapy (regime/therapy) 04/16/2021 1 2:00:00 AM EDT [facility] ([facility]) Evaluation AND/OR management - established patient (procedur e) 04/10/2021 12:00:00 AM EDT [facility] ([facility]) Individual psychotherapy (regime/therapy) 04/09/2021 1 2:00:00 AM EDT [facility] ([facility]) Individual psychotherapy (regime/therapy) 04/09/2021 1 2:00:00 AM EDT [facility] ([facility]) Individual psychotherapy (regime/therapy) 04/05/2021 1 2:00:00 AM [facility]) Individual psychotherapy (regime/therapy) 04/05/2021 1 2:00:[address] [facility]) Evaluation AND/OR management - established patient (procedur e) 03/22/2021 12:00:00 AM EDT [facility] ([facility]) Evaluation AND/OR management - established patient (procedur e) 03/22/2021 12:00:00 AM EDT [facility] ([facility]) Individual psychotherapy (regime/therapy) 03/05/2021 1 2:00:00 AM EDT [facility]) Individual psychotherapy (regime/therapy) 03/05/2021 1 2:00:00 AM EDT [facility] ([facility]) Individual psychotherapy (regime/therapy) 03/05/2021 1 2:00:00 AM EDT [facility] ([facility]) Individual psychotherapy (regime/therapy) 03/05/2021 1 2:00:00 AM EDT [facility] ([facility]) Individual psychotherapy (regime/therapy) 03/05/2021 1 2:00:00 AM EDT [facility] ([facility]) Individual psychotherapy (regime/therapy) 03/05/2021 1 2:00:00 AM [facility]) OFFICE OUTPATIENT VISIT 15 MINUTES 03/01/2021 12:00:00 AM EDT [facility] ([facility] Individual psychotherapy (regime/therapy) 02/21/2021 1 2:00:00 AM [facility]) Individual psychotherapy (regime/therapy) 02/21/2021 1 2:00:00 AM [facility] ([facility]) Individual psychotherapy (regime/therapy) 02/21/2021 1 2:00:00 AM [facility]) Individual psychotherapy (regime/therapy) 02/21/2021 1 2:00:00 AM [facility] ([facility]) Individual psychotherapy (regime/therapy) 02/21/2021 1 2:00:00 AM [facility]) Individual psychotherapy (regime/therapy) 02/21/2021 1 2:00:00 AM EDT [facility] ([facility]) Individual psychotherapy (regime/therapy) 02/21/2021 1 2:00:00 AM EDT [facility] ([facility]) Individual psychotherapy (regime/therapy) 02/21/2021 1 2:00:00 [facility]) Evaluation AND/OR management - established patient (procedur e) 02/08/2021 12:00:00 AM [facility] ([facility]) Evaluation AND/OR management - established patient (procedur e) 02/08/2021 12:00:00 AM [facility]) Evaluation AND/OR management - established patient (procedur e) 02/08/2021 12:00:00 AM [facility]) Evaluation AND/OR management - established patient (procedur e) 02/08/2021 12:00:00 AM [facility] ([facility]) Evaluation AND/OR management - established patient (procedur e) 02/08/2021 12:00:00 AM ED[facility] ([facility]) Individual psychotherapy (regime/therapy) 02/07/2021 1 2:00:00 AM [facility] ([facility]) Individual psychotherapy (regime/therapy) 02/07/2021 1 2:00:00 AM EDT [facility] ([facility]) Individual psychotherapy (regime/therapy) 02/07/2021 1 2:00:00 AM EDT [facility] ([facility]) Individual psychotherapy (regime/therapy) 02/07/2021 1 2:00:00 AM [facility]) Individual psychotherapy (regime/therapy) 02/07/2021 1 2:00:00 AM EDT [facility] ([facility]) Individual psychotherapy (regime/therapy) 02/07/2021 1 2:00:00 AM EDT [facility]) Individual psychotherapy (regime/therapy) 02/07/2021 1 2:00:00 AM [facility] ([facility]) Individual psychotherapy (regime/therapy) 02/07/2021 1 2:00:00 AM [facility] ([facility]) Individual psychotherapy (regime/therapy) 02/07/2021 1 2:00:00 AM EDT [facility]) Individual psychotherapy (regime/therapy) 02/07/2021 1 2:00:00 AM EDT [facility]) Individual psychotherapy (regime/therapy) 01/17/2021 1 2:00:00 [facility]) Individual psychotherapy (regime/therapy) 01/17/2021 1 2:00:00 AM EDT [facility]) Individual psychotherapy (regime/therapy) 01/17/2021 1 2:00:00 AM EDT [facility]) Individual psychotherapy (regime/therapy) 01/17/2021 1 2:00:00 AM EDT [facility]) Individual psychotherapy (regime/therapy) 01/17/2021 1 2:00:00 AM EDT [facility]) Individual psychotherapy (regime/therapy) 01/17/2021 1 2:00:00 AM EDT [facility]) Individual psychotherapy (regime/therapy) 01/17/2021 1 2:00:00 [facility]) Individual psychotherapy (regime/therapy) 01/17/2021 1 2:00:00 [address] [facility] Individual psychotherapy (regime/therapy) 01/17/2021 1 2:00:00 [facility]) Individual psychotherapy (regime/therapy) 01/17/2021 1 2:00:00 AM [facility]) Individual psychotherapy (regime/therapy) 01/17/2021 1 2:00:00 AM ED[facility]) Individual psychotherapy (regime/therapy) 01/17/2021 1 2:00:00 AM ED[facility] ([facility]) Evaluation AND/OR management - established patient (procedur e) 01/11/2021 12:00:00 AM ED[facility] ([facility]) Evaluation AND/OR management - established patient (procedur e) 01/11/2021 12:00:00 AM ED[facility] ([facility]) Evaluation AND/OR management - established patient (procedur e) 01/11/2021 12:00:00 AM ED[facility] ([facility]) Evaluation AND/OR management - established patient (procedur e) 01/11/2021 12:00:00 AM ED[facility] ([facility]) Evaluation AND/OR management - established patient (procedur e) 01/11/2021 12:00:00 AM EDT [facility] ([facility]) Evaluation AND/OR management - established patient (procedur e) 01/11/2021 12:00:00 AM EDT [facility] ([facility]) OFFICE OUTPATIENT VISIT 25 MINUTES 01/09/2021 12:00:00 AM EDT [facility] ([facility] Individual psychotherapy (regime/therapy) 01/01/2021 1 2:00:00 AM [facility] Individual psychotherapy (regime/therapy) 01/01/2021 1 2:00:00 AM EDT [facility] ([facility]) Individual psychotherapy (regime/therapy) 01/01/2021 1 2:00:00 AM EDT [facility] ([facility]) Individual psychotherapy (regime/therapy) 01/01/2021 1 2:00:00 AM EDT [facility] ([facility]) Individual psychotherapy (regime/therapy) 01/01/2021 1 2:00:00 AM EDT [facility] ([facility]) Individual psychotherapy (regime/therapy) 01/01/2021 1 2:00:00 AM EDT [facility] ([facility]) Individual psychotherapy (regime/therapy) 01/01/2021 1 2:00:00 AM EDT [facility] ([facility]) Individual psychotherapy (regime/therapy) 01/01/2021 1 2:00:00 [facility] Individual psychotherapy (regime/therapy) 01/01/2021 1 2:00:00 AM [facility]) Individual psychotherapy (regime/therapy) 01/01/2021 1 2:00:00 AM [facility]) Individual psychotherapy (regime/therapy) 01/01/2021 1 2:00:00 AM [facility]) Individual psychotherapy (regime/therapy) 01/01/2021 1 2:00:00 AM [facility]) Individual psychotherapy (regime/therapy) 01/01/2021 1 2:00:00 AM [facility]) Individual psychotherapy (regime/therapy) 01/01/2021 1 2:00:00 AM EDT [facility] ([facility]) Individual psychotherapy (regime/therapy) 12/27/2020 1 2:00:00 AM EDT [facility] ([facility]) Individual psychotherapy (regime/therapy) 12/27/2020 1 2:00:00 AM EDT [facility] ([facility]) Individual psychotherapy (regime/therapy) 12/27/2020 1 2:00:00 AM [facility]) Individual psychotherapy (regime/therapy) 12/27/2020 1 2:00:00 AM EDT [facility] ([facility]) Individual psychotherapy (regime/therapy) 12/27/2020 1 2:00:00 AM EDT [facility] ([facility]) Individual psychotherapy (regime/therapy) 12/27/2020 1 2:00:00 AM EDT [facility] ([facility]) Individual psychotherapy (regime/therapy) 12/27/2020 1 2:00:00 AM EDT [facility] ([facility]) Individual psychotherapy (regime/therapy) 12/27/2020 1 2:00:00 AM EDT [facility] ([facility]) Individual psychotherapy (regime/therapy) 12/27/2020 1 2:00:00 AM EDT [facility] ([facility]) Individual psychotherapy (regime/therapy) 12/27/2020 1 2:00:00 AM EDT [facility] ([facility]) Individual psychotherapy (regime/therapy) 12/27/2020 1 2:00:00 AM EDT [facility] ([facility]) Individual psychotherapy (regime/therapy) 12/27/2020 1 2:00:00 AM EDT [facility] ([facility]) Individual psychotherapy (regime/therapy) 12/27/2020 1 2:00:00 AM EDT [facility] ([facility]) Individual psychotherapy (regime/therapy) 12/27/2020 1 2:00:00 AM EDT [facility] ([facility]) Individual psychotherapy (regime/therapy) 12/27/2020 1 2:00:00 AM EDT [facility] ([facility]) Individual psychotherapy (regime/therapy) 12/27/2020 1 2:00:00 AM EDT [facility] ([facility]) Individual psychotherapy (regime/therapy) 12/13/2020 1 2:00:00 AM EDT [facility] ([facility]) Individual psychotherapy (regime/therapy) 12/13/2020 1 2:00:00 AM EDT [facility] ([facility]) Individual psychotherapy (regime/therapy) 12/13/2020 1 2:00:00 AM EDT [facility] ([facility]) Individual psychotherapy (regime/therapy) 12/13/2020 1 2:00:00 AM [facility]) Individual psychotherapy (regime/therapy) 12/13/2020 1 2:00:00 AM EDT [facility] ([facility]) Individual psychotherapy (regime/therapy) 12/13/2020 1 2:00:00 AM EDT [facility] ([facility]) Individual psychotherapy (regime/therapy) 12/13/2020 1 2:00:00 AM EDT [facility] ([facility]) Individual psychotherapy (regime/therapy) 12/13/2020 1 2:00:00 AM [facility]) Individual psychotherapy (regime/therapy) 12/13/2020 1 2:00:00 AM EDT [facility] ([facility]) Individual psychotherapy (regime/therapy) 12/13/2020 1 2:00:00 AM EDT [facility] ([facility]) Individual psychotherapy (regime/therapy) 12/13/2020 1 2:00:00 AM EDT [facility] ([facility]) Individual psychotherapy (regime/therapy) 12/13/2020 1 2:00:00 AM [facility]) Individual psychotherapy (regime/therapy) 12/13/2020 1 2:00:00 AM EDT [facility] ([facility]) Individual psychotherapy (regime/therapy) 12/13/2020 1 2:00:00 AM EDT [facility] ([facility]) Individual psychotherapy (regime/therapy) 12/13/2020 1 2:00:00 AM [facility]) Individual psychotherapy (regime/therapy) 12/13/2020 1 2:00:00 AM ED[facility] ([facility]) Individual psychotherapy (regime/therapy) 12/13/2020 1 2:00:00 AM ED[facility] ([facility]) Individual psychotherapy (regime/therapy) 12/13/2020 1 2:00:00 AM EDT [facility] ([facility]) Evaluation AND/OR management - established patient (procedur e) 12/12/2020 12:00:00 AM EDT [facility] ([facility]) Evaluation AND/OR management - established patient (procedur e) 12/12/2020 12:00:00 AM EDT [facility] ([facility]) Evaluation AND/OR management - established patient (procedur e) 12/12/2020 12:00:00 AM EDT [facility] ([facility]) Evaluation AND/OR management - established patient (procedur e) 12/12/2020 12:00:00 AM EDT [facility] ([facility]) Evaluation AND/OR management - established patient (procedur e) 12/12/2020 12:00:00 AM EDT [facility] ([facility]) Evaluation AND/OR management - established patient (procedur e) 12/12/2020 12:00:00 AM EDT [facility] ([facility]) Evaluation AND/OR management - established patient (procedur e) 12/12/2020 12:00:00 AM EDT [facility] ([facility]) Evaluation AND/OR management - established patient (procedur e) 12/12/2020 12:00:00 AM EDT [facility] ([facility]) Evaluation AND/OR management - established patient (procedur e) 12/12/2020 12:00:00 AM [facility]) Individual psychotherapy (regime/therapy) 11/29/2020 1 2:00:00 AM [facility]) Individual psychotherapy (regime/therapy) 11/29/2020 1 2:00:00 AM EDT [facility]) Individual psychotherapy (regime/therapy) 11/29/2020 1 2:00:00 AM EDT [facility]) Individual psychotherapy (regime/therapy) 11/29/2020 1 2:00:00 AM [facility]) Individual psychotherapy (regime/therapy) 11/29/2020 1 2:00:00 AM ED[facility] ([facility]) Individual psychotherapy (regime/therapy) 11/29/2020 1 2:00:00 AM EDT [facility] ([facility]) Individual psychotherapy (regime/therapy) 11/29/2020 1 2:00:00 AM EDT [facility] ([facility]) Individual psychotherapy (regime/therapy) 11/29/2020 1 2:00:00 AM EDT [facility] ([facility]) Individual psychotherapy (regime/therapy) 11/29/2020 1 2:00:00 AM EDT [facility] ([facility]) Individual psychotherapy (regime/therapy) 11/29/2020 1 2:00:00 AM EDT [facility] ([facility]) Individual psychotherapy (regime/therapy) 11/29/2020 1 2:00:00 AM EDT [facility] ([facility]) Individual psychotherapy (regime/therapy) 11/29/2020 1 2:00:00 AM EDT [facility] ([facility]) Individual psychotherapy (regime/therapy) 11/29/2020 1 2:00:00 AM EDT [facility] ([facility]) Individual psychotherapy (regime/therapy) 11/29/2020 1 2:00:00 AM EDT [facility] ([facility]) Individual psychotherapy (regime/therapy) 11/29/2020 1 2:00:00 AM EDT [facility] ([facility]) Individual psychotherapy (regime/therapy) 11/29/2020 1 2:00:00 AM EDT [facility] ([facility]) Individual psychotherapy (regime/therapy) 11/29/2020 1 2:00:00 AM EDT [facility] ([facility]) Individual psychotherapy (regime/therapy) 11/29/2020 1 2:00:00 AM EDT [facility] ([facility]) OFFICE OUTPATIENT VISIT 15 MINUTES 11/22/2020 12:00:00 AM EDT [facility] ([facility] Individual psychotherapy (regime/therapy) 11/15/2020 1 2:00:00 AM EDT [facility] ([facility]) Individual psychotherapy (regime/therapy) 11/15/2020 1 2:00:00 AM EDT [facility] ([facility]) Individual psychotherapy (regime/therapy) 11/15/2020 1 2:00:00 AM [facility]) Individual psychotherapy (regime/therapy) 11/15/2020 1 2:00:00 AM ED[facility] ([facility]) Individual psychotherapy (regime/therapy) 11/15/2020 1 2:00:00 AM EDT [facility] ([facility]) Individual psychotherapy (regime/therapy) 11/15/2020 1 2:00:00 AM EDT [facility] ([facility]) Individual psychotherapy (regime/therapy) 11/15/2020 1 2:00:00 AM EDT [facility] ([facility]) Individual psychotherapy (regime/therapy) 11/15/2020 1 2:00:00 AM EDT [facility] ([facility]) Individual psychotherapy (regime/therapy) 11/15/2020 1 2:00:00 AM EDT [facility] ([facility]) Individual psychotherapy (regime/therapy) 11/15/2020 1 2:00:00 AM EDT [facility] ([facility]) OFFICE OUTPATIENT VISIT 15 MINUTES 11/08/2020 12:00:00 AM EDT [facility] ([facility] Individual psychotherapy (regime/therapy) 11/02/2020 1 2:00:00 AM EDT [facility] ([facility]) Individual psychotherapy (regime/therapy) 11/02/2020 1 2:00:00 AM [facility]) Individual psychotherapy (regime/therapy) 11/02/2020 1 2:00:00 AM ED[facility] ([facility]) Individual psychotherapy (regime/therapy) 11/02/2020 1 2:00:00 AM ED[facility] ([facility]) Individual psychotherapy (regime/therapy) 11/02/2020 1 2:00:00 AM ED[facility] ([facility]) Individual psychotherapy (regime/therapy) 11/02/2020 1 2:00:00 AM ED[facility] ([facility]) Individual psychotherapy (regime/therapy) 11/02/2020 1 2:00:00 AM EDT [facility] ([facility]) Individual psychotherapy (regime/therapy) 11/02/2020 1 2:00:00 AM EDT [facility] ([facility]) Individual psychotherapy (regime/therapy) 11/02/2020 1 2:00:00 AM EDT [facility] ([facility]) Individual psychotherapy (regime/therapy) 11/02/2020 1 2:00:00 AM EDT [facility] ([facility]) Individual psychotherapy (regime/therapy) 11/02/2020 1 2:00:00 AM EDT [facility] ([facility]) Individual psychotherapy (regime/therapy) 11/02/2020 1 2:00:00 AM EDT [facility] ([facility]) Individual psychotherapy (regime/therapy) 11/02/2020 1 2:00:00 AM EDT [facility] ([facility]) Individual psychotherapy (regime/therapy) 11/02/2020 1 2:00:00 AM EDT [facility] ([facility]) Individual psychotherapy (regime/therapy) 11/02/2020 1 2:00:00 AM EDT [facility] ([facility]) Individual psychotherapy (regime/therapy) 11/02/2020 1 2:00:00 AM EDT [facility] ([facility]) Individual psychotherapy (regime/therapy) 11/02/2020 1 2:00:00 AM EDT [facility] ([facility]) Individual psychotherapy (regime/therapy) 11/02/2020 1 2:00:00 AM EDT [facility] ([facility]) Individual psychotherapy (regime/therapy) 11/02/2020 1 2:00:00 AM EDT [facility] ([facility]) Individual psychotherapy (regime/therapy) 11/02/2020 1 2:00:00 AM EDT [facility] ([facility]) Individual psychotherapy (regime/therapy) 11/02/2020 1 2:00:00 AM EDT [facility] ([facility]) Individual psychotherapy (regime/therapy) 11/02/2020 1 2:00:00 AM [facility] OFFICE OUTPATIENT VISIT 15 MINUTES 10/19/2020 12:00:00 AM EDT [facility] ([facility] Individual psychotherapy (regime/therapy) 10/16/2020 1 2:00:00 AM EDT [facility] ([facility]) Individual psychotherapy (regime/therapy) 10/16/2020 1 2:00:00 AM EDT [facility] ([facility]) Individual psychotherapy (regime/therapy) 10/16/2020 1 2:00:00 AM EDT [facility] ([facility]) Individual psychotherapy (regime/therapy) 10/16/2020 1 2:00:00 AM EDT [facility] ([facility]) Individual psychotherapy (regime/therapy) 10/16/2020 1 2:00:00 AM EDT [facility] ([facility]) Individual psychotherapy (regime/therapy) 10/16/2020 1 2:00:00 AM EDT [facility] ([facility]) Individual psychotherapy (regime/therapy) 10/16/2020 1 2:00:00 AM EDT [facility] ([facility]) Individual psychotherapy (regime/therapy) 10/16/2020 1 2:00:00 AM EDT [facility] ([facility]) Individual psychotherapy (regime/therapy) 10/16/2020 1 2:00:00 AM EDT [facility] ([facility]) Individual psychotherapy (regime/therapy) 10/16/2020 1 2:00:00 AM EDT [facility] ([facility]) Individual psychotherapy (regime/therapy) 10/16/2020 1 2:00:00 AM EDT [facility] ([facility]) Individual psychotherapy (regime/therapy) 10/16/2020 1 2:00:00 AM EDT [facility] ([facility]) Individual psychotherapy (regime/therapy) 10/16/2020 1 2:00:00 AM EDT [facility] ([facility]) Individual psychotherapy (regime/therapy) 10/16/2020 1 2:00:00 AM EDT [facility] ([facility]) Individual psychotherapy (regime/therapy) 10/16/2020 1 2:00:00 AM EDT [facility] ([facility]) Individual psychotherapy (regime/therapy) 10/16/2020 1 2:00:00 AM EDT [facility] ([facility]) Individual psychotherapy (regime/therapy) 10/16/2020 1 2:00:00 AM EDT [facility] ([facility]) Individual psychotherapy (regime/therapy) 10/16/2020 1 2:00:00 AM EDT [facility] ([facility]) Individual psychotherapy (regime/therapy) 10/16/2020 1 2:00:00 AM EDT [facility] ([facility]) Individual psychotherapy (regime/therapy) 10/16/2020 1 2:00:00 AM EDT [facility] ([facility]) Individual psychotherapy (regime/therapy) 10/16/2020 1 2:00:00 AM EDT [facility] ([facility]) Individual psychotherapy (regime/therapy) 10/16/2020 1 2:00:00 AM [facility]) Individual psychotherapy (regime/therapy) 10/02/2020 1 2:00:00 AM EDT [facility] ([facility]) Individual psychotherapy (regime/therapy) 10/02/2020 1 2:00:00 AM [facility]T [facility]) Individual psychotherapy (regime/therapy) 10/02/2020 1 2:00:00 AM [facility]T [facility]) Individual psychotherapy (regime/therapy) 10/02/2020 1 2:00:00 AM EDT [facility]) Individual psychotherapy (regime/therapy) 10/02/2020 1 2:00:00 AM EDT [facility] ([facility]) Individual psychotherapy (regime/therapy) 10/02/2020 1 2:00:00 AM EDT [facility] ([facility]) Individual psychotherapy (regime/therapy) 10/02/2020 1 2:00:00 AM EDT [facility] ([facility]) Individual psychotherapy (regime/therapy) 10/02/2020 1 2:00:00 AM [facility]) OFFICE OUTPATIENT VISIT 15 MINUTES 10/02/2020 12:00:00 AM EDT [facility] ([facility] Individual psychotherapy (regime/therapy) 10/02/2020 1 2:00:00 AM EDT [facility] ([facility]) Individual psychotherapy (regime/therapy) 10/02/2020 1 2:00:00 AM EDT [facility] ([facility]) Individual psychotherapy (regime/therapy) 10/02/2020 1 2:00:00 AM EDT [facility] ([facility]) Individual psychotherapy (regime/therapy) 10/02/2020 1 2:00:00 AM EDT [facility] ([facility]) Individual psychotherapy (regime/therapy) 10/02/2020 1 2:00:00 AM EDT [facility] ([facility]) Individual psychotherapy (regime/therapy) 10/02/2020 1 2:00:00 AM EDT [facility] ([facility]) Individual psychotherapy (regime/therapy) 10/02/2020 1 2:00:00 AM EDT [facility] ([facility]) Individual psychotherapy (regime/therapy) 10/02/2020 1 2:00:00 AM EDT [facility] ([facility]) Individual psychotherapy (regime/therapy) 10/02/2020 1 2:00:00 AM EDT [facility] ([facility]) Individual psychotherapy (regime/therapy) 10/02/2020 1 2:00:00 AM EDT [facility] [facility] Individual psychotherapy (regime/therapy) 10/02/2020 1 2:00:00 AM EDT [facility] ([facility]) Individual psychotherapy (regime/therapy) 10/02/2020 1 2:00:00 AM EDT [facility] ([facility]) Individual psychotherapy (regime/therapy) 10/02/2020 1 2:00:00 AM EDT [facility] ([facility]) Individual psychotherapy (regime/therapy) 10/02/2020 1 2:00:00 AM EDT [facility] ([facility]) Individual psychotherapy (regime/therapy) 09/21/2020 1 2:00:00 AM EDT [facility] ([facility]) Individual psychotherapy (regime/therapy) 09/21/2020 1 2:00:00 AM EDT [facility] ([facility]) Individual psychotherapy (regime/therapy) 09/21/2020 1 2:00:00 AM EDT [facility] ([facility]) Individual psychotherapy (regime/therapy) 09/21/2020 1 2:00:00 AM EDT [facility] ([facility]) Individual psychotherapy (regime/therapy) 09/21/2020 1 2:00:00 AM EDT [facility] ([facility]) Individual psychotherapy (regime/therapy) 09/21/2020 1 2:00:00 AM EDT [facility] ([facility]) Individual psychotherapy (regime/therapy) 09/21/2020 1 2:00:00 AM [facility]) Individual psychotherapy (regime/therapy) 09/21/2020 1 2:00:00 AM EDT [facility] ([facility]) Individual psychotherapy (regime/therapy) 09/21/2020 1 2:00:00 AM EDT [facility] ([facility]) Individual psychotherapy (regime/therapy) 09/21/2020 1 2:00:00 AM EDT [facility] ([facility]) Individual psychotherapy (regime/therapy) 09/21/2020 1 2:00:00 AM EDT [facility] ([facility]) Evaluation AND/OR management - established patient (procedur e) 09/08/2020 12:00:00 AM EST [facility] ([facility]) Evaluation AND/OR management - established patient (procedur e) 09/08/2020 12:00:00 AM EST [facility] ([facility]) Evaluation AND/OR management - established patient (procedur e) 09/08/2020 12:00:00 AM EST [facility] ([facility] ns[facility] Living Services) Evaluation AND/OR management - established patient (procedur e) 09/08/2020 12:00:00 AM EST [facility] ([facility] ns[facility] Living Services) Evaluation AND/OR management - established patient (procedur e) 09/08/2020 12:00:00 AM EST [facility] ([facility]) Evaluation AND/OR management - established patient (procedur e) 09/08/2020 12:00:00 AM EST [facility] ([facility]) Evaluation AND/OR management - established patient (procedur e) 09/08/2020 12:00:00 AM EST [facility] ([facility] ns[facility] Living Services) Evaluation AND/OR management - established patient (procedur e) 09/08/2020 12:00:00 AM EST [facility] ([facility]) Evaluation AND/OR management - established patient (procedur e) 09/08/2020 12:00:00 AM EST [facility] ([facility] ns[facility] Living Services) Evaluation AND/OR management - established patient (procedur e) 09/08/2020 12:00:00 AM EST [facility] ([facility] ns[facility] Living Services) Evaluation AND/OR management - established patient (procedur e) 09/08/2020 12:00:00 AM EST [facility] Individual [facility] (regime/therapy) 09/07/2020 1 2:00:00 AM EST [facility] ([facility]) Individual psychotherapy (regime/therapy) 09/07/2020 1 2:00:00 AM EST [facility] ([facility]) Individual psychotherapy (regime/therapy) 09/07/2020 1 2:00:00 AM EST [facility] ([facility]) Individual psychotherapy (regime/therapy) 09/07/2020 1 2:00:00 AM EST [facility] ([facility]) Individual psychotherapy (regime/therapy) 09/07/2020 1 2:00:00 AM EST [facility] ([facility]) Individual psychotherapy (regime/therapy) 09/07/2020 1 2:00:00 AM EST [facility] ([facility]) Individual psychotherapy (regime/therapy) 09/07/2020 1 2:00:00 AM EST [facility] ([facility]) Individual psychotherapy (regime/therapy) 09/07/2020 1 2:00:00 AM EST [facility] ([facility]) Individual psychotherapy (regime/therapy) 09/07/2020 1 2:00:00 AM EST [facility] ([facility]) Individual psychotherapy (regime/therapy) 09/07/2020 1 2:00:00 AM EST [facility] ([facility]) Individual psychotherapy (regime/therapy) 09/07/2020 1 2:00:00 AM EST [facility] ([facility]) Individual psychotherapy (regime/therapy) 09/07/2020 1 2:00:00 AM EST [facility] ([facility]) Individual psychotherapy (regime/therapy) 09/07/2020 1 2:00:00 AM EST [facility] ([facility]) Individual psychotherapy (regime/therapy) 09/07/2020 1 2:00:00 AM EST [facility] ([facility]) Individual psychotherapy (regime/therapy) 09/07/2020 1 2:00:00 AM EST [facility] ([facility]) Individual psychotherapy (regime/therapy) 09/07/2020 1 2:00:00 AM EST [facility] ([facility]) Individual psychotherapy (regime/therapy) 09/07/2020 1 2:00:00 AM EST [facility] ([facility]) Individual psychotherapy (regime/therapy) 09/07/2020 1 2:00:00 AM EST [facility] ([facility]) Individual psychotherapy (regime/therapy) 09/07/2020 1 2:00:00 AM EST [facility] ([facility]) Individual psychotherapy (regime/therapy) 09/07/2020 1 2:00:00 AM EST [facility] ([facility]) Individual psychotherapy (regime/therapy) 09/07/2020 1 2:00:00 AM EST [facility] ([facility]) Individual psychotherapy (regime/therapy) 09/07/2020 1 2:00:00 AM EST [facility] ([facility]) Individual psychotherapy (regime/therapy) 08/10/2020 1 2:00:00 AM EST [facility] ([facility]) Individual psychotherapy (regime/therapy) 08/10/2020 1 2:00:00 AM EST [facility] ([facility]) Individual psychotherapy (regime/therapy) 08/10/2020 1 2:00:00 AM EST [facility] ([facility]) Individual psychotherapy (regime/therapy) 08/10/2020 1 2:00:00 AM EST [facility] ([facility]) Individual psychotherapy (regime/therapy) 08/10/2020 1 2:00:00 AM EST [facility] ([facility]) Individual psychotherapy (regime/therapy) 08/10/2020 1 2:00:00 AM EST [facility] ([facility]) Individual psychotherapy (regime/therapy) 08/10/2020 1 2:00:00 AM EST [facility] ([facility]) Individual psychotherapy (regime/therapy) 08/10/2020 1 2:00:00 AM EST [facility] ([facility]) Individual psychotherapy (regime/therapy) 08/10/2020 1 2:00:00 AM EST [facility] ([facility]) Individual psychotherapy (regime/therapy) 08/10/2020 1 2:00:00 AM EST [facility] ([facility]) Individual psychotherapy (regime/therapy) 08/10/2020 1 2:00:00 AM EST [facility] ([facility]) OFFICE OUTPATIENT VISIT 25 MINUTES 07/20/2020 12:00:00 AM EST [facility] ([facility] Individual psychotherapy (regime/therapy) 07/12/2020 1 2:00:00 AM EST [facility] ([facility]) Individual psychotherapy (regime/therapy) 07/12/2020 1 2:00:00 AM EST [facility] ([facility]) Individual psychotherapy (regime/therapy) 07/12/2020 1 2:00:00 AM EST [facility] ([facility]) Individual psychotherapy (regime/therapy) 07/12/2020 1 2:00:00 AM EST [facility] ([facility]) Individual psychotherapy (regime/therapy) 07/12/2020 1 2:00:00 AM EST [facility] ([facility]) Individual psychotherapy (regime/therapy) 07/12/2020 1 2:00:00 AM EST [facility] ([facility]) Individual psychotherapy (regime/therapy) 07/12/2020 1 2:00:00 AM EST [facility] ([facility]) Individual psychotherapy (regime/therapy) 07/12/2020 1 2:00:00 AM EST [facility] ([facility]) Individual psychotherapy (regime/therapy) 07/12/2020 1 2:00:00 AM EST [facility] ([facility]) Individual psychotherapy (regime/therapy) 07/12/2020 1 2:00:00 AM EST [facility] ([facility]) Individual psychotherapy (regime/therapy) 07/12/2020 1 2:00:00 AM EST [facility] ([facility]) Individual psychotherapy (regime/therapy) 06/05/2020 1 2:00:00 AM EST [facility] ([facility]) Individual psychotherapy (regime/therapy) 06/05/2020 1 2:00:00 AM EST [facility] ([facility]) Individual psychotherapy (regime/therapy) 06/05/2020 1 2:00:00 AM EST [facility] ([facility]) Individual psychotherapy (regime/therapy) 06/05/2020 1 2:00:00 AM EST [facility] ([facility]) Individual psychotherapy (regime/therapy) 06/05/2020 1 2:00:00 AM EST [facility] ([facility]) Individual psychotherapy (regime/therapy) 06/05/2020 1 2:00:00 AM EST [facility] ([facility]) Individual psychotherapy (regime/therapy) 06/05/2020 1 2:00:00 AM EST [facility] ([facility]) Individual psychotherapy (regime/therapy) 06/05/2020 1 2:00:00 AM EST [facility] ([facility]) Individual psychotherapy (regime/therapy) 06/05/2020 1 2:00:00 AM EST [facility] ([facility]) Individual psychotherapy (regime/therapy) 06/05/2020 1 2:00:00 AM EST [facility] ([facility]) Individual psychotherapy (regime/therapy) 06/05/2020 1 2:00:00 AM EST [facility] ([facility]) Individual psychotherapy (regime/therapy) 06/05/2020 1 2:00:00 AM EST [facility] ([facility]) Individual psychotherapy (regime/therapy) 06/05/2020 1 2:00:00 AM EST [facility] ([facility]) Individual psychotherapy (regime/therapy) 06/05/2020 1 2:00:00 AM EST [facility] ([facility]) Individual psychotherapy (regime/therapy) 06/05/2020 1 2:00:00 AM EST [facility] ([facility]) Individual psychotherapy (regime/therapy) 06/05/2020 1 2:00:00 AM EST [facility] ([facility]) Individual psychotherapy (regime/therapy) 06/05/2020 1 2:00:00 AM EST [facility] ([facility]) Individual psychotherapy (regime/therapy) 06/05/2020 1 2:00:00 AM EST [facility] ([facility]) Individual psychotherapy (regime/therapy) 06/05/2020 1 2:00:00 AM EST [facility] ([facility]) Individual psychotherapy (regime/therapy) 06/05/2020 1 2:00:00 AM EST [facility] ([facility]) Individual psychotherapy (regime/therapy) 06/05/2020 1 2:00:00 AM EST [facility] ([facility]) Individual psychotherapy (regime/therapy) 06/05/2020 1 2:00:00 AM EST [facility] ([facility]) Evaluation AND/OR management - established patient (procedur e) 05/31/2020 12:00:00 AM EST [facility] ([facility]) Evaluation AND/OR management - established patient (procedur e) 05/31/2020 12:00:00 AM EST [facility] ([facility]) Evaluation AND/OR management - established patient (procedur e) 05/31/2020 12:00:00 AM EST [facility] ([facility]) Evaluation AND/OR management - established patient (procedur e) 05/31/2020 12:00:00 AM EST [facility] ([facility]) Evaluation AND/OR management - established patient (procedur e) 05/31/2020 12:00:00 AM EST [facility] ([facility]) Evaluation AND/OR management - established patient (procedur e) 05/31/2020 12:00:00 AM EST [facility] ([facility]) Evaluation AND/OR management - established patient (procedur e) 05/31/2020 12:00:00 AM EST [facility] ([facility]) Evaluation AND/OR management - established patient (procedur e) 05/31/2020 12:00:00 AM EST [facility] ([facility]) Evaluation AND/OR management - established patient (procedur e) 05/31/2020 12:00:00 AM EST [facility] ([facility]) Evaluation AND/OR management - established patient (procedur e) 05/31/2020 12:00:00 AM EST [facility] ([facility] ns[facility] Services) Evaluation AND/OR management - established patient (procedur e) 05/31/2020 12:00:00 AM EST [facility] ([facility] ns[facility] Living Services) Individual psychotherapy (regime/therapy) 04/27/2020 1 2:00:00 AM EDT [facility] ([facility]) Individual psychotherapy (regime/therapy) 04/27/2020 1 2:00:[facility]) Individual psychotherapy (regime/therapy) 04/27/2020 1 2:00:00 AM [facility]) Individual psychotherapy (regime/therapy) 04/27/2020 1 2:00:00 AM [facility] ([facility]) Individual psychotherapy (regime/therapy) 04/27/2020 1 2:00:00 AM [facility] ([facility]) Individual psychotherapy (regime/therapy) 04/27/2020 1 2:00:00 AM [facility]) Individual psychotherapy (regime/therapy) 04/27/2020 1 2:00:00 AM [facility]) Individual psychotherapy (regime/therapy) 04/27/2020 1 2:00:00 AM [facility] ([facility]) Individual psychotherapy (regime/therapy) 04/27/2020 1 2:00:00 AM [facility] ([facility]) Individual psychotherapy (regime/therapy) 04/27/2020 1 2:00:00 AM [facility] ([facility]) Individual psychotherapy (regime/therapy) 04/27/2020 1 2:00:00 AM [facility] ([facility]) Evaluation AND/OR management - established patient (procedur e) 04/19/2020 12:00:00 AM [facility]) Evaluation AND/OR management - established patient (procedur e) 04/19/2020 12:00:00 AM [facility] ([facility] nsitional Living [facility]) Evaluation AND/OR management - established patient (procedur e) 04/19/2020 12:00:00 AM [facility] ([facility] nsitional Living [facility]) Evaluation AND/OR management - established patient (procedur e) 04/19/2020 12:00:00 AM [facility] ([facility] nsitional Living [facility]) Evaluation AND/OR management - established patient (procedur e) 04/19/2020 12:00:00 AM EDT [facility] Evaluation AND/OR management - established patient (procedur e) 04/19/2020 12:00:00 AM [facility] ([facility] nsitional Living [facility]) Evaluation AND/OR management - established patient (procedur e) 04/19/2020 12:00:00 AM [facility] ([facility] nsitional Living [facility]) Evaluation AND/OR management - established patient (procedur e) 04/19/2020 12:00:00 AM [facility] ([facility] nsitional Living Services) Evaluation AND/OR management - established patient (procedur e) 04/19/2020 12:00:00 AM [facility] ([facility] nsitional Living Services) Evaluation AND/OR management - established patient (procedur e) 04/19/2020 12:00:00 AM [facility] ([facility] nsitional Living Services) Evaluation AND/OR management - established patient (procedur e) 04/19/2020 12:00:00 AM ED[facility] ([facility]) Individual psychotherapy (regime/therapy) 04/05/2020 1 2:00:00 AM ED[facility] ([facility]) Individual psychotherapy (regime/therapy) 04/05/2020 1 2:00:00 AM EDT [facility] ([facility]) Individual psychotherapy (regime/therapy) 04/05/2020 1 2:00:00 AM EDT [facility] ([facility]) Individual psychotherapy (regime/therapy) 04/05/2020 1 2:00:00 AM EDT [facility] ([facility]) Individual psychotherapy (regime/therapy) 04/05/2020 1 2:00:00 AM EDT [facility] ([facility]) Individual psychotherapy (regime/therapy) 04/05/2020 1 2:00:00 AM EDT [facility] ([facility]) Individual psychotherapy (regime/therapy) 04/05/2020 1 2:00:00 AM EDT [facility] ([facility]) Individual psychotherapy (regime/therapy) 04/05/2020 1 2:00:00 AM EDT [facility] ([facility]) Individual psychotherapy (regime/therapy) 04/05/2020 1 2:00:00 AM EDT [facility]) Individual psychotherapy (regime/therapy) 04/05/2020 1 2:00:00 AM EDT [facility] ([facility]) Individual psychotherapy (regime/therapy) 04/05/2020 1 2:00:00 AM EDT [facility] ([facility]) Individual psychotherapy (regime/therapy) 04/05/2020 1 2:00:00 AM EDT [facility] ([facility]) Individual psychotherapy (regime/therapy) 04/05/2020 1 2:00:00 AM EDT [facility]) Individual psychotherapy (regime/therapy) 04/05/2020 1 2:00:00 AM EDT [facility] ([facility]) Individual psychotherapy (regime/therapy) 04/05/2020 1 2:00:00 AM EDT [facility] ([facility]) Individual psychotherapy (regime/therapy) 04/05/2020 1 2:00:00 AM EDT [facility] ([facility]) Individual psychotherapy (regime/therapy) 04/05/2020 1 2:00:00 AM EDT [facility] ([facility]) Individual psychotherapy (regime/therapy) 04/05/2020 1 2:00:00 AM EDT [facility]) Individual psychotherapy (regime/therapy) 04/05/2020 1 2:00:00 AM EDT [facility] ([facility]) Individual psychotherapy (regime/therapy) 04/05/2020 1 2:00:00 AM EDT [facility] ([facility]) Individual psychotherapy (regime/therapy) 04/05/2020 1 2:00:00 AM EDT [facility] ([facility]) Individual psychotherapy (regime/therapy) 04/05/2020 1 2:00:00 AM EDT [facility]) Injection (SC)/(Im) 03/30/2020 12:00:00 AM EDT [facility] ([facility] Results ID Date Data Source [id number] 01/09/2021 09:30:00 AM EDT [facility] ([facility] Name Value Range Interpretation Code Description Data Trudy rce(s) Supporting Document(s) Hemoglobin A1c/Hemoglobin.total in Blood 6.5 % 4.8-5.6 Above high normal [facility] ([facility] <content>Prediabetes: 5.7 - 6.4</content >
<content>Diabetes: >6.4</content>
<content>Glycemic control for adults with diabetes: <7.0</content>
<content></content> ID Date Data Source [id number] 10/02/2020 11:35:00 AM EDT [facility] Name Value Range Interpretation Code Description Data Trudy rce(s) Supporting Document(s) Hemoglobin A1c/Hemoglobin.total in Blood 7.1 % 4.8-5.6 Above high normal [facility] ([facility] <content>Prediabetes: 5.7 - 6.4</content >
<content>Diabetes: >6.4</content>
<content>Glycemic control for adults with diabetes: <7.0</content>
<content></content> ID Date Data Source [id number] 10/02/2020 11:35:00 AM EDT [facility] ([facility] Name Value Range Interpretation Code Description Data Trudy rce(s) Supporting Document(s) Thyrotropin [Units/volume] in Serum or Plasma 1.250 uIU/mL 0.450-4.50 0 [facility] ([facility] ID Date Data Source [id number] 10/02/2020 11:35:00 AM EDT [facility] ([facility] Name Value Range Interpretation Code Description Data Trudy rce(s) Supporting Document(s) Cholesterol in HDL [Mass/volume] in Serum or Plasma 35 mg/dL Below low normal [facility] ([facility] Triglyceride [Mass/volume] in Serum or Plasma 99 mg/dL 0-149 [facility] ([facility] Cholesterol [Mass/volume] in Serum or Plasma 155 mg/dL 100-199 [facility] ([facility] [facility] Laboratory test finding (navigational concept) 18 mg/dL 5-40 [facility] ([facility] Laboratory test finding (navigational concept) 102 mg/dL 0-99 Above high normal [facility] ([facility] Comment: Laboratory test result [facility] ([facility] ID Date Data Source [id number] 10/02/2020 11:35:00 AM EDT [facility] ([facility] Name Value Range Interpretation Code Description Data Trudy rce(s) Supporting Document(s) Glucose [Mass/volume] in Serum or Plasma 98 mg/dL 65-99 [facility] ([facility] BUN 13 mg/dL 6-24 [facility] ([facility] eGFR If NonAfricn Am 104 mL/min/1.73 [facility] ([facility] Creatinine [Mass/volume] in Serum or Plasma 0.83 mg/dL 0.76-1.27 [facility] ([facility] eGFR If Africn Am 120 mL/min/1.73 ME DENT ([facility] Sodium [Moles/volume] in Serum or Plasma 138 mmol/L 134-144 [facility] ([facility] Urea nitrogen/Creatinine [Mass Ratio] in Serum or Plasma 16 9 -20 [facility] ([facility] Chloride [Moles/volume] in Serum or Plasma 104 mmol/L 96-106 [facility] ([facility] Potassium [Moles/volume] in Serum or Plasma 4.2 mmol/L 3.5-5.2 [facility] ([facility] Protein [Mass/volume] in Serum or Plasma 7.3 g/dL 6.0-8.5 [facility] ([facility] Carbon dioxide, total [Moles/volume] in Serum or Plasma 21 mmol/L 20 -29 [facility] ([facility] Calcium [Mass/volume] in Serum or Plasma 9.6 mg/dL 8.7-10.2 [facility] ([facility] Albumin [Mass/volume] in Serum or Plasma 4.2 g/dL 4.0-5.0 [facility] ([facility] Globulin [Mass/volume] in Serum by calculation 3.1 g/dL 1.5-4.5 [facility] ([facility] Bilirubin.total [Mass/volume] in Serum or Plasma 0.5 mg/dL 0.0-1.2 [facility] ([facility] Albumin/Globulin [Mass Ratio] in Serum or Plasma 1.4 1.2-2.2 [facility] ([facility] Alkaline phosphatase [Enzymatic activity/volume] in Serum or Plasma 58 IU/L 39-117 [facility] ([facility] Alanine aminotransferase [Enzymatic activity/volume] in Seru m or Plasma 91 IU/L 0-44 Above high normal [facility] ([facility] Aspartate aminotransferase [Enzymatic activity/volume] in Serum or Plasma 51 IU/L 0-40 Above high normal [facility] ([facility] ID Date Data Source [id number] 10/02/2020 11:35:00 AM EDT [facility] ([facility] Name Value Range Interpretation Code Description Data Trudy rce(s) Supporting Document(s) Leukocytes [#/volume] in Blood by Automated count 9.0 x10E3/uL 3.4-10 .8 [facility] ([facility] Hematocrit [Volume Fraction] of Blood by Automated count 48.6 % 3 7.5-51.0 [facility] ([facility] Erythrocytes [#/volume] in Blood by Automated count 5.39 x10E6/uL 4.1 4-5.80 [facility] ([facility] Hemoglobin [Mass/volume] in Blood 16.4 g/dL 13.0-17.7 [facility] ([facility] Erythrocyte mean corpuscular volume [Entitic volume] by Auto mated count 90 fL 79-97 [facility] ([facility] Erythrocyte mean corpuscular hemoglobin [Entitic mass] by Automated count 30.4 pg 26.6-33.0 [facility] ([facility] Erythrocyte distribution width [Ratio] by Automated count 13.0 % 11.6-15.4 [facility] ([facility] Erythrocyte mean corpuscular hemoglobin concentration [Mass/volume] by Automated count 33.7 g/dL 31.5-35.7 [facility] ([facility] Platelets [#/volume] in Blood by Automated count 414 x10E3/uL 150-450 [facility] ([facility] Lymphs 26 % [facility] Neutrophils 56 % [facility] ([facility] Monocytes/100 leukocytes in Blood by Automated count 9 % [facility] ([facility] Basophils/100 leukocytes in Blood by Automated count 1 % [facility] ([facility] Eosinophils/100 leukocytes in Blood by Automated count 8 % [facility] ([facility] Neutrophils [#/volume] in Blood by Automated count 5.0 x10E3/uL 1.4-7 .0 [facility] ([facility] Immature cells [#/volume] in Blood Laboratory test result [facility] ([facility] Lymphocytes [#/volume] in Blood 2.4 x10E3/uL 0.7-3.1 [facility] ([facility] Monocytes [#/volume] in Blood 0.8 x10E3/uL 0.1-0.9 [facility] ([facility] Eosinophils [#/volume] in Blood by Automated count 0.7 x10E3/uL 0.0-0.4 Above high normal [facility] ([facility] ) Immature granulocytes/100 leukocytes in Blood by Automated count 0 % [facility] ([facility] Basophils [#/volume] in Blood by Automated count 0.1 x10E3/uL 0.0-0.2 [facility] ([facility] Immature granulocytes [#/volume] in Blood by Automated count 0.0 x10E3/uL 0.0-0.1 [facility] Nucleated erythrocytes/100 leukocytes [Ratio] in Blood by Automated count Laboratory test result [facility] ([facility] Morphology [Interpretation] in Blood Narrative Laboratory test result [facility] ([facility] ID Date Data Source [id number] 07/16/2020 10:00:00 AM EST [facility] Name Value Range Interpretation Code Description Data Trudy rce(s) Supporting Document(s) SARS coronavirus 2 RNA Not Detected [facility] This lab was ordered by [facility] and reported by [facility]. ID Date Data Source [id number] 05/18/2020 01:00:00 PM EST [facility] Name Value Range Interpretation Code Description Data Trudy rce(s) Supporting Document(s) SARS coronavirus 2 RNA [facility] This lab was ordered by [facility] and reported by [facility]. Procedure Social History No Information Vital Signs ID Date Data Source UNK Name Value Range Interpretation Code Description Data Source(s) Oxygen saturation in Arterial blood by Pulse oximetry 98 % 98 % [facility] ([facility] Systolic blood pressure 106 mm[Hg] 106 mm[Hg] M EDENT ([facility] Diastolic blood pressure 86 mm[Hg] 86 mm[Hg] [facility] ([facility] Body temperature 97.2 [degF] 97.2 [degF] [facility] ([facility] Heart rate 90 /min 90 /min [facility] ([facility] Respiratory rate 16 /min 16 /min [facility] ( [facility] Body height 70 [in_i] 70 [in_i] [facility] ([facility] 5'10" Body weight 243.00 [lb_av] 243.00 [lb_av] MEDEN T ([facility] [place] body weight 166 [lb_av] 166 [lb_av] MEDEN T ([facility] Body mass index (BMI) [Ratio] 34.9 kg/m2 34.9 k g/m2 [facility] ([facility] Systolic blood pressure 122 mm[Hg] 122 mm[Hg] M EDENT ([facility] Diastolic blood pressure 90 mm[Hg] 90 mm[Hg] [facility] ([facility] Body temperature 97.4 [degF] 97.4 [degF] [facility] ([facility] Heart rate 82 /min 82 /min [facility] ([facility] Respiratory rate 16 /min 16 /min [facility] ( [facility] Body height 70 [in_i] 70 [in_i] [facility] ([facility] 5'10" Body weight 251.00 [lb_av] 251.00 [lb_av] MEDEN T ([facility] [place] body weight 166 [lb_av] 166 [lb_av] MED[facility] T ([facility] Body mass index (BMI) [Ratio] 36.0 kg/m2 36.0 k g/m2 [facility] ([facility] Oxygen saturation in Arterial blood by Pulse oximetry 96 % 96 % [facility] ([facility] Systolic blood pressure 112 mm[Hg] 112 mm[Hg] M EDENT ([facility] Diastolic blood pressure 84 mm[Hg] 84 mm[Hg] [facility] ([facility] Body temperature 97.0 [degF] 97.0 [degF] [facility] ([facility] Heart rate 95 /min 95 /min [facility] ([facility] Respiratory rate 16 /min 16 /min [facility] ( [facility] Body height 70 [in_i] 70 [in_i] [facility] ([facility] 5'10" Body weight 257.00 [lb_av] 257.00 [lb_av] MEDEN T ([facility] [place] body weight 166 [lb_av] 166 [lb_av] MED[facility] T ([facility] Body mass index (BMI) [Ratio] 36.9 kg/m2 36.9 k g/m2 [facility] ([facility] Oxygen saturation in Arterial blood by Pulse oximetry 97 % 97 % [facility] ([facility] Body mass index (BMI) [Ratio] 38.0 kg/m2 38.0 k g/m2 [facility] ([facility] Systolic blood pressure 122 mm[Hg] 122 mm[Hg] M EDENT ([facility] Diastolic blood pressure 84 mm[Hg] 84 mm[Hg] [facility] ([facility] [place] body weight 166 [lb_av] 166 [lb_av] MED[facility] T ([facility] Oxygen saturation in Arterial blood by Pulse oximetry 97 % 97 % [facility] ([facility] Body temperature 96.6 [degF] 96.6 [degF] [facility] ([facility] Heart rate 81 /min 81 /min [facility] ([facility] Respiratory rate 16 /min 16 /min [facility] ( [facility] Body height 70 [in_i] 70 [in_i] [facility] ([facility] 5'10" Body weight 265.00 [lb_av] 265.00 [lb_av] MEDEN T ([facility] Respiratory rate 16 /min 16 /min [facility] ( [facility] Body height 70 [in_i] 70 [in_i] [facility] ([facility] 5'10" Diastolic blood pressure 74 mm[Hg] 74 mm[Hg] [facility] ([facility] Body weight 266.00 [lb_av] 266.00 [lb_av] MED[facility] T ([facility] [place] body weight 166 [lb_av] 166 [lb_av] [facility] T ([facility] Body mass index (BMI) [Ratio] 38.2 kg/m2 38.2 k g/m2 [facility] ([facility] Oxygen saturation in Arterial blood by Pulse oximetry 97 % 97 % [facility] ([facility] Systolic blood pressure 124 mm[Hg] 124 mm[Hg] M EDENT ([facility] Body temperature 97.5 [degF] 97.5 [degF] [facility] ([facility] Heart rate 92 /min 92 /min [facility] ([facility] [place] body weight 166 [lb_av] 166 [lb_av] [facility] T ([facility] Body mass index (BMI) [Ratio] 37.9 kg/m2 37.9 k g/m2 [facility] ([facility] Oxygen saturation in Arterial blood by Pulse oximetry 98 % 98 % [facility] ([facility] Systolic blood pressure 122 mm[Hg] 122 mm[Hg] M EDENT ([facility] Diastolic blood pressure 80 mm[Hg] 80 mm[Hg] [facility] ([facility] Body temperature 96.6 [degF] 96.6 [degF] [facility] ([facility] Heart rate 87 /min 87 /min [facility] ([facility] Respiratory rate 16 /min 16 /min [facility] ( [facility] Body height 70 [in_i] 70 [in_i] [facility] 5'10" Body weight 264.00 [lb_av] 264.00 [lb_av] MEDEN T ([facility] Respiratory rate 16 /min 16 /min [facility] ( [facility] Body weight 271.00 [lb_av] 271.00 [lb_av] MEDEN T ([facility] [place] body weight 166 [lb_av] 166 [lb_av] MED[facility] T ([facility] Systolic blood pressure 110 mm[Hg] 110 mm[Hg] M EDENT ([facility] Diastolic blood pressure 84 mm[Hg] 84 mm[Hg] [facility] ([facility] Body temperature 97.6 [degF] 97.6 [degF] [facility] ([facility] Heart rate 86 /min 86 /min [facility] ([facility] Body height 70 [in_i] 70 [in_i] [facility] ([facility] 5'10" Body mass index (BMI) [Ratio] 38.9 kg/m2 38.9 k g/m2 [facility] ([facility] Oxygen saturation in Arterial blood by Pulse oximetry 96 % 96 % [facility] Diastolic blood pressure 82 mm[Hg] 82 mm[Hg] [facility] ([facility], ) Body height 69.5 [in_i] 69.5 [in_i] [facility] ([facility], ) 5'9.50" Body weight 267.00 [lb_av] 267.00 [lb_av] MED[facility] T ([facility]) Body mass index (BMI) [Ratio] 38.9 kg/m2 38.9 k g/m2 [facility] ([facility]) [place] body weight 160 [lb_av] 160 [lb_av] [facility] T ([facility]) Body weight 121.111 kg 121.111 kg [facility] ([facility]) Body surface area Derived from formula 2.35 m2 2.35 m2 [facility] ([facility], ) Systolic blood pressure 112 mm[Hg] 112 mm[Hg] M [facility] ([facility]) Body height 70 [in_i] 70 [in_i] [facility] ([facility] 5'10" Body weight 267.00 [lb_av] 267.00 [lb_av] MEDEN T ([facility] [place] body weight 166 [lb_av] 166 [lb_av] [facility] T ([facility] Body mass index (BMI) [Ratio] 38.3 kg/m2 38.3 k g/m2 [facility] ([facility] Oxygen saturation in Arterial blood by Pulse oximetry 97 % 97 % [facility] ([facility] Systolic blood pressure 110 mm[Hg] 110 mm[Hg] M [facility] ([facility] Diastolic blood pressure 86 mm[Hg] 86 mm[Hg] [facility] ([facility] Body temperature 96.4 [degF] 96.4 [degF] [facility] ([facility] Heart rate 103 /min 103 /min [facility] ([facility] Respiratory rate 16 /min 16 /min [facility] ( [facility] Body surface area Derived from formula 2.34 m2 2.34 m2 [facility] ([facility]) Body weight 119.750 kg 119.750 kg [facility] ([facility]) Systolic blood pressure 132 mm[Hg] 132 mm[Hg] [facility] ([facility]) Body height 69.5 [in_i] 69.5 [in_i] [facility] ([facility]) 5'9.50" Body weight 264.00 [lb_av] 264.00 [lb_av] MED[facility] T ([facility]) Body mass index (BMI) [Ratio] 38.4 kg/m2 38.4 k g/m2 [facility] ([facility]) [place] body weight 160 [lb_av] 160 [lb_av] MED[facility] T ([facility]) Diastolic blood pressure 72 mm[Hg] 72 mm[Hg] [facility] ([facility], ) Heart rate 82 /min 82 /min [facility] ([facility], ) Body temperature 97.6 [degF] 97.6 [degF] [facility] ([facility] Heart rate 86 /min 86 /min [facility] ([facility] Respiratory rate 16 /min 16 /min [facility] ( [facility] Body height 70 [in_i] 70 [in_i] [facility] ([facility] 5'10" [place] body weight 166 [lb_av] 166 [lb_av] MEDEN T ([facility] Oxygen saturation in Arterial blood by Pulse oximetry 96 % 96 % [facility] ([facility] Systolic blood pressure 102 mm[Hg] 102 mm[Hg] M EDENT ([facility] Body temperature 97.2 [degF] 97.2 [degF] [facility] ([facility] Body height 70 [in_i] 70 [in_i] [facility] ([facility] 5'10" Body weight 262.00 [lb_av] 262.00 [lb_av] MEDEN T ([facility] [place] body weight 166 [lb_av] 166 [lb_av] MED[facility] T ([facility] Body mass index (BMI) [Ratio] 37.6 kg/m2 37.6 k g/m2 [facility] ([facility] Heart rate 93 /min 93 /min [facility] ([facility] Respiratory rate 16 /min 16 /min [facility] ( [facility] Oxygen saturation in Arterial blood by Pulse oximetry 97 % 97 % [facility] ([facility] Diastolic blood pressure 78 mm[Hg] 78 mm[Hg] [facility] ([facility] Patient Treatment Plan of Care Planned Activity Planned Date Details Description Data Source (s) duloxetine 20 MG Delayed Release Oral Capsule [Cymbalt a] 02/08/2021 12:00:00 AM EDT [facility] ([facility]) duloxetine 60 MG Delayed Release Oral Capsule [Cymbalt a] 02/08/2021 12:00:00 AM EDT [facility] ([facility]) duloxetine 20 MG Delayed Release Oral Capsule [Cymbalt a] 02/08/2021 12:00:00 AM EDT [facility] ([facility]) duloxetine 60 MG Delayed Release Oral Capsule [Cymbalt a] 02/08/2021 12:00:00 AM EDT [facility] ([facility]) duloxetine 20 MG Delayed Release Oral Capsule [Cymbalt a] 02/08/2021 12:00:00 AM EDT [facility] ([facility]) duloxetine 60 MG Delayed Release Oral Capsule [Cymbalt a] 02/08/2021 12:00:00 AM EDT [facility] ([facility]) duloxetine 60 MG Delayed Release Oral Capsule [Cymbalt a] 02/08/2021 12:00:00 AM EDT [facility] ([facility]) duloxetine 20 MG Delayed Release Oral Capsule [Cymbalt a] 02/08/2021 12:00:00 AM EDT [facility] ([facility]) duloxetine 20 MG Delayed Release Oral Capsule [Cymbalt a] 01/17/2021 12:00:00 AM EDT [facility] ([facility]) duloxetine 20 MG Delayed Release Oral Capsule [Cymbalt a] 01/17/2021 12:00:00 AM EDT [facility] ([facility]) duloxetine 20 MG Delayed Release Oral Capsule [Cymbalt a] 01/17/2021 12:00:00 AM EDT [facility] ([facility]) duloxetine 20 MG Delayed Release Oral Capsule [Cymbalt a] 01/17/2021 12:00:00 AM EDT [facility] ([facility]) duloxetine 20 MG Delayed Release Oral Capsule [Cymbalt a] 01/17/2021 12:00:00 AM EDT [facility] ([facility]) duloxetine 60 MG Delayed Release Oral Capsule [Cymbalt a] 01/05/2021 12:00:00 AM EDT [facility] ([facility]) duloxetine 60 MG Delayed Release Oral Capsule [Cymbalt a] 01/05/2021 12:00:00 AM EDT [facility] ([facility]) duloxetine 60 MG Delayed Release Oral Capsule [Cymbalt a] 01/05/2021 12:00:[facility] duloxetine 60 MG Delayed Release Oral Capsule [Cymbalt a] 01/05/2021 12:00:00 AM EDT [facility] ([facility]) duloxetine 60 MG Delayed Release Oral Capsule [Cymbalt a] 01/05/2021 12:00:00 AM EDT [facility] ([facility]) duloxetine 60 MG Delayed Release Oral Capsule [Cymbalt a] 01/05/2021 12:00:[facility] Bupropion Hydrochloride 75 MG Oral Tablet 04/19/2020 12:00:00 AM ED T [facility] ([facility]) Bupropion Hydrochloride 75 MG Oral Tablet 04/19/2020 12:00:00 AM ED T [facility] ([facility]) Bupropion Hydrochloride 75 MG Oral Tablet 04/19/2020 12:00:00 AM ED T [facility] ([facility]) Bupropion Hydrochloride 75 MG Oral Tablet 04/19/2020 12:00:00 AM ED T [facility] ([facility]) Bupropion Hydrochloride 75 MG Oral Tablet 04/19/2020 12:00:00 AM ED T [facility] ([facility]) Bupropion Hydrochloride 75 MG Oral Tablet 04/19/2020 12:00:00 AM ED T [facility] ([facility]) Bupropion Hydrochloride 75 MG Oral Tablet 04/19/2020 12:00:00 AM ED T [facility] ([facility]) Bupropion Hydrochloride 75 MG Oral Tablet 04/19/2020 12:00:00 AM ED T [facility] ([facility]) Bupropion Hydrochloride 75 MG Oral Tablet 04/19/2020 12:00:00 AM ED T [place] ([facility]) Bupropion Hydrochloride 75 MG Oral Tablet 01/17/2020 12:00:00 AM ED T [place] ([facility]) Bupropion Hydrochloride 75 MG Oral Tablet 01/17/2020 12:00:00 AM ED T [place] ([facility]) Bupropion Hydrochloride 75 MG Oral Tablet 01/17/2020 12:00:00 AM ED T [place] ([facility]) Bupropion Hydrochloride 75 MG Oral Tablet 01/17/2020 12:00:00 AM ED T [place] ([facility]) Bupropion Hydrochloride 75 MG Oral Tablet 01/17/2020 12:00:00 AM ED T [place] ([facility]) Bupropion Hydrochloride 75 MG Oral Tablet 01/17/2020 12:00:00 AM ED T [place] ([facility]) Bupropion Hydrochloride 75 MG Oral Tablet 01/17/2020 12:00:00 AM ED T [place] ([facility]) Bupropion Hydrochloride 75 MG Oral Tablet 01/17/2020 12:00:00 AM ED T [place] ([facility]) Bupropion Hydrochloride 75 MG Oral Tablet 01/17/2020 12:00:00 AM ED T [place] ([facility])
--- OUTSIDE RECORDS SUMMARY | 2021-05-23 11:23 | CCD ---
Author Author [facility] Organization [facility] Address Unknown Phone Unavailable Care Team Providers Care Hotel Server Name Role Phone Say, D Abner PA Unavailable Unavailable Say, [...] Unavailable Say, D Abner PA Unavailable Unavailable Asy, D Abner PA Unavailable Unavailable Say, D [...] is protected by Article 27-F of the [facility] Public Health law. If you continue you may have access to information: Regarding HIV / AIDS; Provided by facilities licensed or operated by the [facility] Office of Mental Health; or Provided by the [facility] Office for People With Developmental Disabilities. If such information is present, then the following [facility] mandated warning applies: This information has been [...] law may result in a fine or shelter sentence or both. A general authorization for the release of medical or other information is NOT sufficient authorization for further disc losure. Encounters Encounter Providers Location Date Indications Data Source(s ) Telehealth Physchotherapy 30 [facility] with [facility] 04/16/2021 12:00:00 AM EDT [facility] ([facility]) [facility] 03/22/2021 12:00:00 AM EDT [facility] ([facility]) Pyschotherapy 30 Minute with [facility] 03/05/2021 12:00:00 AM EDT [facility] ([facility]) Outpatient Attender: Abner [place] Office 09:15:00 AM EDT [facility] ([facility] Pyschotherapy 30 Minute with [facility] 02/21/2021 12:00:00 AM EDT [facility] ([facility]) [facility] 02/08/2021 12:00:00 AM EDT [facility] ([facility]) Telehealth Physchotherapy 30 Minutes with [facility] 01/17/2021 12:00:00 AM EDT [facility] ([facility]) Outpatient Attender: Abner [facility] Office 12/2020 09:00:00 AM EDT [facility] ([facility] Pyschotherapy 30 Minute with [facility] 01/01/2021 12:00:00 AM EDT [facility] ([facility]) Pyschotherapy 30 Minute with [facility] 01/01/2021 12:00:00 AM EDT [facility] ([facility]) Pyschotherapy 30 Minute with [facility] 12/13/2020 12:00:00 AM EDT [facility] ([facility]) Outpatient Attender: Abner [place] Office 02:20:00 PM EDT [facility] ([facility] Telehealth Physchotherapy 30 Minutes with [facility] 11/15/2020 12:00:00 AM EDT [facility] ([facility]) Outpatient Attender: Abner [facility] Office 11/2020 02:40:00 PM EDT [facility] ([facility] Pyschotherapy 30 Minute with [facility] 11/02/2020 12:00:00 AM EDT [facility] ([facility] Outpatient Attender: Abner [facility] Office 04:00:00 PM EDT [facility] ([facility] Outpatient Attender: Abner [facility] Office 11:00:00 AM EDT [facility] ([facility] Outpatient Attender: Abner [facility] Office 12:30:00 PM EST [facility] ([facility] Outpatient Attender: Abner [facility] Office 08/2019 02:00:00 PM EST [facility] ([facility] Outpatient Attender: Abner [facility] Office 04:00:00 PM EDT [facility] ([facility] Outpatient Attender: Abner MENDOZA [employer] Office 09:30:00 AM EDT [facility] ([facility] Immunizations Vaccine Date Status Description Data Source(s) COVID-19 VACCINE Moderna 09/29/2020 12:00:00 AM EDT completed [facility] Vaccine Series Complete: YESThis Data wa s Submitted to [facility] Via [employer] Interpreting. COVID-19 VACCINE Moderna 09/01/2020 12:00:00 AM EST completed [facility]SIIS Vaccine Series Complete: NOThis Data was Submitted to [facility] Via [employer]pre[employer]. New in 2013. IIV4 03/30/2020 09:25:00 AM EDT completed [facility] ([facility] Medications Medication Brand Name Start Date Product Form Dose Route Admi nistrative Instructions Pharmacy Instructions Status Indications Reaction Description Data Source(s) duloxetine 60 MG Delayed Release Oral Capsule [Cymbalta] Cym laurita 02/08/2021 12:00:00 AM EDT 60 mg oral active Cymbalta [facility] ([facility]) duloxetine 60 MG Delayed Release Oral Capsule [Cymbalta] Cym laurita 02/08/2021 12:00:00 AM EDT 60 mg oral active Cymbalta [facility] ([facility]) duloxetine 20 MG Delayed Release Oral Capsule [Cymbalta] Cym laurita 02/08/2021 12:00:00 AM EDT 20 mg oral active Cymbalta [facility] ([facility]) duloxetine 20 MG Delayed Release Oral Capsule [Cymbalta] Cym laurita 02/08/2021 12:00:00 AM EDT 20 mg oral active Cymbalta [facility] ([facility]) duloxetine 60 MG Delayed Release Oral Capsule [Cymbalta] Cym laurita 02/08/2021 12:00:00 AM EDT 60 mg oral active Cymbalta [facility] ([facility]) duloxetine 20 MG Delayed Release Oral Capsule [Cymbalta] Cym laurita 02/08/2021 12:00:00 AM EDT 20 mg oral active Cymbalta [facility] ([facility]) duloxetine 20 MG Delayed Release Oral Capsule [Cymbalta] Cym laurita 02/08/2021 12:00:00 AM EDT 20 mg oral active Cymbalta [facility] ([facility]) duloxetine 60 MG Delayed Release Oral Capsule [Cymbalta] Cym laurita 02/08/2021 12:00:00 AM EDT 60 mg oral active Cymbalta [facility] ([facility]) duloxetine 20 MG Delayed Release Oral Capsule [Cymbalta] Cym laurita 01/17/2021 12:00:00 AM EDT 20 mg oral completed Cymba lta [facility] ([facility]) duloxetine 20 MG Delayed Release Oral Capsule [Cymbalta] Cym laurita 01/17/2021 12:00:00 AM EDT 20 mg oral completed Cymba lta [facility] ([facility]) duloxetine 20 MG Delayed Release Oral Capsule [Cymbalta] Cym laurita 01/17/2021 12:00:00 AM EDT 20 mg oral completed Cymba lta [facility] ([facility]) duloxetine 20 MG Delayed Release Oral Capsule [Cymbalta] Cym laurita 01/17/2021 12:00:00 AM EDT 20 mg oral completed Cymba lta [facility] ([facility]) duloxetine 20 MG Delayed Release Oral Capsule [Cymbalta] Cym laurita 01/17/2021 12:00:00 AM EDT 20 mg oral active Cymbalta [facility] ([facility]) duloxetine 60 MG Delayed Release Oral Capsule [Cymbalta] Cym laurita 01/05/2021 12:00:00 AM EDT 60 mg oral completed Cymba lta [facility] ([facility]) duloxetine 60 MG Delayed Release Oral Capsule [Cymbalta] Cym laurita 01/05/2021 12:00:00 AM EDT 60 mg oral active Cymbalta [facility] ([facility]) duloxetine 60 MG Delayed Release Oral Capsule [Cymbalta] Cym laurita 01/05/2021 12:00:00 AM EDT 60 mg oral active Cymbalta [facility] ([facility]) duloxetine 60 MG Delayed Release Oral Capsule [Cymbalta] Cym laurita 01/05/2021 12:00:00 AM EDT 60 mg oral completed Cymba lta [facility] ([facility]) duloxetine 60 MG Delayed Release Oral Capsule [Cymbalta] Cym laurita 01/05/2021 12:00:00 AM EDT 60 mg oral completed Cymba lta [facility] ([facility]) duloxetine 60 MG Delayed Release Oral Capsule [Cymbalta] Cym laurita 01/05/2021 12:00:00 AM EDT 60 mg oral completed Cymba lta [facility] ([facility]) duloxetine 30 MG Delayed Release Oral Capsule Duloxetine HCL 11/08/2020 12:00:00 AM EDT ORAL active [facility] ([facility] Omeprazole 40 MG Delayed Release Oral Capsule Omeprazole 11/08/2020 12:00:00 AM EDT ORAL active [facility] ([facility] Azithromycin 250 MG Oral Tablet Azithromycin 10/19/2020 12:00:00 AM E DT ORAL completed [facility] ([facility] Moderna Covid-19 Vaccine Moderna Covid-19 Vaccine 10/02/2020 12:00: 00 AM EDT active [facility] ([facility] Azithromycin 250 MG Oral Tablet Azithromycin 07/20/2020 12:00:[address] ORAL completed [facility] ([facility] POLYETHYLENE GLYCOL 3350 142 MG/ML Oral Solution [Miralax] M iralax 06/22/2020 12:00:00 AM EST active M [facility]ENT ([facility], ) Azithromycin 250 MG Oral Tablet Azithromycin 06/07/2020 12:00:[address] ORAL completed [facility] ([facility] Diclofenac Sodium 0.01 MG/MG Topical Gel Diclofenac Sodium 06/07/2020 12:00:00 AM EST active [facility] ([facility] Bupropion Hydrochloride 75 MG Oral Tablet bupropion HCl 04/19/2020 12:00:00 AM EDT 75 mg oral completed bupropion HCl [facility] ([facility]) Bupropion Hydrochloride 75 MG Oral Tablet bupropion HCl 04/19/2020 12:00:00 AM EDT 75 mg oral completed bupropion HCl [facility] ([facility]) Bupropion Hydrochloride 75 MG Oral Tablet bupropion HCl 04/19/2020 12:00:00 AM EDT 75 mg oral completed bupropion HCl [facility] ([facility]) Bupropion Hydrochloride 75 MG Oral Tablet bupropion HCl 04/19/2020 12:00:00 AM EDT 75 mg oral completed bupropion HCl [facility] ([facility]) Bupropion Hydrochloride 75 MG Oral Tablet bupropion HCl 04/19/2020 12:00:00 AM EDT 75 mg oral completed bupropion HCl [facility] ([facility]) Bupropion Hydrochloride 75 MG Oral Tablet bupropion HCl 04/19/2020 12:00:00 AM EDT 75 mg oral completed bupropion HCl [facility] ([facility]) Bupropion Hydrochloride 75 MG Oral Tablet bupropion HCl 04/19/2020 12:00:00 AM EDT 75 mg oral completed bupropion HCl [facility] ([facility]) Bupropion Hydrochloride 75 MG Oral Tablet bupropion HCl 04/19/2020 12:00:00 AM EDT 75 mg oral completed bupropion HCl [facility] ([facility]) Bupropion Hydrochloride 75 MG Oral Tablet bupropion HCl 04/19/2020 12:00:00 AM EDT 75 mg oral completed bupropion HCl [facility] ([facility]) POLYETHYLENE GLYCOL 3350 105 MG/ML / Pot assium Chloride 0.28903 MEQ/ML / Sodium Bicarbonate 0.017 MEQ/ML / Sodium Chloride 0.0479 MEQ/ML Oral Solution [NuLytely] Nulytely With Flavor Packs 04/12/2020 12:00:00 AM EDT completed [facility] ([facility], ) Bisacodyl 5 MG Delayed Release Oral Tablet [Dulcolax] Dulcol ax 04/12/2020 12:00:00 AM EDT ORAL completed [facility] ([facility], ) POLYETHYLENE GLYCOL 3350 142 MG/ML Oral Solution [Miralax] M iralax 04/12/2020 12:00:00 AM EDT ORAL active M [facility]ENT ([facility], ) Azithromycin 250 MG Oral Tablet Azithromycin 04/04/2020 12:00:00 AM E DT ORAL completed [facility] ([facility] Guaifenesin 20 MG/ML Oral Solution Guaifenesin 04/04/2020 12:00:00 AM EDT ORAL completed [facility] ([facility] Injection (SC)/(Im) 03/30/2020 12:00:00 AM EDT completed [facility] ([facility] Medication administered onsite Cholecalciferol 2000 UNT Oral Tablet Vitamin D 03/30/2020 12:00:00 A M EDT ORAL active [facility] ([facility] Bupropion Hydrochloride 75 MG Oral Tablet bupropion HCl 01/17/2020 12:00:00 AM EDT 75 mg oral completed bupropion HCl [facility] ([facility]) Bupropion Hydrochloride 75 MG Oral Tablet bupropion HCl 01/17/2020 12:00:00 AM EDT 75 mg oral completed bupropion HCl [facility] ([facility]) Bupropion Hydrochloride 75 MG Oral Tablet bupropion HCl 01/17/2020 12:00:00 AM EDT 75 mg oral completed bupropion HCl [facility] ([facility]) Bupropion Hydrochloride 75 MG Oral Tablet bupropion HCl 01/17/2020 12:00:00 AM EDT 75 mg oral completed bupropion HCl [facility] ([facility]) Bupropion Hydrochloride 75 MG Oral Tablet bupropion HCl 01/17/2020 12:00:00 AM EDT 75 mg oral completed bupropion HCl [facility] ([facility]) Bupropion Hydrochloride 75 MG Oral Tablet bupropion HCl 01/17/2020 12:00:00 AM EDT 75 mg oral completed bupropion HCl [facility] ([facility]) Bupropion Hydrochloride 75 MG Oral Tablet bupropion HCl 01/17/2020 12:00:00 AM EDT 75 mg oral completed bupropion HCl [facility] ([facility]) Bupropion Hydrochloride 75 MG Oral Tablet bupropion HCl 01/17/2020 12:00:00 AM EDT 75 mg oral completed bupropion HCl [facility] ([facility]) Bupropion Hydrochloride 75 MG Oral Tablet bupropion HCl 01/17/2020 12:00:00 AM EDT 75 mg oral completed bupropion HCl [facility] ([facility]) Insurance Providers Payer name Policy type / Coverage type Policy ID Covered alliance party ID Covered alliance party's relationship to coombs Policy [place] Plan Information EXCELLUS I [id number] Self [id number] MEDICAID M [id number] Fthr [id number] [facility] MEDICARE COMPLETE G [id number] Self [id number] [facility] I [id number] Self [id number] MEDICAID M [id number] Self [id number] [facility] [id number] SP [id number] MEDICARE COMPLETE [id number] SP [id number] [facility] [id number] SP [id number] [facility] [id number] SP [id number] NOY MEDICAID [id number] Avani 7 [id number] [employer]-PHYSICIAN [id number] 18 [id number] [employer] BL[employer]-O/P [id number] 18 [id number] [facility] [id number] SP [id number] R [id number] [facility] [id number] SP [id number] [facility](MCAID) O [id number] S [id number] [place] [id number] 18 [id number] HC AMERICHOICE XIX -O [id number] 18 [id number] [facility] UNK SP UNK [place] [facility] [place] HMO [id number] 18 [id number] MEDICAID REF AMBULAT W [id number] S [id number] BLUE CHOICE OPTION O [id number] S [id number] MEDICAID W [id number] S [id number] Problems, Conditions, and Diagnoses Code Display Name Description Problem Type Effective Dates Data Source(s) 17622660 Allergic asthma without status asthmatic us Allergic asthma without status asthmaticus Problem 04/12/2020 12:00:00 AM EDT [facility] ([facility], ) Surgeries/Procedures Procedure Description Date Indications Data Source(s) Individual psychotherapy (regime/therapy) 04/16/2021 1 2:00:00 AM EDT [facility]) Individual psychotherapy (regime/therapy) 04/16/2021 1 2:00:00 AM EDT [facility] ([facility]) Evaluation AND/OR management - established patient (procedur e) 04/10/2021 12:00:00 AM EDT [facility] ([facility]) Individual psychotherapy (regime/therapy) 04/09/2021 1 2:00:00 AM EDT [facility] ([facility]) Individual psychotherapy (regime/therapy) 04/09/2021 1 2:00:00 AM EDT [facility] ([facility]) Individual psychotherapy (regime/therapy) 04/05/2021 1 2:00:00 AM EDT [facility] ([facility]) Individual psychotherapy (regime/therapy) 04/05/2021 1 2:00:00 AM [facility]) Evaluation AND/OR management - established patient (procedur e) 03/22/2021 12:00:00 AM EDT [facility] ([facility]) Evaluation AND/OR management - established patient (procedur e) 03/22/2021 12:00:00 AM EDT [facility]) Individual psychotherapy (regime/therapy) 03/05/2021 1 2:00:00 AM EDT [facility]) Individual psychotherapy (regime/therapy) 03/05/2021 1 2:00:00 AM EDT [facility] ([facility]) Individual psychotherapy (regime/therapy) 03/05/2021 1 2:00:00 AM EDT [facility] ([facility]) Individual psychotherapy (regime/therapy) 03/05/2021 1 2:00:00 AM EDT [facility] ([facility]) Individual psychotherapy (regime/therapy) 03/05/2021 1 2:00:00 AM EDT [facility] ([facility]) Individual psychotherapy (regime/therapy) 03/05/2021 1 2:00:00 AM EDT [facility] ([facility]) OFFICE OUTPATIENT VISIT 15 MINUTES 03/01/2021 12:00:00 AM EDT [facility] ([facility] Individual psychotherapy (regime/therapy) 02/21/2021 1 2:00:00 AM EDT [facility] ([facility]) Individual psychotherapy (regime/therapy) 02/21/2021 1 2:00:00 AM EDT [facility] ([facility]) Individual psychotherapy (regime/therapy) 02/21/2021 1 2:00:00 AM EDT [facility] ([facility]) Individual psychotherapy (regime/therapy) 02/21/2021 1 2:00:00 AM EDT [facility] ([facility]) Individual psychotherapy (regime/therapy) 02/21/2021 1 2:00:00 AM EDT [facility]) Individual psychotherapy (regime/therapy) 02/21/2021 1 2:00:00 AM EDT [facility]) Individual psychotherapy (regime/therapy) 02/21/2021 1 2:00:00 AM EDT [facility] ([facility]) Individual psychotherapy (regime/therapy) 02/21/2021 1 2:00:00 AM EDT [facility]) Evaluation AND/OR management - established patient (procedur e) 02/08/2021 12:00:00 AM EDT [facility] ([facility]) Evaluation AND/OR management - established patient (procedur e) 02/08/2021 12:00:00 AM EDT [facility] ([facility]) Evaluation AND/OR management - established patient (procedur e) 02/08/2021 12:00:00 AM EDT [facility] ([facility]) Evaluation AND/OR management - established patient (procedur e) 02/08/2021 12:00:00 AM EDT [facility] ([facility]) Evaluation AND/OR management - established patient (procedur e) 02/08/2021 12:00:00 AM EDT [facility] Individual psychotherapy (regime/therapy) 02/07/2021 1 2:00:00 AM EDT [facility] ([facility]) Individual psychotherapy (regime/therapy) 02/07/2021 1 2:00:00 AM EDT [facility] ([facility]) Individual psychotherapy (regime/therapy) 02/07/2021 1 2:00:00 AM EDT [facility] ([facility]) Individual psychotherapy (regime/therapy) 02/07/2021 1 2:00:00 AM EDT [facility] ([facility]) Individual psychotherapy (regime/therapy) 02/07/2021 1 2:00:00 AM EDT [facility] ([facility]) Individual psychotherapy (regime/therapy) 02/07/2021 1 2:00:00 AM EDT [facility]) Individual psychotherapy (regime/therapy) 02/07/2021 1 2:00:00 AM ED[facility]) Individual psychotherapy (regime/therapy) 02/07/2021 1 2:00:00 AM EDT [facility]) Individual psychotherapy (regime/therapy) 02/07/2021 1 2:00:00 AM EDT [facility]) Individual psychotherapy (regime/therapy) 02/07/2021 1 2:00:00 AM EDT [facility]) Individual psychotherapy (regime/therapy) 01/17/2021 1 2:00:00 AM EDT [facility]) Individual psychotherapy (regime/therapy) 01/17/2021 1 2:00:00 AM EDT [facility]) Individual psychotherapy (regime/therapy) 01/17/2021 1 2:00:00 AM EDT [facility] ([facility]) Individual psychotherapy (regime/therapy) 01/17/2021 1 2:00:00 AM EDT [facility] ([facility]) Individual psychotherapy (regime/therapy) 01/17/2021 1 2:00:00 AM [facility]) Individual psychotherapy (regime/therapy) 01/17/2021 1 2:00:00 AM EDT [facility] ([facility]) Individual psychotherapy (regime/therapy) 01/17/2021 1 2:00:00 AM EDT [facility]) Individual psychotherapy (regime/therapy) 01/17/2021 1 2:00:00 AM ED[facility]) Individual psychotherapy (regime/therapy) 01/17/2021 1 2:00:00 AM EDT [facility]) Individual psychotherapy (regime/therapy) 01/17/2021 1 2:00:00 AM EDT [facility] ([facility]) Individual psychotherapy (regime/therapy) 01/17/2021 1 2:00:00 AM EDT [facility] ([facility]) Individual psychotherapy (regime/therapy) 01/17/2021 1 2:00:00 AM EDT [facility] ([facility]) Evaluation AND/OR management - established patient (procedur e) 01/11/2021 12:00:00 AM [facility]) Evaluation AND/OR management - established patient (procedur e) 01/11/2021 12:00:00 AM EDT [facility] ([facility]) Evaluation AND/OR management - established patient (procedur e) 01/11/2021 12:00:00 AM ED[facility] ([facility]) Evaluation AND/OR management - established patient (procedur e) 01/11/2021 12:00:00 AM [facility] Evaluation AND/OR management - established patient (procedur e) 01/11/2021 12:00:00 AM EDT [facility] ([facility]) Evaluation AND/OR management - established patient (procedur e) 01/11/2021 12:00:00 AM ED[facility] ([facility]) OFFICE OUTPATIENT VISIT 25 MINUTES 01/09/2021 12:00:00 AM EDT [facility] ([facility] Individual psychotherapy (regime/therapy) 01/01/2021 1 2:00:00 AM EDT [facility] ([facility]) Individual psychotherapy (regime/therapy) 01/01/2021 1 2:00:00 AM EDT [facility] ([facility]) Individual psychotherapy (regime/therapy) 01/01/2021 1 2:00:00 AM EDT [facility] ([facility]) Individual psychotherapy (regime/therapy) 01/01/2021 1 2:00:00 AM EDT [facility] ([facility]) Individual psychotherapy (regime/therapy) 01/01/2021 1 2:00:00 AM EDT [facility] ([facility]) Individual psychotherapy (regime/therapy) 01/01/2021 1 2:00:00 AM EDT [facility] ([facility]) Individual psychotherapy (regime/therapy) 01/01/2021 1 2:00:00 AM EDT [facility] ([facility]) Individual psychotherapy (regime/therapy) 01/01/2021 1 2:00:00 AM EDT [facility]) Individual psychotherapy (regime/therapy) 01/01/2021 1 2:00:00 AM EDT [facility]) Individual psychotherapy (regime/therapy) 01/01/2021 1 2:00:00 AM EDT [facility] ([facility]) Individual psychotherapy (regime/therapy) 01/01/2021 1 2:00:00 AM EDT [facility] ([facility]) Individual psychotherapy (regime/therapy) 01/01/2021 1 2:00:00 AM EDT [facility]) Individual psychotherapy (regime/therapy) 01/01/2021 1 2:00:00 AM EDT [facility] ([facility]) Individual psychotherapy (regime/therapy) 01/01/2021 1 2:00:00 AM EDT [facility] ([facility]) Individual psychotherapy (regime/therapy) 12/27/2020 1 2:00:00 AM EDT [facility] ([facility]) Individual psychotherapy (regime/therapy) 12/27/2020 1 2:00:00 AM EDT [facility] ([facility]) Individual psychotherapy (regime/therapy) 12/27/2020 1 2:00:00 AM EDT [facility] ([facility]) Individual psychotherapy (regime/therapy) 12/27/2020 1 2:00:00 AM EDT [facility] ([facility]) Individual psychotherapy (regime/therapy) 12/27/2020 1 2:00:00 AM EDT [facility] ([facility]) Individual psychotherapy (regime/therapy) 12/27/2020 1 2:00:00 AM EDT [facility] ([facility]) Individual psychotherapy (regime/therapy) 12/27/2020 1 2:00:00 AM EDT [facility] ([facility]) Individual psychotherapy (regime/therapy) 12/27/2020 1 2:00:00 AM EDT [facility] ([facility]) Individual psychotherapy (regime/therapy) 12/27/2020 1 2:00:00 AM EDT [facility] ([facility]) Individual psychotherapy (regime/therapy) 12/27/2020 1 2:00:00 AM EDT [facility] ([facility]) Individual psychotherapy (regime/therapy) 12/27/2020 1 2:00:00 AM EDT [facility] ([facility]) Individual psychotherapy (regime/therapy) 12/27/2020 1 2:00:00 AM EDT [facility] ([facility]) Individual psychotherapy (regime/therapy) 12/27/2020 1 2:00:00 AM EDT [facility] ([facility]) Individual psychotherapy (regime/therapy) 12/27/2020 1 2:00:00 AM EDT [facility] ([facility]) Individual psychotherapy (regime/therapy) 12/27/2020 1 2:00:00 AM EDT [facility] ([facility]) Individual psychotherapy (regime/therapy) 12/27/2020 1 2:00:00 AM EDT [facility] ([facility]) Individual psychotherapy (regime/therapy) 12/13/2020 1 2:00:00 AM EDT [facility] ([facility]) Individual psychotherapy (regime/therapy) 12/13/2020 1 2:00:00 AM EDT [facility] ([facility]) Individual psychotherapy (regime/therapy) 12/13/2020 1 2:00:00 AM EDT [facility] ([facility]) Individual psychotherapy (regime/therapy) 12/13/2020 1 2:00:00 AM EDT [facility] ([facility]) Individual psychotherapy (regime/therapy) 12/13/2020 1 2:00:00 AM EDT [facility] ([facility]) Individual psychotherapy (regime/therapy) 12/13/2020 1 2:00:00 AM EDT [facility] ([facility]) Individual psychotherapy (regime/therapy) 12/13/2020 1 2:00:00 AM EDT [facility] ([facility]) Individual psychotherapy (regime/therapy) 12/13/2020 1 2:00:00 AM EDT [facility] ([facility]) Individual psychotherapy (regime/therapy) 12/13/2020 1 2:00:00 AM EDT [facility] ([facility]) Individual psychotherapy (regime/therapy) 12/13/2020 1 2:00:00 AM EDT [facility] ([facility]) Individual psychotherapy (regime/therapy) 12/13/2020 1 2:00:00 AM EDT [facility] ([facility]) Individual psychotherapy (regime/therapy) 12/13/2020 1 2:00:00 AM EDT [facility] ([facility]) Individual psychotherapy (regime/therapy) 12/13/2020 1 2:00:00 AM EDT [facility] ([facility]) Individual psychotherapy (regime/therapy) 12/13/2020 1 2:00:00 AM EDT [facility] ([facility]) Individual psychotherapy (regime/therapy) 12/13/2020 1 2:00:00 AM EDT [facility] ([facility]) Individual psychotherapy (regime/therapy) 12/13/2020 1 2:00:00 AM EDT [facility] ([facility]) Individual psychotherapy (regime/therapy) 12/13/2020 1 2:00:00 AM EDT [facility] ([facility]) Individual psychotherapy (regime/therapy) 12/13/2020 1 2:00:00 AM EDT [facility] ([facility]) Evaluation AND/OR management - established patient (procedur e) 12/12/2020 12:00:00 AM EDT [facility]) Evaluation AND/OR management - established patient (procedur e) 12/12/2020 12:00:00 AM EDT [facility] ([facility]) Evaluation AND/OR management - established patient (procedur e) 12/12/2020 12:00:00 AM EDT [facility]) Evaluation AND/OR management - established patient (procedur e) 12/12/2020 12:00:00 AM EDT [facility] ([facility]) Evaluation AND/OR management - established patient (procedur e) 12/12/2020 12:00:00 AM EDT [facility] ([facility]) Evaluation AND/OR management - established patient (procedur e) 12/12/2020 12:00:00 AM EDT [facility] ([facility]) Evaluation AND/OR management - established patient (procedur e) 12/12/2020 12:00:00 AM EDT [facility] ([facility]) Evaluation AND/OR management - established patient (procedur e) 12/12/2020 12:00:00 AM EDT [facility] ([facility]) Evaluation AND/OR management - established patient (procedur e) 12/12/2020 12:00:00 AM EDT [facility] ([facility]) Individual psychotherapy (regime/therapy) 11/29/2020 1 2:00:00 AM EDT [facility] ([facility]) Individual psychotherapy (regime/therapy) 11/29/2020 1 2:00:00 AM EDT [facility] ([facility]) Individual psychotherapy (regime/therapy) 11/29/2020 1 2:00:00 AM EDT [facility] ([facility]) Individual psychotherapy (regime/therapy) 11/29/2020 1 2:00:00 AM EDT [facility] ([facility]) Individual psychotherapy (regime/therapy) 11/29/2020 1 2:00:00 AM EDT [facility] ([facility]) Individual psychotherapy (regime/therapy) 11/29/2020 1 2:00:00 AM EDT [facility] ([facility]) Individual psychotherapy (regime/therapy) 11/29/2020 1 2:00:00 AM EDT [facility] ([facility]) Individual psychotherapy (regime/therapy) 11/29/2020 1 2:00:00 AM EDT [facility] ([facility]) Individual psychotherapy (regime/therapy) 11/29/2020 1 2:00:00 AM EDT [facility] ([facility]) Individual psychotherapy (regime/therapy) 11/29/2020 1 2:00:00 AM EDT [facility] ([facility]) Individual psychotherapy (regime/therapy) 11/29/2020 1 2:00:00 AM EDT [facility] ([facility]) Individual psychotherapy (regime/therapy) 11/29/2020 1 2:00:00 AM EDT [facility] ([facility]) Individual psychotherapy (regime/therapy) 11/29/2020 1 2:00:00 AM EDT [facility] ([facility]) Individual psychotherapy (regime/therapy) 11/29/2020 1 2:00:00 AM EDT [facility] ([facility]) Individual psychotherapy (regime/therapy) 11/29/2020 1 2:00:00 AM EDT [facility] ([facility]) Individual psychotherapy (regime/therapy) 11/29/2020 1 2:00:00 AM EDT [facility] ([facility]) Individual psychotherapy (regime/therapy) 11/29/2020 1 2:00:00 AM EDT [facility] ([facility]) Individual psychotherapy (regime/therapy) 11/29/2020 1 2:00:00 AM EDT [facility] ([facility]) OFFICE OUTPATIENT VISIT 15 MINUTES 11/22/2020 12:00:00 AM EDT [facility] ([facility] Individual psychotherapy (regime/therapy) 11/15/2020 1 2:00:00 AM EDT [facility] ([facility]) Individual psychotherapy (regime/therapy) 11/15/2020 1 2:00:00 AM EDT [facility] ([facility]) Individual psychotherapy (regime/therapy) 11/15/2020 1 2:00:00 AM EDT [facility] ([facility]) Individual psychotherapy (regime/therapy) 11/15/2020 1 2:00:00 AM EDT [facility] ([facility]) Individual psychotherapy (regime/therapy) 11/15/2020 1 2:00:00 AM EDT [facility] ([facility]) Individual psychotherapy (regime/therapy) 11/15/2020 1 2:00:00 AM EDT [facility] ([facility]) Individual psychotherapy (regime/therapy) 11/15/2020 1 2:00:00 AM EDT [facility]) Individual psychotherapy (regime/therapy) 11/15/2020 1 2:00:00 AM EDT [facility] ([facility]) Individual psychotherapy (regime/therapy) 11/15/2020 1 2:00:00 AM EDT [facility] ([facility]) Individual psychotherapy (regime/therapy) 11/15/2020 1 2[facility]00:[facility] OFFICE OUTPATIENT VISIT 15 MINUTES 11/08/2020 12:00:00 AM EDT [facility] ([facility] Individual psychotherapy (regime/therapy) 11/02/2020 1 2:00:00 AM EDT [facility] ([facility]) Individual psychotherapy (regime/therapy) 11/02/2020 1 2:00:00 AM EDT [facility] ([facility]) Individual psychotherapy (regime/therapy) 11/02/2020 1 2:00:00 AM EDT [facility] ([facility]) Individual psychotherapy (regime/therapy) 11/02/2020 1 2:00:00 AM EDT [facility] ([facility]) Individual psychotherapy (regime/therapy) 11/02/2020 1 2:00:00 AM EDT [facility] ([facility]) Individual psychotherapy (regime/therapy) 11/02/2020 1 2:00:00 AM EDT [facility] ([facility]) Individual psychotherapy (regime/therapy) 11/02/2020 1 2:00:00 AM EDT [facility] ([facility]) Individual psychotherapy (regime/therapy) 11/02/2020 1 2:00:00 AM EDT [facility] ([facility]) Individual psychotherapy (regime/therapy) 11/02/2020 1 2:00:00 AM EDT [facility] ([facility]) Individual psychotherapy (regime/therapy) 11/02/2020 1 2:00:00 AM EDT [facility] ([facility]) Individual psychotherapy (regime/therapy) 11/02/2020 1 2:00:00 AM EDT [facility] ([facility]) Individual psychotherapy (regime/therapy) 11/02/2020 1 2:00:00 AM EDT [facility] ([facility]) Individual psychotherapy (regime/therapy) 11/02/2020 1 2:00:00 AM EDT [facility] ([facility]) Individual psychotherapy (regime/therapy) 11/02/2020 1 2:00:00 AM EDT [facility] ([facility]) Individual psychotherapy (regime/therapy) 11/02/2020 1 2:00:00 AM EDT [facility] ([facility]) Individual psychotherapy (regime/therapy) 11/02/2020 1 2:00:00 AM [facility]) Individual psychotherapy (regime/therapy) 11/02/2020 1 2:00:00 AM EDT [facility] ([facility]) Individual psychotherapy (regime/therapy) 11/02/2020 1 2:00:00 AM EDT [facility] ([facility]) Individual psychotherapy (regime/therapy) 11/02/2020 1 2:00:00 AM EDT [facility] ([facility]) Individual psychotherapy (regime/therapy) 11/02/2020 1 2:00:00 AM EDT [facility] ([facility]) Individual psychotherapy (regime/therapy) 11/02/2020 1 2:00:00 AM EDT [facility] ([facility]) Individual psychotherapy (regime/therapy) 11/02/2020 1 2:00:00 AM EDT [facility] ([facility]) OFFICE OUTPATIENT VISIT 15 MINUTES 10/19/2020 12:00:00 AM EDT [facility] ([facility] Individual psychotherapy (regime/therapy) 10/16/2020 1 2:00:00 AM EDT [facility] ([facility]) Individual psychotherapy (regime/therapy) 10/16/2020 1 2:00:00 AM EDT [facility] ([facility]) Individual psychotherapy (regime/therapy) 10/16/2020 1 2:00:00 AM EDT [facility] ([facility]) Individual psychotherapy (regime/therapy) 10/16/2020 1 2:00:00 AM EDT [facility] ([facility]) Individual psychotherapy (regime/therapy) 10/16/2020 1 2:00:00 AM EDT [facility] ([facility]) Individual psychotherapy (regime/therapy) 10/16/2020 1 2:00:00 AM EDT [facility] ([facility]) Individual psychotherapy (regime/therapy) 10/16/2020 1 2:00:00 AM EDT [facility] ([facility]) Individual psychotherapy (regime/therapy) 10/16/2020 1 2:00:00 AM EDT [facility] ([facility]) Individual psychotherapy (regime/therapy) 10/16/2020 1 2:00:00 AM EDT [facility] ([facility]) Individual psychotherapy (regime/therapy) 10/16/2020 1 2:00:00 AM EDT [facility] ([facility]) Individual psychotherapy (regime/therapy) 10/16/2020 1 2:00:00 AM EDT [facility] ([facility]) Individual psychotherapy (regime/therapy) 10/16/2020 1 2:00:00 AM EDT [facility] ([facility]) Individual psychotherapy (regime/therapy) 10/16/2020 1 2:00:00 AM EDT [facility] ([facility]) Individual psychotherapy (regime/therapy) 10/16/2020 1 2:00:00 AM EDT [facility] ([facility]) Individual psychotherapy (regime/therapy) 10/16/2020 1 2:00:00 AM EDT [facility] ([facility]) Individual psychotherapy (regime/therapy) 10/16/2020 1 2:00:00 AM [facility]) Individual psychotherapy (regime/therapy) 10/16/2020 1 2:00:00 AM EDT [facility]) Individual psychotherapy (regime/therapy) 10/16/2020 1 2:00:00 AM EDT [facility] ([facility]) Individual psychotherapy (regime/therapy) 10/16/2020 1 2:00:00 AM EDT [facility] ([facility]) Individual psychotherapy (regime/therapy) 10/16/2020 1 2:00:00 AM [facility] ([facility]) Individual psychotherapy (regime/therapy) 10/16/2020 1 2:00:00 AM [facility] ([facility]) Individual psychotherapy (regime/therapy) 10/16/2020 1 2:00:00 AM EDT [facility]) Individual psychotherapy (regime/therapy) 10/02/2020 1 2:00:00 AM EDT [facility]) Individual psychotherapy (regime/therapy) 10/02/2020 1 2:00:00 AM [facility] ([facility]) Individual psychotherapy (regime/therapy) 10/02/2020 1 2:00:00 AM EDT [facility]) Individual psychotherapy (regime/therapy) 10/02/2020 1 2:00:00 AM EDT [facility] ([facility]) Individual psychotherapy (regime/therapy) 10/02/2020 1 2:00:00 AM EDT [facility] ([facility]) Individual psychotherapy (regime/therapy) 10/02/2020 1 2:00:00 AM EDT [facility]) Individual psychotherapy (regime/therapy) 10/02/2020 1 2:00:00 AM [facility] ([facility]) Individual psychotherapy (regime/therapy) 10/02/2020 1 2:00:00 AM EDT [facility] ([facility]) OFFICE OUTPATIENT VISIT 15 MINUTES 10/02/2020 12:00:00 AM EDT [facility] ([facility] Individual psychotherapy (regime/therapy) 10/02/2020 1 2:00:00 AM EDT [facility] ([facility]) Individual psychotherapy (regime/therapy) 10/02/2020 1 2:00:00 AM EDT [facility] ([facility]) Individual psychotherapy (regime/therapy) 10/02/2020 1 2:00:00 AM EDT [facility] ([facility]) Individual psychotherapy (regime/therapy) 10/02/2020 1 2:00:00 AM EDT [facility] ([facility]) Individual psychotherapy (regime/therapy) 10/02/2020 1 2:00:00 AM EDT [facility] ([facility]) Individual psychotherapy (regime/therapy) 10/02/2020 1 2:00:00 AM EDT [facility] ([facility]) Individual psychotherapy (regime/therapy) 10/02/2020 1 2:00:00 AM EDT [facility] ([facility]) Individual psychotherapy (regime/therapy) 10/02/2020 1 2:00:00 AM EDT [facility] ([facility]) Individual psychotherapy (regime/therapy) 10/02/2020 1 2:00:00 AM EDT [facility] ([facility]) Individual psychotherapy (regime/therapy) 10/02/2020 1 2:00:00 AM EDT [facility] ([facility]) Individual psychotherapy (regime/therapy) 10/02/2020 1 2:00:00 AM EDT [facility] ([facility]) Individual psychotherapy (regime/therapy) 10/02/2020 1 2:00:00 AM EDT [facility] ([facility]) Individual psychotherapy (regime/therapy) 10/02/2020 1 2:00:00 AM EDT [facility] ([facility]) Individual psychotherapy (regime/therapy) 10/02/2020 1 2:00:00 AM EDT [facility] ([facility]) Individual psychotherapy (regime/therapy) 09/21/2020 1 2:00:00 AM EDT [facility] ([facility]) Individual psychotherapy (regime/therapy) 09/21/2020 1 2:00:00 AM EDT [facility] ([facility]) Individual psychotherapy (regime/therapy) 09/21/2020 1 2:00:00 AM EDT [facility] ([facility]) Individual psychotherapy (regime/therapy) 09/21/2020 1 2:00:00 AM EDT [facility] ([facility]) Individual psychotherapy (regime/therapy) 09/21/2020 1 2:00:00 AM EDT [facility] ([facility]) Individual psychotherapy (regime/therapy) 09/21/2020 1 2:00:00 AM [facility] [facility] Individual psychotherapy (regime/therapy) 09/21/2020 1 2:00:00 AM EDT [facility] ([facility]) Individual psychotherapy (regime/therapy) 09/21/2020 1 2:00:00 AM EDT [facility] ([facility]) Individual psychotherapy (regime/therapy) 09/21/2020 1 2:00:00 AM EDT [facility] ([facility]) Individual psychotherapy (regime/therapy) 09/21/2020 1 2:00:00 AM EDT [facility] ([facility]) Individual psychotherapy (regime/therapy) 09/21/2020 1 2:00:00 AM EDT [facility] ([facility]) Evaluation AND/OR management - established patient (procedur e) 09/08/2020 12:00:00 AM EST [facility] ([facility]) Evaluation AND/OR management - established patient (procedur e) 09/08/2020 12:00:00 AM EST [facility] ([facility]) Evaluation AND/OR management - established patient (procedur e) 09/08/2020 12:00:00 AM EST [facility] ([facility]) Evaluation AND/OR management - established patient (procedur e) 09/08/2020 12:00:00 AM EST [facility] ([facility]) Evaluation AND/OR management - established patient (procedur e) 09/08/2020 12:00:00 AM EST [facility] ([facility]) Evaluation AND/OR management - established patient (procedur e) 09/08/2020 12:00:00 AM EST [facility] ([facility]) Evaluation AND/OR management - established patient (procedur e) 09/08/2020 12:00:00 AM EST [facility] ([facility]) Evaluation AND/OR management - established patient (procedur e) 09/08/2020 12:00:00 AM EST [facility] ([facility]) Evaluation AND/OR management - established patient (procedur e) 09/08/2020 12:00:00 AM EST [facility] ([facility]) Evaluation AND/OR management - established patient (procedur e) 09/08/2020 12:00:00 AM EST [facility] ([facility]) Evaluation AND/OR management - established patient (procedur e) 09/08/2020 12:00:00 AM EST [facility] ([facility]) Individual psychotherapy (regime/therapy) 09/07/2020 1 2:00:00 AM EST [facility] ([facility]) Individual psychotherapy (regime/therapy) 09/07/2020 1 2:00:00 AM EST [facility] ([facility]) Individual psychotherapy (regime/therapy) 09/07/2020 1 2:00:00 AM EST [facility] ([facility]) Individual psychotherapy (regime/therapy) 09/07/2020 1 2:00:00 AM EST [facility] ([facility]) Individual psychotherapy (regime/therapy) 09/07/2020 1 2:00:00 AM EST [facility] ([facility]) Individual psychotherapy (regime/therapy) 09/07/2020 1 2:00:00 AM EST [facility] ([facility]) Individual psychotherapy (regime/therapy) 09/07/2020 1 2:00:00 AM EST [facility] ([facility]) Individual psychotherapy (regime/therapy) 09/07/2020 1 2:00:00 AM EST [employer] ([facility]) Individual psychotherapy (regime/therapy) 09/07/2020 1 2:00:00 AM EST [facility] ([facility]) Individual psychotherapy (regime/therapy) 09/07/2020 1 2:00:00 AM EST [facility] ([facility]) Individual psychotherapy (regime/therapy) 09/07/2020 1 2:00:00 AM EST [facility] ([facility]) Individual psychotherapy (regime/therapy) 09/07/2020 1 2:00:00 AM EST [facility] ([facility]) Individual psychotherapy (regime/therapy) 09/07/2020 1 2:00:00 AM EST [facility] ([facility]) Individual psychotherapy (regime/therapy) 09/07/2020 1 2:00:00 AM EST [facility] ([facility]) Individual psychotherapy (regime/therapy) 09/07/2020 1 2:00:00 AM EST [facility] ([facility]) Individual psychotherapy (regime/therapy) 09/07/2020 1 2:00:00 AM EST [employer] ([facility]) Individual psychotherapy (regime/therapy) 09/07/2020 1 2:00:00 AM EST [facility] ([facility]) Individual psychotherapy (regime/therapy) 09/07/2020 1 2:00:00 AM EST [facility] ([facility]) Individual psychotherapy (regime/therapy) 09/07/2020 1 2:00:00 AM EST [facility] ([facility]) Individual psychotherapy (regime/therapy) 09/07/2020 1 2:00:00 AM EST [facility] ([facility]) Individual psychotherapy (regime/therapy) 09/07/2020 1 2:00:00 AM EST [facility] ([facility]) Individual psychotherapy (regime/therapy) 09/07/2020 1 2:00:00 AM EST [facility] ([facility]) Individual psychotherapy (regime/therapy) 08/10/2020 1 2:00:00 AM EST [employer] ([facility]) Individual psychotherapy (regime/therapy) 08/10/2020 1 2:00:00 AM EST [facility] ([facility]) Individual psychotherapy (regime/therapy) 08/10/2020 1 2:00:00 AM EST [facility] ([facility]) Individual psychotherapy (regime/therapy) 08/10/2020 1 2:00:00 AM EST [facility] ([facility]) Individual psychotherapy (regime/therapy) 08/10/2020 1 2:00:00 AM EST [facility] ([facility]) Individual psychotherapy (regime/therapy) 08/10/2020 1 2:00:00 AM EST [facility] ([facility]) Individual psychotherapy (regime/therapy) 08/10/2020 1 2:00:00 AM EST [facility] ([facility]) Individual psychotherapy (regime/therapy) 08/10/2020 1 2:00:00 AM EST [facility] ([facility]) Individual psychotherapy (regime/therapy) 08/10/2020 1 2:00:00 AM EST [facility] ([facility]) Individual psychotherapy (regime/therapy) 08/10/2020 1 2:00:00 AM EST [facility] ([facility]) Individual psychotherapy (regime/therapy) 08/10/2020 1 2:00:00 AM EST [facility] ([facility]) OFFICE OUTPATIENT VISIT 25 MINUTES 07/20/2020 12:00:00 AM EST [facility] ([facility] Individual psychotherapy (regime/therapy) 07/12/2020 1 2:00:00 AM EST [facility] ([facility]) Individual psychotherapy (regime/therapy) 07/12/2020 1 2:00:00 AM EST [facility] ([facility]) Individual psychotherapy (regime/therapy) 07/12/2020 1 2:00:00 AM EST [facility] ([facility]) Individual psychotherapy (regime/therapy) 07/12/2020 1 2:00:00 AM EST [facility] ([facility]) Individual psychotherapy (regime/therapy) 07/12/2020 1 2:00:00 AM EST [facility] ([facility]) Individual psychotherapy (regime/therapy) 07/12/2020 1 2:00:00 AM EST [facility] ([facility]) Individual psychotherapy (regime/therapy) 07/12/2020 1 2:00:00 AM EST [facility] ([facility]) Individual psychotherapy (regime/therapy) 07/12/2020 1 2:00:00 AM EST [facility] ([facility]) Individual psychotherapy (regime/therapy) 07/12/2020 1 2:00:00 AM EST [facility] ([facility]) Individual psychotherapy (regime/therapy) 07/12/2020 1 2:00:00 AM EST [facility] ([facility]) Individual psychotherapy (regime/therapy) 07/12/2020 1 2:00:00 AM EST [facility] ([facility]) Individual psychotherapy (regime/therapy) 06/05/2020 1 2:00:00 AM EST [facility] ([facility]) Individual psychotherapy (regime/therapy) 06/05/2020 1 2:00:00 AM EST [facility] ([facility]) Individual psychotherapy (regime/therapy) 06/05/2020 1 2:00:00 AM EST [facility] ([facility]) Individual psychotherapy (regime/therapy) 06/05/2020 1 2:00:00 AM EST [facility] ([facility]) Individual psychotherapy (regime/therapy) 06/05/2020 1 2:00:00 AM EST [facility] ([facility]) Individual psychotherapy (regime/therapy) 06/05/2020 1 2:00:00 AM EST [facility] ([facility]) Individual psychotherapy (regime/therapy) 06/05/2020 1 2:00:00 AM EST [facility] ([facility]) Individual psychotherapy (regime/therapy) 06/05/2020 1 2:00:00 AM EST [facility] ([facility]) Individual psychotherapy (regime/therapy) 06/05/2020 1 2:00:00 AM EST [facility] ([facility]) Individual psychotherapy (regime/therapy) 06/05/2020 1 2:00:00 AM EST [facility] ([facility]) Individual psychotherapy (regime/therapy) 06/05/2020 1 2:00:00 AM EST [facility] ([facility]) Individual psychotherapy (regime/therapy) 06/05/2020 1 2:00:00 AM EST [facility] ([facility]) Individual psychotherapy (regime/therapy) 06/05/2020 1 2:00:00 AM EST [facility] ([facility]) Individual psychotherapy (regime/therapy) 06/05/2020 1 2:00:00 AM EST [facility] ([facility]) Individual psychotherapy (regime/therapy) 06/05/2020 1 2:00:00 AM EST [facility] ([facility]) Individual psychotherapy (regime/therapy) 06/05/2020 1 2:00:00 AM EST [facility] ([facility]) Individual psychotherapy (regime/therapy) 06/05/2020 1 2:00:00 AM EST [facility] ([facility]) Individual psychotherapy (regime/therapy) 06/05/2020 1 2:00:00 AM EST [facility] ([facility]) Individual psychotherapy (regime/therapy) 06/05/2020 1 2:00:00 AM EST [facility] ([facility]) Individual psychotherapy (regime/therapy) 06/05/2020 1 2:00:00 AM EST [facility] ([facility]) Individual psychotherapy (regime/therapy) 06/05/2020 1 2:00:00 AM EST [facility] ([facility]) Individual psychotherapy (regime/therapy) 06/05/2020 1 2:00:00 AM EST [facility] ([facility]) Evaluation AND/OR management - established patient (procedur e) 05/31/2020 12:00:00 AM EST [facility] ([facility]) Evaluation AND/OR management - established patient (procedur e) 05/31/2020 12:00:00 AM EST [facility] ([facility]) Evaluation AND/OR management - established patient (procedur e) 05/31/2020 12:00:00 AM EST [facility] ([facility]) Evaluation AND/OR management - established patient (procedur e) 05/31/2020 12:00:00 AM EST [employer] ([facility]) Evaluation AND/OR management - established patient (procedur e) 05/31/2020 12:00:00 AM EST [facility] ([facility] Evaluation AND/OR management - established patient (procedur e) 05/31/2020 12:00:00 AM EST [employer] ([facility]) Evaluation AND/OR management - established patient (procedur e) 05/31/2020 12:00:00 AM EST [facility] ([facility]) Evaluation AND/OR management - established patient (procedur e) 05/31/2020 12:00:00 AM EST [employer] ([facility]) Evaluation AND/OR management - established patient (procedur e) 05/31/2020 12:00:00 AM EST [facility] ([facility]) Evaluation AND/OR management - established patient (procedur e) 05/31/2020 12:00:00 AM EST [facility] ([facility]) Evaluation AND/OR management - established patient (procedur e) 05/31/2020 12:00:00 AM EST [facility] Individual psychotherapy (regime/therapy) 04/27/2020 1 2:00:00 AM EDT [facility] ([facility]) Individual psychotherapy (regime/therapy) 04/27/2020 1 2:00:[facility] AM [facility]) Individual psychotherapy (regime/therapy) 04/27/2020 1 2:00:00 AM [facility] ([facility]) Individual psychotherapy (regime/therapy) 04/27/2020 1 2:00:00 AM EDT [facility] ([facility]) Individual psychotherapy (regime/therapy) 04/27/2020 1 2:00:00 AM EDT [facility] ([facility]) Individual psychotherapy (regime/therapy) 04/27/2020 1 2:00:00 AM EDT [facility] ([facility]) Individual psychotherapy (regime/therapy) 04/27/2020 1 2:00:00 AM EDT [facility] ([facility]) Individual psychotherapy (regime/therapy) 04/27/2020 1 2:00:00 AM [facility] ([facility]) Individual psychotherapy (regime/therapy) 04/27/2020 1 2:00:00 AM EDT [facility] ([facility]) Individual psychotherapy (regime/therapy) 04/27/2020 1 2:00:00 AM [facility] ([facility]) Individual psychotherapy (regime/therapy) 04/27/2020 1 2:00:00 AM [facility] ([facility]) Evaluation AND/OR management - established patient (procedur e) 04/19/2020 12:00:00 AM EDT [facility] ([facility]) Evaluation AND/OR management - established patient (procedur e) 04/19/2020 12:00:00 AM [facility]) Evaluation AND/OR management - established patient (procedur e) 04/19/2020 12:00:00 AM [facility]) Evaluation AND/OR management - established patient (procedur e) 04/19/2020 12:00:00 AM EDT [facility] Evaluation AND/OR management - established patient (procedur e) 04/19/2020 12:00:00 AM [facility] ([facility]) Evaluation AND/OR management - established patient (procedur e) 04/19/2020 12:00:00 AM [facility] ([facility]) Evaluation AND/OR management - established patient (procedur e) 04/19/2020 12:00:00 AM EDT [facility] ([facility]) Evaluation AND/OR management - established patient (procedur e) 04/19/2020 12:00:00 AM EDT [facility] ([facility]) Evaluation AND/OR management - established patient (procedur e) 04/19/2020 12:00:00 AM EDT [facility] ([facility]) Evaluation AND/OR management - established patient (procedur e) 04/19/2020 12:00:00 AM EDT [facility] ([facility]) Evaluation AND/OR management - established patient (procedur e) 04/19/2020 12:00:00 AM EDT [facility] ([facility]) Individual psychotherapy (regime/therapy) 04/05/2020 1 2:00:00 AM EDT [facility] ([facility]) Individual psychotherapy (regime/therapy) 04/05/2020 1 2:00:00 AM EDT [facility] ([facility]) Individual psychotherapy (regime/therapy) 04/05/2020 1 2:00:00 AM EDT [facility] ([facility]) Individual psychotherapy (regime/therapy) 04/05/2020 1 2:00:00 AM EDT [facility] ([facility]) Individual psychotherapy (regime/therapy) 04/05/2020 1 2:00:00 AM EDT [facility] ([facility]) Individual psychotherapy (regime/therapy) 04/05/2020 1 2:00:00 AM EDT [facility] ([facility]) Individual psychotherapy (regime/therapy) 04/05/2020 1 2:00:00 AM EDT [facility] ([facility]) Individual psychotherapy (regime/therapy) 04/05/2020 1 2:00:00 AM EDT [facility]) Individual psychotherapy (regime/therapy) 04/05/2020 1 2:00:00 AM EDT [facility] ([facility]) Individual psychotherapy (regime/therapy) 04/05/2020 1 2:00:00 AM EDT [facility] ([facility]) Individual psychotherapy (regime/therapy) 04/05/2020 1 2:00:00 AM EDT [facility] ([facility]) Individual psychotherapy (regime/therapy) 04/05/2020 1 2:00:00 AM EDT [facility]) Individual psychotherapy (regime/therapy) 04/05/2020 1 2:00:00 AM EDT [facility] ([facility]) Individual psychotherapy (regime/therapy) 04/05/2020 1 2:00:00 AM EDT [facility] ([facility]) Individual psychotherapy (regime/therapy) 04/05/2020 1 2:00:00 AM EDT [facility] ([facility]) Individual psychotherapy (regime/therapy) 04/05/2020 1 2:00:00 AM EDT [facility]) Individual psychotherapy (regime/therapy) 04/05/2020 1 2:00:00 AM EDT [facility]) Individual psychotherapy (regime/therapy) 04/05/2020 1 2:00:00 AM EDT [facility] ([facility]) Individual psychotherapy (regime/therapy) 04/05/2020 1 2:00:00 AM EDT [facility] ([facility]) Individual psychotherapy (regime/therapy) 04/05/2020 1 2:00:00 AM EDT [facility]) Individual psychotherapy (regime/therapy) 04/05/2020 1 2:00:00 AM EDT [facility] ([facility]) Individual psychotherapy (regime/therapy) 04/05/2020 1 2:00:00 AM EDT [facility]) Injection (SC)/(Im) 03/30/2020 12:00:00 AM EDT [facility] ([facility] Results ID Date Data Source [id number] 01/09/2021 09:30:00 AM EDT [facility] ([facility] Name Value Range Interpretation Code Description Data Trudy rce(s) Supporting Document(s) Hemoglobin A1c/Hemoglobin.total in Blood 6.5 % 4.8-5.6 Above high normal [facility] ([facility] <content>Prediabetes: 5.7 - 6.4</content >
<content>Diabetes: >6.4</content>
<content>Glycemic control for adults with diabetes: <7.0</content>
<content></content> ID Date Data Source [id number] 10/02/2020 11:35:00 AM EDT [facility] ([facility] Name Value Range Interpretation Code Description Data Trudy rce(s) Supporting Document(s) Hemoglobin A1c/Hemoglobin.total in Blood 7.1 % 4.8-5.6 Above high normal [facility] ([facility] <content>Prediabetes: 5.7 - 6.4</content >
<content>Diabetes: >6.4</content>
<content>Glycemic control for adults with diabetes: <7.0</content>
<content></content> ID Date Data Source [id number] 10/02/2020 11:35:00 AM EDT [facility] ([facility] Name Value Range Interpretation Code Description Data Trudy rce(s) Supporting Document(s) Thyrotropin [Units/volume] in Serum or Plasma 1.250 uIU/mL 0.450-4.50 0 [facility] ([facility] ID Date Data Source [id number] 10/02/2020 11:35:00 AM EDT [facility] ([facility] Name Value Range Interpretation Code Description Data Trudy rce(s) Supporting Document(s) Cholesterol in HDL [Mass/volume] in Serum or Plasma 35 mg/dL Below low normal [facility] ([facility] Triglyceride [Mass/volume] in Serum or Plasma 99 mg/dL 0-149 [facility] ([facility] Cholesterol [Mass/volume] in Serum or Plasma 155 mg/dL 100-199 [facility] ([facility] Laboratory test finding (navigational concept) 18 mg/dL 5-40 [facility] ([facility] Laboratory test finding (navigational concept) 102 mg/dL 0-99 Above high normal [facility] ([facility] Comment: Laboratory test result [facility] ([facility] ID Date Data Source [id number] 10/02/2020 11:35:00 AM EDT [facility] ([facility] Name Value Range Interpretation Code Description Data Trudy rce(s) Supporting Document(s) Glucose [Mass/volume] in Serum or Plasma 98 mg/dL 65-99 [facility] ([facility] BUN 13 mg/dL 6-24 [facility] ([facility] eGFR If NonAfricn Am 104 mL/min/1.73 [facility] ([facility] Creatinine [Mass/volume] in Serum or Plasma 0.83 mg/dL 0.76-1.27 [facility] ([facility] eGFR If Africn Am 120 mL/min/1.73 [place] [facility] ([facility] Sodium [Moles/volume] in Serum or Plasma 138 mmol/L 134-144 [facility] ([facility] Urea nitrogen/Creatinine [Mass Ratio] in Serum or Plasma 16 9 -20 [facility] ([facility] Chloride [Moles/volume] in Serum or Plasma 104 mmol/L 96-106 [facility] ([facility] Potassium [Moles/volume] in Serum or Plasma 4.2 mmol/L 3.5-5.2 [facility] ([facility] Protein [Mass/volume] in Serum or Plasma 7.3 g/dL 6.0-8.5 [facility] ([facility] Carbon dioxide, total [Moles/volume] in Serum or Plasma 21 mmol/L 20 -29 [facility] ([facility] Calcium [Mass/volume] in Serum or Plasma 9.6 mg/dL 8.7-10.2 [facility] ([facility] Albumin [Mass/volume] in Serum or Plasma 4.2 g/dL 4.0-5.0 [facility] ([facility] Globulin [Mass/volume] in Serum by calculation 3.1 g/dL 1.5-4.5 [facility] ([facility] Bilirubin.total [Mass/volume] in Serum or Plasma 0.5 mg/dL 0.0-1.2 [facility] ([facility] Albumin/Globulin [Mass Ratio] in Serum or Plasma 1.4 1.2-2.2 [facility] ([facility] Alkaline phosphatase [Enzymatic activity/volume] in Serum or Plasma 58 IU/L 39-117 [facility] Alanine aminotransferase [Enzymatic activity/volume] in Seru m or Plasma 91 IU/L 0-44 Above high normal [facility] Aspartate aminotransferase [Enzymatic activity/volume] in Serum or Plasma 51 IU/L 0-40 Above high normal [facility] ([facility] ID Date Data Source [id number] 10/02/2020 11:35:00 AM EDT [facility] Name Value Range Interpretation Code Description Data Trudy rce(s) Supporting Document(s) Leukocytes [#/volume] in Blood by Automated count 9.0 x10E3/uL 3.4-10 .8 [facility] ([facility] Hematocrit [Volume Fraction] of Blood by Automated count 48.6 % 3 7.5-51.0 [facility] ([facility] Erythrocytes [#/volume] in Blood by Automated count 5.39 x10E6/uL 4.1 4-5.80 [facility] ([facility] Hemoglobin [Mass/volume] in Blood 16.4 g/dL 13.0-17.7 [facility] ([facility] Erythrocyte mean corpuscular volume [Entitic volume] by Auto mated count 90 fL 79-97 [facility] Erythrocyte mean corpuscular hemoglobin [Entitic mass] by Automated count 30.4 pg 26.6-33.0 [facility] Erythrocyte distribution width [Ratio] by Automated count 13.0 % 11.6-15.4 [facility] ([facility] Erythrocyte mean corpuscular hemoglobin concentration [Mass/volume] by Automated count 33.7 g/dL 31.5-35.7 [facility] Platelets [#/volume] in Blood by Automated count 414 x10E3/uL 150-450 [facility] ([facility] Lymphs 26 % [facility] Neutrophils 56 % [facility] Monocytes/100 leukocytes in Blood [...] [#/volume] in Blood Laboratory test result [facility] ([facility] Lymphocytes [#/volume] in Blood 2.4 x10E3/uL 0.7-3.1 [facility] ([facility] Monocytes [#/volume] in Blood 0.8 x10E3/uL 0.1-0.9 [facility] ([facility] Eosinophils [#/volume] in Blood by Automated count 0.7 x10E3/uL 0.0-0.4 Above high normal [facility] ([facility] ) Immature granulocytes/100 leukocytes in Blood by Automated count 0 % [facility] ([facility] Basophils [#/volume] in Blood by Automated count 0.1 x10E3/uL 0.0-0.2 [facility] ([facility] Immature granulocytes [#/volume] in Blood by Automated count 0.0 x10E3/uL 0.0-0.1 [facility] Nucleated erythrocytes/100 leukocytes [Ratio] in Blood by Automated count Laboratory test result [facility] Morphology [Interpretation] in Blood Narrative Laboratory test result [facility] ([facility] ID Date Data Source [id number] 07/16/2020 10:00:00 AM EST [facility] Name Value Range Interpretation Code Description Data Trudy rce(s) Supporting Document(s) SARS coronavirus 2 RNA Not Detected [facility] This lab was ordered by [facility] and reported by [facility]. ID Date Data Source [id number] 05/18/2020 01:00:00 PM EST [facility] Name Value Range Interpretation Code Description Data Trudy rce(s) Supporting Document(s) SARS coronavirus 2 RNA [facility] This lab was ordered by [facility] and reported by [facility]. Procedure Social History No Information Vital Signs ID Date Data Source UNK Name Value Range Interpretation Code Description Data Source(s) Systolic blood pressure 106 mm[Hg] 106 mm[Hg] M [facility] ([facility] Oxygen saturation in Arterial blood by Pulse oximetry 98 % 98 % [facility] ([facility] Diastolic blood pressure 86 mm[Hg] 86 mm[Hg] [facility] ([facility] Body temperature 97.2 [degF] 97.2 [degF] [facility] ([facility] Heart rate 90 /min 90 /min [facility] ([facility] Respiratory rate 16 /min 16 /min [facility] ( [facility] Body height 70 [in_i] 70 [in_i] [facility] ([facility] 5'10" Body weight 243.00 [lb_av] 243.00 [lb_av] MED[facility] T ([facility] [place] body weight 166 [lb_av] 166 [lb_av] [facility] T ([facility] Body mass index (BMI) [Ratio] 34.9 kg/m2 34.9 k g/m2 [facility] ([facility] Systolic blood pressure 122 mm[Hg] 122 mm[Hg] M [facility] ([facility] Diastolic blood pressure 90 mm[Hg] 90 mm[Hg] [facility] ([facility] Body temperature 97.4 [degF] 97.4 [degF] [facility] ([facility] Heart rate 82 /min 82 /min [facility] ([facility] Respiratory rate 16 /min 16 /min [facility] ( [facility] Body height 70 [in_i] 70 [in_i] [facility] ([facility] 5'10" Body weight 251.00 [lb_av] 251.00 [lb_av] MED[facility] T ([facility] [place] body weight 166 [lb_av] 166 [lb_av] [facility] T ([facility] Body mass index (BMI) [Ratio] 36.0 kg/m2 36.0 k g/m2 [facility] ([facility] Oxygen saturation in Arterial blood by Pulse oximetry 96 % 96 % [facility] ([facility] Diastolic blood pressure 84 mm[Hg] 84 mm[Hg] [facility] ([facility] Body temperature 97.0 [degF] 97.0 [degF] [facility] ([facility] Heart rate 95 /min 95 /min [facility] ([facility] Respiratory rate 16 /min 16 /min [facility] ( [facility] Systolic blood pressure 112 mm[Hg] 112 mm[Hg] M EDENT ([facility] Body height 70 [in_i] 70 [in_i] [facility] ([facility] 5'10" Body weight 257.00 [lb_av] 257.00 [lb_av] MED[facility] T ([facility] [place] body weight 166 [lb_av] 166 [lb_av] MED[facility] [...] 84 mm[Hg] [facility] ([facility] [place] body weight 166 [lb_av] 166 [lb_av] MEDEN [...] Body height 70 [in_i] 70 [in_i] [facility] ([facility] 5'10" Body weight 265.00 [lb_av] 265.00 [lb_av] [facility] T ([facility] Respiratory rate 16 /min 16 /min [facility] ( [facility] Body height 70 [in_i] 70 [in_i] [facility] ([facility] 5'10" Diastolic blood pressure 74 mm[Hg] 74 mm[Hg] [facility] ([facility] Body weight 266.00 [lb_av] 266.00 [lb_av] [facility] T ([facility] [place] body weight 166 [lb_av] 166 [lb_av] [facility] T ([facility] Body mass index (BMI) [Ratio] 38.2 kg/m2 38.2 k g/m2 [facility] ([facility] Oxygen saturation in Arterial blood by Pulse oximetry 97 % 97 % [facility] ([facility] Systolic blood pressure 124 mm[Hg] 124 mm[Hg] M ED[facility] ([facility] Body temperature 97.5 [degF] 97.5 [degF] [facility] ([facility] Heart rate 92 /min 92 /min [facility] ([facility] [place] body weight 166 [lb_av] 166 [lb_av] [facility] T ([facility] Body mass index (BMI) [Ratio] 37.9 kg/m2 37.9 k g/m2 [facility] ([facility] Oxygen saturation in Arterial blood by Pulse oximetry 98 % 98 % [facility] ([facility] Systolic blood pressure 122 mm[Hg] 122 mm[Hg] M [facility] ([facility] Diastolic blood pressure 80 mm[Hg] 80 mm[Hg] [facility] ([facility] Body temperature 96.6 [degF] 96.6 [degF] [facility] ([facility] Heart rate 87 /min 87 /min [facility] ([facility] Respiratory rate 16 /min 16 /min [facility] ( [facility] Body height 70 [in_i] 70 [in_i] [facility] ([facility] 5'10" Body weight 264.00 [lb_av] 264.00 [lb_av] [facility] T ([facility] Respiratory rate 16 /min 16 /min [facility] ( [facility] Systolic blood pressure 110 mm[Hg] 110 mm[Hg] M EDENT ([facility] Diastolic blood pressure 84 mm[Hg] 84 mm[Hg] [facility] ([facility] Body temperature 97.6 [degF] 97.6 [degF] [facility] ([facility] Heart rate 86 /min 86 /min [facility] ([facility] Body height 70 [in_i] 70 [in_i] [facility] ([facility] 5'10" Body mass index (BMI) [Ratio] 38.9 kg/m2 38.9 k g/m2 [facility] ([facility] Oxygen saturation in Arterial blood by Pulse oximetry 96 % 96 % [facility] ([facility] Body weight 271.00 [lb_av] 271.00 [lb_av] MED[facility] T ([facility] [place] body weight 166 [lb_av] 166 [lb_av] [facility] T ([facility] Systolic blood pressure 112 mm[Hg] 112 mm[Hg] M EDENT ([facility], ) Diastolic blood pressure 82 mm[Hg] 82 mm[Hg] [facility] ([facility], ) Body height 69.5 [in_i] 69.5 [in_i] [facility] ([facility], ) 5'9.50" Body weight 267.00 [lb_av] 267.00 [lb_av] MED[facility] T ([facility], ) Body mass index (BMI) [Ratio] 38.9 kg/m2 38.9 k g/m2 [facility] ([facility], ) [place] body weight 160 [lb_av] 160 [lb_av] [facility] T ([facility]) Body weight 121.111 kg 121.111 kg [facility] ([facility]) Body surface area Derived from formula 2.35 m2 2.35 m2 [facility] ([facility]) Body height 70 [in_i] 70 [in_i] [facility] ([facility] 5'10" Body weight 267.00 [lb_av] 267.00 [lb_av] [facility] T ([facility] [place] body weight 166 [lb_av] 166 [lb_av] [facility] T ([facility] Body mass index (BMI) [Ratio] 38.3 kg/m2 38.3 k g/m2 [facility] ([facility] Oxygen saturation in Arterial blood by Pulse oximetry 97 % 97 % [facility] ([facility] Systolic blood pressure 110 mm[Hg] 110 mm[Hg] M EDENT ([facility] Diastolic blood pressure 86 mm[Hg] 86 mm[Hg] [facility] Body temperature 96.4 [degF] 96.4 [degF] [facility] ([facility] Heart rate 103 /min 103 /min [facility] ([facility] Respiratory rate 16 /min 16 /min [facility] ( [facility] Body weight 119.750 kg 119.750 kg [facility] ([facility]) Body surface area Derived from formula 2.34 m2 2.34 m2 [facility] ([facility]) Diastolic blood pressure 72 mm[Hg] 72 mm[Hg] [facility] ([facility]) Systolic blood pressure 132 mm[Hg] 132 mm[Hg] M EDENT ([facility]) Body height 69.5 [in_i] 69.5 [in_i] [facility] ([facility]) 5'9.50" Body weight 264.00 [lb_av] 264.00 [lb_av] [facility] T ([facility]) Body mass index (BMI) [Ratio] 38.4 kg/m2 38.4 k g/m2 [facility] ([facility], ) [place] body weight 160 [lb_av] 160 [lb_av] [facility] T ([facility], ) Heart rate 82 /min 82 /min [facility] ([facility], ) Body temperature 97.6 [degF] 97.6 [degF] [facility] ([facility] Heart rate 86 /min 86 /min [facility] ([facility] Respiratory rate 16 /min 16 /min [facility] ( [facility] Body height 70 [in_i] 70 [in_i] [facility] ([facility] 5'10" [place] body weight 166 [lb_av] 166 [lb_av] [facility] T ([facility] Oxygen saturation in Arterial blood by Pulse oximetry 96 % 96 % [facility] ([facility] Systolic blood pressure 102 mm[Hg] 102 mm[Hg] M ED[facility] ([facility] Body temperature 97.2 [degF] 97.2 [degF] [facility] ([facility] Body height 70 [in_i] 70 [in_i] [facility] ([facility] 5'10" Body weight 262.00 [lb_av] 262.00 [lb_av] [facility] T ([facility] [place] body weight 166 [lb_av] 166 [lb_av] [facility] T ([facility] Body mass index (BMI) [Ratio] 37.6 kg/m2 37.6 k g/m2 [facility] ([facility] Heart rate 93 /min 93 /min [facility] ([facility] Respiratory rate 16 /min 16 /min [facility] ( [facility] Oxygen saturation in Arterial blood by Pulse oximetry 97 % 97 % [facility] ([facility] Diastolic blood pressure 78 mm[Hg] 78 mm[Hg] [facility] ([facility] Patient Treatment Plan of Care Planned Activity Planned Date Details Description Data Source (s) duloxetine 20 MG Delayed Release Oral Capsule [Cymbalt a] 02/08/2021 12:00:00 AM EDT [facility] ([facility]) duloxetine 60 MG Delayed Release Oral Capsule [Cymbalt a] 02/08/2021 12:00:00 AM EDT [facility] ([facility]) duloxetine 20 MG Delayed Release Oral Capsule [Cymbalt a] 02/08/2021 12:00:00 AM EDT [facility] ([facility]) duloxetine 60 MG Delayed Release Oral Capsule [Cymbalt a] 02/08/2021 12:00:00 AM EDT [facility] ([facility]) duloxetine 20 MG Delayed Release Oral Capsule [Cymbalt a] 02/08/2021 12:00:00 AM EDT [facility] ([facility]) duloxetine 60 MG Delayed Release Oral Capsule [Cymbalt a] 02/08/2021 12:00:00 AM EDT [facility] ([facility]) duloxetine 60 MG Delayed Release Oral Capsule [Cymbalt a] 02/08/2021 12:00:00 AM EDT [facility] ([facility]) duloxetine 20 MG Delayed Release Oral Capsule [Cymbalt a] 02/08/2021 12:00:00 AM EDT [facility] ([facility]) duloxetine 20 MG Delayed Release Oral Capsule [Cymbalt a] 01/17/2021 12:00:00 AM EDT [facility] ([facility]) duloxetine 20 MG Delayed Release Oral Capsule [Cymbalt a] 01/17/2021 12:00:00 AM EDT [facility] ([facility]) duloxetine 20 MG Delayed Release Oral Capsule [Cymbalt a] 01/17/2021 12:00:00 AM EDT [facility] ([facility]) duloxetine 20 MG Delayed Release Oral Capsule [Cymbalt a] 01/17/2021 12:00:00 AM EDT [facility] ([facility]) duloxetine 20 MG Delayed Release Oral Capsule [Cymbalt a] 01/17/2021 12:00:00 AM EDT [facility] ([facility]) duloxetine 60 MG Delayed Release Oral Capsule [Cymbalt a] 01/05/2021 12:00:00 AM EDT [facility] ([facility]) duloxetine 60 MG Delayed Release Oral Capsule [Cymbalt a] 01/05/2021 12:00:00 AM EDT [facility] ([facility]) duloxetine 60 MG Delayed Release Oral Capsule [Cymbalt a] 01/05/2021 12:00:00 AM EDT [facility] ([facility]) duloxetine 60 MG Delayed Release Oral Capsule [Cymbalt a] 01/05/2021 12:00:00 AM EDT [facility] ([facility]) duloxetine 60 MG Delayed Release Oral Capsule [Cymbalt a] 01/05/2021 12:00:00 AM EDT [facility] ([facility]) duloxetine 60 MG Delayed Release Oral Capsule [Cymbalt a] 01/05/2021 12:00:00 AM EDT [facility] ([facility]) Bupropion Hydrochloride 75 MG Oral Tablet 04/19/2020 12:00:00 AM ED T [facility] ([facility]) Bupropion Hydrochloride 75 MG Oral Tablet 04/19/2020 12:00:00 AM ED T [facility] ([facility]) Bupropion Hydrochloride 75 MG Oral Tablet 04/19/2020 12:00:00 AM ED T [facility] ([facility]) Bupropion Hydrochloride 75 MG Oral Tablet 04/19/2020 12:00:00 AM ED T [facility] ([facility]) Bupropion Hydrochloride 75 MG Oral Tablet 04/19/2020 12:00:00 AM ED T [facility] ([facility]) Bupropion Hydrochloride 75 MG Oral Tablet 04/19/2020 12:00:00 AM ED T [facility] ([facility]) Bupropion Hydrochloride 75 MG Oral Tablet 04/19/2020 12:00:00 AM ED T [facility] ([facility]) Bupropion Hydrochloride 75 MG Oral Tablet 04/19/2020 12:00:00 AM ED T [place] ([facility]) Bupropion Hydrochloride 75 MG Oral Tablet 04/19/2020 12:00:00 AM ED T [place] ([facility]) Bupropion Hydrochloride 75 MG Oral Tablet 01/17/2020 12:00:00 AM ED T [place] ([facility]) Bupropion Hydrochloride 75 MG Oral Tablet 01/17/2020 12:00:00 AM ED T [place] ([facility]) Bupropion Hydrochloride 75 MG Oral Tablet 01/17/2020 12:00:00 AM ED T [place] ([facility]) Bupropion Hydrochloride 75 MG Oral Tablet 01/17/2020 12:00:00 AM ED T [place] ([facility]) Bupropion Hydrochloride 75 MG Oral Tablet 01/17/2020 12:00:00 AM ED T [place] ([facility]) Bupropion Hydrochloride 75 MG Oral Tablet 01/17/2020 12:00:00 AM ED T [place] ([facility]) Bupropion Hydrochloride 75 MG Oral Tablet 01/17/2020 12:00:00 AM ED T [place] ([facility]) Bupropion Hydrochloride 75 MG Oral Tablet 01/17/2020 12:00:00 AM ED T [facility] ([facility]) Bupropion Hydrochloride 75 MG Oral Tablet 01/17/2020 12:00:00 AM ED T [place] ([facility])
[2021-05-23 13:08] LABS: HEMATOCRIT 46.8 % (42.0-52.0); HEMOGLOBIN 15.5 g/dl (13.5-17.5); MEAN CORPUSCULAR HEMOGLOBIN 30.3 pg (27.0-33.0); MEAN CORPUSCULAR HGB CONC 33.1 g/dl (32.0-36.5); MEAN CORPUSCULAR VOLUME 91.6 fl (80.0-96.0); PLATELET COUNT, AUTOMATED 435 10^3/uL (150-450); RED BLOOD COUNT 5.11 10^6/uL (4.30-6.10); WHITE BLOOD COUNT 10.1 10^3/uL (4.0-10.0)
[2021-05-23 13:44] LABS: ACETAMINOPHEN LEVEL < 2.0 UG/ML (10.0-30.0); ALBUMIN 3.5 GM/DL (3.2-5.2); ALT/SGPT 53 U/L (12-78); BILIRUBIN,DIRECT 0.2 MG/DL (0.0-0.2); BILIRUBIN,TOTAL 0.5 MG/DL (0.2-1.0); BLOOD UREA NITROGEN 12 MG/DL (7-18); CALCIUM LEVEL 9.3 MG/DL (8.5-10.1); CARBON DIOXIDE LEVEL 29 MEQ/L (21-32); CHLORIDE LEVEL 106 MEQ/L (98-107); CREATININE FOR GFR 1.08 MG/DL (0.70-1.30); ETHYL ALCOHOL (ETHANOL) < 0.003 % (0.000-0.010); GLOMERULAR FILTRATION RATE > 60.0 (>60); GLUCOSE, FASTING 96 MG/DL (70-100); POTASSIUM SERUM 4.3 MEQ/L (3.5-5.1); SALICYLATE LEVEL < 1.7 MG/DL (5.0-30.0); SODIUM LEVEL 141 MEQ/L (136-145); TOTAL PROTEIN 7.3 GM/DL (6.4-8.2)
[2021-05-23 14:09] LABS: AMPHETAMINES LEVEL URINE NEGATIVE (NEGATIVE); BARBITURATES URINE NEGATIVE (NEGATIVE); BENZODIAZEPINES URINE NEGATIVE (NEGATIVE); CANNABINOIDS URINE POSITIVE (NEGATIVE); COCAINE METABOLITE URINE NEGATIVE (NEGATIVE); METHADONE URINE NEGATIVE (NEGATIVE); OPIATES URINE NEGATIVE (NEGATIVE); PHENCYCLIDINE URINE NEGATIVE (NEGATIVE)
--- NOTE | 2021-05-23 15:39 | MHIPNPDOC ---
[facility] Progress Note Progress Note DATE OF SERVICE: 05/23/21 Patient present by PSA, meets criteria for involuntary admission. Reports suicidal ideation which he reported to therapist today, states he does not feel safe and does not contract for safety, reports stressor of remembering 15-year-old daughter who from leukemia around this time of year. See PSA note for details. Vital Signs Vital Signs Date Time Temp Pulse Resp B/P (MAP) Pulse Ox O2 Delivery O2 Flow Rate FiO2 05/23/21 10:07 97.8 81 18 127/86 (100) 97 Room Air Laboratory Data 24H Labs Laboratory Tests 2 05/23/21 12:50: Nucleated Red Blood Cells % (auto) 0.0, Anion Gap 6L, Glomerular Filtration Rate > 60.0, Calcium Level 9.3, Total Bilirubin 0.5, Direct Bilirubin 0.2, Aspartate Amino Transf (AST/SGOT) 24, Alanine Aminotransferase (ALT/SGPT) 53, Alkaline Phosphatase 62, Total Protein 7.3, Albumin 3.5, Albumin/Globulin Ratio 0.9, Thyroid Stimulating Hormone (TSH) 0.670, Salicylates Level < 1.7L, Urine Opiates Screen NEGATIVE, Urine Methadone Screen NEGATIVE, Acetaminophen Level < 2.0L, Urine Barbiturates Screen NEGATIVE, Urine Phencyclidine Screen NEGATIVE, Urine Amphetamines Screen NEGATIVE, Urine Benzodiazepines Screen NEGATIVE, Urine Cocaine Metabolite Screen NEGATIVE, Urine Cannabinoids Screen POSITIVEH, Ethyl Alcohol Level < 0.003 CBC/BMP Laboratory Tests 05/23/21 12:50 Allergies Coded Allergies: phenytoin (Verified Allergy, Unknown, 07/12/20) JEM SLAUGHTER MD May 23, 2021 15:39
[2021-05-23] MEDS ORDERED: risperiDONE 1 MG TAB PO ONE (20:05)
[2021-05-23] MEDS ORDERED: NAPROXEN 250 MG TAB PO ONE (21:20)
[2021-05-24 02:21] LABS: RSV AMPLIFICATION NEGATIVE (NEGATIVE)
--- NOTE | 2021-05-24 08:43 | ECGEPIP ---
[facility] Test Date: 2021-05-24 Pat Name: LOUIE MCLEAN Department: Room: - Gender: Male It Generalist: ER : 1970 Requested By: SANA Cook Order Number: [id number] Reading MD: Sawyer Sanz Measurements Intervals [place] Rate: 76 P: 51 SD: 158 QRS: -19 QRSD: 92 T: 32 QT: 380 QTc: 427 Interpretive Statements normal sinus rhythm Left axis deviation (measured axis is incorrect) Low limb voltages with somewhat slow precordial R wave progression and persistent S S waves V5 and V6; body habitus versus pulmonary disease No change from 03/25/21 Electronically Signed on 05-24-2021 8:43:28 EST by Sawyer Sanz
[2021-05-24] MEDS ORDERED: risperiDONE 1 MG TAB PO ONE (11:30)
[2021-05-24] MEDS ORDERED: GABAPENTIN 300 MG CAP PO ONE (11:30)
[2021-05-24] MEDS ORDERED: OMEPRAZOLE 20 MG CAP PO ONE (11:30)
[2021-05-24] MEDS ORDERED: metFORMIN (GLUCOPHAGE) 500MG TAB PO ONE (11:30)
[2021-05-24] MEDS ORDERED: OMEGA-3 1000MG CAPSULE PO ONE (11:30)
[2021-05-24] MEDS ORDERED: ATORVASTATIN 20 MG TAB PO ONE (11:30)
[2021-05-24] MEDS ORDERED: DULoxetine 30MG CAPSULE (CYMBALTA) PO ONE (11:30)
[2021-05-24 13:19] VITALS: BP 125/86
== END 2021-05-24 13:19 ==
LOC: M ED 10:06
DX: R45.851 Suicidal ideations (principal); Z91.51 Personal history of suicidal behavior; E11.9 Type 2 diabetes mellitus without complications; Z79.899 Other long term (current) drug therapy

== ENCOUNTER → 2021-07-30 | Outpatient (CLI) | payer MEDICARE, MEDICAID ==
[~2021-07-30] MED LIST changes: +DULO1CAP5; +OMEP-173 PO; -OMEP-218 PO; +RISP-68
== END ==
LOC: M WUC 12:13
PROVIDERS: ATTEND Physician Assistant
DX: M25.572 Pain in left ankle and joints of left foot (principal)

== ENCOUNTER 2023-01-12 19:17 | Emergency (ER) | payer MEDICARE, MEDICAID ==
[~2023-01-12] VITALS: Ht 177.8 cm; Wt 112.0 kg
[~2023-01-12 19:17] MED LIST changes: -DULE200A INH; +FLUT50SP17; -FLUTISP; +MOME13HF7 INH
[2023-01-12 19:18] VITALS: TEMP 97.5
[2023-01-13 00:16] LABS: BASO # 0.1 10^3/uL (0.0-0.2); BASO % 1.1 % (0.0-1.0); EOS # 0.8 10^3/uL (0.0-0.5); EOS % 7.4 % (0.0-3.0); HEMATOCRIT 45.2 % (42.0-52.0); HEMOGLOBIN 15.1 g/dl (13.5-17.5); LYMPH # 3.6 10^3/uL (1.5-5.0); MEAN CORPUSCULAR HEMOGLOBIN 30.6 pg (27.0-33.0); MEAN CORPUSCULAR HGB CONC 33.4 g/dl (32.0-36.5); MEAN CORPUSCULAR VOLUME 91.5 fl (80.0-96.0); MONO # 0.8 10^3/uL (0.0-0.8); MONO % 7.3 % (2.0-8.0); NEUTROPHILS # 5.5 10^3/uL (1.5-8.5); NEUTROPHILS % 50.3 % (36.0-66.0); PLATELET COUNT, AUTOMATED 433 10^3/uL (150-450); RED BLOOD COUNT 4.94 10^6/uL (4.30-6.10)
[2023-01-13 00:35] LABS: BLOOD UREA NITROGEN 18 MG/DL (9-23); CARBON DIOXIDE LEVEL 29 MMOL/L (20-31); CHLORIDE LEVEL 104 MMOL/L (98-107); CK-MB VALUE MASS < 1.0 NG/ML (<3.6); CREATININE FOR GFR 0.91 MG/DL (0.70-1.30); GLOMERULAR FILTRATION RATE > 60.0 (>56); GLUCOSE, FASTING 124 MG/DL (60-100); MAGNESIUM LEVEL 1.7 MG/DL (1.8-2.4); PHOSPHORUS LEVEL 4.8 MG/DL (2.5-4.9); POTASSIUM SERUM 4.4 MMOL/L (3.5-5.1); SODIUM LEVEL 138 MMOL/L (136-145)
[2023-01-13 00:37] LABS: THYROID STIMULATING HORMONE 1.774 uIU/ML (0.55-4.78)
[2023-01-13 00:42] LABS: FREE T4 1.11 NG/DL (0.89-1.76)
[2023-01-13 00:55] LABS: CPK CREATINE PHOSPHOKINASE 59 U/L (46-171); MB/CK RELATIVE INDEX 1.69 (< OR =4)
[2023-01-13 02:01] VITALS: BP 130/92
[2023-01-13 02:17] VITALS: O2SAT 96
== END 2023-01-13 02:45 | disposition home or self-care (01) ==
LOC: M ED 19:17
DX: R20.0 Anesthesia of skin (principal); E11.9 Type 2 diabetes mellitus without complications; F41.9 Anxiety disorder, unspecified; F41.0 Panic disorder [episodic paroxysmal anxiety]; F43.10 Post-traumatic stress disorder, unspecified; J45.909 Unspecified asthma, uncomplicated; G40.909 Epilepsy, unspecified, not intractable, without status epilepticus; Z88.8 Allergy status to other drugs, medicaments and biological substances; Z79.02 Long term (current) use of antithrombotics/antiplatelets; Z79.4 Long term (current) use of insulin; Z79.899 Other long term (current) drug therapy

== ENCOUNTER 2023-07-08 16:21 | Emergency (ER) | payer MEDICARE, MEDICAID ==
[~2023-07-08] VITALS: Ht 177.8 cm; Wt 112.1 kg
[~2023-07-08 16:21] MED LIST changes: -FLUT50SP17; +FLUTISP
[2023-07-08] MEDS ORDERED: VENTAER INH (20:26)
[2023-07-08 20:35] VITALS: BP 164/90; TEMP 97.4; O2SAT 98
== END 2023-07-08 20:37 | disposition home or self-care (01) ==
LOC: M ED 16:21
DX: J06.9 Acute upper respiratory infection, unspecified (principal); S93.402A Sprain of unspecified ligament of left ankle, initial encounter; W01.0XXA Fall on same level from slipping, tripping and stumbling without subsequent striking against object, initial encounter; E11.9 Type 2 diabetes mellitus without complications; G40.909 Epilepsy, unspecified, not intractable, without status epilepticus; K21.9 Gastro-esophageal reflux disease without esophagitis; J45.909 Unspecified asthma, uncomplicated; Y92.009 Unspecified place in unspecified non-institutional (private) residence as the place of occurrence of the external cause; Y93.89 Activity, other specified; Y99.9 Unspecified external cause status; Z88.8 Allergy status to other drugs, medicaments and biological substances; Z79.52 Long term (current) use of systemic steroids; Z79.02 Long term (current) use of antithrombotics/antiplatelets; Z79.4 Long term (current) use of insulin; Z79.899 Other long term (current) drug therapy

== ENCOUNTER 2024-10-08 11:43 | Inpatient (IN) | payer MEDICARE, MEDICAID ==
[~2024-10-08] VITALS: Ht 175.3 cm; Wt 99.9 kg
[~2024-10-08 11:43] MED LIST changes: +GABA-1172 PO; -GABA-282 PO; +VENTAER INH
[2024-10-08] MEDS: BOOSTRIX VACCINE (TETANUS/DIPHTH/ACEL. PERTUSSIS) 0.5ML SYR IM.IMMUN ONE (14:50)
[2024-10-08] MEDS: NS (Normal Saline) 0.9% 1,000 ML IV SCH (14:50)
[2024-10-08] MEDS: fentaNYL 100 MCG/2 ML INJECTION IV ONE ×2 (14:50→15:55)
[2024-10-08 15:08] LABS: BASO % 0.2 % (0.0-1.0); EOS % 0.1 % (0.0-3.0); HEMATOCRIT 43.2 % (42.0-52.0); HEMOGLOBIN 15.2 g/dl (13.5-17.5); LYMPH # 1.6 10^3/uL (1.5-5.0); LYMPH % 11.6 % (24.0-44.0); MEAN CORPUSCULAR HEMOGLOBIN 31.3 pg (27.0-33.0); MEAN CORPUSCULAR HGB CONC 35.2 g/dl (32.0-36.5); MEAN CORPUSCULAR VOLUME 88.9 fl (80.0-96.0); MONO # 1.1 10^3/uL (0.0-0.8); MONO % 8.1 % (2.0-8.0); NEUTROPHILS # 11.2 10^3/uL (1.5-8.5); NEUTROPHILS % 79.6 % (36.0-66.0); PLATELET COUNT, AUTOMATED 373 10^3/uL (150-450); RED BLOOD COUNT 4.86 10^6/uL (4.30-6.10); WHITE BLOOD COUNT 14.1 10^3/uL (4.0-10.0)
[2024-10-08] MEDS: LIDOCAINE 1% MDV 20ML VIAL SC ONE (15:10)
[2024-10-08 15:44] LABS: BLOOD UREA NITROGEN 19 MG/DL (9-23); CALCIUM LEVEL 8.7 MG/DL (8.5-10.1); CARBON DIOXIDE LEVEL 23 MMOL/L (20-31); CHLORIDE LEVEL 108 MMOL/L (98-107); CREATININE FOR GFR 0.82 MG/DL (0.70-1.30); GLOMERULAR FILTRATION RATE > 60.0 (>56); GLUCOSE, FASTING 76 MG/DL (60-100); POTASSIUM SERUM 3.8 MMOL/L (3.5-5.1); SODIUM LEVEL 140 MMOL/L (136-145)
[2024-10-08] MEDS: AUGMENTIN 875 MG TAB PO ONE (16:37)
[2024-10-08] MEDS ORDERED: HYDROMORPHONE HCL 0.5 MG/ 0.5 ML SYRINGE IV PRN (17:10)
[2024-10-08] MEDS: HYDROMORPHONE HCL 0.5 MG/ 0.5 ML SYRINGE IV PRN (17:47)
[2024-10-08 17:58] LABS: PROCALCITONIN 0.06 ng/ml
[2024-10-08] MEDS ORDERED: FAMO1TAB11 PO (18:17)
[2024-10-08] MEDS ORDERED: CVS1CAP PO (18:17)
[2024-10-08] MEDS ORDERED: OMEP40CA5 PO (18:17)
[2024-10-08] MEDS ORDERED: MOME13HF8 INH (18:17)
[2024-10-08] MEDS ORDERED: SEMA2PEN INJ (18:17)
[2024-10-08] MEDS ORDERED: MM S100C PO (18:17)
[2024-10-08] MEDS ORDERED: MUCI1TAB16 PO (18:17)
[2024-10-08] MEDS ORDERED: HOME MED LIST COMPLETE! XX SCH (18:20)
[2024-10-08 21:50] VITALS: BP 142/83; TEMP 97.3; O2SAT 96
[2024-10-08] MEDS ORDERED: DEXTROSE 50% 50ML SYRINGE IV PRN (22:00)
[2024-10-08] MEDS ORDERED: GLUCOSE 4 GM CHEW PO PRN (22:00)
[2024-10-08] MEDS ORDERED: GLUCAGON INJ 1MG VIAL SC PRN (22:00)
[2024-10-08] MEDS: guaiFENesin ER TABLET 600 MG TAB PO SCH (22:21)
[2024-10-08] MEDS: FAMOTIDINE 20 MG TAB PO SCH (22:21)
[2024-10-08] MEDS: HEPARIN SOD (PORCINE) 5000UNITS/ML 1ML VIAL/SYRINGE SC SCH (22:22)
[2024-10-09] VITALS (9 sets, daily range): BP systolic 116–148; BP diastolic 79–90; TEMP 96.8–97.9; O2SAT 93–96
[2024-10-09] MEDS: KETOROLAC 30 MG/ML 1ML VIAL IV PRN (02:14)
[2024-10-09 06:34] LABS: HEMOGLOBIN 13.5 g/dl (13.5-17.5); MEAN CORPUSCULAR HEMOGLOBIN 30.6 pg (27.0-33.0); MEAN CORPUSCULAR HGB CONC 34.6 g/dl (32.0-36.5); MEAN CORPUSCULAR VOLUME 88.4 fl (80.0-96.0); PLATELET COUNT, AUTOMATED 357 10^3/uL (150-450); RED BLOOD COUNT 4.41 10^6/uL (4.30-6.10)
[2024-10-09 06:58] LABS: ALBUMIN 3.1 G/DL (3.2-5.2); ALKALINE PHOSPHATASE 40 U/L (40-129); ALT/SGPT 50 U/L (7.0-40); AST/SGOT 24 U/L (<34); BILIRUBIN,TOTAL 0.8 MG/DL (0.3-1.2); BLOOD UREA NITROGEN 14 MG/DL (9-23); CALCIUM LEVEL 8.6 MG/DL (8.5-10.1); CARBON DIOXIDE LEVEL 22 MMOL/L (20-31); CHLORIDE LEVEL 110 MMOL/L (98-107); CREATININE FOR GFR 0.78 MG/DL (0.70-1.30); GLOMERULAR FILTRATION RATE > 60.0 (>56); GLUCOSE, FASTING 82 MG/DL (60-100); POTASSIUM SERUM 3.6 MMOL/L (3.5-5.1); SODIUM LEVEL 143 MMOL/L (136-145)
[2024-10-09] MEDS: SYMBICORT 160/4.5MCG INHALER 6GM INH SCH (08:00)
[2024-10-09] MEDS ORDERED: HYDROMORPHONE HCL 0.5 MG/ 0.5 ML SYRINGE IV PRN ×2 (09:50)
[2024-10-09] MEDS: ALBUTEROL SULFATE 2.5MG/0.5ML INH NEB SOLN NEB ONE (10:10)
[2024-10-09] MEDS ORDERED: ALBUTEROL 90 MCG/ACT 8GM HFA INHALER INH PRN (10:20)
[2024-10-09] MEDS: ceFAZolin SODIUM 2 GM VIAL As Ordered ONE (11:23)
[2024-10-09] MEDS ORDERED: LIDOCAINE 2% 100MG/5ML SDV (FOR ANES.) As Ordered ONE (11:32)
[2024-10-09] MEDS ORDERED: MIDAZOLAM INJ 2MG/2ML VIAL As Ordered ONE (11:32)
[2024-10-09] MEDS ORDERED: propofoL 200 MG/20 ML VIAL As Ordered ONE (11:32)
[2024-10-09] MEDS: ROPIvacaine 0.5% 30ML VIAL PB ONE (11:45)
[2024-10-09] MEDS ORDERED: **NOTE PATIENT COMMENT** MISC XX SCH (12:35)
[2024-10-09] MEDS ORDERED: GLUCAGON INJ 1MG VIAL SC PRN (12:35)
[2024-10-09] MEDS ORDERED: diphenhydrAMINE 50MG/ML VIAL IV PRN (12:35)
[2024-10-09] MEDS ORDERED: SLF 3 ML SYR IV SCH (12:35)
[2024-10-09] MEDS ORDERED: NALOXONE INJ 0.4MG/1ML VIAL IV PRN ×2 (12:35)
[2024-10-09] MEDS ORDERED: GLUCOSE 4 GM CHEW PO PRN (12:35)
[2024-10-09] MEDS ORDERED: DEXTROSE 50% 50ML SYRINGE IV PRN (12:35)
[2024-10-09] MEDS ORDERED: INSULIN LISPRO (NovoLOG) PER UNIT SC PRN (12:35)
[2024-10-09] MEDS: METOCLOPRAMIDE INJ 10MG/2ML VIAL IV PRN (13:03)
[2024-10-09] MEDS: LORATADINE 10 MG TAB PO SCH (14:58)
[2024-10-09] MEDS: DOCUSATE SODIUM 100MG CAPSULE PO SCH (14:58)
[2024-10-09] MEDS: GABAPENTIN 300 MG CAP PO SCH (14:59)
[2024-10-09] MEDS: OMEPRAZOLE 20MG CAP PO SCH (14:59)
[2024-10-09] MEDS: FLUTICASONE PROP 0.05% NASAL SPRAY 16 GM (FLONASE) SCH (15:00)
[2024-10-09] MEDS: ATORVASTATIN 10 MG TAB PO SCH (15:00)
[2024-10-09] MEDS: AUGMENTIN 875 MG TAB PO SCH (15:01)
[2024-10-09] MEDS: ceFAZolin SODIUM 2 GM in DEXTROSE 5% (D5W) ADV/MINI-BAG 50 ML IV SCH (18:17)
[2024-10-10 04:02] VITALS: BP 125/89; TEMP 97.8; O2SAT 92
[2024-10-10] MEDS ORDERED: MELO7.5T35 PO (09:03)
[2024-10-10] MEDS ORDERED: ACET-897 PO (09:03)
[2024-10-10] MEDS ORDERED: AMOX875T2 PO (09:06)
== END 2024-10-10 10:45 | disposition home health service (06) | DRG 494 ==
LOC: M ED 11:43 → EDBD 11:43 → M ED INP 17:07 → M MS5PR 21:30
PROVIDERS: ADMIT Internal Medicine; ATTEND Internal Medicine
PROC: 0QSGXZZ Reposition Right Tibia, External Approach (ICD-10-PCS; 2024-10-08)
PROC: 0QSJXZZ Reposition Right Fibula, External Approach (ICD-10-PCS; 2024-10-08)
PROC: 0CQ0XZZ Repair Upper Lip, External Approach (ICD-10-PCS; 2024-10-08)
PROC: 0SSF04Z Reposition Right Ankle Joint with Internal Fixation Device, Open Approach (ICD-10-PCS; 2024-10-09)
PROC: 0QSJ04Z Reposition Right Fibula with Internal Fixation Device, Open Approach (ICD-10-PCS; principal; 2024-10-09 10:30)
DX: S82.851A Displaced trimalleolar fracture of right lower leg, initial encounter for closed fracture (principal); G80.9 Cerebral palsy, unspecified; E66.9 Obesity, unspecified; F39 Unspecified mood [affective] disorder; G43.909 Migraine, unspecified, not intractable, without status migrainosus; J45.909 Unspecified asthma, uncomplicated; E78.5 Hyperlipidemia, unspecified; S01.511A Laceration without foreign body of lip, initial encounter; E11.9 Type 2 diabetes mellitus without complications; K21.9 Gastro-esophageal reflux disease without esophagitis; G89.29 Other chronic pain; K59.00 Constipation, unspecified; S03.2XXA Dislocation of tooth, initial encounter; S02.2XXA Fracture of nasal bones, initial encounter for closed fracture; Y04.2XXA Assault by strike against or bumped into by another person, initial encounter; Y92.9 Unspecified place or not applicable; Z79.84 Long term (current) use of oral hypoglycemic drugs; Z79.899 Other long term (current) drug therapy; Z88.2 Allergy status to sulfonamides; Z88.8 Allergy status to other drugs, medicaments and biological substances

== ENCOUNTER → 2024-10-20 | Outpatient (CLI) | payer MEDICARE, MEDICAID ==
[~2024-10-20] MED LIST changes: +ACET-897 PO; +AMOX875T2 PO; +CVS1CAP PO; +FAMO1TAB11 PO; +MELO7.5T35 PO; +MM S100C PO; +MOME13HF8 INH; +MUCI1TAB16 PO; +OMEP40CA5 PO; +SEMA2PEN INJ
== END ==
LOC: M SOG 08:36
PROVIDERS: ATTEND Orthopaedic Surgery
DX: S82.851D Displaced trimalleolar fracture of right lower leg, subsequent encounter for closed fracture with routine healing (principal); S93.431D Sprain of tibiofibular ligament of right ankle, subsequent encounter

== ENCOUNTER → 2024-11-03 | Outpatient (RCR) | payer MEDICARE, MEDICAID | LOC: M PT 13:04 | PROVIDERS: ATTEND Orthopaedic Surgery | DX: S82.851D Displaced trimalleolar fracture of right lower leg, subsequent encounter for closed fracture with routine healing (principal) ==

== ENCOUNTER 2025-01-13 15:13 | Outpatient (RCR) | payer MEDICARE, MEDICAID | END 2025-02-03 | LOC: M PT 15:13 | PROVIDERS: ATTEND Orthopaedic Surgery | DX: S82.851A Displaced trimalleolar fracture of right lower leg, initial encounter for closed fracture (principal) ==

== ENCOUNTER 2025-02-14 08:17 | Day surgery (SDC) | payer MEDICARE, MEDICAID ==
[~2025-02-14] VITALS: Ht 177.8 cm; Wt 93.1 kg
[2025-02-14] MEDS ORDERED: GLYCOPYRROLATE INJ 0.2 MG/ML 2 ML VIAL As Ordered ONE (09:25)
[2025-02-14] MEDS ORDERED: LIDOCAINE 2% 100 MG/5 ML SDV (FOR ANES.) As Ordered ONE (09:25)
[2025-02-14 10:01] VITALS: TEMP 97.2
[2025-02-14 10:25] VITALS: BP 119/84; O2SAT 95
== END 2025-02-14 10:33 | disposition home or self-care (01) ==
LOC: M OPP 08:17
PROVIDERS: ATTEND Internal Medicine Gastroenterology
DX: D12.2 Benign neoplasm of ascending colon (principal); K57.30 Diverticulosis of large intestine without perforation or abscess without bleeding; K64.8 Other hemorrhoids; Z86.0100 Personal history of colon polyps, unspecified; G47.30 Sleep apnea, unspecified; Z88.2 Allergy status to sulfonamides; Z88.8 Allergy status to other drugs, medicaments and biological substances; Z79.51 Long term (current) use of inhaled steroids; Z79.85 Long-term (current) use of injectable non-insulin antidiabetic drugs; Z79.899 Other long term (current) drug therapy; R56.9 Unspecified convulsions; J45.909 Unspecified asthma, uncomplicated
CPT/HCPCS: 45385; 88305; J1596; J3010